=== PATIENT | male | born 1950 | race Caucasian/White ===

== ENCOUNTER 2017-07-08 15:47 | Inpatient (IN) | payer MEDICARE ==
--- NOTE | 2017-07-08 16:21 | RAD ---
PORTABLE CHEST ONE VIEW: Date: 07-08-17 Time: 4:05 p.m. History: Palpitations. Difficulty breathing. FINDINGS: Comparison is made with exam of 02-22-16. The heart size is borderline. The lungs are well expanded with bibasilar infiltrates. There is mild p ulmonary vascular congestion. No pneumothoraces or large effusions are seen. Findings are suspicious for pneumonia. POS: [facility]
[2017-07-08 16:24] LABS: #Basophils 0.1 thou/uL (0.0-0.2); #Eosinphils 0.1 thou/uL (0.0-0.7); #Lymphocytes 1.4 thou/uL (1.20-3.40); #Monocytes 0.3 thou/uL (0.11-0.59); #Neutrophils 5.2 thou/uL (1.40-6.50); %Basophils 0.7 % (0.0-1.0); %Lymphocytes 19.3 % (21.0-51.0); %Monocytes 4.8 % (0.0-10.0); %Neutrophils 73.3 % (42.0-75.0); Hemoglobin 8.4 g/dL (14.0-18.0); Mean Corpuscular HGB CONC 33.2 g/dL (32.0-36.0); Mean Corpuscular Hemoglobin 29.2 pg (27.0-31.0); Mean Corpuscular Volume 87.9 fl (80.0-94.0); Mean Platelet Volume 8.3 fL (7.4-10.4); Platelet Count 254 thou/uL (130-400); RBC Distribution Width 13.2 % (11.5-14.5); Red Blood Cell (RBC) Count 2.87 mill/uL (4.70-6.10); White Blood Cell (WBC) Count 7.1 thou/uL (4.8-10.8)
[2017-07-08 16:45] LABS: ALT (SGPT) 13 U/L (8-55); AST (SGOT) 11 U/L (5-34); Alkaline Phosphatase 183 U/L (40-150); Anion Gap 12 mmol/L (10-20); BUN (Urea Nitrogen) 46 mg/dL (8.4-25.7); Bilirubin, Total 0.3 mg/dL (0.2-1.2); CK (CPK) 106 U/L (30-200); Calc. Creatinine Clearance 0 mL/min (70-130); Calcium 8.6 mg/dL (7.8-10.44); Carbon Dioxide 25 mmol/L (23-31); Chloride 103 mmol/L (98-107); Estimated GFR-MDRD 18; Globulin 3.9 g/dL (2.4-3.5); Glucose 336 mg/dL (80-115); Magnesium 1.9 mg/dL (1.6-2.6); Potassium 4.8 mmol/L (3.5-5.1); Protein, Total 6.9 g/dL (5.8-8.1); Sodium 135 mmol/L (136-145)
[2017-07-08 16:49] LABS: Troponin I 0.051 ng/mL (< 0.028)
[2017-07-08] MEDS ORDERED: Labetalol HCl 100 MG/20 ML VIAL ONE (16:56)
[2017-07-08] MEDS ORDERED: Nitroglycerin 2% Ointment 1 INCH/1 GM Packet ONE (16:56)
[2017-07-08] MEDS ORDERED: Azithromycin 500 MG in Sodium Chloride 0.9% 250 ML 250 ML IVPB SCH (17:15)
[2017-07-08] MEDS ORDERED: Acetaminophen 500 MG TAB ONE (19:05)
--- NOTE | 2017-07-08 19:47 | HP ---
PRIMARY CARE PHYSICIAN: Ilya Burris MD CHIEF COMPLAINT: Cough and shortness of breath. HISTORY OF PRESENT ILLNESS: Mr. Ho is a pleasant 66-year-old gentleman who has a history of diabe mitch mellitus and hypertension as well as chronic kidney disease, between stage 4 and 5. He was in hi s usual state of health until about 2 weeks ago when he says he started coughing. He said initially it was like whitish phlegm. There had been a slight amount of green color to it as well and then he says about 4 days ago, he started getting short of breath and then earlier this morning, he says that he woke up in the night short of breath and had to sit up in order to breathe. He says that this ozuna ppened for the last 2 days. He has also noted some shortness of breath when he tries to get up and w alk. He says when he was walking his dog, he noticed that the shortness of breath and he says he has some chest pain or pressure when he tries to walk and when he gets short of breath. He also has had some subjective fever. He says sweating on the top of his head and he had some nausea, but no vomit ing. As a result of his symptoms, he came to the emergency room for evaluation. It was noted that h is blood pressure was extremely elevated with systolics as high as 200s and diastolics in the low 100 s. It has also been noted that he has been out of medications for a few days as well. He had a ches t x-ray done, which showed bilateral infiltrate and he is being admitted for hypertensive urgency as well as congestive heart failure exacerbation and possible pneumonia. REVIEW OF SYSTEMS: Constitutional: There has been subjective fever as well as chills, no night swea ts, no weight loss. HEENT: He denies any headaches, no dizziness, no visual changes, no sore throat , no rhinorrhea or neck pain, no adenopathy. Pulmonary: As the history of present illness. He also denies any hemoptysis. Cardiovascular: He has had PND and orthopnea. Increasing lower extremity e sara and chest pain as previously mentioned. Gastrointestinal: He denies any abdominal pain. He ozuna s had some nausea, but no vomiting. He has noted some hard stools, but no dark stools or black stool s. Genitourinary: No urinary frequency, hematuria, no hesitancy. Neurologic: No focal weakness, n umbness, no seizures. Psychiatric: No symptoms of anxiety or depression. Skin and Integument: No skin changes. No rash. PAST MEDICAL HISTORY: Significant for hypertension; diabetes mellitus; hyperlipidemia; chronic kidne y disease; coronary artery disease, status post stent. He also has a history of hypoglycemia and Bel l's palsy. PAST SURGICAL HISTORY: He has had an appendectomy, nasal septal surgery, and coronary stent placed. ALLERGIES: No known drug allergies. SOCIAL HISTORY: He is a non-smoker, nondrinker. He is , has one child and one grandchild and two great grandchildren. FAMILY HISTORY: Significant for cancer in his mother. Father with diabetes mellitus. MEDICATIONS: Include Humalog and NovoLog, which he takes on a sliding scale basis, lisinopril 20 mg daily, what sounds like atorvastatin. PHYSICAL EXAMINATION: GENERAL: He is alert and oriented. He appears to be in no acute distress. VITAL SIGNS: His blood pressure was 224/110 initially. The most recent repeat was 156/94, heart rat e 82, respiratory rate of 20, temperature is 98.5. HEENT: His pupils are equal, round, and reactive. Extraocular muscles are intact. Sclerae are anic teric. Throat: There is no erythema, no exudate. NECK: No adenopathy, no bruits. LUNGS: He has got bibasilar rales. CARDIOVASCULAR: He has a normal S1, S2. I did not appreciate an S3 or S4. No murmurs, clicks, or r ubs. ABDOMEN: Obese, it is soft, nontender, nondistended. Positive for bowel sounds. There is no reboun d or guarding. EXTREMITIES: No clubbing or cyanosis. He does have 1+ nonpitting edema on his right foot. He has h ad a fifth toe amputation and some foot deformity; however, his dorsalis pedis pulses are palpable bi laterally. NEUROLOGICALLY: The exam is nonfocal. LABORATORY AND X-RAY FINDINGS: EKG is sinus rhythm. Heart rate is 102. There are some nonspecific ST wave changes. White blood cell count 7.1, hemoglobin 8.4, hematocrit is 25.2, platelet count is 2 54. Sodium 135, potassium 4.8, chloride is 103, CO2 is 25, BUN of 46, creatinine 3.41, glucose is 33 6. Natriuretic peptide is 1342. ASSESSMENT AND PLAN: This is a pleasant 66-year-old gentleman who presents with shortness of breath, dyspnea on exertion, PND, orthopnea, elevated proBNP. 1. I suspect that he has new onset congestive heart failure, possibly related to uncontrolled hypert ension, but could also be ischemic in nature as well. He has also had a productive cough, this could be due to fluid overload, but bronchitis or superimposed pneumonia cannot be entirely ruled out. He will be admitted to telemetry. He needs to be diuresed, so will be giving him IV Lasix with careful monitoring of his renal function, get an echocardiogram, resume his GORGE inhibitor as tolerated and c ontrol his blood pressure. 2. For acute on chronic kidney disease, we will consult one of our nephrologists to see him. 3. Possible pneumonia. He will be treated with renal dose Levaquin. 4. Diabetes mellitus, he will be placed on a mild sliding scale only. He says he has had episodes o f severe hypoglycemia and has to be very cautious with insulin use.
[2017-07-08 19:54] LABS: Troponin I 0.055 ng/mL (< 0.028)
[2017-07-08] MEDS ORDERED: Dextrose 5% in Water 1,000 ML IV PRN (20:07)
[2017-07-08] MEDS ORDERED: Labetalol HCl 100 MG/20 ML VIAL SLOW IVP PRN (20:07)
[2017-07-08] MEDS ORDERED: Dextrose 50% Abboject 50 ML SYRINGE SLOW IVP PRN (20:07)
[2017-07-08] MEDS ORDERED: Benzonatate 100 MG CAP PO PRN (20:07)
[2017-07-08] MEDS: Heparin 5,000 UNITS/ML VIAL SC SCH (20:36)
[2017-07-08] MEDS: HumaLOG 300 UNITS/3 ML VIAL SC PRN (20:36)
[2017-07-09 05:18] LABS: #Eosinphils 0.1 thou/uL (0.0-0.7); #Lymphocytes 1.3 thou/uL (1.20-3.40); #Monocytes 0.5 thou/uL (0.11-0.59); #Neutrophils 3.8 thou/uL (1.40-6.50); %Basophils 0.6 % (0.0-1.0); %Eosinophils 2.3 % (0.0-10.0); %Lymphocytes 22.2 % (21.0-51.0); %Monocytes 7.9 % (0.0-10.0); Hemoglobin 7.5 g/dL (14.0-18.0); Mean Corpuscular Hemoglobin 29.4 pg (27.0-31.0); Mean Corpuscular Volume 88.9 fl (80.0-94.0); Mean Platelet Volume 8.7 fL (7.4-10.4); Platelet Count 219 thou/uL (130-400); RBC Distribution Width 13.5 % (11.5-14.5); Red Blood Cell (RBC) Count 2.55 mill/uL (4.70-6.10); White Blood Cell (WBC) Count 5.7 thou/uL (4.8-10.8)
[2017-07-09 05:37] LABS: Anion Gap 10 mmol/L (10-20); BUN (Urea Nitrogen) 50 mg/dL (8.4-25.7); Calc. Creatinine Clearance 25 mL/min (70-130); Calcium 8.2 mg/dL (7.8-10.44); Carbon Dioxide 26 mmol/L (23-31); Chloride 103 mmol/L (98-107); Estimated GFR-MDRD 17; Glucose 351 mg/dL (80-115); Potassium 4.6 mmol/L (3.5-5.1); Sodium 134 mmol/L (136-145)
[2017-07-09] MEDS ORDERED: Furosemide 40 MG/4 ML VIAL SLOW IVP SCH (06:00)
[2017-07-09] MEDS: HumaLOG 300 UNITS/3 ML VIAL SC PRN ×3 (06:03→20:40)
[2017-07-09] MEDS ORDERED: Lisinopril 20 MG TAB PO SCH (09:00)
[2017-07-09] MEDS ORDERED: Prevnar 13-Val Conj/PF 0.5 ML SYRINGE IM ONE (09:00)
[2017-07-09] MEDS ORDERED: FLU VACC TS2017-18 (>65YR) 0.5 ML SYRINGE IM ONE (09:00)
[2017-07-09] MEDS: Heparin 5,000 UNITS/ML VIAL SC SCH ×2 (09:07→20:34)
[2017-07-09] MEDS ORDERED: NIFEdipine XL 30 MG TAB PO SCH (10:30)
[2017-07-09] MEDS ORDERED: Senokot 8.6 MG TAB PO PRN (10:55)
[2017-07-09] MEDS ORDERED: Calcium Carbonate 500 MG ChewTAB PO PRN (10:55)
--- NOTE | 2017-07-09 11:00 | PDOC.PN ---
- Subjective Encounter Start Date: 07/09/17 Encounter Start Time: 09:30 Patient seen and examined. No new complaints. No overnight events. SOB on exertion. Cough - productive - Objective Resuscitation Status: Resuscitation Status FULL:Full Resuscitation MAR Reviewed: Yes Vital Signs & Weight: Vital Signs (12 hours) Temp Pulse Resp BP BP Pulse Ox 07/09/17 10:42 210/94 H 07/09/17 08:22 97.9 F 96 18 183/86 H 95 07/09/17 08:00 97.9 F 96 18 07/09/17 04:00 97.9 F 92 20 178/81 H 98 07/09/17 00:00 97.3 F L 91 20 167/77 H Weight Weight 193 lb I&O: 07/08/17 07/09/17 07/10/17 06:59 06:59 06:59 Intake Total 240 Output Total 500 Balance -260 Result Diagrams: 07/09/17 04:58 07/09/17 04:58 Additional Labs: Accuchecks 07/09/17 07/08/17 05:55 20:16 POC Glucose 313 H 282 H Radiology Reviewed by me: Yes (CXR - Pneumonia/CXR) EKG Reviewed by me: Yes (Tele SR) Phys Exam - Physical Examination Constitutional: NAD HEENT: moist MMs Neck: no JVD Respiratory: no wheezing Scat rales/rhonchi at bases, Symmetrical Cardiovascular: RRR, no rub No heaves/pulsations Gastrointestinal: soft, non-tender, no distention, positive bowel sounds Musculoskeletal: no edema Neurological: non-focal, normal sensation, moves all 4 limbs Psychiatric: normal affect, A&O x 3 Dx/Plan - Plan DVT proph w/heparin, DVT proph w/SCDs IMPRESSION: 1. Suspected new onset CHF 2. LYNDSAY/CKD 3 3. HTN urgency 4. DM2 5. CAD s/p stent 6. Dyslipidemia PLAN: * Await Echo * Change Lasix to daily * Add fluid restriction * Add Heart healthy diet * AM labs * Nephro following * Add Post void residual * Renal USG * Hold ACEI due to LYNDSAY * Add Procardia XL due to uncontrolled BP * Add PRN meds * Cont sliding scale * Cont Levaquin - dose adjusted for renal function Review of Systems - Review of Systems Cardiovascular: negative: chest pain, palpitations, orthopnea, paroxysmal nocturnal dyspnea, edema, light headedness Gastrointestinal: negative: Nausea, Vomiting, Abdominal Pain, Diarrhea, Constipation, Melena, Hematochezia - Medications/Allergies Allergies/Adverse Reactions: Allergies Allergy/AdvReac Type Severity Reaction Status Date / Time No Known Allergies Allergy Verified 01/07/15 17:09 Medications: Current Medications Acetaminophen (Tylenol) 650 mg PO Q4H PRN PRN Reason: Headache/Fever or Pain Albuterol/Ipratropium (Duoneb) 3 ml NEB [id number] [facility] Albuterol/Ipratropium (Duoneb) 3 ml NEB [id number] PRN PRN Reason: SOB &/or Wheezing Benzonatate (Tessalon) 100 mg PO Q4H PRN PRN Reason: Cough Calcium Carbonate (Tums) 1,000 mg PO Q4H PRN PRN Reason: Heartburn or Indigestion Dextrose/Water (Dextrose 50%) 25 gm SLOW IVP PRN PRN PRN Reason: Hypoglycemia Docusate Sodium (Colace) 100 mg PO BID [facility] Famotidine (Pepcid) 20 mg PO BID [facility] Furosemide (Lasix) 40 mg SLOW IVP DAILY [facility] Glucagon (Glucagon) 1 mg IM PRN PRN PRN Reason: Hypoglycemia Heparin Sodium (Porcine) (Heparin) 5,000 units SC BID [facility] Last Admin: 07/09/17 09:07 Dose: 5,000 units Dextrose/Water (D5w) 1,000 mls @ 0 mls/hr IV .Q0M PRN; As Directed PRN Reason: Hypoglycemia Levofloxacin 250 mg/ Device 50 mls @ 100 mls/hr IVPB Q24HR [facility] Last Admin: 07/09/17 09:26 Dose: 50 mls Insulin Human Lispro (Humalog) 0 units SC .MILD SLIDING SCALE PRN PRN Reason: Mild Correctional Scale Last Admin: 07/09/17 06:03 Dose: 5 unit Insulin Human Lispro (Humalog) 0 units SC .BEDTIME SLIDING SC PRN PRN Reason: Bedtime Correctional Scale Last Admin: 07/08/17 20:36 Dose: 3 unit Labetalol HCl (Normodyne) 10 mg SLOW IVP Q4H PRN PRN Reason: SBP Greater Than 180 Miscellaneous Medication (Pharmacy To Dose) 1 each IVPB ASDIR [facility] Nifedipine (Procardia Xl) 30 mg PO NOW [facility] Stop: 07/09/17 12:00 Last Admin: 07/09/17 10:42 Dose: 30 mg Nifedipine (Procardia Xl) 30 mg PO DAILY [facility] Senna (Senokot) 2 tab PO HSPRN PRN PRN Reason: Constipation
--- NOTE | 2017-07-09 12:24 | ULT ---
ULTRASOUND BILATERAL RENAL STANDARD: HISTORY: Acute kidney injury. COMPARISON: None. FINDINGS: The left kidney measures 11.6 x 6.1 x 6.1 cm without mass, hydronephrosis, or abnormal calcifications . The right kidney measures 11.8 x 5.1 x 6.5 cm with an exophytic 3 cm simple cyst. Prevoid urinary bladder volume is 109 mL. Both ureteral jets are seen. IMPRESSION: 1. Right exophytic simple cyst. 2. No evidence of obstructive uropathy. POS: [facility]
--- NOTE | 2017-07-09 17:19 | CON ---
DATE OF CONSULTATION: 07/09/2017 REASON FOR CONSULTATION: Elevated creatinine. HISTORY OF PRESENT ILLNESS: This is a very pleasant 66-year-old gentleman who presented to the [facility] yesterday evening for cough and shortness of breath. The patient had baseline CKD and a creatini ne of 2.15 in 06/2016, which had increased to 3.4. The patient's creatinine did not improve with hyd ration. The patient has no fever, chills, neck swelling, or leg swelling. The patient also denies t aking any nephrotoxic medication. PAST MEDICAL HISTORY: Hypertension, diabetes mellitus, chronic kidney disease, coronary artery disea se, acute renal failure, history of hypoglycemia, history of Earl's palsy, history of appendectomy, n stephany surgery, coronary artery stent. ALLERGIES: Reviewed. SOCIAL HISTORY: No alcohol or drug use. FAMILY HISTORY: Negative for ESRD. HOME MEDICATIONS: Reviewed. HOSPITAL MEDICATIONS: Reviewed. ALLERGIES: Reviewed. REVIEW OF SYSTEMS: A 12-point review of systems was performed and was negative except for positives noted above. GENERAL: Weakness- HEAD: Headache- NECK: No swelling or lumps. NOSE: No epistaxis or discharge. EYES: No diplopia or pain. RESPIRATORY: Dyspnea- CARDIOVASCULAR: Chest pain- GASTROINTESTINAL: Nausea- /[employer]: Hematuria- MUSCULOSKELETAL: No joint pain. NEUROPSYCHIATIC SYSTEMS: No suicidal ideation. No ideation. SKIN: Denies any rash or ulcer. CONSTITUTIONAL: No fever or chills. PHYSICAL EXAMINATION: GENERAL: The patient is awake, alert. VITAL SIGNS: Afebrile, pulse 94, respirations 16, blood pressure 166/77. GENERAL APPEARANCE AND MENTAL STATUS: Fair. HEAD/NECK: Normocephalic. Atraumatic. EYES: EOMI. No deformity. EARS: Clear. No ulcers. NOSE: Intact. No lesions. MOUTH: Clear. No discharge. THROAT: Clear. No exudate. LUNGS: Clear. No crackles. CARDIAC: S1, S2. No rub. ABDOMEN: Benign. BS+. GENITALIA/RECTUM: Barrera absent. BACK/EXTREMITIES: Edema 0+ Ulcer- NEUROLOGICAL: Alert and motor intact. SKIN: Rash- Bruise- LYMPHATICS: Edema- Ulcer-. LABORATORY DATA: Creatinine 3.57. Renal ultrasound done this morning shows no obstructive uropathy. ASSESSMENT AND RECOMMENDATIONS: 1. Acute kidney injury with chronic kidney disease, most likely because of progressive diabetic neph ropathy and hypertensive nephropathy. No indication for dialysis. Agree with gentle hydration. 2. Anemia, stable. 3. Hypertension. Titrate home blood pressure medications. No indication for dialysis at this time. We would recommend increasing the nifedipine to 60 mg daily.
[2017-07-09] MEDS: Famotidine 20 MG TAB PO SCH (20:33)
[2017-07-09] MEDS: guaiFENesin ER 600 MG TAB PO SCH (20:33)
[2017-07-09] MEDS: Docusate 100 MG CAP PO SCH (20:34)
[2017-07-10] MEDS: Acetaminophen 325 MG TAB PO PRN ×2 (03:18→20:54)
[2017-07-10] MEDS ORDERED: Acetaminophen/Codeine 30-300mg Tablet PO SCH (04:45)
[2017-07-10 05:11] LABS: #Basophils 0.1 thou/uL (0.0-0.2); #Eosinphils 0.1 thou/uL (0.0-0.7); #Lymphocytes 0.9 thou/uL (1.20-3.40); #Monocytes 0.6 thou/uL (0.11-0.59); #Neutrophils 6.9 thou/uL (1.40-6.50); %Basophils 0.7 % (0.0-1.0); %Eosinophils 0.7 % (0.0-10.0); %Lymphocytes 10.3 % (21.0-51.0); %Monocytes 6.7 % (0.0-10.0); %Neutrophils 81.6 % (42.0-75.0); Hemoglobin 7.4 g/dL (14.0-18.0); Mean Corpuscular HGB CONC 33.2 g/dL (32.0-36.0); Mean Corpuscular Hemoglobin 29.2 pg (27.0-31.0); Mean Corpuscular Volume 88.1 fl (80.0-94.0); Mean Platelet Volume 8.5 fL (7.4-10.4); Platelet Count 218 thou/uL (130-400); RBC Distribution Width 13.4 % (11.5-14.5); Red Blood Cell (RBC) Count 2.51 mill/uL (4.70-6.10); White Blood Cell (WBC) Count 8.5 thou/uL (4.8-10.8)
[2017-07-10 05:40] LABS: ALT (SGPT) 10 U/L (8-55); AST (SGOT) 10 U/L (5-34); Albumin 2.8 g/dL (3.4-4.8); Alkaline Phosphatase 137 U/L (40-150); Anion Gap 11 mmol/L (10-20); BUN (Urea Nitrogen) 47 mg/dL (8.4-25.7); Bilirubin, Total 0.3 mg/dL (0.2-1.2); Calc. Creatinine Clearance 25 mL/min (70-130); Calcium 8.1 mg/dL (7.8-10.44); Carbon Dioxide 24 mmol/L (23-31); Chloride 103 mmol/L (98-107); Estimated GFR-MDRD 17; Globulin 3.5 g/dL (2.4-3.5); Glucose 219 mg/dL (80-115); Magnesium 1.8 mg/dL (1.6-2.6); Potassium 4.3 mmol/L (3.5-5.1); Protein, Total 6.3 g/dL (5.8-8.1); Sodium 134 mmol/L (136-145)
[2017-07-10] MEDS ORDERED: Dextrose 50% Abboject 50 ML SYRINGE SLOW IVP PRN (08:55)
[2017-07-10] MEDS ORDERED: Dextrose 5% in Water 1,000 ML IV PRN (08:55)
[2017-07-10] MEDS ORDERED: NIFEdipine XL 30 MG TAB PO SCH (09:00)
[2017-07-10] MEDS: Docusate 100 MG CAP PO SCH ×2 (09:02→20:55)
[2017-07-10] MEDS: guaiFENesin ER 600 MG TAB PO SCH ×2 (09:02→20:55)
[2017-07-10] MEDS: Furosemide 40 MG/4 ML VIAL SLOW IVP SCH (09:02)
[2017-07-10] MEDS: Metoprolol Tartrate 25 MG TAB PO SCH ×2 (09:11→20:54)
[2017-07-10] MEDS: Heparin 5,000 UNITS/ML VIAL SC SCH ×2 (09:11→20:54)
[2017-07-10 09:19] LABS: Hemoglobin A1c 7.1 % (4.0-6.0)
--- NOTE | 2017-07-10 10:29 | PRG ---
DATE OF SERVICE: 07/10/2017 SUBJECTIVE: This is a 66-year-old gentleman being seen for acute kidney injury. The patient denies any nausea, vomiting, or chest pain. PHYSICAL EXAMINATION: GENERAL: Patient is awake, alert. VITAL SIGNS: Afebrile, pulse 73, breathing at 16, blood pressure 154/71. GENERAL APPEARANCE AND MENTAL STATUS: Fair. HEAD/NECK: Normocephalic. Atraumatic. EYES: EOMI. No deformity. EARS: Clear. No ulcers. NOSE: Intact. No lesions. MOUTH: Clear. No discharge. THROAT: Clear. No exudate. LUNGS: Clear. No crackles. CARDIAC: S1, S2. No rub. ABDOMEN: Benign. BS+. GENITALIA/RECTUM: Barrera absent. BACK/EXTREMITIES: Edema 0+ Ulcer-. NEUROLOGICAL: Alert and motor intact. SKIN: Rash- Bruise- LYMPHATICS: Edema- Ulcer-. LABORATORY DATA: Show hemoglobin 7.4, creatinine 3.67. ASSESSMENT AND RECOMMENDATIONS: 1. Acute kidney injury with chronic kidney disease, most likely due to progressive diabetic and hype rtensive disease. Renal function appears to have plateaued. Other causes could be acute tubular nec rosis associated with underlying pneumonia. 2. Hypertension. I would recommend increasing nifedipine to 60 mg daily. 3. Medication based on GFR are appropriate, no urgent indication for dialysis at this time.
[2017-07-10 11:28] LABS: Creatinine, Urine 84.67 mg/dL (63-166)
[2017-07-10] MEDS: HumaLOG 300 UNITS/3 ML VIAL SC PRN (13:58)
[2017-07-10] MEDS: Insulin Detemir 100 UNITS/ML 10 UNITS in Pre-Filled Syringe 1 EACH SC SCH (13:58)
[2017-07-10] MEDS: Ondansetron HCl/PF 4 MG/2 ML Vial IVP PRN ×2 (13:58→20:51)
--- NOTE | 2017-07-10 16:40 | PDOC.PN ---
- Subjective Encounter Start Date: 07/10/17 Encounter Start Time: 13:30 Subjective: pt up in bed complains of nausea - Objective Resuscitation Status: Resuscitation Status FULL:Full Resuscitation Vital Signs & Weight: Vital Signs (12 hours) Temp Pulse Pulse Pulse Resp BP BP 07/10/17 16:00 98.4 F 84 14 07/10/17 12:00 97.7 F 79 14 07/10/17 11:02 72 80 132/63 07/10/17 08:59 102 H 177/80 H 07/10/17 08:00 98.5 F 102 H 14 07/10/17 06:58 91 18 07/10/17 04:41 BP BP Pulse Ox Pulse Ox Pulse Ox 07/10/17 16:00 170/89 H 96 07/10/17 12:00 171/84 H 98 07/10/17 11:02 162/80 H 97 95 07/10/17 08:59 07/10/17 08:00 177/80 H 94 L 07/10/17 06:58 95 07/10/17 04:41 154/71 H Weight Weight 193 lb 3.2 oz I&O: 07/09/17 07/10/17 07/11/17 06:59 06:59 06:59 Intake Total 240 1784 Output Total 500 1705 Balance -260 79 Result Diagrams: 07/10/17 04:56 07/10/17 04:56 Additional Labs: Accuchecks 07/10/17 07/10/17 07/09/17 11:30 05:30 20:06 POC Glucose 290 H 215 H 265 H 07/09/17 16:37 POC Glucose 235 H Phys Exam - Physical Examination HEENT: PERRLA Neck: no nodes Respiratory: wheezing present Cardiovascular: RRR, no significant murmur Gastrointestinal: soft, non-tender Musculoskeletal: no edema, pulses present Neurological: non-focal, normal sensation Dx/Plan (1) Acute kidney failure Status: Acute Plan: pt's creatinine continues to increase, renal ultrasound negative, nephrology to follow Comment: improving (2) Hypertension Code(s): I10 - ESSENTIAL (PRIMARY) HYPERTENSION Status: Chronic Plan: pt on procardia will add metoprolol for better bp control. his lisinopril has been discontinue due to elevated creatinine. (3) Pneumonia Code(s): J18.9 - PNEUMONIA, UNSPECIFIED ORGANISM Status: Acute Plan: will continue current abx levaquin for now. will order sputum cx - Plan * .
[2017-07-10] MEDS: Famotidine 20 MG TAB PO SCH (20:55)
[2017-07-10] MEDS: Atorvastatin Calcium 20 MG TAB PO SCH (20:55)
[2017-07-10] MEDS ORDERED: Non-Formulary Item 1 EACH (Atorvastatin Calcium [Atorvastatin Calcium] 20 MG) PO SCH (21:00)
[2017-07-11] MEDS: Ondansetron HCl/PF 4 MG/2 ML Vial IVP PRN (04:22)
[2017-07-11] MEDS: Heparin 5,000 UNITS/ML VIAL SC SCH ×2 (09:13→20:32)
[2017-07-11] MEDS: NIFEdipine XL 60 MG TAB PO SCH (09:13)
[2017-07-11] MEDS: Docusate 100 MG CAP PO SCH ×2 (09:13→20:31)
[2017-07-11] MEDS: guaiFENesin ER 600 MG TAB PO SCH ×2 (09:13→20:32)
[2017-07-11] MEDS: Furosemide 40 MG/4 ML VIAL SLOW IVP SCH (09:14)
[2017-07-11] MEDS: Insulin Detemir 100 UNITS/ML 10 UNITS in Pre-Filled Syringe 1 EACH SC SCH (09:14)
[2017-07-11] MEDS: Metoprolol Tartrate 25 MG TAB PO SCH ×2 (09:15→20:32)
[2017-07-11] MEDS ORDERED: Promethazine HCl 25 MG/ML VIAL IM/IV PRN (09:37)
[2017-07-11 09:43] LABS: Anion Gap 17 mmol/L (10-20); BUN (Urea Nitrogen) 49 mg/dL (8.4-25.7); Calc. Creatinine Clearance 22 mL/min (70-130); Calcium 8.7 mg/dL (7.8-10.44); Carbon Dioxide 21 mmol/L (23-31); Chloride 101 mmol/L (98-107); Estimated GFR-MDRD 15; Glucose 176 mg/dL (80-115); Potassium 5.2 mmol/L (3.5-5.1); Sodium 134 mmol/L (136-145)
[2017-07-11 10:28] LABS: ALT (SGPT) 13 U/L (8-55); AST (SGOT) 12 U/L (5-34); Albumin 3.1 g/dL (3.4-4.8); Alkaline Phosphatase 134 U/L (40-150); Anion Gap 14 mmol/L (10-20); BUN (Urea Nitrogen) 49 mg/dL (8.4-25.7); Bilirubin, Total 0.3 mg/dL (0.2-1.2); Calc. Creatinine Clearance 22 mL/min (70-130); Calcium 8.8 mg/dL (7.8-10.44); Carbon Dioxide 24 mmol/L (23-31); Chloride 100 mmol/L (98-107); Estimated GFR-MDRD 14; Globulin 3.8 g/dL (2.4-3.5); Glucose 191 mg/dL (80-115); Lipase 5 U/L (8-78); Potassium 4.9 mmol/L (3.5-5.1); Protein, Total 6.9 g/dL (5.8-8.1); Sodium 133 mmol/L (136-145)
[2017-07-11 10:37] LABS: Hemoglobin 7.8 g/dL (14.0-18.0); Mean Corpuscular HGB CONC 32.6 g/dL (32.0-36.0); Mean Corpuscular Volume 88.9 fl (80.0-94.0); Mean Platelet Volume 8.6 fL (7.4-10.4); Platelet Count 274 thou/uL (130-400); RBC Distribution Width 13.4 % (11.5-14.5); Red Blood Cell (RBC) Count 2.67 mill/uL (4.70-6.10); White Blood Cell (WBC) Count 6.5 thou/uL (4.8-10.8)
[2017-07-11 10:39] LABS: Band 2 % (5-11); Lymphocytes 12 % (21-51); MDiff Complete? YES; Monocytes 2 % (0-10); Neutrophil 84 % (42-75); Polychromasia SLIGHT = 2-3 cells (100X) (0-2/hpf)
--- NOTE | 2017-07-11 13:49 | PQF ---
CLINICAL DOCUMENTATION IMPROVEMENT CLARIFICATION FORM: ICD-10 Updated PLEASE DO AN ADDENDUM TO THE PROGRESS NOTE WITH ANY DOCUMENTATION UPDATES OR ADDITIONS AND CARRY THROUGH TO DC SUMMARY. THANK YOU. DATE: 07/11/17 ATTN: Dr. Blanca Please exercise your independent, professional judgment in responding to the clarification form. Clinical indicators are provided on the bottom of this form for your review Please check appropriate box(s): HEART FAILURE: A. TYPE: [ ] Systolic / HFrEF [ ] Diastolic / HFpEF [ ] Combined Systolic / Diastolic B. ACUITY [ ] Acute [ ] Acute on Chronic [ ] Chronic [ ] Other diagnosis [ ] Unable to determine In addition, please specify: Present on Admission (POA): [ ] Yes [ ] No [ ] Unable to determine For continuity of documentation, please document condition throughout progress notes and discharge summary. Thank You. CLINICAL INDICATORS - SIGNS / SYMPTOMS / LABS H&P: CHEST XRAY SHOWED BILATERAL INFILTRATE NATRIURETIC PEPTIDE IS 1342 ECHO 07/09: EF CALCULATED 52.8% PN 07/09: SUSPECTED NEW ONSET CHF. RISKS: H&P: HE HAS BEEN OUT OF MEDICATIONS FOR A FEW DAYS. HX SIGNIFICANT FOR HYPERTENSION, DM, CKD, CAD. TREATMENTS: CPOE 07/08: LASIX 40 MG IV 0600, 1400. DC'D 07/09. CPOE 07/09: LASIX 40 MG IV DAILY Thank you, Alla (This form is maintained as a part of the permanent medical record) 2015 [email or web address]. All Rights Reserved Alla Trent RN, BSN [email or web address] Office: [phone] [facility]
--- NOTE | 2017-07-11 16:47 | PDOC.PN ---
- Subjective Encounter Start Date: 07/11/17 Encounter Start Time: 10:45 Subjective: pt up in bed awake but is having intermittent confusion - Objective Resuscitation Status: Resuscitation Status FULL:Full Resuscitation Vital Signs & Weight: Vital Signs (12 hours) Temp Pulse Resp BP BP Pulse Ox 07/11/17 13:41 80 16 07/11/17 13:11 97.6 F 75 17 130/61 95 07/11/17 11:47 98.4 F 96 18 96 07/11/17 09:13 91 165/77 H 07/11/17 08:00 98 F 91 18 165/77 H 97 07/11/17 07:30 100 16 Weight Weight 192 lb I&O: 07/10/17 07/11/17 07/12/17 06:59 06:59 06:59 Intake Total 1784 870 Output Total 1705 650 Balance 79 220 Result Diagrams: 07/11/17 09:53 07/11/17 09:53 Additional Labs: Accuchecks 07/11/17 07/11/17 07/10/17 11:29 05:51 16:34 POC Glucose 246 H 184 H 174 H Phys Exam - Physical Examination HEENT: PERRLA Neck: no nodes Respiratory: no wheezing, no rales Cardiovascular: RRR, no significant murmur Gastrointestinal: soft, no distention (mild tenderness to RUQ) Musculoskeletal: edema present (to bilateral lower ext) Dx/Plan (1) Acute kidney failure Status: Acute Plan: worsening, lasix discontinued yestarday, will monitor (2) Hypertension Code(s): I10 - ESSENTIAL (PRIMARY) HYPERTENSION Status: Chronic Plan: variable will continue current meds (3) Pneumonia Code(s): J18.9 - PNEUMONIA, UNSPECIFIED ORGANISM Status: Acute Qualifiers: Laterality: bilateral Plan: will continue levaquin for now. influenza negative (4) Diabetes mellitus type 2 in nonobese Code(s): E11.9 - TYPE 2 DIABETES MELLITUS WITHOUT COMPLICATIONS Status: Chronic Plan: will continue current tx (5) Nausea Code(s): R11.0 - NAUSEA Status: Acute Plan: lipase normal, possible due to uremia? pt was given phenegran became confused. will hold off on this med. 1653 pt more awake no more nausea. lfts normal. continue to monitor. - Plan * .
[2017-07-11] MEDS ORDERED: Epoetin (ESRD) 10,000 UNITS/ML VIAL SC SCH (17:00)
--- NOTE | 2017-07-11 17:21 | PRG ---
DATE OF SERVICE: 07/11/2017 SUBJECTIVE: This is a 66-year-old gentleman being seen for acute kidney injury. The patient denies any nausea, vomiting, or chest pain. PHYSICAL EXAMINATION: GENERAL: The patient is awake and alert. VITAL SIGNS: Afebrile, pulse 75, breathing 16, blood pressure 130/61. GENERAL APPEARANCE AND MENTAL STATUS: Fair. HEAD/NECK: Normocephalic. Atraumatic. EYES: EOMI. No deformity. EARS: Clear. No ulcers. NOSE: Intact. No lesions. MOUTH: Clear. No discharge. THROAT: Clear. No exudate. LUNGS: Clear. No crackles. CARDIAC: S1, S2. No rub. ABDOMEN: Benign. BS+. GENITALIA/RECTUM: Barrera absent. BACK/EXTREMITIES: Edema 0+ Ulcer- NEUROLOGICAL: Alert and motor intact. SKIN: Rash- Bruise- LYMPHATICS: Edema- Ulcer- LABORATORY DATA: Hemoglobin 7.8, creatinine 4.15. ASSESSMENT AND PLAN: 1. Acute kidney injury with chronic kidney disease, most likely due to progressive diabetic nephropa thy, as well as hypertensive nephrosclerosis. No indication for dialysis. 2. Hyperkalemia, improved. 3. Anemia, stable. No urgent indication for dialysis. We will stop Lasix and follow renal function in the morning.
[2017-07-11] MEDS: Atorvastatin Calcium 20 MG TAB PO SCH (20:31)
[2017-07-11] MEDS: HumaLOG 300 UNITS/3 ML VIAL SC PRN (20:32)
[2017-07-11] MEDS: Famotidine 20 MG TAB PO SCH (20:32)
[2017-07-12] MEDS ORDERED: hydrALAZINE 25 MG TAB PO SCH (09:00)
[2017-07-12] MEDS: Docusate 100 MG CAP PO SCH ×2 (09:06→20:18)
[2017-07-12] MEDS: Metoprolol Tartrate 25 MG TAB PO SCH ×2 (09:06→20:18)
[2017-07-12] MEDS: guaiFENesin ER 600 MG TAB PO SCH ×2 (09:06→20:18)
[2017-07-12] MEDS: NIFEdipine XL 60 MG TAB PO SCH (09:06)
[2017-07-12] MEDS: Heparin 5,000 UNITS/ML VIAL SC SCH ×2 (09:07→20:19)
[2017-07-12] MEDS: Insulin Detemir 100 UNITS/ML 10 UNITS in Pre-Filled Syringe 1 EACH SC SCH (09:07)
[2017-07-12 09:11] LABS: Hemoglobin 7.7 g/dL (14.0-18.0); Mean Corpuscular HGB CONC 34.3 g/dL (32.0-36.0); Mean Corpuscular Hemoglobin 30.2 pg (27.0-31.0); Mean Platelet Volume 8.8 fL (7.4-10.4); Platelet Count 275 thou/uL (130-400); RBC Distribution Width 13.6 % (11.5-14.5); Red Blood Cell (RBC) Count 2.55 mill/uL (4.70-6.10); White Blood Cell (WBC) Count 7.1 thou/uL (4.8-10.8)
[2017-07-12 09:14] LABS: Anion Gap 16 mmol/L (10-20); BUN (Urea Nitrogen) 58 mg/dL (8.4-25.7); Calc. Creatinine Clearance 19 mL/min (70-130); Calcium 8.6 mg/dL (7.8-10.44); Carbon Dioxide 20 mmol/L (23-31); Chloride 101 mmol/L (98-107); Estimated GFR-MDRD 13; Glucose 113 mg/dL (80-115); Potassium 4.8 mmol/L (3.5-5.1); Sodium 132 mmol/L (136-145)
[2017-07-12] MEDS: Acetaminophen 325 MG TAB PO PRN (09:22)
--- NOTE | 2017-07-12 09:47 | PRG ---
DATE OF SERVICE: 07/12/2017 SUBJECTIVE: This is a 66-year-old gentleman being seen for chronic kidney disease. The patient delonte es any nausea, vomiting or chest pain. PHYSICAL EXAMINATION: GENERAL: Patient is awake, alert. VITAL SIGNS: Afebrile, pulse 76, breathing at 16, blood pressure 116/89. GENERAL APPEARANCE AND MENTAL STATUS: Fair. HEAD/NECK: Normocephalic, atraumatic. EYES: EOMI. No deformity. EARS: Clear. No ulcers. NOSE: Intact. No lesions. MOUTH: Clear. No discharge. THROAT: Clear. No exudate. LUNGS: Clear. No crackles. CARDIAC: S1, S2. No rub. ABDOMEN: Benign. BS+. GENITALIA/RECTUM: Barrera absent. BACK/EXTREMITIES: Edema 0+ Ulcer-. NEUROLOGICAL: Alert and motor intact. SKIN: Rash- Bruise- LYMPHATICS: Edema- Ulcer-. LABORATORY DATA: Show hemoglobin 7.7, creatinine is 4.6. ASSESSMENT AND RECOMMENDATIONS: 1. Acute kidney injury with chronic kidney disease, is progressive, most likely diabetic disease exa cerbated by cardiorenal syndrome. No urgent indication for dialysis. We will follow renal function closely. 2. Hypertension, stable. Increase the Procardia to 90 and hydralazine to 25 t.i.d. 3. Anemia, stable. 4. Medications based on glomerular as appropriate.
[2017-07-12] MEDS ORDERED: Sodium Chloride 0.9% 500 ML IV SCH (11:45)
--- NOTE | 2017-07-12 12:06 | PDOC.PN ---
- Subjective Encounter Start Date: 07/12/17 Encounter Start Time: 11:30 Subjective: pt up in bed appears drowsy since he did not sleep last night - Objective Resuscitation Status: Resuscitation Status FULL:Full Resuscitation Vital Signs & Weight: Vital Signs (12 hours) Temp Pulse Resp BP BP BP Pulse Ox 07/12/17 09:19 76 169/89 H 07/12/17 09:06 76 169/89 H 07/12/17 08:00 76 16 91 L 07/12/17 07:44 97.6 F 78 18 169/89 H 94 L 07/12/17 04:00 97.2 F L 86 18 168/80 H 95 07/12/17 01:33 87 16 94 L Weight Weight 193 lb 1.6 oz I&O: 07/11/17 07/12/17 07/13/17 06:59 06:59 06:59 Intake Total 870 120 Output Total 650 525 Balance 220 -405 Result Diagrams: 07/12/17 08:39 07/12/17 08:39 Additional Labs: Accuchecks 07/12/17 07/12/17 07/11/17 11:16 06:04 20:05 POC Glucose 163 H 134 H 257 H 07/11/17 16:48 POC Glucose 193 H Phys Exam - Physical Examination HEENT: PERRLA Neck: no nodes Respiratory: no wheezing, no rales Cardiovascular: RRR, no significant murmur Gastrointestinal: soft, no distention (mild tenderness to lower abdomen area) Skin: no rash Dx/Plan (1) Acute kidney failure Status: Acute Plan: pt's creatinine continues to increase. spoke with nephrology about pt's worsening creatinine. Also pt was nauseated yesterday with emesis ? mild dehydration with his fluid restriction. will give pt 500ml of NS to see if this could be causing worsening of his kidneys. (2) Hypertension Code(s): I10 - ESSENTIAL (PRIMARY) HYPERTENSION Status: Chronic Plan: will add hydralizine and increase procardia. Discussed with nephrology. (3) Pneumonia Code(s): J18.9 - PNEUMONIA, UNSPECIFIED ORGANISM Status: Acute Qualifiers: Laterality: bilateral Plan: continue current tx, will get repeat cxr (4) Diabetes mellitus type 2 in nonobese Code(s): E11.9 - TYPE 2 DIABETES MELLITUS WITHOUT COMPLICATIONS Status: Chronic Plan: continue current medication (5) Nausea Code(s): R11.0 - NAUSEA Status: Acute Plan: lipase normal, improved - Plan * .
[2017-07-12] MEDS: hydrALAZINE 25 MG TAB PO SCH ×2 (15:12→20:18)
[2017-07-12] MEDS: Atorvastatin Calcium 20 MG TAB PO SCH (20:18)
[2017-07-12] MEDS: Famotidine 20 MG TAB PO SCH (20:18)
[2017-07-12] MEDS ORDERED: Tamsulosin HCl 0.4 MG CAP PO SCH (23:30)
[2017-07-13 05:40] LABS: Anion Gap 16 mmol/L (10-20); BUN (Urea Nitrogen) 57 mg/dL (8.4-25.7); Calc. Creatinine Clearance 18 mL/min (70-130); Calcium 8.2 mg/dL (7.8-10.44); Carbon Dioxide 20 mmol/L (23-31); Chloride 99 mmol/L (98-107); Estimated GFR-MDRD 12; Glucose 115 mg/dL (80-115); Potassium 4.5 mmol/L (3.5-5.1); Sodium 130 mmol/L (136-145)
--- NOTE | 2017-07-13 10:00 | RAD ---
CHEST 2 VIEWS: HISTORY: Dyspnea. COMPARISON: 07/08/17. FINDINGS: Cardiac silhouette is unremarkable. Pulmonary vasculature is upper limits of normal. Infiltrate at the right posterior lung base is best demonstrated on the lateral view, obscuring the posterior costo phrenic angle. A small amount of bilateral pleural fluid is suspected. Mediastinum remains midline. Azygous fissure is apparent. unemployment benefits claims taker leads overlie the chest. IMPRESSION: Right posterior basilar infiltrate. Small bilateral pleural effusions. Continued close radiographic followup is suggested after medial treatment. POS: HUYENH
--- NOTE | 2017-07-13 10:19 | PRG ---
DATE OF SERVICE: 07/13/2017 SUBJECTIVE: This is a 66-year-old gentleman being seen for acute kidney injury. The patient denies any nausea, vomiting or chest pain. PHYSICAL EXAMINATION: GENERAL: Patient is awake, alert. VITAL SIGNS: Afebrile, pulse 68, breathing 16, blood pressure 140/72. HEAD/NECK: Normocephalic. Atraumatic. EYES: EOMI. No deformity. EARS: Clear. No ulcers. NOSE: Intact. No lesions. MOUTH: Clear. No discharge. THROAT: Clear. No exudate. LUNGS: Clear. No crackles. CARDIAC: S1, S2. No rub. ABDOMEN: Benign. BS+. GENITALIA/RECTUM: Barrera absent. BACK/EXTREMITIES: Edema 0+ Ulcer- NEUROLOGICAL: Alert and motor intact. SKIN: Rash- Bruise- LYMPHATICS: Edema- Ulcer- LABORATORY DATA: Show hemoglobin is 7.7, creatinine is 4.8. ASSESSMENT AND RECOMMENDATIONS: 1. Acute kidney injury with chronic kidney disease, stage 5, most likely because of progressive hype rtensive and diabetic nephrosclerosis in the setting of possible acute tubular necrosis caused by acu te infectious process. No indication for dialysis. We will follow the patient's renal function. 2. Coronary artery disease. 3. Hypertension, stable. 4. Anemia, stable. 5. Medications based on glomerular filtration rate are appropriate.
[2017-07-13] MEDS: NIFEdipine XL 90 MG TAB PO SCH (11:24)
[2017-07-13] MEDS: Metoprolol Tartrate 25 MG TAB PO SCH ×2 (11:25→20:30)
[2017-07-13] MEDS: guaiFENesin ER 600 MG TAB PO SCH ×2 (11:25→20:36)
[2017-07-13] MEDS: Docusate 100 MG CAP PO SCH ×2 (11:25→20:30)
[2017-07-13] MEDS: hydrALAZINE 25 MG TAB PO SCH ×3 (11:26→20:30)
[2017-07-13] MEDS: Heparin 5,000 UNITS/ML VIAL SC SCH ×2 (11:26→20:30)
[2017-07-13] MEDS: Insulin Detemir 100 UNITS/ML 10 UNITS in Pre-Filled Syringe 1 EACH SC SCH (11:28)
[2017-07-13] MEDS: HumaLOG 300 UNITS/3 ML VIAL SC PRN ×2 (11:34→19:07)
[2017-07-13] MEDS ORDERED: diphenhydrAMINE 25 MG CAP PO PRN (16:55)
[2017-07-13] MEDS ORDERED: Naloxone HCl 0.4 mg/ml Vial IV PRN (16:55)
[2017-07-13] MEDS ORDERED: Morphine CADD 1 MG/ML CADD IVPB PRN (16:55)
[2017-07-13] MEDS ORDERED: diphenhydrAMINE 50 MG/ML VIAL IM PRN (16:55)
[2017-07-13] MEDS ORDERED: Ondansetron HCl/PF 4 MG/2 ML Vial IVP PRN (16:55)
[2017-07-13] MEDS ORDERED: Promethazine HCl 25 MG/ML VIAL IM PRN (16:55)
[2017-07-13] MEDS ORDERED: diphenhydrAMINE 50 MG/ML VIAL IVP PRN (16:55)
[2017-07-13] MEDS ORDERED: Communication Order-Pharmacy FS SCH (17:00)
--- NOTE | 2017-07-13 17:02 | PDOC.PN ---
- Subjective Encounter Start Date: 07/13/17 Encounter Start Time: 10:00 Subjective: pt up in bed no complains - Objective Resuscitation Status: Resuscitation Status FULL:Full Resuscitation Vital Signs & Weight: Vital Signs (12 hours) Temp Pulse Pulse Pulse Resp BP BP 07/13/17 16:38 24 H 07/13/17 14:10 56 L 16 07/13/17 11:36 80 07/13/17 11:14 79 73 153/67 H 148/80 H 07/13/17 08:53 07/13/17 08:51 68 16 07/13/17 08:00 98.7 F 71 20 BP BP Pulse Ox Pulse Ox Pulse Ox 07/13/17 16:38 98/57 L 07/13/17 14:10 07/13/17 11:36 153/67 H 91 L 07/13/17 11:14 99 93 L 07/13/17 08:53 92 L 07/13/17 08:51 07/13/17 08:00 145/70 H Weight Weight 191 lb 3.2 oz I&O: 07/12/17 07/13/17 07/14/17 06:59 06:59 06:59 Intake Total 120 1700 Output Total 525 2400 300 Balance -405 -700 -300 Result Diagrams: 07/12/17 08:39 07/13/17 04:55 Additional Labs: Accuchecks 07/13/17 07/13/17 07/12/17 10:51 05:41 20:08 POC Glucose 186 H 127 H 167 H Phys Exam - Physical Examination HEENT: PERRLA Neck: no nodes Respiratory: no wheezing, no rales Cardiovascular: RRR, no significant murmur Gastrointestinal: soft, non-tender Musculoskeletal: edema present Neurological: non-focal Dx/Plan (1) Acute kidney failure Status: Acute Plan: pt's creatinine continues to worsen, may need dialysis. pt received ns for possible dehydration, however no improvement on creatinine. (2) Hypertension Code(s): I10 - ESSENTIAL (PRIMARY) HYPERTENSION Status: Chronic Plan: improved (3) Pneumonia Code(s): J18.9 - PNEUMONIA, UNSPECIFIED ORGANISM Status: Acute Qualifiers: Laterality: bilateral Plan: pt completed his 7 days of iv abx (4) Diabetes mellitus type 2 in nonobese Code(s): E11.9 - TYPE 2 DIABETES MELLITUS WITHOUT COMPLICATIONS Status: Chronic Plan: stable continue to monitor (5) Nausea Code(s): R11.0 - NAUSEA Status: Acute Plan: resolved - Plan * .
[2017-07-13] MEDS: Atorvastatin Calcium 20 MG TAB PO SCH (20:30)
[2017-07-13] MEDS: Famotidine 20 MG TAB PO SCH (20:36)
[2017-07-13] MEDS ORDERED: Tamsulosin HCl 0.4 MG CAP PO SCH (22:45)
[2017-07-14 01:42] LABS: #Lymphocytes 0.9 thou/uL (1.20-3.40); #Monocytes 0.4 thou/uL (0.11-0.59); #Neutrophils 4.4 thou/uL (1.40-6.50); %Basophils 0.5 % (0.0-1.0); %Eosinophils 0.4 % (0.0-10.0); %Lymphocytes 16.3 % (21.0-51.0); %Monocytes 6.5 % (0.0-10.0); %Neutrophils 76.3 % (42.0-75.0); Hemoglobin 8.1 g/dL (14.0-18.0); Mean Corpuscular Hemoglobin 29.7 pg (27.0-31.0); Mean Corpuscular Volume 87.2 fl (80.0-94.0); Mean Platelet Volume 8.9 fL (7.4-10.4); Platelet Count 284 thou/uL (130-400); RBC Distribution Width 13.6 % (11.5-14.5); Red Blood Cell (RBC) Count 2.72 mill/uL (4.70-6.10); White Blood Cell (WBC) Count 5.8 thou/uL (4.8-10.8)
[2017-07-14 01:50] LABS: INR-International Normal Ratio 1.2; PTT 31.7 SEC (22.9-36.1)
[2017-07-14 01:55] LABS: ALT (SGPT) 19 U/L (8-55); AST (SGOT) 16 U/L (5-34); Albumin 3.2 g/dL (3.4-4.8); Alkaline Phosphatase 156 U/L (40-150); Anion Gap 17 mmol/L (10-20); BUN (Urea Nitrogen) 61 mg/dL (8.4-25.7); Bilirubin, Total 0.3 mg/dL (0.2-1.2); Calc. Creatinine Clearance 16 mL/min (70-130); Calcium 8.6 mg/dL (7.8-10.44); Carbon Dioxide 19 mmol/L (23-31); Chloride 98 mmol/L (98-107); Estimated GFR-MDRD 11; Globulin 3.7 g/dL (2.4-3.5); Glucose 194 mg/dL (80-115); Potassium 4.9 mmol/L (3.5-5.1); Protein, Total 6.9 g/dL (5.8-8.1); Sodium 129 mmol/L (136-145)
[2017-07-14 01:58] LABS: Troponin I 0.023 ng/mL (< 0.028)
[2017-07-14 02:01] LABS: CKMB 6.7 ng/mL (0-6.6)
[2017-07-14 02:54] LABS: Hemoglobin 7.8 g/dL (14.0-18.0)
[2017-07-14 03:18] LABS: Troponin I 0.027 ng/mL (< 0.028)
--- NOTE | 2017-07-14 04:03 | PDOC.EVN ---
Event Note - Event Note Event Note: Mason Otto called at approx 0115 for AMS. Pt noted to be actively hallucinating in room and concern for possible new onset focal neurologic symptoms. VSS. Oriented to person and place, but not time or situation. Exam remarkable for minimally reactive pupils, mild left facial droop. Possible CN7 deficit on left; however pt and endorse h/o [place] Palsy on the left. Per nursing, pt had dec RUE strength prior to my arrival, but had full strength with my exam. Given inconsistent neurologic exam, CT brain w/o contrast ordered, which was negative for acute hemorrhagic CVA. After brief review of records, it is my suspicion this is likely secondary to worsening uremia. Labs ordered to recheck metabolic panel - pending results. Will transfer care back to primary team unless acute need for management reoccurs.
[2017-07-14 06:11] LABS: ALT (SGPT) 18 U/L (8-55); AST (SGOT) 17 U/L (5-34); Alkaline Phosphatase 150 U/L (40-150); Anion Gap 19 mmol/L (10-20); BUN (Urea Nitrogen) 62 mg/dL (8.4-25.7); Bilirubin, Total 0.2 mg/dL (0.2-1.2); Calc. Creatinine Clearance 17 mL/min (70-130); Calcium 8.4 mg/dL (7.8-10.44); Carbon Dioxide 17 mmol/L (23-31); Chloride 98 mmol/L (98-107); Estimated GFR-MDRD 11; Globulin 3.6 g/dL (2.4-3.5); Glucose 180 mg/dL (80-115); Potassium 4.8 mmol/L (3.5-5.1); Protein, Total 6.6 g/dL (5.8-8.1); Sodium 129 mmol/L (136-145)
--- NOTE | 2017-07-14 08:09 | CT ---
CT HEAD NONCONTRAST: INDICATION: Altered mental status. FINDINGS: There is mild prominence of the ventricular system. Mild chronic microvascular ischemic disease is p resent. There is no intracranial hemorrhage, mass effect, or midline shift. Decreased pneumatizatio n of mastoid air cells present bilaterally. IMPRESSION: 1. No acute intracranial hemorrhage or mass effect. 2. Mild chronic microvascular ischemic disease. 3. Mild prominence of the ventricular system. Telephone call with findings placed to ER physician, Dr. Gema Best, at the time of dictation 0146 hours 07/14/17. CODE CR
[2017-07-14] MEDS: Tamsulosin HCl 0.4 MG CAP PO SCH (09:54)
[2017-07-14] MEDS: hydrALAZINE 25 MG TAB PO SCH ×3 (09:54→18:35)
[2017-07-14] MEDS: NIFEdipine XL 90 MG TAB PO SCH (09:55)
[2017-07-14] MEDS: guaiFENesin ER 600 MG TAB PO SCH ×2 (09:55→20:12)
[2017-07-14] MEDS: Docusate 100 MG CAP PO SCH ×2 (09:55→20:12)
[2017-07-14] MEDS: Metoprolol Tartrate 25 MG TAB PO SCH ×2 (09:55→18:35)
[2017-07-14] MEDS: Heparin 5,000 UNITS/ML VIAL SC SCH ×2 (09:57→20:12)
[2017-07-14] MEDS: Insulin Detemir 100 UNITS/ML 10 UNITS in Pre-Filled Syringe 1 EACH SC SCH (09:59)
[2017-07-14 10:13] LABS: HBSAg Index 0.53 S/CO (0-0.99); Hep B Core Total Ab Non-Reactive (NonReactive); Hep B Core Total Index 0.22 S/CO (0-0.79); Hep B Surf AB Non-Reactive (NonReactive); Hep B Surf Ag Non-Reactive S/CO (NonReactive); Hep C IgG Ab Non-Reactive (NonReactive); Hep C Index 0.18 S/CO (0-0.79)
--- NOTE | 2017-07-14 10:50 | PRG ---
DATE OF SERVICE: 07/14/2017 SUBJECTIVE: This is a 66-year-old gentleman being seen for acute kidney injury. The patient denies any nausea, vomiting or chest pain. OBJECTIVE: GENERAL: The patient is awake and alert. VITAL SIGNS: Afebrile, pulse 72, breathing at 16 and blood pressure 128/96. LABORATORY DATA: Hemoglobin 7.8. Creatinine 5.4. ASSESSMENT AND RECOMMENDATIONS: 1. Acute kidney injury with chronic kidney disease stage 5 and possibly some altered mentation could be due to uremia versus other causes. I will initiate dialysis. We will consult Surgery in the [facility] emergency department. No urgent indication for dialysis. 2. Hyponatremia, stable. 3. Anemia. The patient will require transfusion as well as Epogen. 4. Hypertension, stable. 5. Medications based on glomerular filtration rate are appropriate.
--- NOTE | 2017-07-14 16:47 | PDOC.PN ---
- Subjective Encounter Start Date: 07/14/17 Encounter Start Time: 09:45 Subjective: pt up in bed appears confused today -: pt had a fall today but did not hit his head -: pt was very confused last night storke alert was called - Objective Resuscitation Status: Resuscitation Status FULL:Full Resuscitation Vital Signs & Weight: Vital Signs (12 hours) Temp Pulse Resp BP BP Pulse Ox 07/14/17 16:34 97.6 F 63 24 H 103/58 L 93 L 07/14/17 12:45 98.1 F 69 16 118/58 L 92 L 07/14/17 09:55 75 07/14/17 09:54 75 07/14/17 09:50 97.6 F 75 18 135/69 98 Weight Weight 195 lb I&O: 07/13/17 07/14/17 07/15/17 06:59 06:59 06:59 Intake Total 1700 240 290 Output Total 2400 1900 500 Balance -700 -1660 -210 Result Diagrams: 07/14/17 02:42 07/14/17 04:45 Additional Labs: Accuchecks 07/14/17 07/14/17 07/14/17 11:39 05:42 01:26 POC Glucose 204 H 187 H 211 H 07/13/17 07/13/17 20:05 16:55 POC Glucose 224 H 214 H Phys Exam - Physical Examination HEENT: PERRLA, moist MMs Neck: no nodes, no JVD Respiratory: no wheezing, no rales Cardiovascular: RRR, no significant murmur Gastrointestinal: soft, non-tender Musculoskeletal: edema present Psychiatric: normal affect (pt oriented to self but appears confused) Dx/Plan (1) Acute metabolic encephalopathy Code(s): G93.41 - METABOLIC ENCEPHALOPATHY Status: Acute Plan: possible from uremia, pt had ct head for possible stroke last night. no stroke. will get MRI. Pt appears ill. will continue to monitor. (2) Acute kidney failure Status: Acute Plan: worsening creatinine. pt to get dialysis in am (3) Hypertension Code(s): I10 - ESSENTIAL (PRIMARY) HYPERTENSION Status: Chronic Plan: continue current meds (4) Pneumonia Code(s): J18.9 - PNEUMONIA, UNSPECIFIED ORGANISM Status: Acute Qualifiers: Laterality: bilateral Plan: resolved abx stopped 07/13 (5) Diabetes mellitus type 2 in nonobese Code(s): E11.9 - TYPE 2 DIABETES MELLITUS WITHOUT COMPLICATIONS Status: Chronic (6) Nausea Code(s): R11.0 - NAUSEA Status: Acute - Plan * .
[2017-07-14 17:15] LABS: #Basophils 0.1 thou/uL (0.0-0.2); #Eosinphils 0.1 thou/uL (0.0-0.7); #Lymphocytes 0.9 thou/uL (1.20-3.40); #Monocytes 0.4 thou/uL (0.11-0.59); #Neutrophils 3.8 thou/uL (1.40-6.50); %Eosinophils 1.5 % (0.0-10.0); %Lymphocytes 17.2 % (21.0-51.0); %Monocytes 6.7 % (0.0-10.0); %Neutrophils 73.6 % (42.0-75.0); Hemoglobin 7.5 g/dL (14.0-18.0); Mean Corpuscular HGB CONC 33.7 g/dL (32.0-36.0); Mean Corpuscular Hemoglobin 29.6 pg (27.0-31.0); Mean Corpuscular Volume 87.9 fl (80.0-94.0); Mean Platelet Volume 9.2 fL (7.4-10.4); Platelet Count 282 thou/uL (130-400); RBC Distribution Width 13.6 % (11.5-14.5); Red Blood Cell (RBC) Count 2.53 mill/uL (4.70-6.10); White Blood Cell (WBC) Count 5.1 thou/uL (4.8-10.8)
[2017-07-14] MEDS: HumaLOG 300 UNITS/3 ML VIAL SC PRN (17:39)
[2017-07-14] MEDS: Famotidine 20 MG TAB PO SCH (20:12)
[2017-07-14] MEDS: Atorvastatin Calcium 20 MG TAB PO SCH (20:12)
[2017-07-15] MEDS: Ondansetron HCl/PF 4 MG/2 ML Vial IVP PRN (00:11)
[2017-07-15] MEDS: Heparin 5,000 UNITS/ML VIAL SC SCH ×2 (07:25→21:38)
[2017-07-15] MEDS: guaiFENesin ER 600 MG TAB PO SCH ×2 (07:31→21:35)
[2017-07-15] MEDS: Insulin Detemir 100 UNITS/ML 10 UNITS in Pre-Filled Syringe 1 EACH SC SCH (09:06)
[2017-07-15] MEDS: Docusate 100 MG CAP PO SCH ×2 (09:06→21:37)
[2017-07-15] MEDS: hydrALAZINE 25 MG TAB PO SCH ×3 (09:08→21:38)
[2017-07-15] MEDS: Tamsulosin HCl 0.4 MG CAP PO SCH (09:09)
[2017-07-15] MEDS: NIFEdipine XL 90 MG TAB PO SCH (09:09)
[2017-07-15] MEDS: Metoprolol Tartrate 25 MG TAB PO SCH ×2 (09:09→21:36)
[2017-07-15 09:56] LABS: Anion Gap 15 mmol/L (10-20); BUN (Urea Nitrogen) 58 mg/dL (8.4-25.7); Calc. Creatinine Clearance 17 mL/min (70-130); Calcium 8.2 mg/dL (7.8-10.44); Carbon Dioxide 21 mmol/L (23-31); Chloride 101 mmol/L (98-107); Estimated GFR-MDRD 10; Glucose 79 mg/dL (80-115); Potassium 4.6 mmol/L (3.5-5.1); Sodium 132 mmol/L (136-145)
[2017-07-15 09:59] LABS: Hemoglobin 7.8 g/dL (14.0-18.0); Lymphocytes 10 % (21-51); MDiff Complete? YES; Mean Corpuscular HGB CONC 32.9 g/dL (32.0-36.0); Mean Corpuscular Hemoglobin 29.1 pg (27.0-31.0); Mean Corpuscular Volume 88.4 fl (80.0-94.0); Mean Platelet Volume 8.8 fL (7.4-10.4); Monocytes 1 % (0-10); Neutrophil 89 % (42-75); Platelet Count 277 thou/uL (130-400); RBC Distribution Width 13.9 % (11.5-14.5); Red Blood Cell (RBC) Count 2.67 mill/uL (4.70-6.10); White Blood Cell (WBC) Count 11.4 thou/uL (4.8-10.8)
--- NOTE | 2017-07-15 17:11 | PDOC.PN ---
- Subjective Encounter Start Date: 07/15/17 Encounter Start Time: 10:55 Subjective: pt up in bed appears mildly confused - Objective Resuscitation Status: Resuscitation Status FULL:Full Resuscitation Vital Signs & Weight: Vital Signs (12 hours) Temp Pulse Pulse Pulse Resp BP BP 07/15/17 15:59 82 125/57 L 07/15/17 15:56 97.1 F L 82 18 07/15/17 13:51 74 18 07/15/17 11:51 98.5 F 78 22 H 07/15/17 10:57 81 81 134/91 H 07/15/17 09:09 98 178/88 H 07/15/17 09:08 98 178/88 H 07/15/17 08:55 100.1 F H 98 25 H 07/15/17 07:32 88 14 BP BP Pulse Ox Pulse Ox Pulse Ox 07/15/17 15:59 95 07/15/17 15:56 125/57 L 07/15/17 13:51 94 L 07/15/17 11:51 133/64 95 07/15/17 10:57 144/67 H 96 95 07/15/17 09:09 07/15/17 09:08 07/15/17 08:55 178/88 H 98 07/15/17 07:32 98 Weight Weight 195 lb 8 oz I&O: 07/14/17 07/15/17 07/16/17 06:59 06:59 06:59 Intake Total 240 570 Output Total 1900 950 Balance -1660 -380 Result Diagrams: 07/15/17 09:18 07/15/17 09:18 Additional Labs: Accuchecks 07/15/17 07/15/17 07/15/17 16:44 10:55 09:04 POC Glucose 131 H 88 90 07/15/17 07/14/17 07/14/17 05:30 23:47 21:51 POC Glucose 91 91 74 07/14/17 20:02 POC Glucose 68 L Phys Exam - Physical Examination Neck: no nodes Respiratory: no wheezing, no rales Cardiovascular: RRR, no significant murmur Gastrointestinal: soft, non-tender Musculoskeletal: no edema, pulses present Neurological: non-focal, normal sensation Lymphatic: no nodes Psychiatric: normal affect, A&O x 3 Dx/Plan (1) Acute metabolic encephalopathy Code(s): G93.41 - METABOLIC ENCEPHALOPATHY Status: Acute Plan: improving slowly (2) Acute kidney failure Status: Acute Plan: creatinine is worsening. pt will need dialysis (3) Hypertension Code(s): I10 - ESSENTIAL (PRIMARY) HYPERTENSION Status: Chronic Plan: stable continue current meds (4) Pneumonia Code(s): J18.9 - PNEUMONIA, UNSPECIFIED ORGANISM Status: Acute Qualifiers: Laterality: bilateral Plan: pt completed 7 days of abx (5) Diabetes mellitus type 2 in nonobese Code(s): E11.9 - TYPE 2 DIABETES MELLITUS WITHOUT COMPLICATIONS Status: Chronic Plan: blood sugars were low today. (6) Nausea Code(s): R11.0 - NAUSEA Status: Acute - Plan * .
--- NOTE | 2017-07-15 18:44 | PRG ---
DATE OF SERVICE: 07/15/2017 SUBJECTIVE: Patient was seen and examined at bedside and overnight events noted. Patient denies any shortness of breath or chest pain or palpitation. No history of nausea or vomiting or diarrhea or fever or chills or cramps. OBJECTIVE: GENERAL: This is a well-built male in no apparent distress. somnolent. VITAL SIGNS: Temperature 97.1, pulse 82, respiratory rate 18, blood pressure 133/64. HEENT: Atraumatic, normocephalic. Oral mucosa is moist. NECK: Supple. CARDIOVASCULAR: S1, S2 heard. Rate and rhythm regular. RESPIRATORY: Clear to auscultation. GASTROINTESTINAL: Abdomen is soft. MUSCULOSKELETAL: No tenderness. No edema. DERMATOLOGIC: No skin rash. NEUROLOGIC: somnolent PSYCHIATRIC: Mood and affect normal. LABORATORY DATA: Potassium 4.6, BUN is 68, creatinine is 5.5. ASSESSMENT AND PLAN: 1. Acute kidney injury on chronic kidney disease stage 5 with worsening renal function. The patient is needing dialysis. We will have access placement by surgery in dialysis surgery consultation 2. Hyponatremia. 3. Anemia. 4. Hypertension. 5. Start dialysis once access is placed and we will follow. Prognosis is guarded. MTDD
[2017-07-15] MEDS: Atorvastatin Calcium 20 MG TAB PO SCH (21:37)
[2017-07-15] MEDS: Famotidine 20 MG TAB PO SCH (21:37)
[2017-07-16 06:18] LABS: Anion Gap 10 mmol/L (10-20); BUN (Urea Nitrogen) 59 mg/dL (8.4-25.7); Calc. Creatinine Clearance 16 mL/min (70-130); Carbon Dioxide 25 mmol/L (23-31); Chloride 101 mmol/L (98-107); Estimated GFR-MDRD 10; Glucose 149 mg/dL (80-115); Potassium 4.4 mmol/L (3.5-5.1); Sodium 132 mmol/L (136-145)
[2017-07-16] MEDS: NIFEdipine XL 90 MG TAB PO SCH (09:05)
[2017-07-16] MEDS: Tamsulosin HCl 0.4 MG CAP PO SCH (09:06)
[2017-07-16] MEDS: Metoprolol Tartrate 25 MG TAB PO SCH ×2 (09:06→21:37)
[2017-07-16] MEDS: guaiFENesin ER 600 MG TAB PO SCH ×2 (09:06→20:02)
[2017-07-16] MEDS: Heparin 5,000 UNITS/ML VIAL SC SCH ×2 (09:07→20:03)
[2017-07-16] MEDS: hydrALAZINE 25 MG TAB PO SCH ×3 (09:07→20:02)
[2017-07-16] MEDS: Docusate 100 MG CAP PO SCH ×2 (09:07→20:03)
[2017-07-16] MEDS: Insulin Detemir 100 UNITS/ML 10 UNITS in Pre-Filled Syringe 1 EACH SC SCH (09:09)
[2017-07-16] MEDS ORDERED: CEFAZOLIN/Water 2 GM/20 ML SYRINGE SLOW IVP SCH (09:30)
--- NOTE | 2017-07-16 12:14 | ULT ---
BILATERAL UPPER EXTREMITY VENOUS DUPLEX STUDY FOR VENOUS MAPPING: Date: 07/16/17 Ultrasound Doppler study performed of the veins of both upper extremities. Color Doppler with spectra l analysis and compression phase performed. INDICATION: End-stage renal disease. Upper extremity venous mapping performed to site for dialysis fistula placem ent. FINDINGS: RIGHT UPPER EXTREMITY CEPHALIC VEIN Axilla: 3.0 mm Proximal Humerus: 1.8 mm Mid Humerus: 1.6 mm Distal Humerus: 3.3 mm Elbow: 2.9 mm Mid Forearm: 2.3 mm BASILIC VEIN Axilla: 2.6 mm Proximal Humerus: 3.8 mm Mid Humerus: 1.6 mm Distal Humerus: 2.8 mm Elbow: 0.6 mm Mid Forearm: 0.7 mm Right Brachial Artery: 4.5 mm Right Radial Artery: 1.6 mm Right Ulnar Artery: 1.8 mm LEFT UPPER EXTREMITY CEPHALIC VEIN Axilla: 2.9 mm Proximal Humerus: 2.5 mm Mid Humerus: 2.1 mm Distal Humerus: 3.0 mm Elbow: 2.5 mm Mid Forearm: 2.6 mm BASILIC VEIN Axilla: 3.5 mm Proximal Humerus: 4.4 mm Mid Humerus: 3.8 mm Distal Humerus: 4.3 mm Elbow: 1.1 mm Mid Forearm: 1.1 mm Left Brachial Artery: 5.4 mm Left Radial Artery: 1.8 mm Left Ulnar Artery: 1.3 mm POS: [facility]
--- NOTE | 2017-07-16 12:55 | MRI ---
MRI BRAIN WITHOUT CONTRAST: Date: 07/16/17 COMPARISON: 07/14/17. HISTORY: New onset of altered mental status starting 2-3 days ago. TECHNIQUE: Multiplanar, multisequence MR images were obtained of the brain without contrast. FINDINGS: There are numerous scattered foci of high FLAIR signal in the subcortical and periventricular white m atter secondary to small vessel ischemic disease. Cerebral atrophy is seen. There are two small areas of high FLAIR signal and restricted diffusion in the left temporal lobe. The largest measures 7.0 mm in size. These represent areas of acute infarction. There is no evidence of hydrocephalus, intracranial hemorrhage, or extra-axial fluid collection. Eval uation is limited secondary to significant motion artifact. The expected flow-voids are grossly prese nt. The corpus callosum, pituitary, and craniocervical junction are unremarkable. The calvarium and overlying soft tissues are unremarkable. Mucosal thickening is seen in the left max illary sinus. IMPRESSION: 1. Small vessel ischemic disease. 2. Two small areas of infarction in the left temporal lobe. POS: [facility]
--- NOTE | 2017-07-16 13:50 | CON ---
DATE OF CONSULTATION: 07/16/2017 REASON FOR CONSULTATION: Dialysis access. HISTORY: Mr. Ho is a 66-year-old man with longstanding diabetes, hypertension, and chronic renal failure who presented to the hospital with acute on chronic renal failure and worsening shortness of breath over about a week's time. He was admitted for medical management and diuresis, but has contin ued to have shortness of breath as well as some episodes of confusion, which have been attributed to uremia. His ejection fraction is 50%-55% and he states that he is breathing okay on 2 liters of oxyg en. Most of the history is obtained from the due to his mild confusion. PAST MEDICAL HISTORY: 1. Diabetes. 2. Hypertension. 3. Hyperlipidemia. 4. Coronary artery disease status post stenting. 5. Earl's palsy. 6. Chronic renal failure. PAST SURGICAL HISTORY: Appendectomy, nasal surgery, coronary stenting, right toe amputation and I&D of the foot for diabetic foot infection and some sort of knee surgery. REVIEW OF SYSTEMS: Ten system review of systems is negative except per HPI in the following. He has had some nausea and some constipation. He has had some subjective fevers and chills and occasional sweating. He has had a cough productive of a small amount of phlegm. He does have orthopnea, althou gh this has improved since admission. ALLERGIES: He has no known drug allergies. SOCIAL HISTORY: He does not smoke, drink or use illicit drugs. His of 47 years is at the [facility]. FAMILY HISTORY: Cancer and diabetes. OUTPATIENT MEDICATIONS: Include insulin, lisinopril and atorvastatin. INPATIENT MEDICATIONS: Include DuoNeb, Lipitor, sliding scale insulin, docusate, Procrit, Pepcid, Mu cinex, subcu heparin held this morning, hydralazine, nifedipine, Flomax, and multiple p.r.n. medicati ons. PHYSICAL EXAMINATION: VITAL SIGNS: T-max 100.1 yesterday morning, T-current 98.5, heart rate 78, blood pressure 178/79, re spirations 18, 93%-100% on 2 liters nasal cannula. GENERAL: Reveals a pleasant gentleman, in no acute distress. He is not flushed or toxic in appearan ce. He is not visibly short of breath. He is not jaundiced or icteric. HEENT: Unremarkable. NECK: Supple, without lymphadenopathy or thyroid nodules. CARDIAC: Regular rate and rhythm without murmurs, rubs or gallops. LUNGS: Clear to auscultation bilaterally. ABDOMEN: Soft, nontender, nondistended with healed surgical scars and no palpable masses or hernias. EXTREMITIES: Warm and well perfused. He does have mild pitting edema of the ankles. His surgical i ncisions on the right foot and amputation sites are well healed. No open sores. 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 PSYCHIATRIC: Alert and oriented to self and place, pleasant and cooperative, but relies on his for most answers. IMAGING: Chest x-ray shows small bilateral pleural effusions and a right posterior basilar infiltrat e versus atelectasis. Brain MRI showed small vessel ischemic disease and two small left temporal lob e infarct, which appeared acute. Upper extremity vein mapping show good sized cephalic veins on the right upper arm, forearm and a good size upper arm basilic vein on the right. Left arm also shows go od sized cephalic veins in the upper arm and forearm, but he has an IV at the wrist and upper arm bas ilic vein is good caliber as well. On Ambrosio's testing, he has fairly equal filling bilaterally, slig htly ulnar dominant on the left. LABORATORY DATA: White count is slightly elevated at 11.4, hematocrit 23.6, which is chronically low , platelets 277. Coags were normal at admission. BUN and creatinine are 59 and 5.51, potassium is n ormal at 4.4, sugars have ranged from 88-223, hepatitis serologies nonreactive. ASSESSMENT: Chronic renal failure, progressing to end-stage renal failure with fluid overload and ne ed for initiation of dialysis. Due to the patient's recent medical problems and continued shortness of breath, I have plan to just place a dialysis catheter today and allow him to equilibrate in terms of his fluid balance and recover from his stroke. Eventually, he will need a fistula. He is right h anded, so preferentially this will be placed on the left. Once he is under anesthesia, we will plan to move his IV to a more appropriate location. I will consult with his petrology teacher regarding timing of the fistula. Potentially, we can get this done before he leaves the hospital or have him return on an outpatient basis to get this done in the near future. The procedure of tunneled hemodialysis c teri was explained in detail to the patient and his . The inherent risks of the procedure wer e also discussed. These include but are not limited to bleeding, infection, risks of anesthesia, hem othorax, pneumothorax, DVT, PE, and need for further procedures. They understand and accept these ri sks and wish to proceed. All of their questions were answered and he has been posted for the operati ng room today.
[2017-07-16] MEDS ORDERED: CEFAZOLIN/Water 2 GM/20 ML SYRINGE ONE (13:56)
--- NOTE | 2017-07-16 14:05 | PDOC.PN ---
- Subjective Encounter Start Date: 07/16/17 Encounter Start Time: 10:30 Subjective: pt up in bed no complains - Objective Resuscitation Status: Resuscitation Status FULL:Full Resuscitation Vital Signs & Weight: Vital Signs (12 hours) Temp Pulse Resp BP BP Pulse Ox 07/16/17 09:07 78 178/79 H 07/16/17 09:05 74 178/79 H 07/16/17 08:00 98.5 F 74 18 178/79 H 92 L 07/16/17 07:18 78 16 93 L 07/16/17 03:35 98.7 F 76 17 161/75 H Weight Weight 194 lb I&O: 07/15/17 07/16/17 07/17/17 06:59 06:59 06:59 Intake Total 570 720 Output Total 950 1475 Balance -380 755 Result Diagrams: 07/15/17 09:18 07/16/17 04:31 Additional Labs: Accuchecks 07/16/17 07/16/17 07/15/17 12:07 05:56 20:22 POC Glucose 216 H 161 H 223 H 07/15/17 16:44 POC Glucose 131 H Phys Exam - Physical Examination HEENT: PERRLA Neck: no nodes Respiratory: no wheezing, no rales Cardiovascular: RRR, no significant murmur Gastrointestinal: soft Musculoskeletal: edema present Neurological: non-focal, normal sensation Psychiatric: normal affect Dx/Plan (1) Acute metabolic encephalopathy Code(s): G93.41 - METABOLIC ENCEPHALOPATHY Status: Acute Plan: resolved, mri brain pending (2) Acute kidney failure Status: Acute Plan: pt for dialysis today after temp cath placement (3) Hypertension Code(s): I10 - ESSENTIAL (PRIMARY) HYPERTENSION Status: Chronic Plan: could improve. will continue to titrate meds. (4) Pneumonia Code(s): J18.9 - PNEUMONIA, UNSPECIFIED ORGANISM Status: Acute Qualifiers: Laterality: bilateral Plan: s/p 7 days of abx (5) Diabetes mellitus type 2 in nonobese Code(s): E11.9 - TYPE 2 DIABETES MELLITUS WITHOUT COMPLICATIONS Status: Chronic (6) Nausea Code(s): R11.0 - NAUSEA Status: Acute - Plan * .
--- NOTE | 2017-07-16 14:34 | PRG ---
DATE OF SERVICE: 07/16/2017 SUBJECTIVE: Patient was seen and examined at bedside and overnight events noted. Patient denies any shortness of breath or chest pain or palpitation. No history of nausea or vomiting or diarrhea or f ever or chills or cramps. OBJECTIVE: GENERAL: This is a well-built male, somnolent. VITAL SIGNS: Temperature 98.5, pulse 74, respiratory rate 18, blood pressure 178/79. HEENT: Atraumatic, normocephalic. Oral mucosa is moist. NECK: Supple. CARDIOVASCULAR: S1, S2 heard. Rate and rhythm regular. RESPIRATORY: Clear to auscultation. GASTROINTESTINAL: Abdomen is soft. MUSCULOSKELETAL: No tenderness. No edema. DERMATOLOGIC: No skin rash. NEUROLOGIC: Slightly confused and somnolent. PSYCHIATRIC: Mood and affect normal. LABORATORY DATA: Potassium is 4.4, BUN 15, creatinine is 5.5. ASSESSMENT AND PLAN: 1. Acute kidney injury on chronic kidney disease stage 5. Plan is to start dialysis. Seems like rock fraire his renal function is stabilizing. Creatinine is plateauing out. We will monitor renal function . We will give one dose of dialysis given altered mentation. 2. Altered mentation with dialysis. 3. Hyponatremia. 4. Anemia. 5. Hypertension. Continue to titrate medication. We will have dialysis. 6. Edema, controlled. Plan is to have dialysis today after access is placed and we will follow closely.
[2017-07-16] MEDS ORDERED: Lidocaine 1% w/Epinephrine 1:200K 30 ML VIAL ONE (15:36)
[2017-07-16] MEDS ORDERED: Heparin 10,000 UNITS/1 ML VIAL ONE (15:36)
[2017-07-16] MEDS ORDERED: Sodium Chloride 0.9% 20 ML ONE (15:36)
[2017-07-16] MEDS ORDERED: Diprivan 60 ML ONE (15:39)
[2017-07-16] MEDS ORDERED: Fentanyl 100 MCG/2 ML VIAL ONE (15:44)
[2017-07-16] MEDS ORDERED: Midazolam HCl 2 mg/2 ml Vial ONE (15:44)
[2017-07-16] MEDS ORDERED: Lidocaine 1% PF 5 ML VIAL ONE (16:33)
[2017-07-16] MEDS ORDERED: Propofol 200 MG/20 ML VIAL ONE (16:33)
[2017-07-16] MEDS ORDERED: Ondansetron HCl/PF 4 MG/2 ML Vial IVP PRN (16:36)
[2017-07-16] MEDS ORDERED: Promethazine HCl 25 MG/ML VIAL IM PRN (16:36)
[2017-07-16] MEDS ORDERED: Promethazine HCl 25 MG/ML VIAL SLOW IVP PRN (16:36)
--- NOTE | 2017-07-16 17:32 | RAD ---
PORTABLE UPRIGHT FRONTAL CHEST RADIOGRAPH 07/16/17 COMPARISON: 07/08/17 HISTORY: Evaluate chest following central line placement. FINDINGS: There is a right sided dialysis catheter present, distal tip overlying the region of the SVC. No pneu mothorax is seen. There is pulmonary vascular congestion with perihilar interstitial opacity. There i s mild perihilar air space disease as well, right greater than left, with mild blunting of bilateral costophrenic angles suggesting small bilateral pleural effusions. IMPRESSION: Right sided dialysis catheter with no pneumothorax. Interstitial and alveolar opacity suggest pulmona ry edema and/or infectious pneumonitis. Followup to resolution advised. POS: [facility]
[2017-07-16] MEDS ORDERED: Morphine 5 MG/ML SYRINGE SLOW IVP PRN (19:38)
[2017-07-16] MEDS: Atorvastatin Calcium 20 MG TAB PO SCH (20:02)
[2017-07-16] MEDS: Famotidine 20 MG TAB PO SCH (20:03)
[2017-07-16] MEDS ORDERED: Metoprolol Tartrate 25 MG TAB PO SCH (21:45)
[2017-07-17 05:28] LABS: Anion Gap 14 mmol/L (10-20); BUN (Urea Nitrogen) 64 mg/dL (8.4-25.7); Calc. Creatinine Clearance 16 mL/min (70-130); Calcium 8.2 mg/dL (7.8-10.44); Carbon Dioxide 24 mmol/L (23-31); Chloride 102 mmol/L (98-107); Estimated GFR-MDRD 10; Glucose 231 mg/dL (80-115); Potassium 4.8 mmol/L (3.5-5.1); Sodium 135 mmol/L (136-145)
[2017-07-17 06:09] LABS: Band 4 % (5-11); Eosinophils 2 % (0-10); Hemoglobin 7.4 g/dL (14.0-18.0); Lymphocytes 17 % (21-51); MDiff Complete? YES; Mean Corpuscular Hemoglobin 29.3 pg (27.0-31.0); Mean Corpuscular Volume 88.6 fl (80.0-94.0); Mean Platelet Volume 9.1 fL (7.4-10.4); Monocytes 8 % (0-10); Neutrophil 69 % (42-75); Platelet Count 263 thou/uL (130-400); RBC Distribution Width 13.7 % (11.5-14.5); Red Blood Cell (RBC) Count 2.52 mill/uL (4.70-6.10); White Blood Cell (WBC) Count 6.1 thou/uL (4.8-10.8)
[2017-07-17] MEDS: Insulin Detemir 100 UNITS/ML 10 UNITS in Pre-Filled Syringe 1 EACH SC SCH ×2 (09:42→22:05)
[2017-07-17] MEDS: NIFEdipine XL 90 MG TAB PO SCH (09:43)
[2017-07-17] MEDS: guaiFENesin ER 600 MG TAB PO SCH ×2 (09:43→22:02)
[2017-07-17] MEDS: Metoprolol Tartrate 25 MG TAB PO SCH (09:44)
[2017-07-17] MEDS: Tamsulosin HCl 0.4 MG CAP PO SCH (09:44)
[2017-07-17] MEDS: hydrALAZINE 25 MG TAB PO SCH ×3 (09:44→22:02)
[2017-07-17] MEDS: Docusate 100 MG CAP PO SCH ×2 (09:44→22:03)
[2017-07-17] MEDS: Heparin 5,000 UNITS/ML VIAL SC SCH ×2 (09:44→22:03)
[2017-07-17] MEDS ORDERED: Heparin 10,000 UNITS/ 10 ML VIAL ONE (10:00)
--- NOTE | 2017-07-17 13:31 | PDOC.PN ---
- Subjective Encounter Start Date: 07/17/17 Encounter Start Time: 11:00 Subjective: pt up in bed no complains - Objective Resuscitation Status: Resuscitation Status FULL:Full Resuscitation Vital Signs & Weight: Vital Signs (12 hours) Temp Pulse Resp BP BP Pulse Ox 07/17/17 09:44 77 170/74 H 07/17/17 09:43 77 170/74 H 07/17/17 06:46 68 16 98 07/17/17 04:00 98.8 F 70 18 146/72 H 92 L Weight Weight 193 lb I&O: 07/16/17 07/17/17 07/18/17 06:59 06:59 06:59 Intake Total 720 240 Output Total 1475 900 Balance -755 660 Result Diagrams: 07/17/17 04:34 07/17/17 04:34 Additional Labs: Accuchecks 07/17/17 07/17/17 07/16/17 10:59 05:46 20:47 POC Glucose 283 H 253 H 261 H Phys Exam - Physical Examination HEENT: PERRLA, moist MMs Neck: no nodes Respiratory: no wheezing, no rales Cardiovascular: RRR, no significant murmur Gastrointestinal: soft, non-tender Musculoskeletal: edema present Neurological: non-focal, normal sensation Skin: no rash Dx/Plan (1) Acute ischemic stroke Code(s): I63.9 - CEREBRAL INFARCTION, UNSPECIFIED Status: Acute Plan: pt had a code green on saturday, ct head negative. MRI done indicated two small stroke areas of left temporal lobe pt on statin/asa, will check carotid dopplers. echo done. will consult neurology. will check lipid level and hbg a1c (2) Acute metabolic encephalopathy Code(s): G93.41 - METABOLIC ENCEPHALOPATHY Status: Acute Plan: resolved (3) Acute kidney failure Status: Acute Plan: pt's creatinine continued to worsen, has a temp dialysis cath put in on 07/16 to start dialysis. (4) Hypertension Code(s): I10 - ESSENTIAL (PRIMARY) HYPERTENSION Status: Chronic Plan: increased his hydralizine to qid and his dose of bb. (5) Pneumonia Code(s): J18.9 - PNEUMONIA, UNSPECIFIED ORGANISM Status: Acute Qualifiers: Laterality: bilateral Plan: resolved (6) Diabetes mellitus type 2 in nonobese Code(s): E11.9 - TYPE 2 DIABETES MELLITUS WITHOUT COMPLICATIONS Status: Chronic Plan: will check hbg alc. will increase to bid from daily (7) Nausea Code(s): R11.0 - NAUSEA Status: Acute Plan: resolved (8) CHF (congestive heart failure) Code(s): I50.9 - HEART FAILURE, UNSPECIFIED Status: Acute Plan: pt's ef is 50-55%, has diastolic dysfunction but also has moderate mitral and tricuspid regurgitation. (9) CHF due to valvular disease Code(s): I50.9 - HEART FAILURE, UNSPECIFIED; I38 - ENDOCARDITIS, VALVE UNSPECIFIED Status: Acute - Plan * .
--- NOTE | 2017-07-17 15:26 | ULT ---
CAROTID ULTRASOUND WITH FONTAINE SCALE AND DOPPLER DUPLEX COLOR FLOW IMAGING SPECTRAL ANALYSIS PERFORMED: CLINICAL INDICATION: Stroke in a 66-year-old male. History of new-onset confusion. FINDINGS: There is minimal atherosclerotic plaque of the carotid arteries. PEAK SYSTOLIC VELOCITY (CM/S): Right CCA 82 Left CCA 81 Right ICA 101 Left ICA 91 There is antegrade flow within the visualized bilateral vertebral arteries bilaterally. IMPRESSION: 1. No hemodynamically significant stenosis of the right internal carotid artery. 2. No hemodynamically significant stenosis of the left internal carotid artery. POS: ACE
--- NOTE | 2017-07-17 15:43 | PDOC.OP ---
Operative Note - Operative Note Operative Note: PROCEDURE: Placement of right internal jugular tunneled hemodialysis catheter with ultrasound and fluoroscopic guidance. SURGEON: Tyrone Seals M.D. DATE OF PROCEDURE: 07/16/2017 PREOPERATIVE DIAGNOSIS: Acute/Chronic renal failure. POSTOPERATIVE DIAGNOSIS: Acute/Chronic renal failure. HISTORY: Patient with acute worsening of chronic renal failure with fluid overload requiring institution of dialysis. A tunneled hemodialysis catheter for initiation of dialysis has been requested by the patients associate professor of literacy. PROCEDURE: After informed consent was obtained and appropriate preoperative antibiotics were administered, the patient was taken to the Operating Room, placed in the supine position and monitored anesthesia care was administered. The neck and chest were prepped and draped in a standard sterile fashion and the patient placed in Trendelenburg position. A sterile ultrasound probe was used to identify the patent compressible right IJ vein which was accessed under direct ultrasound guidance. A wire was threaded through the needle and confirmed by ultrasound to be within the patent compressible vessel with the tip in the vena cava by fluoroscopy. Local anesthesia was infused to the skin and subcutaneous tissues of the right neck and chest. An infraclavicular incision was made and a catheter tunneled from the infraclavicular to the right IJ access site. The right IJ was sequentially dilated over the wire following which a dilator and sheath were placed over the wire and the dilator and wire removed leaving the sheath in place. The catheter was tunneled through the sheath which was then split and removed leaving the catheter in place. This was confirmed by fluoroscopy to be in good position in the superior vena cava with no kinking of the course of the catheter. Both ports easily aspirated dark venous nonpulsatile blood and easily flushed without resistance. Heparin was instilled to the quantity specified on the hub, and the hub was secured to the skin with 3-0 nylon sutures. The skin incision at the neck was closed in two layers with 4-0 Monocryl suture and Dermabond dressings were placed. The skin at the exit site was snugged up around the catheter with 4-0 Monocryl suture and Dermabond was placed there as well. Once the Dermabond was dry, a Biopatch and Tegaderm dressing was placed at the exit site. The patient was taken to Recovery in good condition. Estimated blood loss was minimal. There were no complications. There were no specimens.
--- NOTE | 2017-07-17 19:09 | PRG ---
DATE OF SERVICE: 07/17/2017 SUBJECTIVE: Patient was seen and examined at bedside and overnight events noted. Patient denies any shortness of breath or chest pain or palpitation. No history of nausea or vomiting or diarrhea or f ever or chills or cramps. OBJECTIVE: GENERAL: This is a well-built male in no apparent distress. VITAL SIGNS: Temperature 97.5, pulse 67, respiratory rate 18, blood pressure 176/79. HEENT: Atraumatic, normocephalic. Oral mucosa is moist. NECK: Supple. CARDIOVASCULAR: S1, S2 heard. Rate and rhythm regular. RESPIRATORY: Clear to auscultation. GASTROINTESTINAL: Abdomen is soft. MUSCULOSKELETAL: No tenderness. No edema. DERMATOLOGIC: No skin rash. NEUROLOGIC: Alert and awake and oriented x3. No focal neurologic deficits. Moving all the extremit ies. PSYCHIATRIC: Mood and affect normal. LABORATORY DATA: Potassium is 4.8, BUN is 64, creatinine is 5.7. ASSESSMENT AND PLAN: 1. End-stage renal disease, most likely patient has progressed to end-stage renal disease. Plan is to continue on dialysis. We will have case management consult for outpatient placement. We will luz maria ce PPD for outpatient dialysis placement. 2. Altered mentation seems to be better. 3. Hyponatremia. 4. Anemia. Continue on KIRAN. 5. Hypertension. 6. Edema. We will remove fluid with dialysis as tolerated. 7. Up titrated blood pressure medications. We will remove fluid with dialysis as tolerated to start on KIRAN. Case management consult for outpatient placement. I appreciate help from Surgery for perma nent access placement. We will follow.
[2017-07-17] MEDS ORDERED: Tuberculin PPD 0.1 ML VIAL I-DERMAL SCH (20:00)
--- NOTE | 2017-07-17 22:00 | CON ---
DATE: 07/17/2017 HISTORY OF PRESENT ILLNESS: Walter carrasco is a 66-year-old male, presents with end-stage renal disea se. I was consulted over the weekend. Dr. 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 Consu lt was changed to Dr. Seals and hemodialysis catheter placed, right IJ. He has an IV in left cepha lic vein at the wrist. Vein mapping obtained revealed superior veins, left arm cephalic vein wrist, possibly Srinivasa type. I have been asked to see him for more permanent dialysis access. Plan is a le ft Srinivasa possible more proximal fistula tomorrow. Risks and benefits discussed, he consents. HOME MEDICATIONS: Insulin, lisinopril, atorvastatin. IN-HOSPITAL MEDICATIONS: Flomax, nifedipine, metoprolol 50 b.i.d., insulin sliding scale, Colace, p. r.n. inhalers, aspirin 81 mg a day. ALLERGIES: None. SOCIAL HISTORY: Alcohol none. Tobacco none. The patient has worked as a cabinet worker. His is present in the room. PAST MEDICAL HISTORY: Hypertension, diabetes mellitus, hyperlipidemia, chronic kidney disease, coron sergio artery disease, history of stenting, history of hyperglycemia, Earl's palsy. PAST SURGICAL HISTORY: Coronary stent placement in the past, laparoscopic video appendectomy perform ed in 2014, amputation in his right fifth toe and metatarsal performed in 2014. Amputation stump of his fifth metatarsal foot surgeries, all performed in [facility]. Distal LAD dora nt in 2011, followed by plaster maker in [facility]. Right foot abscess drained _ ____ cartilaginous head and portion of the cuboid bone, debridement of skin and fatty tissue, wound VAC application in 2015. PHYSICAL EXAMINATION: VITAL SIGNS: 5 feet 9 inches, 193 pounds, 28 BMI and right IJ cuffed tunnel dialysis catheter. IV l eft wrist removed, 136/79, 68, respiratory rate 16. LUNGS: Clear to auscultation. CARDIAC: Regular rate and rhythm without murmur or gallop. ABDOMEN: Soft, nontender. EXTREMITIES: Unremarkable. IV left wrist, Hep-Lock removed. LABORATORY DATA: White count 6, hemoglobin 7.4. Comprehensive metabolic profile: BUN 64, creatinin e is 5.7, potassium 4.8, sodium 131. ASSESSMENT AND PLAN: End-stage renal disease. PLAN: Placement of left arm fistula more. He understands the risks and benefits and consents. No I Vs on left arm or hand; all IV access right hand or distal upper arm.
[2017-07-17] MEDS: Atorvastatin Calcium 20 MG TAB PO SCH (22:02)
[2017-07-17] MEDS: Metoprolol Tartrate 50 MG TAB PO SCH (22:04)
[2017-07-17] MEDS: Famotidine 20 MG TAB PO SCH (22:08)
[2017-07-18] MEDS ORDERED: CEFAZOLIN/Water 2 GM/20 ML SYRINGE SLOW IVP SCH ×2 (05:00→15:30)
[2017-07-18 05:39] LABS: Anion Gap 9 mmol/L (10-20); Carbon Dioxide 27 mmol/L (23-31); Cardiac Risk 3.6 (Less than 4.5); Chloride 102 mmol/L (98-107); Cholesterol 133 mg/dl (< 200 Desired); HDL Cholesterol 37 mg/dL (>60 Neg Risk); LDL Cholesterol, Calculated 78 mg/dL; Sodium 134 mmol/L (136-145); Triglycerides 90 mg/dL (Less than 150)
--- NOTE | 2017-07-18 10:46 | PRG ---
DATE OF SERVICE: 07/18/2017 SUBJECTIVE: Patient was seen and examined at bedside and overnight events noted. Patient denies any shortness of breath or chest pain or palpitation. No history of nausea or vomiting or diarrhea or f ever or chills or cramps. OBJECTIVE: GENERAL: This is a well-built male in no apparent distress. VITAL SIGNS: Temperature 98.5, pulse 67, respiratory 16, blood pressure 155/75. HEENT: Atraumatic, normocephalic. Oral mucosa is moist. NECK: Supple. CARDIOVASCULAR: S1, S2 heard. Rate and rhythm regular. RESPIRATORY: Clear to auscultation. GASTROINTESTINAL: Abdomen is soft. MUSCULOSKELETAL: No tenderness, no edema. DERMATOLOGIC: No skin rash. NEUROLOGIC: Alert and awake and oriented x3. No focal neurologic deficits. Moving all the extremit ies. PSYCHIATRIC: Mood and affect normal. LABORATORY DATA: Potassium is 4.0. ASSESSMENT AND PLAN: 1. End-stage renal disease. We started on dialysis yesterday with case management consult for outkofi mota. 2. Altered mentation. 3. Hyponatremia. 4. Anemia. 5. Hypertension. 6. Edema. We will remove fluid. The patient is tolerating well. Patient was seen during dialysis yesterday and we will continue on d ialysis as tolerated. We appreciate help from surgery for access placement.
--- NOTE | 2017-07-18 11:36 | CON ---
DATE OF CONSULTATION: 07/17/2017 REFERRING PHYSICIAN: Ann-Marie Blanca M.D. REASON FOR CONSULTATION: Stroke. HISTORY OF PRESENT ILLNESS: Mr. Ho is a pleasant 66-year-old male who has been consider ed for evaluation of stroke. History was obtained from patient's medical chart as well as who w as present at bedside. The reports that 2 days ago, patient had sudden changes in his mentation . He was confused and disoriented. She also noticed that his right side of the face was drooping an d he was having some slurred speech. Over the next day, his symptoms have improved. He is back to h is baseline. He has been admitted to the hospital onto 07/08/2017 with new onset congestive heart fa ilure and poorly controlled hypertension. He also had acute on chronic kidney disease. He currently denies any headache, chest pain, palpitation, numbness, tingling or weakness. During my visit, he h ad just come back from the dialysis and had an episode of vomiting during my interview process. PAST MEDICAL HISTORY: Significant for hypertension, diabetes, hyperlipidemia, chronic kidney disease , coronary artery disease, and history of Earl's palsy. PAST SURGICAL HISTORY: Significant for appendectomy, nasal septal surgery and coronary stent placeme nt. CURRENT MEDICATIONS: Please review MAR. ALLERGIES: No known drug allergies. SOCIAL HISTORY: He is a nonsmoker, nondrinker. He is . He denies illicit drug use. FAMILY HISTORY: Significant for mother with history of cancer in father with diabetes. REVIEW OF SYSTEMS: As mentioned in the HPI, otherwise negative. PHYSICAL EXAMINATION: VITAL SIGNS: Blood pressure of 170/74, pulse of 67, temperature of 97.5, respirations of 18, O2 sats of 93% on 2 L nasal cannula. GENERAL: Well-developed, well-nourished male, who had an episode of vomiting during my exa mination. RESPIRATORY: Clear to auscultation bilaterally. CARDIOVASCULAR: Regular rate and rhythm. NEUROLOGIC: Mental status: The patient is awake, alert, oriented x3. Speech and language: Fluent speech. Cranial nerves: Pupils are 3 mm and reactive. Visual malcolm are intact. Extraocular muscl es are intact. Face is symmetric. Tongue and uvula are midline. Motor exam showed normal tone and bulk with a 5/5 strength in both upper and lower extremities. Sensory: Sensation is intact and symm etric. Deep tendon reflexes hyperreflexive throughout. Babinski: Plantar responses flexion bilater ally. Coordination intact to [id number] tapping bilaterally. LABORATORY DATA: Reviewed, which included CBC, BMP, which is significant for hemoglobin of 7.4, angelito tocrit 22.4. Sodium 135, BUN of 64, creatinine of 5.72, glucose of 231, otherwise unremarkable. IMAGING STUDIES: MRI brain without contrast was reviewed, which is significant for two small areas o f infarction in the left temporal lobe, otherwise unremarkable. Carotid Doppler results were reviewe d, which showed no hemodynamically significant stenosis of extracranial vascular abnormality. IMPRESSION: 1. Small left temporal acute to subacute ischemic infarct. 2. Hypertension. 3. Coronary artery disease. 4. Chronic kidney disease. Mr. Ho is a pleasant 66-year-old male who has been admitted with congestive heart failur e and acute on chronic renal failure. He was noted to have episode of confusion and right facial yudy oping. This has now resolved. His MRI did show a small tiny acute infarction in the left temporal l obe. This is likely secondary to his underlying medical risk factors. His episode of confusion was likely metabolic encephalopathy. At this time, I would recommend continuing on aspirin 81 mg daily f or secondary stroke prevention. Continue current medical management. Thank you for consultation.
[2017-07-18] MEDS ORDERED: Aspirin 81 mg Enteric Coated Tablet PO SCH (12:20)
[2017-07-18] MEDS ORDERED: Labetalol HCl 100 MG/20 ML VIAL ONE (13:54)
[2017-07-18] MEDS ORDERED: CEFAZOLIN/Water 2 GM/20 ML SYRINGE ONE (15:54)
[2017-07-18] MEDS ORDERED: Heparin 10,000 UNITS/ 10 ML VIAL ONE (16:55)
[2017-07-18] MEDS ORDERED: Lidocaine 1% PF 5 ML VIAL ONE (16:55)
[2017-07-18] MEDS ORDERED: Propofol 200 MG/20 ML VIAL ONE (16:55)
[2017-07-18] MEDS ORDERED: Ondansetron HCl/PF 4 MG/2 ML Vial ONE (16:55)
[2017-07-18 17:00] VITALS: BMI 28.4
[2017-07-18] MEDS ORDERED: Heparin 5,000 UNITS/ML VIAL ONE (17:20)
[2017-07-18] MEDS ORDERED: Bupivacaine 0.5% 10 ML VIAL ONE (17:20)
[2017-07-18] MEDS ORDERED: Lidocaine 1% w/Epinephrine 1:200K 30 ML VIAL ONE (17:20)
[2017-07-18] MEDS ORDERED: Fentanyl 100 MCG/2 ML VIAL ONE (17:40)
[2017-07-18] MEDS ORDERED: Ondansetron HCl/PF 4 MG/2 ML Vial IVP PRN (20:13)
[2017-07-18] MEDS ORDERED: Promethazine HCl 25 MG/ML VIAL IM PRN (20:13)
[2017-07-18] MEDS ORDERED: Promethazine HCl 25 MG/ML VIAL SLOW IVP PRN (20:13)
--- NOTE | 2017-07-18 20:32 | OP ---
DATE OF OPERATION: 07/18/2017 PREOPERATIVE DIAGNOSES: End-stage renal disease, fecal impaction rectal. POSTOPERATIVE DIAGNOSES: End-stage renal disease, fecal impaction rectal. PROCEDURES: Left Srinivasa fistula, end cephalic vein to side radial artery, outflow cephalic vein, cli pping of collaterals. Manual disimpaction. ANESTHESIA: General. Local 0.5% Marcaine, 30 mL, mixed with 1% Xylocaine with epinephrine, 30 mL, 1 0 mL mixture used. ESTIMATED BLOOD LOSS: 10 mL PROCEDURE: The patient was taken to the operating room where under general anesthesia, left upper ex tremity was prepared with chloraprep, draped in routine fashion. Incision was made longitudinal betw een the cephalic vein and radial artery skin and subcutaneous tissue and the cephalic vein dissected free and clamped on the hand side and ligated with a 3-0 silk tie. Vein dissected free, dividing bra nch between 4-0 silk ties and clips and spatulated with Humphrey scissors and calibrated with coronary d ilators from a 2 mm to a 4 mm coronary dilators passed without obstruction into the cephalic vein. P atient was given 6000 units of heparin intravenously. Cephalic vein flushed with heparinized saline solution. Radial artery dissected free, clamped proximally and distally and longitudinal arteriotomy made sharply and elongated with Humphrey scissors for a 2-cm anastomosis between the side radial artery to the end cephalic vein. Continuous suture of 6-0 Prolene was used, vascular clamps released. Goo d hemostasis noted. More proximal branch clipped off the cephalic vein. Subcutaneous tissues approx imated with 3-0 Monocryl, skin with subdermal 4-0 Monocryl. DermaGlue applied. The patient was plac ed in the right lateral decubitus position, manual disimpaction performed revealed a large amount of fecal impaction. Patient was tolerated the procedure well.
[2017-07-18] MEDS ORDERED: traMADol HCl 50 MG TAB PO PRN ×2 (20:49)
[2017-07-18] MEDS: Docusate 100 MG CAP PO SCH ×2 (20:59→21:59)
[2017-07-18] MEDS: hydrALAZINE 25 MG TAB PO SCH ×3 (20:59→22:04)
[2017-07-18] MEDS: Heparin 5,000 UNITS/ML VIAL SC SCH ×2 (20:59→21:59)
[2017-07-18] MEDS: guaiFENesin ER 600 MG TAB PO SCH ×2 (20:59→21:58)
[2017-07-18] MEDS: NIFEdipine XL 90 MG TAB PO SCH (21:00)
[2017-07-18] MEDS ORDERED: Fleet Enema 133 ML BOT PR SCH (21:00)
[2017-07-18] MEDS: Insulin Detemir 100 UNITS/ML 10 UNITS in Pre-Filled Syringe 1 EACH SC SCH ×3 (21:00→22:09)
[2017-07-18] MEDS ORDERED: Acetaminophen 500 MG TAB PO SCH (21:00)
[2017-07-18] MEDS: Metoprolol Tartrate 50 MG TAB PO SCH ×2 (21:00→21:58)
[2017-07-18] MEDS: Tamsulosin HCl 0.4 MG CAP PO SCH (21:01)
[2017-07-18] MEDS: Citrucel 500 MG TAB PO SCH (21:57)
[2017-07-18] MEDS: Atorvastatin Calcium 20 MG TAB PO SCH (21:57)
[2017-07-18] MEDS: Famotidine 20 MG TAB PO SCH (21:59)
[2017-07-18] MEDS: Polyethylene Glycol 3350 17 GM Packet PO SCH (21:59)
[2017-07-19] MEDS ORDERED: READ PPD TEST SITE PO SCH (09:00)
[2017-07-19] MEDS ORDERED: Epoetin (NON-ESRD) 20,000 UNITS/ML ML IVP SCH (09:00)
[2017-07-19] MEDS: Aspirin 81 mg Enteric Coated Tablet PO SCH (09:14)
[2017-07-19] MEDS: Docusate 100 MG CAP PO SCH ×2 (09:15→20:36)
[2017-07-19] MEDS: Citrucel 500 MG TAB PO SCH ×2 (09:15→20:36)
[2017-07-19] MEDS: Heparin 5,000 UNITS/ML VIAL SC SCH ×2 (09:15→20:36)
[2017-07-19] MEDS: guaiFENesin ER 600 MG TAB PO SCH ×2 (09:15→20:36)
[2017-07-19] MEDS: Metoprolol Tartrate 50 MG TAB PO SCH ×2 (09:16→20:36)
[2017-07-19] MEDS: hydrALAZINE 25 MG TAB PO SCH ×4 (09:16→20:37)
[2017-07-19] MEDS: Insulin Detemir 100 UNITS/ML 10 UNITS in Pre-Filled Syringe 1 EACH SC SCH ×2 (09:16→20:35)
[2017-07-19] MEDS: Polyethylene Glycol 3350 17 GM Packet PO SCH ×2 (09:17→20:38)
[2017-07-19] MEDS: NIFEdipine XL 90 MG TAB PO SCH (09:17)
[2017-07-19] MEDS: Tamsulosin HCl 0.4 MG CAP PO SCH (09:18)
--- NOTE | 2017-07-19 13:56 | PDOC.PN ---
- Subjective Encounter Start Date: 07/18/17 Encounter Start Time: 15:00 Patient returned from AV acess procedure, drosy now. No other Concern snoted. - Objective Resuscitation Status: Resuscitation Status FULL:Full Resuscitation MAR Reviewed: Yes Vital Signs & Weight: Vital Signs (12 hours) Temp Pulse Pulse Pulse Resp BP BP 07/19/17 12:44 65 123/61 07/19/17 11:50 97.8 F 65 16 07/19/17 09:23 77 73 163/102 H 07/19/17 09:17 73 205/91 H 07/19/17 09:16 73 205/91 H 07/19/17 08:00 97.6 F 73 18 07/19/17 07:58 74 75 205/99 H 07/19/17 07:51 97.6 F 73 18 07/19/17 06:08 07/19/17 03:42 72 07/19/17 03:32 98.2 F 72 16 BP BP BP Pulse Ox 07/19/17 12:44 07/19/17 11:50 123/61 91 L 07/19/17 09:23 193/96 H 07/19/17 09:17 07/19/17 09:16 07/19/17 08:00 95 07/19/17 07:58 201/129 H 07/19/17 07:51 205/91 H 95 07/19/17 06:08 178/82 H 07/19/17 03:42 07/19/17 03:32 199/98 H 97 Weight Admit Weight 191 lb 11.2 oz Weight 197 lb 9.6 oz I&O: 07/18/17 07/19/17 07/20/17 06:59 06:59 06:59 Intake Total 510 480 Output Total 750 100 Balance -240 380 Result Diagrams: 07/17/17 04:34 07/18/17 04:48 Additional Labs: Accuchecks 07/19/17 07/19/17 07/18/17 10:59 03:54 21:57 POC Glucose 184 H 131 H 147 H 07/18/17 07/18/17 19:56 13:50 POC Glucose 136 H 126 H Radiology Reviewed by me: Yes Phys Exam - Physical Examination HEENT: PERRLA, moist MMs Neck: no nodes, no JVD Respiratory: no wheezing, no rales Cardiovascular: RRR, no significant murmur Gastrointestinal: soft, non-tender Musculoskeletal: no edema, pulses present Neurological: non-focal, normal sensation Dx/Plan (1) Acute ischemic stroke Code(s): I63.9 - CEREBRAL INFARCTION, UNSPECIFIED Status: Acute Comment: Patien seen by neurology, sugested continue with [facility], with home health , Asprin/ Statin. (2) Acute metabolic encephalopathy Code(s): G93.41 - METABOLIC ENCEPHALOPATHY Status: Acute Comment: Improving. with HD. (3) CHF (congestive heart failure) Code(s): I50.9 - HEART FAILURE, UNSPECIFIED Status: Acute Comment: Continue with HD for volume removal. (4) CHF due to valvular disease Code(s): I50.9 - HEART FAILURE, UNSPECIFIED; I38 - ENDOCARDITIS, VALVE UNSPECIFIED Status: Acute (5) Nausea Code(s): R11.0 - NAUSEA Status: Acute Comment: Improved. (6) Anemia Code(s): D64.9 - ANEMIA, UNSPECIFIED Status: Acute Comment: Chronic from Renal disease, pt on procrit. (7) Diabetes mellitus type 2 in nonobese Code(s): E11.9 - TYPE 2 DIABETES MELLITUS WITHOUT COMPLICATIONS Status: Chronic Comment: Continue with SSI, Keep BG 140-180 - Plan cont current plan of care, PT/OT, social service technician, incentive spirometry, out of bed/ambulate, DVT proph w/heparin * . - Discharge Day Encounter end time: 15:35 Review of Systems - Review of Systems Constitutional: negative: fever, chills, sweats, weakness, malaise, other Eyes: negative: Pain, Vision Change, Conjunctivae Inflammation, Eyelid Inflammation, Redness, Other ENT: negative: Ear Pain, Ear Discharge, Nose Pain, Nose Discharge, Nose Congestion, Mouth Pain, Mouth Swelling, Throat Pain, Throat Swelling, Other Respiratory: negative: Cough, Dry, Shortness of Breath, Hemoptysis, SOB with Excertion, Pleuritic Pain, Sputum, Wheezing Cardiovascular: negative: chest pain, palpitations, orthopnea, paroxysmal nocturnal dyspnea, edema, light headedness, other Gastrointestinal: negative: Nausea, Vomiting, Abdominal Pain, Diarrhea, Constipation, Melena, Hematochezia, Other Musculoskeletal: negative: Neck Pain, Shoulder Pain, Arm Pain, Back Pain, Hand Pain, Leg Pain, Foot Pain, Other Skin: negative: Rash, Lesions, Mason, Bruising, Other Neurological: negative: Weakness, Numbness, Incoordination, Change in Speech, Confusion, Seizures, Other - Medications/Allergies Allergies/Adverse Reactions: Allergies Allergy/AdvReac Type Severity Reaction Status Date / Time No Known Allergies Allergy Verified 01/07/15 17:09 Medications: Current Medications Acetaminophen (Tylenol) 650 mg PO Q4H PRN PRN Reason: Headache/Fever or Pain Last Admin: 07/12/17 09:22 Dose: 650 mg Albuterol/Ipratropium (Duoneb) 3 ml NEB [id number] [facility] Last Admin: 07/19/17 00:45 Dose: 3 ml Albuterol/Ipratropium (Duoneb) 3 ml NEB [id number] PRN PRN Reason: SOB &/or Wheezing Aspirin (Ecotrin) 81 mg PO DAILY [facility] Last Admin: 07/19/17 09:14 Dose: 81 mg Atorvastatin Calcium (Lipitor) 20 mg PO HS [facility] Last Admin: 07/18/17 21:57 Dose: 20 mg Benzonatate (Tessalon) 100 mg PO Q4H PRN PRN Reason: Cough Calcium Carbonate (Tums) 1,000 mg PO Q4H PRN PRN Reason: Heartburn or Indigestion Dextrose/Water (Dextrose 50%) 25 gm SLOW IVP PRN PRN PRN Reason: Hypoglycemia Docusate Sodium (Colace) 100 mg PO BID [facility] Last Admin: 07/19/17 09:15 Dose: 100 mg Epoetin Wiley (Procrit) 10,000 units IVP MoWeFr@0900 [facility] Last Admin: 07/19/17 09:42 Dose: Not Given Famotidine (Pepcid) 20 mg PO Q24HR [facility] Last Admin: 07/18/17 21:59 Dose: 20 mg Glucagon (Glucagon) 1 mg IM PRN PRN PRN Reason: Hypoglycemia Guaifenesin (Mucinex) 600 mg PO Q12HR [facility] Last Admin: 07/19/17 09:15 Dose: 600 mg Heparin Sodium (Porcine) (Heparin) 5,000 units SC BID [facility] Last Admin: 07/19/17 09:15 Dose: 5,000 units Hydralazine HCl (Apresoline) 25 mg PO QID [facility] Last Admin: 07/19/17 12:44 Dose: 25 mg Dextrose/Water (D5w) 1,000 mls @ 0 mls/hr IV .Q0M PRN; As Directed PRN Reason: Hypoglycemia Insulin Detemir 10 units/ (Miscellaneous Medication) 0.1 mls @ 0 mls/hr SC BID [facility] Last Admin: 07/19/17 09:16 Dose: 0.1 mls Insulin Human Lispro (Humalog) 0 units SC .MILD SLIDING SCALE PRN PRN Reason: Mild Correctional Scale Last Admin: 07/14/17 17:39 Dose: 2 unit Insulin Human Lispro (Humalog) 0 units SC .BEDTIME SLIDING SC PRN PRN Reason: Bedtime Correctional Scale Last Admin: 07/11/17 20:32 Dose: 3 unit Labetalol HCl (Normodyne) 10 mg SLOW IVP Q4H PRN PRN Reason: SBP Greater Than 180 Last Admin: 07/19/17 03:42 Dose: 2 ml Methylcellulose (Citrucel) 500 mg PO BID [facility] Last Admin: 07/19/17 09:15 Dose: 500 mg Metoprolol Tartrate (Lopressor) 50 mg PO BID [facility] Last Admin: 07/19/17 09:16 Dose: 50 mg Miscellaneous Medication (Pharmacy To Dose) 1 each IVPB ASDIR [facility] Nifedipine (Procardia Xl) 90 mg PO DAILY [facility] Last Admin: 07/19/17 09:17 Dose: 90 mg Read Ppd Test Site 0 each PO ONE [facility] Stop: 07/20/17 20:00 Ondansetron HCl (Zofran) 4 mg IVP Q6H PRN PRN Reason: Nausea/Vomiting Last Admin: 07/15/17 00:11 Dose: 4 mg Polyethylene Glycol (Miralax) 17 gm PO BID [facility] Last Admin: 07/19/17 09:17 Dose: 17 gm Senna (Senokot) 2 tab PO HSPRN PRN PRN Reason: Constipation Sodium Chloride (Flush - Normal Saline) 10 ml IVF Q12HR [facility] Last Admin: 07/19/17 09:18 Dose: 10 ml Sodium Chloride (Flush - Normal Saline) 10 ml IVF PRN PRN PRN Reason: Saline Flush Last Admin: 07/13/17 13:28 Dose: 10 ml Tamsulosin HCl (Flomax) 0.4 mg PO DAILY [facility] Last Admin: 07/19/17 09:18 Dose: 0.4 mg Tramadol HCl (Ultram) 50 mg PO Q6H PRN PRN Reason: Mild-Moderate Pain (1-5) Tramadol HCl (Ultram) 100 mg PO Q6H PRN PRN Reason: Moderate to Severe Pain (6-10) Tuberculin PPD (Aplisol) 0.1 ml I-DERMAL ONE [facility] Stop: 07/20/17 20:01 Last Admin: 07/17/17 22:37 Dose: 0.1 ml
--- NOTE | 2017-07-19 15:06 | PDOC.PN ---
- Subjective Encounter Start Date: 07/19/17 Encounter Start Time: 14:00 Patient is seen today, alert and oriented. Explained he will need Home heal with PT/OT. pt refusing Home health. Will continue TO Monitor, pt is very weak today to go home. - Objective Resuscitation Status: Resuscitation Status FULL:Full Resuscitation MAR Reviewed: Yes Vital Signs & Weight: Vital Signs (12 hours) Temp Pulse Pulse Pulse Resp BP BP 07/19/17 14:49 07/19/17 14:48 63 20 07/19/17 12:44 65 123/61 07/19/17 11:50 97.8 F 65 16 07/19/17 09:23 77 73 163/102 H 07/19/17 09:17 73 205/91 H 07/19/17 09:16 73 205/91 H 07/19/17 08:00 97.6 F 73 18 07/19/17 07:58 74 75 205/99 H 07/19/17 07:51 97.6 F 73 18 07/19/17 06:08 07/19/17 03:42 72 07/19/17 03:32 98.2 F 72 16 BP BP BP Pulse Ox 07/19/17 14:49 91 L 07/19/17 14:48 91 L 07/19/17 12:44 07/19/17 11:50 123/61 91 L 07/19/17 09:23 193/96 H 07/19/17 09:17 07/19/17 09:16 07/19/17 08:00 95 07/19/17 07:58 201/129 H 07/19/17 07:51 205/91 H 95 07/19/17 06:08 178/82 H 07/19/17 03:42 07/19/17 03:32 199/98 H 97 Weight Admit Weight 191 lb 11.2 oz Weight 197 lb 9.6 oz I&O: 07/18/17 07/19/17 07/20/17 06:59 06:59 06:59 Intake Total 510 480 Output Total 750 100 Balance -240 380 Result Diagrams: 07/17/17 04:34 07/18/17 04:48 Additional Labs: Accuchecks 07/19/17 07/19/17 07/18/17 10:59 03:54 21:57 POC Glucose 184 H 131 H 147 H 07/18/17 19:56 POC Glucose 136 H Radiology Reviewed by me: Yes Phys Exam - Physical Examination HEENT: PERRLA, moist MMs Neck: no nodes, no JVD Respiratory: no wheezing, no rales Cardiovascular: RRR, no significant murmur Gastrointestinal: soft, non-tender Musculoskeletal: no edema, pulses present Neurological: normal sensation, moves all 4 limbs (Left Upper and lower leg weakness,) Dx/Plan (1) Acute ischemic stroke Code(s): I63.9 - CEREBRAL INFARCTION, UNSPECIFIED Status: Acute Comment: Patien seen by neurology, Continue Aspirin/ Statin. (2) Acute metabolic encephalopathy Code(s): G93.41 - METABOLIC ENCEPHALOPATHY Status: Acute Comment: Improving. with HD. (3) CHF (congestive heart failure) Code(s): I50.9 - HEART FAILURE, UNSPECIFIED Status: Acute Comment: Continue with HD for volume removal. (4) CHF due to valvular disease Code(s): I50.9 - HEART FAILURE, UNSPECIFIED; I38 - ENDOCARDITIS, VALVE UNSPECIFIED Status: Acute (5) Nausea Code(s): R11.0 - NAUSEA Status: Acute Comment: Improved. (6) Anemia Code(s): D64.9 - ANEMIA, UNSPECIFIED Status: Acute Comment: Chronic from Renal disease, pt on procrit. (7) Diabetes mellitus type 2 in nonobese Code(s): E11.9 - TYPE 2 DIABETES MELLITUS WITHOUT COMPLICATIONS Status: Chronic Comment: Continue with SSI, Keep BG 140-180 - Plan cont current plan of care, plan discussed w/ family, PT/OT, delinquency prevention social worker, respiratory therapy, incentive spirometry, DVT proph w/lovenox * . - Discharge Day Encounter end time: 14:35 Review of Systems - Review of Systems Constitutional: weakness Eyes: Vision Change (Had vsoiion problem before this visit.). negative: Pain, Conjunctivae Inflammation, Eyelid Inflammation, Redness, Other ENT: negative: Ear Pain, Ear Discharge, Nose Pain, Nose Discharge, Nose Congestion, Mouth Pain, Mouth Swelling, Throat Pain, Throat Swelling, Other Respiratory: negative: Cough, Dry, Shortness of Breath, Hemoptysis, SOB with Excertion, Pleuritic Pain, Sputum, Wheezing Cardiovascular: negative: chest pain, palpitations, orthopnea, paroxysmal nocturnal dyspnea, edema, light headedness, other Gastrointestinal: negative: Nausea, Vomiting, Abdominal Pain, Diarrhea, Constipation, Melena, Hematochezia, Other Genitourinary: negative: Dysuria, Frequency, Incontinence, Hematuria, Retention , Other Musculoskeletal: negative: Neck Pain, Shoulder Pain, Arm Pain, Back Pain, Hand Pain, Leg Pain, Foot Pain, Other Skin: negative: Rash, Lesions, Mason, Bruising, Other Neurological: Weakness, Incoordination, Change in Speech - Medications/Allergies Allergies/Adverse Reactions: Allergies Allergy/AdvReac Type Severity Reaction Status Date / Time No Known Allergies Allergy Verified 01/07/15 17:09 Medications: Current Medications Acetaminophen (Tylenol) 650 mg PO Q4H PRN PRN Reason: Headache/Fever or Pain Last Admin: 07/12/17 09:22 Dose: 650 mg Albuterol/Ipratropium (Duoneb) 3 ml NEB [id number] [facility] Last Admin: 07/19/17 14:48 Dose: 3 ml Albuterol/Ipratropium (Duoneb) 3 ml NEB [id number] PRN PRN Reason: SOB &/or Wheezing Aspirin (Ecotrin) 81 mg PO DAILY [facility] Last Admin: 07/19/17 09:14 Dose: 81 mg Atorvastatin Calcium (Lipitor) 20 mg PO HS [facility] Last Admin: 07/18/17 21:57 Dose: 20 mg Benzonatate (Tessalon) 100 mg PO Q4H PRN PRN Reason: Cough Calcium Carbonate (Tums) 1,000 mg PO Q4H PRN PRN Reason: Heartburn or Indigestion Dextrose/Water (Dextrose 50%) 25 gm SLOW IVP PRN PRN PRN Reason: Hypoglycemia Docusate Sodium (Colace) 100 mg PO BID [facility] Last Admin: 07/19/17 09:15 Dose: 100 mg Epoetin Wiley (Procrit) 10,000 units IVP MoWeFr@0900 [facility] Last Admin: 07/19/17 09:42 Dose: Not Given Famotidine (Pepcid) 20 mg PO Q24HR [facility] Last Admin: 07/18/17 21:59 Dose: 20 mg Glucagon (Glucagon) 1 mg IM PRN PRN PRN Reason: Hypoglycemia Guaifenesin (Mucinex) 600 mg PO Q12HR [facility] Last Admin: 07/19/17 09:15 Dose: 600 mg Heparin Sodium (Porcine) (Heparin) 5,000 units SC BID [facility] Last Admin: 07/19/17 09:15 Dose: 5,000 units Hydralazine HCl (Apresoline) 25 mg PO QID [facility] Last Admin: 07/19/17 12:44 Dose: 25 mg Dextrose/Water (D5w) 1,000 mls @ 0 mls/hr IV .Q0M PRN; As Directed PRN Reason: Hypoglycemia Insulin Detemir 10 units/ (Miscellaneous Medication) 0.1 mls @ 0 mls/hr SC BID [facility] Last Admin: 07/19/17 09:16 Dose: 0.1 mls Insulin Human Lispro (Humalog) 0 units SC .MILD SLIDING SCALE PRN PRN Reason: Mild Correctional Scale Last Admin: 07/14/17 17:39 Dose: 2 unit Insulin Human Lispro (Humalog) 0 units SC .BEDTIME SLIDING SC PRN PRN Reason: Bedtime Correctional Scale Last Admin: 07/11/17 20:32 Dose: 3 unit Labetalol HCl (Normodyne) 10 mg SLOW IVP Q4H PRN PRN Reason: SBP Greater Than 180 Last Admin: 07/19/17 03:42 Dose: 2 ml Methylcellulose (Citrucel) 500 mg PO BID [facility] Last Admin: 07/19/17 09:15 Dose: 500 mg Metoprolol Tartrate (Lopressor) 50 mg PO BID [facility] Last Admin: 07/19/17 09:16 Dose: 50 mg Miscellaneous Medication (Pharmacy To Dose) 1 each IVPB ASDIR [facility] Nifedipine (Procardia Xl) 90 mg PO DAILY [facility] Last Admin: 07/19/17 09:17 Dose: 90 mg Read Ppd Test Site 0 each PO ONE [facility] Stop: 07/20/17 20:00 Ondansetron HCl (Zofran) 4 mg IVP Q6H PRN PRN Reason: Nausea/Vomiting Last Admin: 07/15/17 00:11 Dose: 4 mg Polyethylene Glycol (Miralax) 17 gm PO BID [facility] Last Admin: 07/19/17 09:17 Dose: 17 gm Senna (Senokot) 2 tab PO HSPRN PRN PRN Reason: Constipation Sodium Chloride (Flush - Normal Saline) 10 ml IVF Q12HR [facility] Last Admin: 07/19/17 09:18 Dose: 10 ml Sodium Chloride (Flush - Normal Saline) 10 ml IVF PRN PRN PRN Reason: Saline Flush Last Admin: 07/13/17 13:28 Dose: 10 ml Tamsulosin HCl (Flomax) 0.4 mg PO DAILY [facility] Last Admin: 07/19/17 09:18 Dose: 0.4 mg Tramadol HCl (Ultram) 50 mg PO Q6H PRN PRN Reason: Mild-Moderate Pain (1-5) Tramadol HCl (Ultram) 100 mg PO Q6H PRN PRN Reason: Moderate to Severe Pain (6-10) Tuberculin PPD (Aplisol) 0.1 ml I-DERMAL ONE [facility] Stop: 07/20/17 20:01 Last Admin: 07/17/17 22:37 Dose: 0.1 ml
[2017-07-19] MEDS: Atorvastatin Calcium 20 MG TAB PO SCH (20:36)
[2017-07-19] MEDS: Famotidine 20 MG TAB PO SCH (20:40)
--- NOTE | 2017-07-19 21:03 | PRG ---
DATE OF SERVICE: 07/19/2017 SUBJECTIVE: Patient was seen and examined at bedside and overnight events noted. Patient denies any shortness of breath or chest pain or palpitation. No history of nausea or vomitin g or diarrhea or fever or chills or cramps. OBJECTIVE: GENERAL: This is a well-built male, in no apparent distress. VITAL SIGNS: Temperature 97.9, pulse 65, respiratory rate 16, blood pressure 116/65. HEENT: Atraumatic, normocephalic. Oral mucosa is moist NECK: Supple. CARDIOVASCULAR: S1 and S2 heard. Rate and rhythm regular. RESPIRATORY: Clear to auscultation. GASTROINTESTINAL: Abdomen is soft. MUSCULOSKELETAL: No tenderness. No edema. DERMATOLOGIC: No skin rash. NEUROLOGIC: Alert and awake and oriented X3, No focal neurologic deficits. Moving all the extremitie s. PSYCHIATRIC: Mood and affect normal. LABORATORY DATA: No new labs done today. ASSESSMENT AND PLAN: 1. End-stage renal disease, on hemodialysis. We will check labs and monitor. 2. Altered mentation, much better. 3. Hyponatremia, limit fluid intake. 4. Anemia of chronic disease. 5. Hypertension. 6. Edema, remove fluid with dialysis. 7. Follow with case management for outpatient placement. Continue on dialysis as tolerated.
--- NOTE | 2017-07-19 23:50 | PRG ---
DATE OF SERVICE: 07/19/2017 Patient is doing well today. He has a good thrill and bruit in his left wrist. Surgical wound looks good. At this point, he is doing well. I will see him as needed this hospitalization. He is to ex ercise the left arm. He should follow up with me in 3-4 weeks. I will see him this hospitalization as needed. Please call if necessary.
[2017-07-20 04:59] LABS: Hemoglobin 7.3 g/dL (14.0-18.0); Mean Corpuscular HGB CONC 32.3 g/dL (32.0-36.0); Mean Corpuscular Hemoglobin 28.7 pg (27.0-31.0); Mean Corpuscular Volume 89.1 fl (80.0-94.0); Mean Platelet Volume 8.6 fL (7.4-10.4); Platelet Count 277 thou/uL (130-400); RBC Distribution Width 13.4 % (11.5-14.5); Red Blood Cell (RBC) Count 2.53 mill/uL (4.70-6.10); White Blood Cell (WBC) Count 4.8 thou/uL (4.8-10.8)
[2017-07-20 05:04] LABS: Anion Gap 9 mmol/L (10-20); BUN (Urea Nitrogen) 28 mg/dL (8.4-25.7); Calc. Creatinine Clearance 26 mL/min (70-130); Calcium 8.2 mg/dL (7.8-10.44); Carbon Dioxide 29 mmol/L (23-31); Chloride 104 mmol/L (98-107); Estimated GFR-MDRD 17; Potassium 3.6 mmol/L (3.5-5.1); Sodium 138 mmol/L (136-145)
[2017-07-20 05:08] LABS: Glucose 46 mg/dL (80-115)
[2017-07-20] MEDS ORDERED: Dextrose 50% Abboject 50 ML SYRINGE ONE (05:39)
[2017-07-20] MEDS: Aspirin 81 mg Enteric Coated Tablet PO SCH (08:47)
[2017-07-20] MEDS: Citrucel 500 MG TAB PO SCH (08:48)
[2017-07-20] MEDS: guaiFENesin ER 600 MG TAB PO SCH (08:48)
[2017-07-20] MEDS: Docusate 100 MG CAP PO SCH (08:48)
[2017-07-20] MEDS: hydrALAZINE 25 MG TAB PO SCH ×2 (08:49→14:03)
[2017-07-20] MEDS: NIFEdipine XL 90 MG TAB PO SCH (08:49)
[2017-07-20] MEDS: Heparin 5,000 UNITS/ML VIAL SC SCH (08:49)
[2017-07-20] MEDS: Metoprolol Tartrate 50 MG TAB PO SCH (08:49)
[2017-07-20] MEDS: Tamsulosin HCl 0.4 MG CAP PO SCH (08:50)
[2017-07-20] MEDS: Polyethylene Glycol 3350 17 GM Packet PO SCH (08:50)
[2017-07-20] MEDS ORDERED: Epoetin (NON-ESRD) 20,000 UNITS/ML ML IVP SCH (09:00)
[2017-07-20] MEDS: Insulin Detemir 100 UNITS/ML 10 UNITS in Pre-Filled Syringe 1 EACH SC SCH (10:41)
--- NOTE | 2017-07-20 12:13 | PRG ---
DATE OF SERVICE: 07/20/2017 SUBJECTIVE: Patient was seen and examined at bedside and overnight events noted. Patient denies any shortness of breath or chest pain or palpitation. No history of nausea or vomiting or diarrhea or f ever or chills or cramps. OBJECTIVE: GENERAL: This is a well-built male in no apparent distress. VITAL SIGNS: Temperature 98.3, pulse 63, respiratory rate 18, blood pressure 149/81. HEENT: Atraumatic, normocephalic. Oral mucosa is moist. NECK: Supple. CARDIOVASCULAR: S1, S2 heard. Rate and rhythm regular. RESPIRATORY: Clear to auscultation. GASTROINTESTINAL: Abdomen is soft. MUSCULOSKELETAL: No tenderness. No edema. DERMATOLOGIC: No skin rash. NEUROLOGIC: Alert and awake and oriented x3. No focal neurologic deficits. Moving all the extremiti es. PSYCHIATRIC: Mood and affect normal. LABORATORY DATA: Potassium is 3.6, BUN 28, creatinine 3.5. ASSESSMENT AND PLAN: 1. End-stage renal disease. We will continue on dialysis, but his urine output is improving, which might be suggesting recovery. 2. Altered mentation. 3. Hyponatremia. 4. Anemia of chronic disease. 5. Hypertension. 6. Edema. 7. Hold dialysis today and watch for recovery. Okay to discharge. Follow up with dialysis if every thing setup and okay to discharge. Follow up at [facility] on Saturday. Monitor for renal recove ry.
[2017-07-20 12:17] VITALS: BP 132/68; TEMP 97.2
--- NOTE | 2017-07-20 15:56 | DIS ---
DATE OF ADMISSION: 07/08/2017 DATE OF DISCHARGE: 07/20/2017 ADMITTING DIAGNOSIS: Acute kidney injury on chronic kidney disease. DISCHARGE DIAGNOSIS: Acute kidney injury, ending up in end-stage renal disease on hemodialysis. SECONDARY DIAGNOSES: 1. Small temporal lobe acute subacute infarct. 2. Hypertension. 3. Coronary artery disease. 4. Chronic kidney disease. CONSULTANTS INVOLVED IN THE CARE: 1. Dr. Mahajan from Neurology. 2. Dr. Landry Watson for Vascular for AV access. 3. Dr. Hemanth Harding for Nephrology. PROCEDURES DONE DURING THIS ADMISSION: 1. Renal ultrasound, which showed a right exophytic simple cyst. No evidence of any obstructive uropathy. 2. Brain MRI done which is showing a small vessel ischemic disease and 2 small areas of infarction in the left temporal lobe. HISTORY OF PRESENT ILLNESS AND HOSPITAL COURSE: In brief, this is a 66-year- old white male with a known medical history of chronic kidney disease. He was admitted with worsening cough and shortness of breath and his creatinine was increased to 3.4 from 2.15 and patient's creatinine did not improve with hydration and patient had no fever or chills and swelling. The patient denied taking any nephrotoxic medication. There was noted to have worsening renal functions and Nephrology was consulted because of this. Because of and because of the poor urine output and worsening renal functions and worsening GFR , patient had underwent hemodialysis. During this admission, patient had a code green where he was resuscitated as he apparently lost his mental status. CT of the head was done which was unremarkable, but his signs were suggestive of a full blown stroke with right-sided symptoms. Patient had an MRI of the brain which revealed temporal lobe infarct and Neurology was consulted. Following this, a 2D echo was done which was unremarkable. Patient had some renal function, AV access surgery was done during this admission and patient also had a Ant catheter for hemodialysis. Patient showed good improvement, but he was progressively very weak and he needed a prison facility placement, but the patient refused and he wanted to go to home with PT and OT. So, this was finally arranged as outpatient. Patient showed good improvement and was discharged home in stable condition and case management have arranged outpatient home physical therapy and occupational therapy. PHYSICAL EXAMINATION: VITAL SIGNS: Blood pressure 149/81, heart rate 63, respiratory rate 18, saturation 97%. GENERAL: Patient is moderately built and moderately nourished, does not appear to be in acute distress. CARDIOVASCULAR: S1, S2 normal. No murmurs, rubs or gallops. LUNGS: Bilateral air entry was equal. No wheezing, no crackles. ABDOMEN: Soft, nontender, no guarding, no rebound tenderness. Bowel sounds normal. MUSCULOSKELETAL: No calf tenderness. No pedal edema. No joint tenderness, no joint swelling. DISCHARGE MEDICATIONS: Insulin 7 units subcu at bedtime, lisinopril 20 mg p.o. daily, atorvastatin 80 mg p.o. daily. NEW MEDICATIONS: Aspirin 81 mg p.o. daily, hydralazine 25 mg p.o. q.i.d., metoprolol tartrate 50 mg p.o. b.i.d., nifedipine 90 mg p.o. daily, tamsulosin 0.4 mg daily. DISCHARGE INSTRUCTIONS: 1. Patient has outpatient dialysis setup at [facility] and he will follow up over there for his next dialysis. Patient will follow up with Neurology in 1-2 weeks. 2. The patient will follow up with his primary care physician in 2 weeks. 3. The patient will continue with the renal diet and patient will have home health and PT as this would help him with his recent stroke and is on hemodialysis. To strict to the renal diet. I spent 35 minutes. GEETA
== END 2017-07-20 14:41 | disposition home health service (06) | DRG 673 ==
LOC: ERS 15:47 → 2NO 19:45 → 2SE 07-18 19:56
PROVIDERS: ADMIT Internal Medicine; ATTEND Internal Medicine
PROC: 02HV33Z Insertion of Infusion Device into Superior Vena Cava, Percutaneous Approach (ICD-10-PCS; 2017-07-16)
PROC: 5A1D70Z Performance of Urinary Filtration, Intermittent, Less than 6 Hours Per Day (ICD-10-PCS; 2017-07-17)
PROC: 031C0ZF Bypass Left Radial Artery to Lower Arm Vein, Open Approach (ICD-10-PCS; principal; 2017-07-18)
DX: N17.9 Acute kidney failure, unspecified (principal); I63.9 Cerebral infarction, unspecified; G93.41 Metabolic encephalopathy; I13.2 Hypertensive heart and chronic kidney disease with heart failure and with stage 5 chronic kidney disease, or end stage renal disease; J18.9 Pneumonia, unspecified organism; I38 Endocarditis, valve unspecified; E11.22 Type 2 diabetes mellitus with diabetic chronic kidney disease; I50.32 Chronic diastolic (congestive) heart failure; E87.1 Hypo-osmolality and hyponatremia; N18.6 End stage renal disease; E78.5 Hyperlipidemia, unspecified; I25.10 Atherosclerotic heart disease of native coronary artery without angina pectoris; Z95.5 Presence of coronary angioplasty implant and graft; G51.0 Bell's palsy; I16.0 Hypertensive urgency; K56.41 Fecal impaction; D63.1 Anemia in chronic kidney disease; E87.5 Hyperkalemia; I08.1 Rheumatic disorders of both mitral and tricuspid valves; Z23 Encounter for immunization
CPT/HCPCS: 36415; 36416; 70450; 70551; 71045; 71046; 76770; 80048; 80051; 80053; 80061; 82550; 82553; 82570; 83036; 83690; 83735; 83880; 84156; 84484; 85007; 85014; 85018; 85025; 85027; 85610; 85730; 86580; 86704; 86706; 86803; 86850; 86900; 86901; 87340; 89220; 90471; 90670; 90682; 90935; 93005; 93010; 93306; 93798; 93880; 93970; 94640; 96365; 96375; J2270; A4216; C1752; C1769; G0008; G0009; G0257; G0365; G8978-GP-CL; G8979-GP-CJ; G8987-GO-CJ; G8988-GO-CI; G9168-GN-CL; G9169-GN-CK; J0456; J0696; J0885; J1644; J1815; J1940; J1956; J2001; J2250; J2405; J2550; J2704; J3010; J3490; J7050; J7620; Q2036; Q4081

== ENCOUNTER 2017-09-27 15:10 | Inpatient (IN) | payer MEDICARE ==
[2017-09-27 15:54] LABS: #Lymphocytes 0.7 thou/uL (1.20-3.40); #Monocytes 0.3 thou/uL (0.11-0.59); #Neutrophils 4.4 thou/uL (1.40-6.50); %Basophils 0.7 % (0.0-1.0); %Eosinophils 0.8 % (0.0-10.0); %Lymphocytes 12.7 % (21.0-51.0); %Monocytes 5.3 % (0.0-10.0); %Neutrophils 80.5 % (42.0-75.0); Hemoglobin 10.7 g/dL (14.0-18.0); Mean Corpuscular HGB CONC 34.1 g/dL (32.0-36.0); Mean Corpuscular Hemoglobin 29.3 pg (27.0-31.0); Mean Platelet Volume 8.3 fL (7.4-10.4); Platelet Count 227 thou/uL (130-400); RBC Distribution Width 13.3 % (11.5-14.5); Red Blood Cell (RBC) Count 3.65 mill/uL (4.70-6.10); White Blood Cell (WBC) Count 5.5 thou/uL (4.8-10.8)
[2017-09-27 16:13] LABS: ALT (SGPT) 14 U/L (8-55); AST (SGOT) 14 U/L (5-34); Albumin 3.5 g/dL (3.4-4.8); Alkaline Phosphatase 201 U/L (40-150); Anion Gap 12 mmol/L (10-20); BUN (Urea Nitrogen) 10 mg/dL (8.4-25.7); Bilirubin, Total 0.6 mg/dL (0.2-1.2); CK (CPK) 63 U/L (30-200); Calc. Creatinine Clearance 0 mL/min (70-130); Calcium 8.7 mg/dL (7.8-10.44); Carbon Dioxide 32 mmol/L (23-31); Chloride 98 mmol/L (98-107); Estimated GFR-MDRD 42; Globulin 3.3 g/dL (2.4-3.5); Glucose 149 mg/dL (80-115); Potassium 3.2 mmol/L (3.5-5.1); Protein, Total 6.8 g/dL (5.8-8.1); Sodium 139 mmol/L (136-145)
[2017-09-27 16:18] LABS: CKMB 3.4 ng/mL (0-6.6)
[2017-09-27 16:27] LABS: Troponin I 0.659 ng/mL (< 0.028)
--- NOTE | 2017-09-27 16:43 | RAD ---
PORTABLE CHEST: 09/27/17 HISTORY: Dyspnea. COMPARISON: 07/16/17 No evidence of confluent infiltrate. No evidence of vascular congestion or significant effusion. Ther e is mild interstitial prominence in the lower lung malcolm. The dual lumen central line is unchanged with the tip overlying the SVC. IMPRESSION: No evidence of alveolar infiltrate. Some mild interstitial prominence which could represent mild inte rstitial edema, however, the vascularity is only upper normal in appearance. POS: [facility]
[2017-09-27] MEDS ORDERED: Aspirin 325 MG TAB ONE (16:49)
[2017-09-27] MEDS ORDERED: Dextrose 50% Abboject 50 ML SYRINGE SLOW IVP PRN (18:18)
[2017-09-27] MEDS ORDERED: HumaLOG 300 UNITS/3 ML VIAL SC PRN (18:18)
[2017-09-27] MEDS ORDERED: Dextrose 5% in Water 1,000 ML IV PRN (18:18)
[2017-09-27 19:40] LABS: Critical Call Chem Troponin I RESULT DECREASING; Troponin I 0.543 ng/mL (< 0.028)
[2017-09-27] MEDS ORDERED: Heparin 5,000 UNITS/ML VIAL SC SCH (21:00)
[2017-09-27] MEDS ORDERED: Insulin Detemir 100 UNITS/ML 5 UNITS in Pre-Filled Syringe 1 EACH SC SCH (21:00)
[2017-09-27] MEDS ORDERED: Atorvastatin Calcium 20 MG TAB PO SCH (21:00)
[2017-09-27] MEDS: Metoprolol Tartrate 50 MG TAB PO SCH (23:14)
[2017-09-27 23:17] LABS: Troponin I 0.564 ng/mL (< 0.028)
[2017-09-27 23:59] VITALS: BMI 26.4
--- NOTE | 2017-09-28 02:53 | HP ---
CHIEF COMPLAINT: Hypotension. HISTORY OF PRESENT ILLNESS: Patient is a 66-year-old male with a history of renal disease, history o f stroke, history of coronary artery disease, who presented from dialysis center for possible hypoten amanda. Per the ER notes and a little bit from the patient and the , it seems that patient had an episode of hypotension at dialysis. His systolic was found to be in the low 80s and patient started feeling unwell. Patient at that time was given 2 liters in dialysis and EMS were summoned. Upon arr ival of the EMS, the patient's blood pressure seemed to have improved to 1 teens; however, the patien t was brought in here for further evaluation. I was told by nursing staff here that the patient had a nitro patch on from 09/26. Patient's blood pressure here has been in the 130s systolic. The patie nt states that he feels much better. Denies any chest discomfort or shortness of breath. According to the patient's , he was just recently discharged from [facility] and apparently had a cardiac catheterization and had some stents placed in. The patient states that is all he knows, h e does not know anything else. Currently, he denies any complaints and denies having any chest pain, shortness of breath, nausea, vomiting, or diarrhea. PAST MEDICAL HISTORY: History of renal disease. PAST MEDICAL HISTORY: 1. Hypertension. 2. Diabetes. 3. Hyperlipidemia. 4. Chronic kidney disease. He is on intermittent dialysis. 5. Coronary artery disease, questionable stenting recently, but has stents in the past. 6. History of Earl's palsy. 7. Hyperglycemia. PAST SURGICAL HISTORY: The patient has had an appendectomy, a nasal septum surgery, and stents place d in. ALLERGIES: He has no known drug allergies. SOCIAL HISTORY: He is a nonsmoker, nondrinker. He is and lives with his . FAMILY HISTORY: Significant for cancer in mother. Father had diabetes. MEDICATIONS: As the following, patient is on Flomax 0.4 mg daily, Procardia 90 mg daily, metoprolol 50 mg b.i.d., lisinopril 20 mg daily, atorvastatin 20 mg at bedtime, aspirin 81 mg daily, hydralazine 25 mg q.i.d., and insulin 7 units. REVIEW OF SYSTEMS: The following complete review of systems was negative, unless otherwise mentioned in the HPI or below: Constitutional: Weight loss or gain, ability to conduct usual activities. Sk in: Rash, itching. Eyes: Double vision, pain. ENT/Mouth: Nose bleeding, neck stiffness, pain, te nderness. Cardiovascular: Palpitations, dyspnea on exertion, orthopnea. Respiratory: Shortness of breath, wheezing, cough, hemoptysis, fever, or night sweats. Gastrointestinal: Poor appetite, abdo teto pain, heartburn, nausea, vomiting, constipation, or diarrhea. Genitourinary: Urgency, frequen cy, dysuria, nocturia. Musculoskeletal: Pain, swelling. Neurologic/Psychiatric: Anxiety, depressi on. Allergy/Immunologic: Skin rash, bleeding tendency. All negative except for the ones mentioned in the HPI. PHYSICAL EXAMINATION: VITAL SIGNS: Temperature of 97.2, blood pressure 149/81, respiratory rate 18, O2 sats 97% on room ai r. GENERAL: He is awake, alert, oriented x3, does not appear in distress. CARDIOVASCULAR: S1, S2 present. No murmurs, rubs, or gallops. LUNGS: Mild crackles to bilateral lower bases. ABDOMEN: Soft and nontender. Bowel sounds are present x2. EXTREMITIES: He does have a dressing over his right groin, most likely from the recent catheterizati on. His pedal pulses bilaterally are present and the feet are warm to touch. LABORATORY DATA: As the following, has white count of 5.5, hemoglobin of 10.7, hematocrit of 31.4. He has no bands. Chemistry: Sodium of 139, potassium of 3.2, chloride of 98, BUN of 10, creatinine of 1.66. His sugar is 149. His troponin is elevated at 0.6. ProBNP is 1374. ASSESSMENT AND PLAN: The patient is a very pleasant 66-year-old male, who presents to the hospital f or hypotension. 1. Hypotension. This could be secondary to removal of excessive fluid versus a little bit of dehydr ation. Unknown how much fluid was removed in dialysis. There was some statement in terms of the nit ro paste that could cause hypotension. However, I think that is unlikely since the nitro patch was p ut on 09/26 and I do not think the effects last for about 24 hours. The nitro paste patch that was p ut on patient was removed. We will continue to monitor the patient. We will slightly introduce bloo d pressure medications. 2. Chronic kidney disease, intermittent dialysis. Patient has been on dialysis in the past and is c ontinuing dialysis. We will consult Nephrology and continue to monitor. 3. Coronary artery disease. Patient most likely has recently had stents placed in and is not a mina of any new stents. She does not know what procedure was done even, neither does the patient. A t this moment, we will get records from [facility]. We will continue patient on aspirin. I am tempted to put the patient on Plavix also since I am not sure exactly what was done for this patient. 4. History of stroke. Again, we will continue aspirin and statin. 5. Deep venous thrombosis prophylaxis. We will put patient on subcutaneous heparin.
--- NOTE | 2017-09-28 03:05 | CON ---
DATE OF CONSULTATION: 09/27/2017 CONSULTING PHYSICIAN: Dr. Jay Esteban M.D. REASON FOR CONSULTATION: End-stage renal disease evaluation and care. REASON FOR ADMISSION: Hypertension and chest pain. HISTORY OF PRESENT ILLNESS: A 66-year-old male with history of end-stage renal disease, hypertension , type 2 diabetes who came to the hospital with hypertension. The patient was at dialysis today. He was recently discharged from [facility] after cardiac catheterization. No fever or chills. No nausea, vomiting. The patient is feeling better when I saw him in the ER. PAST MEDICAL HISTORY: Positive for end-stage renal disease, type 2 diabetes, hypertension, and coron sergio artery disease. PAST SURGICAL HISTORY: Dialysis access placement, appendectomy and cardiac catheterization, amputati ons, stent placement, and appendectomy. ALLERGIES: No known drug allergies. HOME MEDICATIONS: Include hydralazine, Flomax, Procardia, Lopressor, NovoLog, and aspirin. SOCIAL HISTORY: No smoking, alcohol, or illicit drug abuse. FAMILY HISTORY: No history of any kidney disease. REVIEW OF SYSTEMS: The following complete review of systems was negative, unless otherwise mentioned in the HPI or below: Constitutional: Weight loss or gain, ability to conduct usual activities. Sk in: Rash, itching. Eyes: Double vision, pain. ENT/Mouth: Nose bleeding, neck stiffness, pain, ten derness. Cardiovascular: Palpitations, dyspnea on exertion, orthopnea. Respiratory: Shortness of breath, wheezing, cough, hemoptysis, fever or night sweats. Gastrointestinal: Poor appetite, abdomi nal pain, heartburn, nausea, vomiting, constipation, or diarrhea. Genitourinary: Urgency, frequency , dysuria, nocturia. Musculoskeletal: Pain, swelling. Neurologic/Psychiatric: Anxiety, depression . Allergy/Immunologic: Skin rash, bleeding tendency. PHYSICAL EXAMINATION: GENERAL: This is a well-built male in no apparent distress. VITAL SIGNS: Temperature 97.8, pulse 68, respiratory rate 12, blood pressure 127/45. HEENT: Atraumatic, normocephalic. Oral mucosa is moist. NECK: Supple, no masses. CARDIOVASCULAR: S1, S2 heard. Rate and rhythm regular. RESPIRATORY: Clear. GASTROINTESTINAL: Abdomen is soft. MUSCULOSKELETAL: 1+ edema. DERMATOLOGIC: No rash. NEUROLOGIC: Alert, awake. PSYCHIATRIC: Mood and affect normal. LABORATORY DATA: Hemoglobin is 10.7, potassium is 3.2, BUN is 10, and creatinine is 1.6. ASSESSMENT AND PLAN: 1. End-stage renal disease on hemodialysis. We will have dialysis as tolerated. The patient had di alysis today. 2. Hypertension, stable. 3. Edema, controlled. 4. Anemia. Monitor hemoglobin. Plan is to monitor renal function closely and we will follow. Avoid nephrotoxins. We will continue on dialysis as tolerated.
[2017-09-28 05:50] LABS: #Eosinphils 0.1 thou/uL (0.0-0.7); #Lymphocytes 1.1 thou/uL (1.20-3.40); #Monocytes 0.5 thou/uL (0.11-0.59); #Neutrophils 3.3 thou/uL (1.40-6.50); %Basophils 0.8 % (0.0-1.0); %Lymphocytes 22.1 % (21.0-51.0); %Monocytes 10.5 % (0.0-10.0); %Neutrophils 64.6 % (42.0-75.0); Hemoglobin 10.1 g/dL (14.0-18.0); Mean Corpuscular HGB CONC 32.8 g/dL (32.0-36.0); Mean Corpuscular Hemoglobin 28.6 pg (27.0-31.0); Mean Corpuscular Volume 87.1 fl (80.0-94.0); Mean Platelet Volume 8.9 fL (7.4-10.4); Platelet Count 201 thou/uL (130-400); RBC Distribution Width 13.3 % (11.5-14.5); Red Blood Cell (RBC) Count 3.54 mill/uL (4.70-6.10); White Blood Cell (WBC) Count 5.1 thou/uL (4.8-10.8)
[2017-09-28 06:08] LABS: Anion Gap 12 mmol/L (10-20); BUN (Urea Nitrogen) 17 mg/dL (8.4-25.7); Calc. Creatinine Clearance 29 mL/min (70-130); Calcium 8.3 mg/dL (7.8-10.44); Carbon Dioxide 30 mmol/L (23-31); Chloride 100 mmol/L (98-107); Estimated GFR-MDRD 22; Glucose 292 mg/dL (80-115); Potassium 3.6 mmol/L (3.5-5.1); Sodium 138 mmol/L (136-145)
[2017-09-28] MEDS ORDERED: Heparin 10,000 UNITS/ 10 ML VIAL SLOW IVP SCH (06:15)
[2017-09-28] MEDS ORDERED: Heparin 25,000 units/D5W 500 ML IVPB SCH (06:15)
[2017-09-28 06:48] LABS: Hemoglobin 10.3 g/dL (14.0-18.0); Platelet Count 190 thou/uL (130-400)
[2017-09-28] MEDS ORDERED: NIFEdipine XL 90 MG TAB PO SCH (09:00)
[2017-09-28] MEDS ORDERED: Lisinopril 20 MG TAB PO SCH (09:00)
[2017-09-28] MEDS ORDERED: Tamsulosin HCl 0.4 MG CAP PO SCH (09:00)
[2017-09-28] MEDS ORDERED: Aspirin 81 mg Enteric Coated Tablet PO SCH (09:00)
[2017-09-28] MEDS ORDERED: Clopidogrel Bisulfate 75 MG TAB PO SCH (09:00)
[2017-09-28] MEDS: Metoprolol Tartrate 50 MG TAB PO SCH (09:27)
--- NOTE | 2017-09-28 14:12 | PRG ---
DATE OF SERVICE: 09/28/2017 SUBJECTIVE: Patient was seen and examined at bedside and overnight events noted. Patient denies an y shortness of breath or chest pain or palpitation. No history of nausea or vomiting or diarrhea or fever or chills or cramps. OBJECTIVE: GENERAL: This is a well-developed male, in no apparent distress VITAL SIGNS: Temperature 98.7, pulse 66, respiratory rate 18, blood pressure 196/81. HEENT: Atraumatic, normocephalic, Oral mucosa is moist NECK: Supple. CARDIOVASCULAR: S1S2 heard, Rate and rhythm regular. RESPIRATORY: Clear to auscultation. GASTROINTESTINAL: Abdomen is soft. MUSCULOSKELETAL: 1+ edema. DERMATOLOGIC: No skin rash. NEUROLOGIC: Alert and awake and oriented x3, No focal neurologic deficits. Moving all the extremiti es. PSYCHIATRIC: Mood and affect normal. LABORATORY DATA: Hemoglobin is 10.3, potassium is 3.6, BUN 17, creatinine is 2.9. ASSESSMENT AND PLAN: 1. End-stage renal disease. Continue on hemodialysis, tolerated. 2. Edema, controlled. 3. Hypertension. 4. Anemia. Plan is to check a 24-hour urine for creatinine clearance and will follow.
--- NOTE | 2017-09-28 14:45 | PDOC.PN ---
- Subjective Encounter Start Date: 09/28/17 Encounter Start Time: 10:00 Subjective: pt up in bed no complains, feels well - Objective Resuscitation Status: Resuscitation Status FULL:Full Resuscitation Vital Signs & Weight: Vital Signs (12 hours) Temp Pulse Pulse Pulse Resp BP BP 09/28/17 09:27 180/77 H 09/28/17 08:45 61 66 171/96 H 09/28/17 07:05 98.7 F 62 18 09/28/17 05:00 98.9 F 56 L 18 BP BP Pulse Ox 09/28/17 09:27 09/28/17 08:45 186/81 H 09/28/17 07:05 180/77 H 93 L 09/28/17 05:00 162/71 H 93 L Weight Weight 178 lb 12.718 oz I&O: 09/27/17 09/28/17 09/29/17 06:59 06:59 06:59 Intake Total 100 Output Total 0 Balance 100 Result Diagrams: 09/28/17 06:38 09/28/17 05:07 Additional Labs: Accuchecks 09/28/17 09/28/17 09/27/17 11:37 04:35 23:26 POC Glucose 318 H 309 H 225 H Phys Exam - Physical Examination HEENT: PERRLA, moist MMs, sclera anicteric, TM's clear, oral pharynx no lesions , 2+ tonsils Neck: no nodes, no JVD, supple, full ROM Respiratory: no wheezing, no rales, no rhonchi, wheezing present, clear to auscultation bilateral Cardiovascular: RRR, no significant murmur, no rub, gallop, irregular right groin dressing intact, left hand fistula good thrill, right chest wall cath Gastrointestinal: soft, non-tender, no distention, positive bowel sounds Dx/Plan - Plan 1) hypotension 2) elevated trops 3) esrd 4) hx of stroke plan: pt's bp now is stable, hypotension possible due to removal of too much fluid in dialysis. pt refused heparin. He has no chest pain. Waiting on records from [facility]. Pt had stent placement few days ago. will continue asa/ plavix. Pt's discharge meds did indicate asa/plavix. His elevated trops most likely are trending down. Cardiology has been consulted. pt also wants to change his dialysis doc to Dr glass. * . Review of Systems - Review of Systems Eyes: negative: Pain, Vision Change, Conjunctivae Inflammation, Eyelid Inflammation, Redness, Other ENT: negative: Ear Pain, Ear Discharge, Nose Pain, Nose Discharge, Nose Congestion, Mouth Pain, Mouth Swelling, Throat Pain, Throat Swelling, Other Respiratory: negative: Cough, Dry, Shortness of Breath, Hemoptysis, SOB with Excertion, Pleuritic Pain, Sputum, Wheezing Cardiovascular: negative: chest pain, palpitations, orthopnea, paroxysmal nocturnal dyspnea, edema, light headedness, other Gastrointestinal: negative: Nausea, Vomiting, Abdominal Pain, Diarrhea, Constipation, Melena, Hematochezia, Other Genitourinary: negative: Dysuria, Frequency, Incontinence, Hematuria, Retention , Other Musculoskeletal: negative: Neck Pain, Shoulder Pain, Arm Pain, Back Pain, Hand Pain, Leg Pain, Foot Pain, Other - Medications/Allergies Allergies/Adverse Reactions: Allergies Allergy/AdvReac Type Severity Reaction Status Date / Time No Known Allergies Allergy Verified 01/07/15 17:09 Medications: Current Medications Aspirin (Ecotrin) 81 mg PO DAILY [facility] Last Admin: 09/28/17 09:27 Dose: 81 mg Atorvastatin Calcium (Lipitor) 20 mg PO [facility] Last Admin: 09/27/17 23:13 Dose: 20 mg Clopidogrel Bisulfate (Plavix) 75 mg PO DAILY [facility] Last Admin: 09/28/17 09:27 Dose: 75 mg Dextrose/Water (Dextrose 50%) 25 gm SLOW IVP PRN PRN PRN Reason: Hypoglycemia Glucagon (Glucagon) 1 mg IM PRN PRN PRN Reason: Hypoglycemia Heparin Sodium (Porcine) (Heparin 1,000 Units/Ml (10 Ml)) 0 units SLOW IVP ASDIR [facility] PRN Reason: Protocol Dextrose/Water (D5w) 1,000 mls @ 0 mls/hr IV .Q0M PRN; As Directed PRN Reason: Hypoglycemia Insulin Detemir 5 units/ (Miscellaneous Medication) 0.05 mls @ 0 mls/hr SC HS [facility] Last Admin: 09/27/17 23:32 Dose: 0.05 mls Heparin Sodium/Dextrose (Heparin 25,000 Units/D5w 500 Ml) 500 mls @ 0 mls/hr IVPB INF SHARIF; Per Protocol PRN Reason: Protocol Insulin Human Lispro (Humalog) 0 units SC .MILD SLIDING SCALE PRN PRN Reason: Mild Correctional Scale Lisinopril (Zestril) 20 mg PO DAILY [facility] Last Admin: 09/28/17 09:27 Dose: 20 mg Metoprolol Tartrate (Lopressor) 50 mg PO BID [facility] Last Admin: 09/28/17 09:27 Dose: 50 mg Sodium Chloride (Flush - Normal Saline) 10 ml IVF PRN PRN PRN Reason: Saline Flush Tamsulosin HCl (Flomax) 0.4 mg PO DAILY [facility] Last Admin: 09/28/17 09:27 Dose: 0.4 mg
[2017-09-28] MEDS ORDERED: Dextrose 5% in Water 1,000 ML IV PRN (14:49)
[2017-09-28] MEDS ORDERED: Dextrose 50% Abboject 50 ML SYRINGE SLOW IVP PRN (14:49)
[2017-09-28] MEDS ORDERED: HumaLOG 300 UNITS/3 ML VIAL SC PRN (14:49)
[2017-09-28] MEDS ORDERED: hydrALAZINE 20 MG/ML VIAL SLOW IVP PRN (16:01)
[2017-09-28 17:39] VITALS: TEMP 98.2
--- NOTE | 2017-09-28 17:48 | CON ---
DATE OF CONSULTATION: 09/28/2017 REASON FOR CONSULTATION: Elevated troponins. HISTORY OF PRESENT ILLNESS: Mr. Ho is a pleasant 66-year-old white gentleman, who comes to the [facility] for hypotension. He was having dialysis and became hypotensive, so he was sent to the ER for this. He was given fluids and he responded well and was admitted for further evaluation as on admiss ion his troponin was 0.5. He has end-stage renal disease, on hemodialysis Saturday, Saturday, Saturday, and he was recently discharged from [facility] for a non-STEMI. He had a stent placed to an unknown vessel. He has been taking all his medications. He denies any chest pain, tightness, pressure, no shortness of breath. His blood pressure is much better now and he is back to baseline. PAST MEDICAL HISTORY: 1. End-stage renal disease. 2. Hypertension. 3. Hyperlipidemia. 4. Type 2 diabetes. 5. Coronary artery disease, recent stent. 6. Earl's palsy. PAST SURGICAL HISTORY: 1. Appendectomy. 2. Nasal septum surgery. 3. Apparently stents recently. ALLERGIES: No known drug allergies. MEDICATIONS: 1. Flomax. 2. Procardia 90 mg a day. 3. Metoprolol 50 mg b.i.d. 4. Lisinopril 20 mg a day 5. Atorvastatin 20 mg at bedtime. 6. Aspirin 81 mg a day. 7. Hydralazine 25 mg q.i.d. 9. Insulin. 10. Plavix 75 mg a day. REVIEW OF SYSTEMS: Twelve-point review of systems was done and is all negative as done in the histor y of present illness. ALLERGIES: No known drug allergies. SOCIAL HISTORY: No alcohol, tobacco or drugs. FAMILY HISTORY: Noncontributory. PHYSICAL EXAMINATION: VITAL SIGNS: Temperature 98.9, pulse 62, respiratory rate 18, satting 93% on room air, blood pressur e 171/96. GENERAL: Awake, alert, oriented x3, in no distress. HEENT: Normocephalic, atraumatic. NECK: Supple. LUNGS: Clear. CARDIOVASCULAR: S1 and S2. No S3 or S4, no murmurs or rubs. ABDOMEN: Soft with bowel sounds. EXTREMITIES: No edema. SKIN: Warm and dry. LABORATORY WORK: Reviewed. CBC was reviewed. Coags were reviewed. Chemistries were reviewed. Tro ponin was 0.56, 0.54, and 0.65. EKG was reviewed. Chest x-ray was reviewed. ASSESSMENT AND PLAN: 1. Hypertension: Likely related to taking too much fluid out on dialysis. Resolved after IV fluids given. 2. Elevated troponins: Most likely demand ischemia from hypotension and his renal dysfunction. We will unlikely that this is in-stent thrombosis as his EKG is unchanged. His troponin is not rising a s expected with an acute coronary syndrome. Continue taking Plavix and aspirin as previously prescri bed. 3. End-stage renal disease on hemodialysis. PLAN: 1. He may be discharged home from the cardiac perspective. 2. Blood pressure is actually higher than normal. Continue his home regimen. 3. Follow up with his coffee break attendant at [facility] as scheduled. 4. We will sign off. Thank you for the consultation. Please call with any questions.
[2017-09-28 18:54] VITALS: BP 168/78
[2017-09-28] MEDS ORDERED: Insulin Detemir 100 UNITS/ML 12 UNITS in Pre-Filled Syringe SC SCH (21:00)
[2017-09-28] MEDS ORDERED: TROSPIUM 20 MG TABLET PO SCH (21:00)
--- NOTE | 2017-09-29 01:07 | DIS ---
DATE OF ADMISSION: 09/27/2017 DATE OF DISCHARGE: 09/28/2017 DISCHARGE DIAGNOSES: 1. Hypertension, transient. 2. Coronary artery disease, status post recent stent placement. 4. End-stage renal disease on dialysis. 5. History of stroke. HOSPITAL COURSE: The patient is a very pleasant 66-year-old male who initially presented to the hosp ital from the dialysis clinic for hypotension. The patient was found to have initially a nitroglycer in patch, which was placed on him on 09/26. Patient denies any chest pain, shortness of breath, naus ea, vomiting, or diarrhea. He did have elevated troponins of 0.6 trending down to 0.56 and then 0.58 . No significant EKG changes. At this time, Cardiology was consulted. Since the patient's recent c atheterization, patient is on aspirin and Plavix. Patient will be discharged home, follow up with [facility] and Nephrology as outpatient. Patient wants to change his dialysis physician which will be arrange d as outpatient. The patient currently denies symptoms of any chest pain, nausea, vomiting, diarrhea or shortness of breath. DISCHARGE MEDICATIONS: As the followin. Aspirin 81 mg daily. 2. Plavix 75 mg p.o. daily. 3. Lisinopril 20 mg b.i.d. 4. Isosorbide 30 mg daily. 5. Atorvastatin 40 mg at bedtime. 6. Hydralazine 25 mg p.o. t.i.d. 7. Metoprolol 12.5 mg b.i.d. 8. Ranitidine 150 mg daily. 9. VESIcare 10 mg p.o. daily.
== END 2017-09-28 20:01 | disposition home or self-care (01) | DRG 312 ==
LOC: ERS 15:10 → 2NO 17:13
PROVIDERS: ADMIT Internal Medicine; ATTEND Internal Medicine
DX: I95.3 Hypotension of hemodialysis (principal); N18.6 End stage renal disease; I25.10 Atherosclerotic heart disease of native coronary artery without angina pectoris; Z95.5 Presence of coronary angioplasty implant and graft; Z86.73 Personal history of transient ischemic attack (TIA), and cerebral infarction without residual deficits; I10 Essential (primary) hypertension; E11.22 Type 2 diabetes mellitus with diabetic chronic kidney disease; Z99.2 Dependence on renal dialysis; E11.65 Type 2 diabetes mellitus with hyperglycemia; Z79.899 Other long term (current) drug therapy; Z79.82 Long term (current) use of aspirin; D64.9 Anemia, unspecified; I25.2 Old myocardial infarction
CPT/HCPCS: 36415; 36416; 71045; 80048; 80053; 82550; 82553; 83880; 84484; 85025; 85730; 93005; G8978-GP-CJ; G8979-GP-CJ; G8980-GP-CJ; J0360; J1644; J1815

== ENCOUNTER 2017-10-15 10:17 | Inpatient (IN) | payer MEDICARE ==
[2017-10-15 11:56] LABS: Bilirubin Negative (Negative); Blood, Urine Large (Negative); Clarity TURBID (Clear); Glucose, Urine (Dipstick) 100 mg/dL (Negative); Leukocyte Moderate (Negative); Nitrite Negative (Negative); Protein, Urine (Dipstick) > or equal to 300 mg/dL (Neg-Trace); Specific Gravity, Urine 1.019 (1.002-1.036); Urobilinogen 0.2 mg/dL (0.2-1.0); pH, Urine 7.5 (5.0-9.0)
--- NOTE | 2017-10-15 11:58 | CON ---
DATE OF CONSULTATION: 10/15/2017 REASON FOR CONSULTATION: Stage 6 chronic kidney disease, on maintenance hemodialysis. HISTORY OF PRESENT ILLNESS: This is a very pleasant 66-year-old gentleman who presented to the [facility] after complaining of fever, chills and difficulty urination. The patient denies nausea, vomiting or chest pain. The patient did receive dialysis yesterday without any complications. PAST MEDICAL HISTORY: Significant for hypertension, diabetes mellitus, coronary artery disease, hist ory of dialysis access placement, appendectomy, cardiac catheterization, amputation, stent placement, peripheral vascular disease. ALLERGIES: Reviewed. HOME MEDICATIONS: List reviewed. SOCIAL ECONOMICAL HISTORY: No alcohol, tobacco or drug use. FAMILY HISTORY: Negative for ESRD. REVIEW OF SYSTEMS: Fifteen point review of systems was performed and was negative except for positiv es noted above. GENERAL: Weakness-. HEAD: Headache-. NECK: No swelling or lumps. NOSE: No epistaxis or discharge. EYES: No diplopia or pain. RESPIRATORY: Dyspnea-. CARDIOVASCULAR: Chest pain-. GASTROINTESTINAL: Nausea-. /[employer]ATOR: Hematuria-. MUSCULOSKELETAL: No joint pain. NEUROPSYCHIATIC SYSTEMS: No suicidal ideation. No ideation. SKIN: Denies any rash or ulcer. CONSTITUTIONAL: No fever or chills. PHYSICAL EXAMINATION: GENERAL: Patient is awake, alert. VITAL SIGNS: Afebrile, pulse 75, breathing at 16, blood pressure was 170/80. GENERAL APPEARANCE AND MENTAL STATUS: Fair. HEAD/NECK: Normocephalic, atraumatic. EYES: EOMI. No deformity. EARS: Clear. No ulcers. NOSE: Intact. No lesions. MOUTH: Clear. No discharge. THROAT: Clear. No exudate. LUNGS: Clear. No crackles. CARDIAC: S1, S2. No rub. ABDOMEN: Benign. BS+. GENITALIA/RECTUM: Barrera absent. BACK/EXTREMITIES: Edema 0+ Ulcer-. NEUROLOGICAL: Alert and motor intact. SKIN: Rash- Bruise- LYMPHATICS: Edema- Ulcer-. LABORATORY DATA: Pending. ASSESSMENT AND RECOMMENDATIONS: 1. Stage 6 chronic kidney disease, we will plan dialysis tomorrow. 2. Hyperkalemia. Check potassium. 3. Anemia, stable. 4. Hypertension. Titrate blood pressure medication based on blood pressure readings. 5. Urosepsis. Management per primary team.
[2017-10-15 12:00] LABS: Bacteria/HPF 4+ HPF (None Seen); Hyaline Casts/LPF 0-3 HYALINE CAST LPF (0-3 Hyaline); Pathc Cast-AUWi Flag 0.95 (0-2.49); RBC/HPF GREATER THAN 50-TNTC HPF (0-3); Squamous Epithelial 0-3 HPF (0-3)
[2017-10-15 12:20] LABS: #Lymphocytes 1.1 thou/uL (1.20-3.40); #Monocytes 0.9 thou/uL (0.11-0.59); #Neutrophils 13.3 thou/uL (1.40-6.50); %Basophils 0.1 % (0.0-1.0); %Eosinophils 0.1 % (0.0-10.0); %Lymphocytes 6.9 % (21.0-51.0); %Monocytes 5.7 % (0.0-10.0); %Neutrophils 87.1 % (42.0-75.0); Hemoglobin 11.4 g/dL (14.0-18.0); Mean Corpuscular HGB CONC 33.3 g/dL (32.0-36.0); Mean Corpuscular Hemoglobin 29.2 pg (27.0-31.0); Mean Corpuscular Volume 87.7 fl (80.0-94.0); Mean Platelet Volume 8.6 fL (7.4-10.4); Platelet Count 199 thou/uL (130-400); RBC Distribution Width 13.5 % (11.5-14.5); Red Blood Cell (RBC) Count 3.91 mill/uL (4.70-6.10); White Blood Cell (WBC) Count 15.3 thou/uL (4.8-10.8)
[2017-10-15 12:29] LABS: ALT (SGPT) 12 U/L (8-55); AST (SGOT) 11 U/L (5-34); Albumin 3.4 g/dL (3.4-4.8); Alkaline Phosphatase 191 U/L (40-150); Anion Gap 9 mmol/L (10-20); BUN (Urea Nitrogen) 16 mg/dL (8.4-25.7); Bilirubin, Total 0.8 mg/dL (0.2-1.2); Calc. Creatinine Clearance 0 mL/min (70-130); Calcium 8.5 mg/dL (7.8-10.44); Carbon Dioxide 31 mmol/L (23-31); Chloride 101 mmol/L (98-107); Estimated GFR-MDRD 22; Globulin 3.4 g/dL (2.4-3.5); Glucose 192 mg/dL (80-115); Potassium 3.3 mmol/L (3.5-5.1); Protein, Total 6.8 g/dL (5.8-8.1); Sodium 138 mmol/L (136-145)
[2017-10-15] MEDS ORDERED: cefTRIAXone\\ROCEPHIN 1 GM VIAL ONE (13:06)
[2017-10-15 13:27] LABS: CKMB 1.7 ng/mL (0-6.6); Troponin I 0.046 ng/mL (< 0.028)
--- NOTE | 2017-10-15 13:47 | RAD ---
CHEST 1 VIEW: Date: 10/15/17 HISTORY: Chest pain. COMPARISON: 09/27/17. FINDINGS: Cardiac silhouette is magnified by projection. Pulmonary vasculature is slightly engorged. Mediastinu m is midline with large caliber right internal jugular dialysis type catheter. No lobar consolidation or evidence of pneumothorax. IMPRESSION: Mild pulmonary vascular congestion. POS: [facility]
--- NOTE | 2017-10-15 14:50 | HP ---
PRIMARY CARE PHYSICIAN: City call admission. Patient's previous primary care physician was Dr. Dahl. REASON FOR ADMISSION: Sepsis, urinary tract infection, hypertensive urgency. HISTORY OF PRESENT ILLNESS: A 66-year-old male who has a history of benign enlargement of prostate; coronary artery disease; ESRD, on hemodialysis; hypertension, who came to emergency room with a compl aint of dysuria for last 5 days. He was having subjective fever. He was feeling nauseated. He has ESRD and he is getting dialysis on Saturday, Saturday, Saturday and his dialysis was yesterday. He was having lower abdominal discomfort. The patient denies any chest pain, palpitation, shortness of nae th. He denies any orthopnea, PND or leg swelling. He denies any vomiting. The patient was feeling poor appetite for last few days. Today, in the emergency room, the patient was having hypertensive u rgency. He has indeterminate troponins. He has leukocytosis and his urinalysis is consistent with u rinary tract infection. In the emergency room, the patient was given Rocephin. The patient was eval uated by Dr. Harding and now we are admitting this patient for sepsis secondary to urinary tract infecti on. REVIEW OF SYSTEMS: Please see my HPI for pertinent positive and negatives. All other review of syst ems reviewed and negative except as mentioned in the HPI. Constitutional: Weight loss or gain, ability to conduct usual activities. Skin: Rash, itching. Eyes: Double vision, pain. ENT/Mouth: Nose bleeding, neck stiffness, pain, tenderness. Cardiovascular: Palpitations, dyspnea on exertion, orthopnea. Respiratory: Shortness of breath, wheezing, cough, hemoptysis, fever or night sweats. Gastrointestinal: Poor appetite, abdominal pain, heartburn, nausea, vomiting, constipation, or diarrhea. Genitourinary: Urgency, frequency, dysuria, nocturia. Musculoskeletal: Pain, swelling. Neurologic/Psychiatric: Anxiety, depression. Allergy/Immunologic: Skin rash, bleeding tendency. CURRENT HOME MEDICATIONS: Aspirin 81 mg p.o. daily, Lipitor 20 mg p.o. at bedtime, Flomax 0.4 mg p.o . daily, hydralazine 25 mg twice daily, lisinopril 20 mg p.o. daily, Plavix 75 mg p.o. daily, Procard ia-XL 10 mg p.o. daily, Lopressor 50 mg p.o. daily. PAST MEDICAL HISTORY: Diabetes type 2, hypertension, dyslipidemia, diabetic nephropathy and now ESRD , history of Earl's palsy, coronary artery disease with history of cardiac catheterization and stent placement to LAD and anemia of renal disease. PAST SURGICAL HISTORY: Appendicectomy in 2014, nasal surgery in 1977, cardiac catheterization in 201 2 with stent placement in distal LAD, hemodialysis catheter placement. PAST PSYCHIATRIC HISTORY: Reviewed and negative. ALLERGIES: No known drug allergy. FAMILY HISTORY: Mother has a history of cancer, type of cancer not known. Father has a history of d iabetes. SOCIAL HISTORY: The patient is . No history of tobacco, alcohol or illicit drug abuse. EMERGENCY ROOM COURSE: The patient has received Rocephin 1 gram. PHYSICAL EXAMINATION: VITAL SIGNS: On arrival, blood pressure 217/94, pulse 95, respiratory rate 16, temperature 99, satur ation 91% on room air, weight 72.5 kilograms. GENERAL: The patient is currently alert, awake, no obvious acute distress. HEAD: Normocephalic, atraumatic. EYES: Pupils round, reactive to light. Extraocular muscle intact. ENT: Oropharynx within normal limits. Moist mucous membranes. No oral lesion, no pharyngeal erythe ma, no exudate. NECK: Supple, no JVD, no thyromegaly, no carotid bruit. LUNGS: Clear to auscultation without any rhonchi or rales. Chest wall right IJ tunneled hemodialysi s catheter in place without any tenderness. CARDIAC: S1, S2 regular without any murmur. ABDOMEN: Soft, bowel sounds present. Mild suprapubic discomfort noted. No peritoneal sign, no guar ding, no rigidity, no rebound. BACK: Unremarkable, no CVA tenderness. EXTREMITIES: Upper extremity: Passive movement of all joints are normal. Lower extremities: No ed yo. Good peripheral pulsation. SKIN: No skin rash. HEMATOLOGICAL: No lymphadenopathy. PSYCHIATRIC: Normal affect. SIGNIFICANT LABS: EKG showing left atrial enlargement, nonspecific ST-T changes. EMERGENCY ROOM COURSE: The patient had a Barrera catheter placed. CBC: WBC 15.3, hemoglobin 11.4, pl atelet 199. BMP: Sodium 138, potassium 3.3, chloride 101, carbon dioxide 31, anion gap 9, BUN 16, c reatinine 2.90, glucose 192, calcium 8.5. Lactic acid 0.8. LFT: AST 11, ALT 12, alkaline phosphata se is 191, albumin 3.4, CK-MB 1.7, troponin 0.046. Urinalysis consistent with urinary tract infectio n. Chest x-ray based on my review, mild pulmonary vascular congestion. ASSESSMENT AND PLAN: 1. Sepsis, secondary to urinary tract infection. The patient has leukocytosis, low grade fever. So urce of infection is most likely urinary tract infection. The patient is given Rocephin. We will al so give him levofloxacin. We will follow up on urine culture result. Based on culture result, we wi ll change to appropriate oral antibiotic therapy. 2. Urinary tract infection. We will check postvoid residual volume. The patient is already kept on Rocephin and levofloxacin. We will follow up on urine culture result. 3. Mild hypoxia on room air. The patient's saturation is 88% on room air and most likely related wi th his poor inspiratory effort. He does not appear to be volume overloaded at this point based on ch est x-ray. We will monitor oxygen saturation while in hospital. 4. Hypertensive urgency. The patient will be given hydralazine on p.r.n. basis. We will continue p atient's home medication, hydralazine, lisinopril, Procardia, Lopressor as well as we will also consi cony adding nitropatch if needed. 5. End-stage renal disease, on hemodialysis. Dr. Harding is already consulted. The patient will have maintenance hemodialysis while in hospital. 6. Dyslipidemia. Continue Lipitor 20 mg p.o. at bedtime. 7. Benign enlargement of prostate. Continue Flomax 0.4 mg p.o. daily. 8. Coronary artery disease with stent. Continue aspirin 81 mg p.o. at bedtime, Plavix 75 mg p.o. da garcia along with statin therapy. 9. Elevated troponin, likely due to demand ischemia and end-stage renal disease. We will do serial cardiac enzymes x3. 10. Hypokalemia. We will give him potassium 20 mEq p.o. one time dose. 11. Deep venous thrombosis prophylaxis, heparin 5000 units subcu twice daily. 12. Gastrointestinal prophylaxis, Protonix 40 mg p.o. daily. 13. Diabetes type 2. We will continue insulin as per sliding scale protocol. Diabetic diet will be given. CODE STATUS: The patient is FULL CODE. The patient's is surrogate decision maker. Disposition plan based on clinical course. We are expecting patient's stay in hospital more than 2 m idnights. Plan of care discussed with the patient.
[2017-10-15] MEDS ORDERED: Acetaminophen 500 MG TAB ONE (15:48)
[2017-10-15] MEDS ORDERED: Zolpidem Tartrate 5 MG TAB PO PRN (17:20)
[2017-10-15] MEDS ORDERED: Diabetic Tussin 200 MG/10 ML UDCUP PO PRN (17:20)
[2017-10-15] MEDS ORDERED: HYDROcodone/Acetaminophen 5/325 mg Tablet PO PRN (17:20)
[2017-10-15] MEDS ORDERED: Mag-Al 1200 mg/1200 mg/30 ML UDCUP PO PRN (17:20)
[2017-10-15] MEDS ORDERED: Eucerin (Mineral Oil/Petrolatum,White) 30 gm Jar TOP PRN (17:20)
[2017-10-15] MEDS ORDERED: Dextrose 5% in Water 1,000 ML IV PRN (17:20)
[2017-10-15] MEDS ORDERED: Milk Of Magnesia 30 ML UDCUP PO PRN (17:20)
[2017-10-15] MEDS ORDERED: HumaLOG 300 UNITS/3 ML VIAL SC PRN (17:20)
[2017-10-15] MEDS ORDERED: Senokot 8.6 MG TAB PO PRN (17:20)
[2017-10-15] MEDS ORDERED: Ondansetron HCl/PF 4 MG/2 ML Vial IVP PRN (17:20)
[2017-10-15] MEDS ORDERED: Nitroglycerin 0.4 MG TAB (25 Tab Bottle) SL PRN (17:20)
[2017-10-15] MEDS ORDERED: Ondansetron ODT 4 MG TAB PO PRN (17:20)
[2017-10-15] MEDS ORDERED: Chloraseptic Spray 180 ml Bottle PO PRN (17:20)
[2017-10-15] MEDS ORDERED: Potassium Chloride 20 MEQ TAB PO SCH (17:20)
[2017-10-15] MEDS ORDERED: Dextrose 50% Abboject 50 ML SYRINGE SLOW IVP PRN (17:20)
[2017-10-15] MEDS ORDERED: Acetaminophen 325 MG TAB PO PRN (17:20)
[2017-10-15] MEDS ORDERED: Loperamide HCl 2 MG CAP PO PRN (17:20)
[2017-10-15] MEDS ORDERED: Artificial Tears 18 DROP/0.9 ML EA EYE PRN (17:20)
[2017-10-15] MEDS ORDERED: Sodium Chloride 0.65% Nasal 44 ML BOT EA NARE PRN (17:20)
[2017-10-15] MEDS ORDERED: Loratadine 10 MG TAB PO PRN (17:20)
[2017-10-15 17:29] VITALS: BMI 25.8
[2017-10-15 19:23] LABS: CKMB 1.2 ng/mL (0-6.6); Troponin I 0.071 ng/mL (< 0.028)
[2017-10-15] MEDS: hydrALAZINE 20 MG/ML VIAL SLOW IVP PRN (21:18)
[2017-10-15] MEDS: Heparin 5,000 UNITS/ML VIAL SC SCH (21:23)
[2017-10-15 21:59] LABS: CKMB 1.1 ng/mL (0-6.6); Troponin I 0.072 ng/mL (< 0.028)
[2017-10-16] MEDS: Labetalol HCl 100 MG/20 ML VIAL SLOW IVP PRN (04:09)
[2017-10-16 05:01] LABS: Albumin 2.9 g/dL (3.4-4.8); Anion Gap 9 mmol/L (10-20); BUN (Urea Nitrogen) 22 mg/dL (8.4-25.7); BUN/Creatinine Ratio 6.92; Calc. Creatinine Clearance 26 mL/min (70-130); Calcium 8.4 mg/dL (7.8-10.44); Carbon Dioxide 28 mmol/L (23-31); Chloride 101 mmol/L (98-107); Estimated GFR-MDRD 20; Glucose 168 mg/dL (80-115); Phosphorus 2.8 mg/dL (2.3-4.7); Potassium 3.8 mmol/L (3.5-5.1); Sodium 134 mmol/L (136-145)
[2017-10-16 05:25] LABS: Band 13 % (5-11); Eosinophils 1 % (0-10); Hemoglobin 10.8 g/dL (14.0-18.0); Lymphocytes 10 % (21-51); MDiff Complete? YES; Mean Corpuscular HGB CONC 33.2 g/dL (32.0-36.0); Mean Corpuscular Volume 87.6 fl (80.0-94.0); Mean Platelet Volume 8.4 fL (7.4-10.4); Monocytes 4 % (0-10); Neutrophil 72 % (42-75); PLT Morphology Comment Appears Adequate; Platelet Count 171 thou/uL (130-400); RBC Distribution Width 13.8 % (11.5-14.5); Red Blood Cell (RBC) Count 3.74 mill/uL (4.70-6.10); White Blood Cell (WBC) Count 18.3 thou/uL (4.8-10.8)
[2017-10-16] MEDS: hydrALAZINE 20 MG/ML VIAL SLOW IVP PRN (06:03)
[2017-10-16] MEDS: Aspirin 81 mg Enteric Coated Tablet PO SCH (08:41)
[2017-10-16] MEDS: Clopidogrel Bisulfate 75 MG TAB PO SCH (08:41)
[2017-10-16] MEDS: Metoprolol Tartrate 50 MG TAB PO SCH (08:41)
[2017-10-16] MEDS: Lisinopril 20 MG TAB PO SCH (08:41)
[2017-10-16] MEDS: Tamsulosin HCl 0.4 MG CAP PO SCH (08:42)
[2017-10-16] MEDS: hydrALAZINE 25 MG TAB PO SCH ×2 (08:42→20:49)
[2017-10-16] MEDS: Heparin 5,000 UNITS/ML VIAL SC SCH ×2 (08:42→20:50)
[2017-10-16] MEDS ORDERED: Heparin 10,000 UNITS/ 10 ML VIAL ONE (09:00)
--- NOTE | 2017-10-16 09:08 | PRG ---
DATE OF SERVICE: 10/16/2017 SUBJECTIVE: This is a 66-year-old gentleman, being seen for end-stage renal disease. The patient de nies any nausea, vomiting, or chest pain. OBJECTIVE: See above. GENERAL: Patient is awake, alert. VITAL SIGNS: Temperature 99.7, pulse 94, breathing at 16, blood pressure 193/76. GENERAL APPEARANCE AND MENTAL STATUS: Fair. HEAD/NECK: Normocephalic. Atraumatic. EYES: EOMI. No deformity. EARS: Clear. No ulcers. NOSE: Intact. No lesions. MOUTH: Clear. No discharge. THROAT: Clear. No exudate. LUNGS: Clear. No crackles. CARDIAC: S1, S2. No rub. ABDOMEN: Benign. BS+. GENITALIA/RECTUM: Barrera absent. BACK/EXTREMITIES: Edema 0+, ulcer. NEUROLOGICAL: Alert and motor intact. SKIN: Rash - bruise. LYMPHATICS: Edema - ulcer. LABORATORY DATA: Labs show hemoglobin 10.8, creatinine 3.8, potassium 3.8. ASSESSMENT AND RECOMMENDATIONS: 1. Stage 6 chronic kidney disease. Plan hemodialysis. 2. Hypertension, stable. 3. Anemia, stable. 4. Urosepsis. Management per primary team.
--- NOTE | 2017-10-16 10:21 | PDOC.PN ---
- Subjective Encounter Start Date: 10/16/17 Encounter Start Time: 09:15 -: old records requested/rev Patient seen and examined for UTI. No new complaints. No overnight events - Objective Resuscitation Status: Resuscitation Status FULL:Full Resuscitation MAR Reviewed: Yes Vital Signs & Weight: Vital Signs (12 hours) Temp Pulse Resp BP BP Pulse Ox 10/16/17 08:42 94 193/76 H 10/16/17 08:41 193/76 H 10/16/17 07:53 99.7 F H 94 18 96 10/16/17 07:52 99.7 F H 94 18 193/76 H 96 10/16/17 06:03 82 188/75 H 10/16/17 05:19 184/75 H 10/16/17 04:09 82 202/83 H 10/16/17 04:00 97.7 F 86 20 98 10/16/17 00:00 99.9 F H 82 20 181/74 H 98 Weight Weight 181 lb 3.2 oz I&O: 10/15/17 10/16/17 10/17/17 06:59 06:59 06:59 Intake Total 370 Output Total 300 Balance 70 Result Diagrams: 10/16/17 04:19 10/16/17 04:19 Additional Labs: Accuchecks 10/16/17 10/15/17 10/15/17 05:46 20:41 17:35 POC Glucose 156 H 174 H 181 H EKG Reviewed by me: Yes (nsr) Phys Exam - Physical Examination Constitutional: NAD HEENT: PERRLA, moist MMs, sclera anicteric Neck: no JVD, supple Respiratory: no wheezing, no rales, no rhonchi Cardiovascular: RRR, no significant murmur, no rub Gastrointestinal: soft, non-tender, no distention, positive bowel sounds Musculoskeletal: pulses present trace edema Neurological: non-focal, normal sensation Lymphatic: no nodes Psychiatric: normal affect Skin: no rash, normal turgor Dx/Plan (1) Hypertensive urgency Code(s): I16.0 - HYPERTENSIVE URGENCY Status: Acute (2) Sepsis Code(s): A41.9 - SEPSIS, UNSPECIFIED ORGANISM Status: Acute (3) UTI (urinary tract infection) Status: Acute (4) Anemia of renal disease Code(s): D63.1 - ANEMIA IN CHRONIC KIDNEY DISEASE Status: Chronic (5) BPH (benign prostatic hyperplasia) Code(s): N40.0 - BENIGN PROSTATIC HYPERPLASIA WITHOUT LOWER URINRY TRACT SYMP Status: Chronic (6) CAD (coronary artery disease) Code(s): I25.10 - ATHSCL HEART DISEASE OF [place] CORONARY ARTERY W/O ANG PCTRS Status: Chronic (7) Diabetes type 2, controlled Code(s): E11.9 - TYPE 2 DIABETES MELLITUS WITHOUT COMPLICATIONS Status: Chronic (8) Dyslipidemia Code(s): E78.5 - HYPERLIPIDEMIA, UNSPECIFIED Status: Chronic (9) ESRD (end stage renal disease) on dialysis Code(s): N18.6 - END STAGE RENAL DISEASE; Z99.2 - DEPENDENCE ON RENAL DIALYSIS Status: Chronic (10) Elevated troponin Code(s): R74.8 - ABNORMAL LEVELS OF OTHER SERUM ENZYMES Status: Chronic (11) GERD (gastroesophageal reflux disease) Code(s): K21.9 - GASTRO-ESOPHAGEAL REFLUX DISEASE WITHOUT ESOPHAGITIS Status: Chronic (12) Hypertension Code(s): I10 - ESSENTIAL (PRIMARY) HYPERTENSION Status: Chronic (13) Dementia Code(s): F03.90 - UNSPECIFIED DEMENTIA WITHOUT BEHAVIORAL DISTURBANCE Status: Chronic Qualifiers: Dementia type: unspecified type - Plan cont current plan of care, plan discussed w/ family, continue antibiotics, PT/OT * medication reviewed as below * symptomatic treatment * discussed with * his home medication reconciled * continue iv rocephin and levaquin * follow culture * HD as per nephrology. Review of Systems - Review of Systems Eyes: negative: Pain, Vision Change, Conjunctivae Inflammation, Eyelid Inflammation, Redness, Other ENT: negative: Ear Pain, Ear Discharge, Nose Pain, Nose Discharge, Nose Congestion, Mouth Pain, Mouth Swelling, Throat Pain, Throat Swelling, Other Respiratory: negative: Cough, Dry, Shortness of Breath, Hemoptysis, SOB with Excertion, Pleuritic Pain, Sputum, Wheezing Cardiovascular: negative: chest pain, palpitations, orthopnea, paroxysmal nocturnal dyspnea, edema, light headedness, other Gastrointestinal: negative: Nausea, Vomiting, Abdominal Pain, Diarrhea, Constipation, Melena, Hematochezia, Other Genitourinary: negative: Dysuria, Frequency, Incontinence, Hematuria, Retention , Other Musculoskeletal: negative: Neck Pain, Shoulder Pain, Arm Pain, Back Pain, Hand Pain, Leg Pain, Foot Pain, Other Skin: negative: Rash, Lesions, Mason, Bruising, Other Other: not reliable due to dementia - Medications/Allergies Allergies/Adverse Reactions: Allergies Allergy/AdvReac Type Severity Reaction Status Date / Time No Known Allergies Allergy Verified 10/15/17 17:40 Medications: Current Medications Acetaminophen (Tylenol) 650 mg PO Q4H PRN PRN Reason: Headache/Fever or Pain Hydrocodone Bitart/Acetaminophen ([place] 5/325) 1 tab PO Q4H PRN PRN Reason: Moderate Pain (4-6) Al Hydroxide/Mg Hydroxide (Maalox) 30 ml PO Q6H PRN PRN Reason: Heartburn or Indigestion Artificial Tears (Tears Naturale) 0 drop EA EYE PRN PRN PRN Reason: Dry Eyes Aspirin (Ecotrin) 81 mg PO DAILY [facility] Last Admin: 10/16/17 08:41 Dose: 81 mg Atorvastatin Calcium (Lipitor) 40 mg PO HS [facility] Clopidogrel Bisulfate (Plavix) 75 mg PO DAILY [facility] Last Admin: 10/16/17 08:41 Dose: 75 mg Dextrose/Water (Dextrose 50%) 25 gm SLOW IVP PRN PRN PRN Reason: Hypoglycemia Glucagon (Glucagon) 1 mg IM PRN PRN PRN Reason: Hypoglycemia Guaifenesin (Robitussin Sf) 200 mg PO Q4H PRN PRN Reason: Cough Heparin Sodium (Porcine) (Heparin) 5,000 units SC BID [facility] Last Admin: 10/16/17 08:42 Dose: 5,000 units Hydralazine HCl (Apresoline) 10 mg SLOW IVP Q4H PRN PRN Reason: Systolic BP > 180 Last Admin: 10/16/17 06:03 Dose: 10 mg Hydralazine HCl (Apresoline) 25 mg PO BID [facility] Last Admin: 10/16/17 08:42 Dose: 25 mg Ceftriaxone Sodium 1 gm/ (Sodium Chloride) 100 mls @ 200 mls/hr IVPB 1300 [facility] Dextrose/Water (D5w) 1,000 mls @ 0 mls/hr IV .Q0M PRN; As Directed PRN Reason: Hypoglycemia Levofloxacin 500 mg/ Device 100 mls @ 100 mls/hr IVPB Q2DAYS [facility] Last Admin: 10/15/17 21:25 Dose: 100 mls Insulin Human Lispro (Humalog) 0 units SC .MODERATE SLIDING SC PRN PRN Reason: Moderate Correctional Scale Insulin Human Lispro (Humalog) 0 units SC .BEDTIME SLIDING SC PRN PRN Reason: Bedtime Correctional Scale Isosorbide Mononitrate (Imdur Er) 30 mg PO DAILY [facility] Last Admin: 10/16/17 08:41 Dose: 30 mg Labetalol HCl (Normodyne) 10 mg SLOW IVP Q4H PRN PRN Reason: SBP Greater Than 180 Last Admin: 10/16/17 04:09 Dose: 10 mg Lisinopril (Zestril) 20 mg PO DAILY [facility] Last Admin: 10/16/17 08:41 Dose: 20 mg Loperamide HCl (Imodium) 2 mg PO PRN PRN PRN Reason: Diarrhea/Loose Stools Loratadine (Claritin) 10 mg PO DAILYPRN PRN PRN Reason: Sinus Symptoms Magnesium Hydroxide (Milk Of Magnesium) 30 ml PO DAILYPRN PRN PRN Reason: Constipation Metoprolol Tartrate (Lopressor) 50 mg PO DAILY [facility] Last Admin: 10/16/17 08:41 Dose: 50 mg Mineral Oil/White Petrolatum (Eucerin Cream) 0 gm TOP BIDPRN PRN PRN Reason: Dry Skin Nitroglycerin (Nitrostat) 0.4 mg SL Q5MIN PRN PRN Reason: Chest Pain Ondansetron HCl (Zofran Odt) 4 mg PO Q6H PRN PRN Reason: Nausea/Vomiting Ondansetron HCl (Zofran) 4 mg IVP Q6H PRN PRN Reason: Nausea/Vomiting Phenol (Chloraseptic [place] 180 Ml Bot) 0 ml PO PRN PRN PRN Reason: Sore Throat Senna (Senokot) 2 tab PO HSPRN PRN PRN Reason: Constipation Sodium Chloride ([place] Nasal [place] 0.65%) 0 ml EA NARE QIDPRN PRN PRN Reason: Nasal Congestion Tamsulosin HCl (Flomax) 0.4 mg PO DAILY [facility] Last Admin: 10/16/17 08:42 Dose: 0.4 mg Zolpidem Tartrate (Ambien) 5 mg PO HSPRN PRN PRN Reason: Insomnia
[2017-10-16] MEDS: cefTRIAXone\\ROCEPHIN 1 GM in Sodium Chloride 0.9% 100 ML IVPB SCH (16:15)
[2017-10-16] MEDS: Atorvastatin Calcium 40 MG TAB PO SCH (20:49)
[2017-10-17 07:00] LABS: #Eosinphils 0.1 thou/uL (0.0-0.7); #Monocytes 0.9 thou/uL (0.11-0.59); #Neutrophils 10.3 thou/uL (1.40-6.50); %Basophils 0.1 % (0.0-1.0); %Eosinophils 0.7 % (0.0-10.0); %Lymphocytes 7.9 % (21.0-51.0); %Monocytes 6.9 % (0.0-10.0); %Neutrophils 84.3 % (42.0-75.0); Hemoglobin 10.8 g/dL (14.0-18.0); Mean Corpuscular HGB CONC 32.6 g/dL (32.0-36.0); Mean Corpuscular Hemoglobin 28.9 pg (27.0-31.0); Mean Corpuscular Volume 88.4 fl (80.0-94.0); Mean Platelet Volume 8.3 fL (7.4-10.4); Platelet Count 183 thou/uL (130-400); RBC Distribution Width 13.7 % (11.5-14.5); Red Blood Cell (RBC) Count 3.73 mill/uL (4.70-6.10); White Blood Cell (WBC) Count 12.3 thou/uL (4.8-10.8)
[2017-10-17 07:21] LABS: Anion Gap 9 mmol/L (10-20); BUN (Urea Nitrogen) 21 mg/dL (8.4-25.7); Calc. Creatinine Clearance 27 mL/min (70-130); Carbon Dioxide 31 mmol/L (23-31); Chloride 98 mmol/L (98-107); Estimated GFR-MDRD 21; Glucose 172 mg/dL (80-115); Sodium 134 mmol/L (136-145)
[2017-10-17] MEDS: Metoprolol Tartrate 50 MG TAB PO SCH (08:29)
[2017-10-17] MEDS: Clopidogrel Bisulfate 75 MG TAB PO SCH (08:29)
[2017-10-17] MEDS: hydrALAZINE 25 MG TAB PO SCH ×3 (08:29→19:06)
[2017-10-17] MEDS: Heparin 5,000 UNITS/ML VIAL SC SCH ×2 (08:29→21:17)
[2017-10-17] MEDS: NIFEdipine XL 90 MG TAB PO SCH (08:29)
[2017-10-17] MEDS: Aspirin 81 mg Enteric Coated Tablet PO SCH (08:29)
[2017-10-17] MEDS: Tamsulosin HCl 0.4 MG CAP PO SCH (08:29)
[2017-10-17] MEDS: Lisinopril 20 MG TAB PO SCH (08:30)
--- NOTE | 2017-10-17 09:49 | PDOC.PN ---
- Subjective Encounter Start Date: 10/17/17 Encounter Start Time: 07:20 Patient seen and examined for sepsis, UTI. No new complaints. No overnight events today his BP is very high - Objective Resuscitation Status: Resuscitation Status FULL:Full Resuscitation MAR Reviewed: Yes Vital Signs & Weight: Vital Signs (12 hours) Temp Pulse Resp BP BP Pulse Ox 10/17/17 08:29 78 227/93 H 10/17/17 07:54 98.3 F 78 18 99 10/17/17 07:53 98.3 F 78 18 227/93 H 99 10/17/17 04:00 98.7 F 69 20 182/84 H 100 10/17/17 01:14 98.0 F 71 20 187/81 H Weight Weight 174 lb 6.4 oz I&O: 10/16/17 10/17/17 10/18/17 06:59 06:59 06:59 Intake Total 370 680 Output Total 300 4200 Balance 70 -3520 Result Diagrams: 10/17/17 06:51 10/17/17 06:51 Additional Labs: Accuchecks 10/17/17 10/16/17 10/16/17 06:32 20:53 16:26 POC Glucose 186 H 229 H 154 H EKG Reviewed by me: Yes (nsr) Phys Exam - Physical Examination Constitutional: NAD HEENT: PERRLA, moist MMs, sclera anicteric Neck: no JVD, supple Respiratory: no wheezing, no rales, no rhonchi Cardiovascular: RRR, no significant murmur, no rub Gastrointestinal: soft, non-tender, no distention, positive bowel sounds Musculoskeletal: no edema, pulses present Neurological: non-focal, normal sensation Lymphatic: no nodes Psychiatric: normal affect Skin: no rash, normal turgor Dx/Plan (1) Hypertensive urgency Code(s): I16.0 - HYPERTENSIVE URGENCY Status: Acute (2) Sepsis Code(s): A41.9 - SEPSIS, UNSPECIFIED ORGANISM Status: Acute Comment: improving (3) UTI (urinary tract infection) Status: Acute Qualifiers: Urinary tract infection type: acute cystitis Hematuria presence: without hematuria Qualified Code(s): N30.00 - Acute cystitis without hematuria Comment: due to klebsiella (4) Anemia of renal disease Code(s): D63.1 - ANEMIA IN CHRONIC KIDNEY DISEASE Status: Chronic (5) BPH (benign prostatic hyperplasia) Code(s): N40.0 - BENIGN PROSTATIC HYPERPLASIA WITHOUT LOWER URINRY TRACT SYMP Status: Chronic (6) CAD (coronary artery disease) Code(s): I25.10 - ATHSCL HEART DISEASE OF [place] CORONARY ARTERY W/O ANG PCTRS Status: Chronic (7) Diabetes type 2, controlled Code(s): E11.9 - TYPE 2 DIABETES MELLITUS WITHOUT COMPLICATIONS Status: Chronic (8) Dyslipidemia Code(s): E78.5 - HYPERLIPIDEMIA, UNSPECIFIED Status: Chronic (9) ESRD (end stage renal disease) on dialysis Code(s): N18.6 - END STAGE RENAL DISEASE; Z99.2 - DEPENDENCE ON RENAL DIALYSIS Status: Chronic (10) Elevated troponin Code(s): R74.8 - ABNORMAL LEVELS OF OTHER SERUM ENZYMES Status: Chronic (11) GERD (gastroesophageal reflux disease) Code(s): K21.9 - GASTRO-ESOPHAGEAL REFLUX DISEASE WITHOUT ESOPHAGITIS Status: Chronic (12) Hypertension Code(s): I10 - ESSENTIAL (PRIMARY) HYPERTENSION Status: Chronic (13) Dementia Code(s): F03.90 - UNSPECIFIED DEMENTIA WITHOUT BEHAVIORAL DISTURBANCE Status: Chronic Qualifiers: Dementia type: unspecified type - Plan cont current plan of care, continue antibiotics, PT/OT, social media analyst, DVT proph w/heparin * does not want snu placement * today will change hydralazine 25 mg po qid * dc lisnopril * change metoprolol bid * dc tele * transfer to medical * monitor BP today, if better controlled, possible dc to home tomorrow * repeat cbc tomorrow * medication reviewed as below * symptomatic treatment. * dc hoover * monitor for any retention Review of Systems - Review of Systems Constitutional: negative: fever, chills, sweats, weakness, malaise, other Eyes: negative: Pain, Vision Change, Conjunctivae Inflammation, Eyelid Inflammation, Redness, Other ENT: negative: Ear Pain, Ear Discharge, Nose Pain, Nose Discharge, Nose Congestion, Mouth Pain, Mouth Swelling, Throat Pain, Throat Swelling, Other Respiratory: negative: Cough, Dry, Shortness of Breath, Hemoptysis, SOB with Excertion, Pleuritic Pain, Sputum, Wheezing Cardiovascular: negative: chest pain, palpitations, orthopnea, paroxysmal nocturnal dyspnea, edema, light headedness, other Gastrointestinal: negative: Nausea, Vomiting, Abdominal Pain, Diarrhea, Constipation, Melena, Hematochezia, Other Genitourinary: negative: Dysuria, Frequency, Incontinence, Hematuria, Retention , Other Musculoskeletal: negative: Neck Pain, Shoulder Pain, Arm Pain, Back Pain, Hand Pain, Leg Pain, Foot Pain, Other Skin: negative: Rash, Lesions, Mason, Bruising, Other - Medications/Allergies Allergies/Adverse Reactions: Allergies Allergy/AdvReac Type Severity Reaction Status Date / Time No Known Allergies Allergy Verified 10/15/17 17:40 Medications: Current Medications Acetaminophen (Tylenol) 650 mg PO Q4H PRN PRN Reason: Headache/Fever or Pain Hydrocodone Bitart/Acetaminophen ([place] 5/325) 1 tab PO Q4H PRN PRN Reason: Moderate Pain (4-6) Al Hydroxide/Mg Hydroxide (Maalox) 30 ml PO Q6H PRN PRN Reason: Heartburn or Indigestion Artificial Tears (Tears Naturale) 0 drop EA EYE PRN PRN PRN Reason: Dry Eyes Aspirin (Ecotrin) 81 mg PO DAILY [facility] Last Admin: 10/17/17 08:29 Dose: 81 mg Atorvastatin Calcium (Lipitor) 40 mg PO HS [facility] Last Admin: 10/16/17 20:49 Dose: 40 mg Clopidogrel Bisulfate (Plavix) 75 mg PO DAILY [facility] Last Admin: 10/17/17 08:29 Dose: 75 mg Dextrose/Water (Dextrose 50%) 25 gm SLOW IVP PRN PRN PRN Reason: Hypoglycemia Glucagon (Glucagon) 1 mg IM PRN PRN PRN Reason: Hypoglycemia Guaifenesin (Robitussin Sf) 200 mg PO Q4H PRN PRN Reason: Cough Heparin Sodium (Porcine) (Heparin) 5,000 units SC BID [facility] Last Admin: 10/17/17 08:29 Dose: 5,000 units Hydralazine HCl (Apresoline) 10 mg SLOW IVP Q4H PRN PRN Reason: Systolic BP > 180 Last Admin: 10/16/17 06:03 Dose: 10 mg Hydralazine HCl (Apresoline) 25 mg PO QID [facility] Ceftriaxone Sodium 1 gm/ (Sodium Chloride) 100 mls @ 200 mls/hr IVPB 1300 [facility] Last Admin: 10/16/17 16:15 Dose: 100 mls Dextrose/Water (D5w) 1,000 mls @ 0 mls/hr IV .Q0M PRN; As Directed PRN Reason: Hypoglycemia Levofloxacin 500 mg/ Device 100 mls @ 100 mls/hr IVPB Q2DAYS [facility] Last Admin: 10/15/17 21:25 Dose: 100 mls Insulin Human Lispro (Humalog) 0 units SC .MODERATE SLIDING SC PRN PRN Reason: Moderate Correctional Scale Insulin Human Lispro (Humalog) 0 units SC .BEDTIME SLIDING SC PRN PRN Reason: Bedtime Correctional Scale Isosorbide Mononitrate (Imdur Er) 30 mg PO DAILY [facility] Last Admin: 10/17/17 08:29 Dose: 30 mg Labetalol HCl (Normodyne) 10 mg SLOW IVP Q4H PRN PRN Reason: SBP Greater Than 180 Last Admin: 10/16/17 04:09 Dose: 10 mg Loperamide HCl (Imodium) 2 mg PO PRN PRN PRN Reason: Diarrhea/Loose Stools Loratadine (Claritin) 10 mg PO DAILYPRN PRN PRN Reason: Sinus Symptoms Magnesium Hydroxide (Milk Of Magnesium) 30 ml PO DAILYPRN PRN PRN Reason: Constipation Metoprolol Tartrate (Lopressor) 50 mg PO BID [facility] Mineral Oil/White Petrolatum (Eucerin Cream) 0 gm TOP BIDPRN PRN PRN Reason: Dry Skin Nifedipine (Procardia Xl) 90 mg PO DAILY [facility] Last Admin: 10/17/17 08:29 Dose: 90 mg Nitroglycerin (Nitrostat) 0.4 mg SL Q5MIN PRN PRN Reason: Chest Pain Ondansetron HCl (Zofran Odt) 4 mg PO Q6H PRN PRN Reason: Nausea/Vomiting Ondansetron HCl (Zofran) 4 mg IVP Q6H PRN PRN Reason: Nausea/Vomiting Phenol (Chloraseptic [place] 180 Ml Bot) 0 ml PO PRN PRN PRN Reason: Sore Throat Senna (Senokot) 2 tab PO HSPRN PRN PRN Reason: Constipation Sodium Chloride ([place] Nasal [place] 0.65%) 0 ml EA NARE QIDPRN PRN PRN Reason: Nasal Congestion Tamsulosin HCl (Flomax) 0.4 mg PO DAILY [facility] Last Admin: 10/17/17 08:29 Dose: 0.4 mg Zolpidem Tartrate (Ambien) 5 mg PO HSPRN PRN PRN Reason: Insomnia
--- NOTE | 2017-10-17 12:00 | PRG ---
DATE OF SERVICE: 10/17/2017 SUBJECTIVE: This is a 66-year-old gentleman being seen for end-stage renal disease. Patient denies any nausea, vomiting, chest pain. PHYSICAL EXAMINATION: GENERAL: Patient is awake, alert. VITAL SIGNS: Afebrile, pulse 70, breathing at 16, blood pressure is 182/84. HEAD/NECK: Normocephalic. Atraumatic. EYES: EOMI. No deformity. EARS: Clear. No ulcers. NOSE: Intact. No lesions. MOUTH: Clear. No discharge. THROAT: Clear. No exudate. LUNGS: Clear. No crackles. CARDIAC: S1, S2. No rub. ABDOMEN: Benign. BS+. GENITALIA/RECTUM: Barrera absent. BACK/EXTREMITIES: Edema 0+ Ulcer- NEUROLOGICAL: Alert and motor intact. SKIN: Rash- Bruise- LYMPHATICS: Edema- Ulcer- LABORATORY DATA: Show potassium 4. ASSESSMENT AND PLAN: 1. Stage 6 chronic kidney disease, plan hemodialysis. 2. Hypertension, titrate medicine. 3. Anemia, stable. 4. Hypertension, I would start lisinopril 10 mg daily.
[2017-10-17] MEDS: cefTRIAXone\\ROCEPHIN 1 GM in Sodium Chloride 0.9% 100 ML IVPB SCH (12:28)
[2017-10-17] MEDS: HumaLOG 300 UNITS/3 ML VIAL SC PRN (12:37)
[2017-10-17] MEDS ORDERED: Sodium Chloride 0.9% 500 ML IVPB ONE (15:30)
[2017-10-17] MEDS ORDERED: Metoprolol Tartrate 50 MG TAB PO SCH (21:00)
[2017-10-17] MEDS: Atorvastatin Calcium 40 MG TAB PO SCH (21:17)
[2017-10-18 03:55] LABS: #Eosinphils 0.1 thou/uL (0.0-0.7); #Monocytes 0.6 thou/uL (0.11-0.59); #Neutrophils 6.2 thou/uL (1.40-6.50); %Eosinophils 1.2 % (0.0-10.0); %Lymphocytes 12.8 % (21.0-51.0); %Monocytes 7.1 % (0.0-10.0); %Neutrophils 78.9 % (42.0-75.0); Hemoglobin 9.6 g/dL (14.0-18.0); Mean Corpuscular HGB CONC 32.5 g/dL (32.0-36.0); Mean Corpuscular Hemoglobin 28.7 pg (27.0-31.0); Mean Corpuscular Volume 88.2 fl (80.0-94.0); Mean Platelet Volume 8.6 fL (7.4-10.4); Platelet Count 175 thou/uL (130-400); RBC Distribution Width 13.8 % (11.5-14.5); Red Blood Cell (RBC) Count 3.33 mill/uL (4.70-6.10); White Blood Cell (WBC) Count 7.9 thou/uL (4.8-10.8)
[2017-10-18] MEDS ORDERED: Heparin 1,000 UNITS/ML VIAL ONE (11:11)
--- NOTE | 2017-10-18 11:17 | PDOC.PN ---
- Subjective Encounter Start Date: 10/18/17 Encounter Start Time: 11:15 Mr. Ho was seen today in follow-up of UTI with sepsis. He is a bit confused when I saw him in dialysis, but had no complaints. - Objective Resuscitation Status: Resuscitation Status FULL:Full Resuscitation MAR Reviewed: Yes Vital Signs & Weight: Vital Signs (12 hours) Temp Pulse Resp BP Pulse Ox 10/18/17 07:47 98.2 F 73 17 129/62 92 L 10/18/17 04:00 98.5 F 74 18 128/60 95 10/17/17 23:57 98.5 F 72 16 118/58 L 92 L Weight Weight 177 lb 1.6 oz I&O: 10/17/17 10/18/17 10/19/17 06:59 06:59 06:59 Intake Total 680 2100 Output Total 4200 100 Balance -3520 2000 Result Diagrams: 10/18/17 03:29 10/17/17 06:51 Additional Labs: Accuchecks 10/18/17 10/17/17 10/17/17 05:34 20:25 16:51 POC Glucose 212 H 254 H 167 H 10/17/17 00:56 POC Glucose 201 H Phys Exam - Physical Examination HEENT: PERRLA Respiratory: no wheezing, no rales, no rhonchi, clear to auscultation bilateral Cardiovascular: RRR, no significant murmur, no rub Gastrointestinal: soft, non-tender, positive bowel sounds Musculoskeletal: no edema Dx/Plan (1) Hypertension Code(s): I10 - ESSENTIAL (PRIMARY) HYPERTENSION Status: Acute (2) Sepsis Code(s): A41.9 - SEPSIS, UNSPECIFIED ORGANISM Status: Acute Comment: improving (3) UTI (urinary tract infection) Status: Acute Qualifiers: Urinary tract infection type: acute cystitis Hematuria presence: without hematuria Qualified Code(s): N30.00 - Acute cystitis without hematuria Comment: due to klebsiella (4) Diabetes type 2, controlled Code(s): E11.9 - TYPE 2 DIABETES MELLITUS WITHOUT COMPLICATIONS Status: Chronic (5) ESRD (end stage renal disease) on dialysis Code(s): N18.6 - END STAGE RENAL DISEASE; Z99.2 - DEPENDENCE ON RENAL DIALYSIS Status: Chronic - Plan * UTI with sepsis- his WBC count has improved- but he is a bit confused, unsure if this is because I woke him up during dialysis- will observe * He can possibly go home later today if he is more alert, or tomorrow * HTN - Blood pressure is better after Hydralazine was increased * Will add a low dose of Lisinopril as well * DM- blood glucose is slightly elevated- will monitor .
--- NOTE | 2017-10-18 11:39 | PRG ---
DATE OF SERVICE: 10/18/2017 SUBJECTIVE: This is a 66-year-old gentleman being seen for end-stage renal disease. Patient denies any nausea, vomiting, chest pain. PHYSICAL EXAMINATION: GENERAL: Patient is awake, alert. VITAL SIGNS: Afebrile, pulse 75, breathing 16, blood pressure was 129/62. OBJECTIVE: See above. Awake, alert, in no acute distress. GENERAL APPEARANCE AND MENTAL STATUS: Fair. HEAD/NECK: Normocephalic. Atraumatic. EYES: EOMI. No deformity. EARS: Clear. No ulcers. NOSE: Intact. No lesions. MOUTH: Clear. No discharge. THROAT: Clear. No exudate. LUNGS: Clear. No crackles. CARDIAC: S1, S2. No rub. ABDOMEN: Benign. BS+. GENITALIA/RECTUM: Barrera absent. BACK/EXTREMITIES: Edema 0+ Ulcer- NEUROLOGICAL: Alert and motor intact. SKIN: Rash- Bruise- LYMPHATICS: Edema- Ulcer- LABORATORY: Hemoglobin 9.6, creatinine is pending. ASSESSMENT AND RECOMMENDATIONS: 1. Stage 6 chronic kidney disease. We will plan dialysis today. 2. Hypertension. 3. Anemia, stable. 4. Medication based on glomerular filtration rate are appropriate.
[2017-10-18] MEDS: NIFEdipine XL 90 MG TAB PO SCH (12:32)
[2017-10-18] MEDS: Metoprolol Tartrate 50 MG TAB PO SCH ×2 (12:32→21:03)
[2017-10-18] MEDS: Clopidogrel Bisulfate 75 MG TAB PO SCH (12:32)
[2017-10-18] MEDS: hydrALAZINE 25 MG TAB PO SCH ×4 (12:32→21:03)
[2017-10-18] MEDS: Tamsulosin HCl 0.4 MG CAP PO SCH (12:32)
[2017-10-18] MEDS: Aspirin 81 mg Enteric Coated Tablet PO SCH (12:32)
[2017-10-18] MEDS: Heparin 5,000 UNITS/ML VIAL SC SCH ×2 (12:33→21:03)
[2017-10-18] MEDS: cefTRIAXone\\ROCEPHIN 1 GM in Sodium Chloride 0.9% 100 ML IVPB SCH (13:06)
[2017-10-18] MEDS: HumaLOG 300 UNITS/3 ML VIAL SC PRN (17:22)
[2017-10-18] MEDS: Atorvastatin Calcium 40 MG TAB PO SCH (21:03)
[2017-10-19] MEDS: HumaLOG 300 UNITS/3 ML VIAL SC PRN ×2 (07:21→17:01)
--- NOTE | 2017-10-19 09:14 | PRG ---
DATE OF SERVICE: 10/19/2017 SUBJECTIVE: This is a 66-year-old male, being seen for end-stage renal disease. The patient denies any nausea, vomiting, or chest pain. The patient tolerated dialysis. OBJECTIVE: See above. GENERAL: The patient is awake and alert. VITAL SIGNS: Afebrile, pulse 65, breathing at 16, blood pressure 190/60. GENERAL APPEARANCE AND MENTAL STATUS: Fair. HEAD/NECK: Normocephalic. Atraumatic. EYES: EOMI. No deformity. EARS: Clear. No ulcers. NOSE: Intact. No lesions. MOUTH: Clear. No discharge. THROAT: Clear. No exudate. LUNGS: Clear. No crackles. CARDIAC: S1, S2. No rub. ABDOMEN: Benign. BS+. GENITALIA/RECTUM: Barrera absent. BACK/EXTREMITIES: Edema 0+, ulcer. NEUROLOGICAL: Alert and motor intact. SKIN: Rash - bruise. LYMPHATICS: Edema - ulcer. LABORATORY DATA: Labs show hemoglobin 9.6. ASSESSMENT AND RECOMMENDATIONS: 1. Stage 6 chronic kidney disease. Continue hemodialysis. 2. Hypertension, stable. 3. Anemia, stable. 4. Medication based on glomerular filtration rate are appropriate. 5. Obstructive uropathy. Please consult Urology.
[2017-10-19] MEDS: Lisinopril 5 MG TAB PO SCH (09:40)
[2017-10-19] MEDS: NIFEdipine XL 90 MG TAB PO SCH (09:40)
[2017-10-19] MEDS: hydrALAZINE 25 MG TAB PO SCH ×4 (09:40→21:11)
[2017-10-19] MEDS: Tamsulosin HCl 0.4 MG CAP PO SCH (09:40)
[2017-10-19] MEDS: Clopidogrel Bisulfate 75 MG TAB PO SCH (09:40)
[2017-10-19] MEDS: Metoprolol Tartrate 50 MG TAB PO SCH ×2 (09:40→21:12)
[2017-10-19] MEDS: Aspirin 81 mg Enteric Coated Tablet PO SCH (09:40)
[2017-10-19] MEDS: Heparin 5,000 UNITS/ML VIAL SC SCH ×2 (09:40→21:12)
[2017-10-19] MEDS: cefTRIAXone\\ROCEPHIN 1 GM in Sodium Chloride 0.9% 100 ML IVPB SCH (14:16)
--- NOTE | 2017-10-19 16:00 | PDOC.PN ---
- Subjective Encounter Start Date: 10/19/17 Encounter Start Time: 16:04 patient seen and examined for sepsis, UTI and obstructive uropathy. Has no complaints today and reports feeling well. Urology consulted. No acute events overnight. - Objective Resuscitation Status: Resuscitation Status FULL:Full Resuscitation MAR Reviewed: Yes Vital Signs & Weight: Vital Signs (12 hours) Temp Pulse Resp BP BP Pulse Ox 10/19/17 15:40 97.5 F L 66 15 135/64 96 10/19/17 14:29 154/64 H 10/19/17 11:54 98.0 F 56 L 16 139/65 96 10/19/17 07:38 97.3 F L 65 17 10/19/17 07:15 97.3 F L 65 17 157/72 H 97 10/19/17 04:00 98.0 F 55 L 16 128/60 Weight Weight 177 lb 1.6 oz I&O: 10/18/17 10/19/17 10/20/17 06:59 06:59 06:59 Intake Total 2100 235 Output Total 100 Balance 2000 235 Result Diagrams: 10/18/17 03:29 10/17/17 06:51 Additional Labs: Accuchecks 10/19/17 10/19/17 10/18/17 11:02 06:16 21:12 POC Glucose 126 H 320 H 199 H 10/18/17 16:37 POC Glucose 278 H Phys Exam - Physical Examination Constitutional: NAD HEENT: PERRLA, moist MMs, sclera anicteric, oral pharynx no lesions Neck: no JVD, supple, full ROM Respiratory: no wheezing, no rales, no rhonchi, clear to auscultation bilateral Cardiovascular: RRR, no significant murmur, no rub Gastrointestinal: soft, non-tender, no distention, positive bowel sounds Musculoskeletal: no edema, pulses present Neurological: non-focal, moves all 4 limbs Psychiatric: normal affect, A&O x 3 Dx/Plan (1) Hypertension Code(s): I10 - ESSENTIAL (PRIMARY) HYPERTENSION Status: Acute Qualifiers: Hypertension type: essential hypertension Qualified Code(s): I10 - Essential (primary) hypertension Comment: Fairly well controlled on current regimen. low dose Lisinopril initiated. (2) Obstructive uropathy Code(s): N13.9 - OBSTRUCTIVE AND REFLUX UROPATHY, UNSPECIFIED Status: Acute Comment: Urology consulted. Will follow recs. (3) Sepsis Code(s): A41.9 - SEPSIS, UNSPECIFIED ORGANISM Status: Resolved Comment: Resolved. 2/2 Klebsiella UTI. (4) UTI (urinary tract infection) Status: Resolved Qualifiers: Urinary tract infection type: acute cystitis Hematuria presence: without hematuria Qualified Code(s): N30.00 - Acute cystitis without hematuria Comment: due to klebsiella (5) BPH (benign prostatic hyperplasia) Code(s): N40.0 - BENIGN PROSTATIC HYPERPLASIA WITHOUT LOWER URINRY TRACT SYMP Status: Chronic Qualifiers: Lower urinary tract symptom presence: symptoms present Lower urinary tract symptom detail: urinary obstruction Qualified Code(s): N40.1 - Benign prostatic hyperplasia with lower urinary tract symptoms; N13.8 - Other obstructive and reflux uropathy; N13.8 - Other obstructive and reflux uropathy (6) CAD (coronary artery disease) Code(s): I25.10 - ATHSCL HEART DISEASE OF [place] CORONARY ARTERY W/O ANG PCTRS Status: Chronic Qualifiers: Coronary Disease-Associated Artery/Lesion type: unspecified vessel or lesion type [place] vs. transplanted heart: [place] heart Associated angina: without angina Qualified Code(s): I25.10 - Atherosclerotic heart disease of [place] coronary artery without angina pectoris Comment: Stable, chest pain free. (7) Diabetes type 2, controlled Code(s): E11.9 - TYPE 2 DIABETES MELLITUS WITHOUT COMPLICATIONS Status: Chronic Qualifiers: Diabetes mellitus oil heaterman insulin use: with oil heaterman use Diabetes mellitus complication status: with kidney complications Diabetes mellitus complication detail: with chronic kidney disease Chronic kidney disease stage : on chronic dialysis Qualified Code(s): E11.22 - Type 2 diabetes mellitus with diabetic chronic kidney disease; N18.6 - End stage renal disease; N18.6 - End stage renal disease; N18.6 - End stage renal disease; N18.6 - End stage renal disease; Z79.4 - long term (current) use of insulin; Z79.4 - long term ( current) use of insulin; Z79.4 - long term (current) use of insulin; Z79.4 - long term (current) use of insulin; Z99.2 - Dependence on renal dialysis; Z99.2 - Dependence on renal dialysis; Z99.2 - Dependence on renal dialysis; Z99.2 - Dependence on renal dialysis (8) Dyslipidemia Code(s): E78.5 - HYPERLIPIDEMIA, UNSPECIFIED Status: Chronic (9) ESRD (end stage renal disease) on dialysis Code(s): N18.6 - END STAGE RENAL DISEASE; Z99.2 - DEPENDENCE ON RENAL DIALYSIS Status: Chronic - Plan cont current plan of care, plan discussed w/ family, out of bed/ambulate, DVT proph w/heparin Continue HD per nephrology Urology consult for obstructive uropathy. Review of Systems - Medications/Allergies Allergies/Adverse Reactions: Allergies Allergy/AdvReac Type Severity Reaction Status Date / Time No Known Allergies Allergy Verified 10/15/17 17:40 Medications: Current Medications Acetaminophen (Tylenol) 650 mg PO Q4H PRN PRN Reason: Headache/Fever or Pain Hydrocodone Bitart/Acetaminophen ([place] 5/325) 1 tab PO Q4H PRN PRN Reason: Moderate Pain (4-6) Al Hydroxide/Mg Hydroxide (Maalox) 30 ml PO Q6H PRN PRN Reason: Heartburn or Indigestion Last Admin: 10/17/17 21:17 Dose: 30 ml Artificial Tears (Tears Naturale) 0 drop EA EYE PRN PRN PRN Reason: Dry Eyes Aspirin (Ecotrin) 81 mg PO DAILY [facility] Last Admin: 10/19/17 09:40 Dose: 81 mg Atorvastatin Calcium (Lipitor) 40 mg PO HS [facility] Last Admin: 10/18/17 21:03 Dose: 40 mg Clopidogrel Bisulfate (Plavix) 75 mg PO DAILY [facility] Last Admin: 10/19/17 09:40 Dose: 75 mg Dextrose/Water (Dextrose 50%) 25 gm SLOW IVP PRN PRN PRN Reason: Hypoglycemia Glucagon (Glucagon) 1 mg IM PRN PRN PRN Reason: Hypoglycemia Guaifenesin (Robitussin Sf) 200 mg PO Q4H PRN PRN Reason: Cough Heparin Sodium (Porcine) (Heparin) 5,000 units SC BID [facility] Last Admin: 10/19/17 09:40 Dose: 5,000 units Hydralazine HCl (Apresoline) 10 mg SLOW IVP Q4H PRN PRN Reason: Systolic BP > 180 Last Admin: 10/16/17 06:03 Dose: 10 mg Hydralazine HCl (Apresoline) 25 mg PO QID [facility] Last Admin: 10/19/17 14:16 Dose: 25 mg Ceftriaxone Sodium 1 gm/ (Sodium Chloride) 100 mls @ 200 mls/hr IVPB 1300 [facility] Last Admin: 10/19/17 14:16 Dose: 100 mls Dextrose/Water (D5w) 1,000 mls @ 0 mls/hr IV .Q0M PRN; As Directed PRN Reason: Hypoglycemia Levofloxacin 500 mg/ Device 100 mls @ 100 mls/hr IVPB Q2DAYS [facility] Last Admin: 10/17/17 21:47 Dose: 100 mls Insulin Human Lispro (Humalog) 0 units SC .MODERATE SLIDING SC PRN PRN Reason: Moderate Correctional Scale Last Admin: 10/19/17 07:21 Dose: 8 unit Insulin Human Lispro (Humalog) 0 units SC .BEDTIME SLIDING SC PRN PRN Reason: Bedtime Correctional Scale Isosorbide Mononitrate (Imdur Er) 30 mg PO DAILY [facility] Last Admin: 10/19/17 09:40 Dose: 30 mg Labetalol HCl (Normodyne) 10 mg SLOW IVP Q4H PRN PRN Reason: SBP Greater Than 180 Last Admin: 10/16/17 04:09 Dose: 10 mg Lisinopril (Zestril) 5 mg PO DAILY [facility] Last Admin: 10/19/17 09:40 Dose: 5 mg Loperamide HCl (Imodium) 2 mg PO PRN PRN PRN Reason: Diarrhea/Loose Stools Loratadine (Claritin) 10 mg PO DAILYPRN PRN PRN Reason: Sinus Symptoms Magnesium Hydroxide (Milk Of Magnesium) 30 ml PO DAILYPRN PRN PRN Reason: Constipation Metoprolol Tartrate (Lopressor) 50 mg PO BID [facility] Last Admin: 10/19/17 09:40 Dose: 50 mg Mineral Oil/White Petrolatum (Eucerin Cream) 0 gm TOP BIDPRN PRN PRN Reason: Dry Skin Nifedipine (Procardia Xl) 90 mg PO DAILY [facility] Last Admin: 10/19/17 09:40 Dose: 90 mg Nitroglycerin (Nitrostat) 0.4 mg SL Q5MIN PRN PRN Reason: Chest Pain Ondansetron HCl (Zofran Odt) 4 mg PO Q6H PRN PRN Reason: Nausea/Vomiting Last Admin: 10/17/17 15:51 Dose: 4 mg Ondansetron HCl (Zofran) 4 mg IVP Q6H PRN PRN Reason: Nausea/Vomiting Phenol (Chloraseptic [place] 180 Ml Bot) 0 ml PO PRN PRN PRN Reason: Sore Throat Senna (Senokot) 2 tab PO HSPRN PRN PRN Reason: Constipation Sodium Chloride ([place] Nasal [place] 0.65%) 0 ml EA NARE QIDPRN PRN PRN Reason: Nasal Congestion Tamsulosin HCl (Flomax) 0.4 mg PO DAILY [facility] Last Admin: 10/19/17 09:40 Dose: 0.4 mg Zolpidem Tartrate (Ambien) 5 mg PO HSPRN PRN PRN Reason: Insomnia
[2017-10-19] MEDS: Atorvastatin Calcium 40 MG TAB PO SCH (21:12)
[2017-10-20] MEDS: Heparin 5,000 UNITS/ML VIAL SC SCH ×2 (08:24→20:45)
[2017-10-20] MEDS: hydrALAZINE 25 MG TAB PO SCH ×4 (08:24→20:42)
[2017-10-20] MEDS: Aspirin 81 mg Enteric Coated Tablet PO SCH (08:24)
[2017-10-20] MEDS: Clopidogrel Bisulfate 75 MG TAB PO SCH (08:24)
[2017-10-20] MEDS: Tamsulosin HCl 0.4 MG CAP PO SCH (08:25)
[2017-10-20] MEDS: Lisinopril 5 MG TAB PO SCH (08:25)
[2017-10-20] MEDS: NIFEdipine XL 90 MG TAB PO SCH (08:25)
[2017-10-20] MEDS: Metoprolol Tartrate 50 MG TAB PO SCH ×2 (08:25→20:45)
[2017-10-20] MEDS: HumaLOG 300 UNITS/3 ML VIAL SC PRN ×3 (08:26→17:10)
--- NOTE | 2017-10-20 12:05 | PRG ---
DATE OF SERVICE: 10/20/2017 SUBJECTIVE: A 66-year-old gentleman being seen for end-stage renal disease. The patient denies any nausea, vomiting, or chest pain. PHYSICAL EXAMINATION: GENERAL: Patient is awake, alert. VITAL SIGNS: Afebrile, pulse 67, breathing at 16, blood pressure 159/74. HEAD/NECK: Normocephalic. Atraumatic. EYES: EOMI. No deformity. EARS: Clear. No ulcers. NOSE: Intact. No lesions. MOUTH: Clear. No discharge. THROAT: Clear. No exudate. LUNGS: Clear. No crackles. CARDIAC: S1, S2. No rub. ABDOMEN: Benign. BS+. GENITALIA/RECTUM: Barrera absent. BACK/EXTREMITIES: Edema 0+ Ulcer- NEUROLOGICAL: Alert and motor intact. SKIN: Rash- Bruise- LYMPHATICS: Edema- Ulcer- LABORATORY DATA: Show hemoglobin 9.6. ASSESSMENT AND RECOMMENDATIONS: 1. Stage 6 chronic kidney disease. Continue hemodialysis Saturday, Saturday, and Saturday. 2. Hypertension, stable. 3. Anemia, stable. 4. Medication based on glomerular filtration rate are appropriate.
[2017-10-20] MEDS: cefTRIAXone\\ROCEPHIN 1 GM in Sodium Chloride 0.9% 100 ML IVPB SCH (13:11)
--- NOTE | 2017-10-20 13:20 | PDOC.PN ---
- Subjective Encounter Start Date: 10/20/17 Encounter Start Time: 13:19 No complaints today. Patient seen and examined following admission for sepsis, UTI and obstructive uropathy. Urology consult placed for obstructive uropathy. Abdominal US pending. - Objective Resuscitation Status: Resuscitation Status FULL:Full Resuscitation MAR Reviewed: Yes Vital Signs & Weight: Vital Signs (12 hours) Temp Pulse Resp BP Pulse Ox 10/20/17 11:47 98 F 58 L 16 105/52 L 95 10/20/17 07:34 98.1 F 67 18 174/79 H 94 L 10/20/17 04:00 98.1 F 65 16 159/74 H 96 Weight Weight 177 lb 1.6 oz I&O: 10/19/17 10/20/17 10/21/17 06:59 06:59 06:59 Intake Total 235 250 Balance 235 250 Result Diagrams: 10/18/17 03:29 10/17/17 06:51 Additional Labs: Accuchecks 10/20/17 10/20/17 10/19/17 10:39 06:30 20:29 POC Glucose 258 H 202 H 244 H 10/19/17 16:31 POC Glucose 265 H Phys Exam - Physical Examination Constitutional: NAD HEENT: PERRLA, moist MMs, sclera anicteric Neck: supple, full ROM Respiratory: no wheezing, no rales, no rhonchi, clear to auscultation bilateral Cardiovascular: RRR, no significant murmur, no rub Gastrointestinal: soft, non-tender, no distention, positive bowel sounds Neurological: non-focal, moves all 4 limbs Psychiatric: normal affect, A&O x 3 Skin: no rash, normal turgor Dx/Plan (1) Diabetes type 2, controlled Code(s): E11.9 - TYPE 2 DIABETES MELLITUS WITHOUT COMPLICATIONS Status: Chronic Qualifiers: Diabetes mellitus skilled nursing insulin use: with skilled nursing use Diabetes mellitus complication status: with kidney complications Diabetes mellitus complication detail: with chronic kidney disease Chronic kidney disease stage : on chronic dialysis Qualified Code(s): E11.22 - Type 2 diabetes mellitus with diabetic chronic kidney disease; N18.6 - End stage renal disease; Z99.2 - Dependence on renal dialysis; Z99.2 - Dependence on renal dialysis; Z99.2 - Dependence on renal dialysis; N18.6 - End stage renal disease; N18.6 - End stage renal disease; N18.6 - End stage renal disease; Z79.4 - [facility] (current ) use of insulin; Z79.4 - [employer] (current) use of insulin; Z79.4 - [facility] (current) use of insulin; Z79.4 - [facility] (current) use of insulin; Z99.2 - Dependence on renal dialysis Comment: Fair control. Will add long acting insulin to regimen. (2) Hypertension Code(s): I10 - ESSENTIAL (PRIMARY) HYPERTENSION Status: Acute Qualifiers: Hypertension type: essential hypertension Qualified Code(s): I10 - Essential (primary) hypertension Comment: Fairly well controlled on current regimen. (3) Obstructive uropathy Code(s): N13.9 - OBSTRUCTIVE AND REFLUX UROPATHY, UNSPECIFIED Status: Acute Comment: Urology consulted. f/u Abdominal US report. (4) UTI (urinary tract infection) Status: Resolved Qualifiers: Urinary tract infection type: acute cystitis Hematuria presence: without hematuria Qualified Code(s): N30.00 - Acute cystitis without hematuria Comment: due to klebsiella (5) BPH (benign prostatic hyperplasia) Code(s): N40.0 - BENIGN PROSTATIC HYPERPLASIA WITHOUT LOWER URINRY TRACT SYMP Status: Chronic Qualifiers: Lower urinary tract symptom presence: symptoms present Lower urinary tract symptom detail: urinary obstruction Qualified Code(s): N40.1 - Benign prostatic hyperplasia with lower urinary tract symptoms; N13.8 - Other obstructive and reflux uropathy; N13.8 - Other obstructive and reflux uropathy (6) CAD (coronary artery disease) Code(s): I25.10 - ATHSCL HEART DISEASE OF [place] CORONARY ARTERY W/O ANG PCTRS Status: Chronic Qualifiers: Coronary Disease-Associated Artery/Lesion type: unspecified vessel or lesion type [place] vs. transplanted heart: [place] heart Associated angina: without angina Qualified Code(s): I25.10 - Atherosclerotic heart disease of [place] coronary artery without angina pectoris Comment: Stable, chest pain free. (7) Dyslipidemia Code(s): E78.5 - HYPERLIPIDEMIA, UNSPECIFIED Status: Chronic (8) ESRD (end stage renal disease) on dialysis Code(s): N18.6 - END STAGE RENAL DISEASE; Z99.2 - DEPENDENCE ON RENAL DIALYSIS Status: Chronic Comment: HD per nephrology. (9) Sepsis Code(s): A41.9 - SEPSIS, UNSPECIFIED ORGANISM Status: Resolved Comment: Resolved. 2/2 Klebsiella UTI. - Plan cont current plan of care, continue antibiotics, out of bed/ambulate, DVT proph w/heparin * . Review of Systems - Medications/Allergies Allergies/Adverse Reactions: Allergies Allergy/AdvReac Type Severity Reaction Status Date / Time No Known Allergies Allergy Verified 10/15/17 17:40 Medications: Current Medications Acetaminophen (Tylenol) 650 mg PO Q4H PRN PRN Reason: Headache/Fever or Pain Hydrocodone Bitart/Acetaminophen ([place] 5/325) 1 tab PO Q4H PRN PRN Reason: Moderate Pain (4-6) Al Hydroxide/Mg Hydroxide (Maalox) 30 ml PO Q6H PRN PRN Reason: Heartburn or Indigestion Last Admin: 10/17/17 21:17 Dose: 30 ml Artificial Tears (Tears Naturale) 0 drop EA EYE PRN PRN PRN Reason: Dry Eyes Aspirin (Ecotrin) 81 mg PO DAILY [facility] Last Admin: 10/20/17 08:24 Dose: 81 mg Atorvastatin Calcium (Lipitor) 40 mg PO HS [facility] Last Admin: 10/19/17 21:12 Dose: 40 mg Clopidogrel Bisulfate (Plavix) 75 mg PO DAILY [facility] Last Admin: 10/20/17 08:24 Dose: 75 mg Dextrose/Water (Dextrose 50%) 25 gm SLOW IVP PRN PRN PRN Reason: Hypoglycemia Glucagon (Glucagon) 1 mg IM PRN PRN PRN Reason: Hypoglycemia Guaifenesin (Robitussin Sf) 200 mg PO Q4H PRN PRN Reason: Cough Heparin Sodium (Porcine) (Heparin) 5,000 units SC BID [facility] Last Admin: 10/20/17 08:24 Dose: 5,000 units Hydralazine HCl (Apresoline) 10 mg SLOW IVP Q4H PRN PRN Reason: Systolic BP > 180 Last Admin: 10/16/17 06:03 Dose: 10 mg Hydralazine HCl (Apresoline) 25 mg PO QID [facility] Last Admin: 10/20/17 13:07 Dose: Not Given Ceftriaxone Sodium 1 gm/ (Sodium Chloride) 100 mls @ 200 mls/hr IVPB 1300 [facility] Last Admin: 10/20/17 13:11 Dose: 100 mls Dextrose/Water (D5w) 1,000 mls @ 0 mls/hr IV .Q0M PRN; As Directed PRN Reason: Hypoglycemia Levofloxacin 500 mg/ Device 100 mls @ 100 mls/hr IVPB Q2DAYS [facility] Last Admin: 10/19/17 21:15 Dose: 100 mls Insulin Glargine 10 units/ (Miscellaneous Medication) 0.1 mls @ 0 mls/hr [facility] Insulin Human Lispro (Humalog) 0 units SC .MODERATE SLIDING SC PRN PRN Reason: Moderate Correctional Scale Last Admin: 10/20/17 11:51 Dose: 6 unit Insulin Human Lispro (Humalog) 0 units SC .BEDTIME SLIDING SC PRN PRN Reason: Bedtime Correctional Scale Isosorbide Mononitrate (Imdur Er) 30 mg PO DAILY [facility] Last Admin: 10/20/17 08:25 Dose: 30 mg Labetalol HCl (Normodyne) 10 mg SLOW IVP Q4H PRN PRN Reason: SBP Greater Than 180 Last Admin: 10/16/17 04:09 Dose: 10 mg Lisinopril (Zestril) 5 mg PO DAILY [facility] Last Admin: 10/20/17 08:25 Dose: 5 mg Loperamide HCl (Imodium) 2 mg PO PRN PRN PRN Reason: Diarrhea/Loose Stools Loratadine (Claritin) 10 mg PO DAILYPRN PRN PRN Reason: Sinus Symptoms Magnesium Hydroxide (Milk Of Magnesium) 30 ml PO DAILYPRN PRN PRN Reason: Constipation Metoprolol Tartrate (Lopressor) 50 mg PO BID [facility] Last Admin: 10/20/17 08:25 Dose: 50 mg Mineral Oil/White Petrolatum (Eucerin Cream) 0 gm TOP BIDPRN PRN PRN Reason: Dry Skin Nifedipine (Procardia Xl) 90 mg PO DAILY [facility] Last Admin: 10/20/17 08:25 Dose: 90 mg Nitroglycerin (Nitrostat) 0.4 mg SL Q5MIN PRN PRN Reason: Chest Pain Ondansetron HCl (Zofran Odt) 4 mg PO Q6H PRN PRN Reason: Nausea/Vomiting Last Admin: 10/17/17 15:51 Dose: 4 mg Ondansetron HCl (Zofran) 4 mg IVP Q6H PRN PRN Reason: Nausea/Vomiting Phenol (Chloraseptic [place] 180 Ml Bot) 0 ml PO PRN PRN PRN Reason: Sore Throat Senna (Senokot) 2 tab PO HSPRN PRN PRN Reason: Constipation Sodium Chloride ([place] Nasal [place] 0.65%) 0 ml EA NARE QIDPRN PRN PRN Reason: Nasal Congestion Sodium Chloride (Flush - Normal Saline) 10 ml IVF Q12HR [facility] Last Admin: 10/20/17 08:34 Dose: 10 ml Sodium Chloride (Flush - Normal Saline) 10 ml IVF PRN PRN PRN Reason: Saline Flush Tamsulosin HCl (Flomax) 0.4 mg PO DAILY [facility] Last Admin: 10/20/17 08:25 Dose: 0.4 mg Zolpidem Tartrate (Ambien) 5 mg PO HSPRN PRN PRN Reason: Insomnia
--- NOTE | 2017-10-20 13:25 | ULT ---
BILATERAL RENAL ULTRASOUND: HISTORY: Recurrent urinary tract infection. COMPARISON: 07/09/17. TECHNIQUE: Sagittal and transverse imaging of the kidneys is performed. FINDINGS: Bilaterally, no hydronephrosis. The right kidney measures 5.4 x 5.5 x 11.2 cm. The left kidney ivy ures 5.9 x 6.2 x 11.1 cm. No cyst. The urinary bladder wall is thickened. Bladder volume is 123 mL. The prostate gland is enlarged valeria suring 4.7 x 4.3 x 4.4 cm. IMPRESSION: Urinary bladder wall thickening. No hydronephrosis. Bladder prominence may, in part, be due to outl et obstruction from prostate enlargement. POS: [facility]
[2017-10-20] MEDS: Atorvastatin Calcium 40 MG TAB PO SCH (20:42)
[2017-10-20] MEDS ORDERED: Insulin Glargine 10 UNITS in Pre-Filled Syringe 1 EACH SC SCH (21:00)
[2017-10-21] MEDS ORDERED: Insulin Glargine 5 UNITS in Pre-Filled Syringe 1 EACH SC SCH (07:41)
[2017-10-21] MEDS: NIFEdipine XL 90 MG TAB PO SCH (08:28)
[2017-10-21] MEDS: Metoprolol Tartrate 50 MG TAB PO SCH ×2 (08:29→20:35)
[2017-10-21] MEDS: hydrALAZINE 25 MG TAB PO SCH ×4 (08:29→20:34)
[2017-10-21] MEDS: Lisinopril 5 MG TAB PO SCH (08:29)
--- NOTE | 2017-10-21 10:33 | PDOC.PN ---
- Subjective Encounter Start Date: 10/21/17 Encounter Start Time: 10:33 No complaints today. Patient seen and examined following admission for sepsis, UTI and obstructive uropathy. Urology consult placed for obstructive uropathy. No complaints today. No acute events overnight. Awaiting urology evaluation for obstructive uropathy. - Objective Resuscitation Status: Resuscitation Status FULL:Full Resuscitation MAR Reviewed: Yes Vital Signs & Weight: Vital Signs (12 hours) Temp Pulse Resp BP BP Pulse Ox 10/21/17 08:29 60 10/21/17 08:28 60 198/88 H 10/21/17 08:00 98.2 F 60 16 198/88 H 96 10/21/17 03:53 98.5 F 54 L 14 177/81 H 99 Weight Weight 177 lb 1.6 oz I&O: 10/20/17 10/21/17 10/22/17 06:59 06:59 06:59 Intake Total 250 1410 Balance 250 1410 Result Diagrams: 10/18/17 03:29 10/17/17 06:51 Additional Labs: Accuchecks 10/21/17 10/20/17 10/20/17 06:26 20:36 16:55 POC Glucose 93 222 H 227 H 10/20/17 10:39 POC Glucose 258 H Phys Exam - Physical Examination Constitutional: NAD HEENT: PERRLA, moist MMs, sclera anicteric Neck: supple, full ROM Respiratory: no wheezing, no rales, no rhonchi, clear to auscultation bilateral Cardiovascular: RRR, no significant murmur, no rub Gastrointestinal: soft, non-tender, no distention, positive bowel sounds Neurological: non-focal, moves all 4 limbs Psychiatric: normal affect, A&O x 3 Skin: no rash, normal turgor Dx/Plan (1) Obstructive uropathy Code(s): N13.9 - OBSTRUCTIVE AND REFLUX UROPATHY, UNSPECIFIED Status: Acute Comment: Urology consulted. (2) Diabetes type 2, controlled Code(s): E11.9 - TYPE 2 DIABETES MELLITUS WITHOUT COMPLICATIONS Status: Chronic Qualifiers: Diabetes mellitus manager long term care insulin use: with fpc use Diabetes mellitus complication status: with kidney complications Diabetes mellitus complication detail: with chronic kidney disease Chronic kidney disease stage : on chronic dialysis Qualified Code(s): E11.22 - Type 2 diabetes mellitus with diabetic chronic kidney disease; N18.6 - End stage renal disease; N18.6 - End stage renal disease; N18.6 - End stage renal disease; N18.6 - End stage renal disease; Z79.4 - senior care (current) use of insulin; Z79.4 - senior care ( current) use of insulin; Z79.4 - emt intermediate (current) use of insulin; Z79.4 - senior care (current) use of insulin; Z99.2 - Dependence on renal dialysis; Z99.2 - Dependence on renal dialysis; Z99.2 - Dependence on renal dialysis; Z99.2 - Dependence on renal dialysis Comment: Fair control. Continue curent regimen. (3) Hypertension Code(s): I10 - ESSENTIAL (PRIMARY) HYPERTENSION Status: Acute Qualifiers: Hypertension type: essential hypertension Qualified Code(s): I10 - Essential (primary) hypertension Comment: Fairly well controlled on current regimen. (4) UTI (urinary tract infection) Status: Resolved Qualifiers: Urinary tract infection type: acute cystitis Hematuria presence: without hematuria Qualified Code(s): N30.00 - Acute cystitis without hematuria Comment: due to klebsiella (5) BPH (benign prostatic hyperplasia) Code(s): N40.0 - BENIGN PROSTATIC HYPERPLASIA WITHOUT LOWER URINRY TRACT SYMP Status: Chronic Qualifiers: Lower urinary tract symptom presence: symptoms present Lower urinary tract symptom detail: urinary obstruction Qualified Code(s): N40.1 - Benign prostatic hyperplasia with lower urinary tract symptoms; N13.8 - Other obstructive and reflux uropathy; N13.8 - Other obstructive and reflux uropathy (6) CAD (coronary artery disease) Code(s): I25.10 - ATHSCL HEART DISEASE OF [place] CORONARY ARTERY W/O ANG PCTRS Status: Chronic Qualifiers: Coronary Disease-Associated Artery/Lesion type: unspecified vessel or lesion type [place] vs. transplanted heart: [place] heart Associated angina: without angina Qualified Code(s): I25.10 - Atherosclerotic heart disease of [place] coronary artery without angina pectoris Comment: Stable, chest pain free. (7) Dyslipidemia Code(s): E78.5 - HYPERLIPIDEMIA, UNSPECIFIED Status: Chronic (8) ESRD (end stage renal disease) on dialysis Code(s): N18.6 - END STAGE RENAL DISEASE; Z99.2 - DEPENDENCE ON RENAL DIALYSIS Status: Chronic Comment: HD per nephrology. (9) Sepsis Code(s): A41.9 - SEPSIS, UNSPECIFIED ORGANISM Status: Resolved Comment: Resolved. 2/2 Klebsiella UTI. - Plan cont current plan of care Awaiting Urology eview, as requested by nephrology. * . Review of Systems - Medications/Allergies Allergies/Adverse Reactions: Allergies Allergy/AdvReac Type Severity Reaction Status Date / Time No Known Allergies Allergy Verified 10/15/17 17:40 Medications: Current Medications Acetaminophen (Tylenol) 650 mg PO Q4H PRN PRN Reason: Headache/Fever or Pain Hydrocodone Bitart/Acetaminophen (Gomer 5/325) 1 tab PO Q4H PRN PRN Reason: Moderate Pain (4-6) Al Hydroxide/Mg Hydroxide (Maalox) 30 ml PO Q6H PRN PRN Reason: Heartburn or Indigestion Last Admin: 10/17/17 21:17 Dose: 30 ml Artificial Tears (Tears Naturale) 0 drop EA EYE PRN PRN PRN Reason: Dry Eyes Aspirin (Ecotrin) 81 mg PO DAILY [facility] Last Admin: 10/20/17 08:24 Dose: 81 mg Atorvastatin Calcium (Lipitor) 40 mg PO HS [facility] Last Admin: 10/20/17 20:42 Dose: 40 mg Clopidogrel Bisulfate (Plavix) 75 mg PO DAILY [facility] Last Admin: 10/20/17 08:24 Dose: 75 mg Dextrose/Water (Dextrose 50%) 25 gm SLOW IVP PRN PRN PRN Reason: Hypoglycemia Glucagon (Glucagon) 1 mg IM PRN PRN PRN Reason: Hypoglycemia Guaifenesin (Robitussin Sf) 200 mg PO Q4H PRN PRN Reason: Cough Heparin Sodium (Porcine) (Heparin) 5,000 units SC BID [facility] Last Admin: 10/20/17 20:45 Dose: 5,000 units Hydralazine HCl (Apresoline) 10 mg SLOW IVP Q4H PRN PRN Reason: Systolic BP > 180 Last Admin: 10/16/17 06:03 Dose: 10 mg Hydralazine HCl (Apresoline) 25 mg PO QID [facility] Last Admin: 10/21/17 08:29 Dose: 25 mg Ceftriaxone Sodium 1 gm/ (Sodium Chloride) 100 mls @ 200 mls/hr IVPB 1300 [facility] Last Admin: 10/20/17 13:11 Dose: 100 mls Dextrose/Water (D5w) 1,000 mls @ 0 mls/hr IV .Q0M PRN; As Directed PRN Reason: Hypoglycemia Levofloxacin 500 mg/ Device 100 mls @ 100 mls/hr IVPB Q2DAYS [facility] Last Admin: 10/19/17 21:15 Dose: 100 mls Insulin Glargine 5 units/ (Miscellaneous Medication) 0.05 mls @ 5 mls/hr SC [facility] Insulin Human Lispro (Humalog) 0 units SC .MODERATE SLIDING SC PRN PRN Reason: Moderate Correctional Scale Last Admin: 10/20/17 17:10 Dose: 4 unit Insulin Human Lispro (Humalog) 0 units SC .BEDTIME SLIDING SC PRN PRN Reason: Bedtime Correctional Scale Last Admin: 10/20/17 20:48 Dose: 2 unit Isosorbide Mononitrate (Imdur Er) 30 mg PO DAILY [facility] Last Admin: 10/20/17 08:25 Dose: 30 mg Labetalol HCl (Normodyne) 10 mg SLOW IVP Q4H PRN PRN Reason: SBP Greater Than 180 Last Admin: 10/16/17 04:09 Dose: 10 mg Lisinopril (Zestril) 5 mg PO DAILY [facility] Last Admin: 10/21/17 08:29 Dose: 5 mg Loperamide HCl (Imodium) 2 mg PO PRN PRN PRN Reason: Diarrhea/Loose Stools Loratadine (Claritin) 10 mg PO DAILYPRN PRN PRN Reason: Sinus Symptoms Magnesium Hydroxide (Milk Of Magnesium) 30 ml PO DAILYPRN PRN PRN Reason: Constipation Metoprolol Tartrate (Lopressor) 50 mg PO BID [facility] Last Admin: 10/21/17 08:29 Dose: 50 mg Mineral Oil/White Petrolatum (Eucerin Cream) 0 gm TOP BIDPRN PRN PRN Reason: Dry Skin Nifedipine (Procardia Xl) 90 mg PO DAILY [facility] Last Admin: 10/21/17 08:28 Dose: 90 mg Nitroglycerin (Nitrostat) 0.4 mg SL Q5MIN PRN PRN Reason: Chest Pain Ondansetron HCl (Zofran Odt) 4 mg PO Q6H PRN PRN Reason: Nausea/Vomiting Last Admin: 10/17/17 15:51 Dose: 4 mg Ondansetron HCl (Zofran) 4 mg IVP Q6H PRN PRN Reason: Nausea/Vomiting Phenol (Chloraseptic [place] 180 Ml Bot) 0 ml PO PRN PRN PRN Reason: Sore Throat Senna (Senokot) 2 tab PO HSPRN PRN PRN Reason: Constipation Sodium Chloride (Banks Nasal Sanford 0.65%) 0 ml EA NARE QIDPRN PRN PRN Reason: Nasal Congestion Sodium Chloride (Flush - Normal Saline) 10 ml IVF Q12HR [facility] Last Admin: 10/21/17 08:29 Dose: 10 ml Sodium Chloride (Flush - Normal Saline) 10 ml IVF PRN PRN PRN Reason: Saline Flush Tamsulosin HCl (Flomax) 0.4 mg PO DAILY [facility] Last Admin: 10/20/17 08:25 Dose: 0.4 mg Zolpidem Tartrate (Ambien) 5 mg PO HSPRN PRN PRN Reason: Insomnia
--- NOTE | 2017-10-21 10:46 | PRG ---
Patient Name: TASHA CLEMENTS Date of service: 10/21/2017 Subjective: Patient was seen and examined at bedside and overnight events noted. Patient denies any shortness of breath or chest pain or palpitation. No history of nausea or vomiting or diarrhea or fever or chills or cramps. Objective: General: This is a well-built male in no apparent distress. Vital signs: Temperature 98.2, pulse 60, respiratory rate 18, blood pressure 198/88. HEENT: Atraumatic, normocephalic. Oral mucosa is moist. Neck: Supple. Cardiovascular: S1 S2 heard. Rate and rhythm regular. Respiratory: Clear to auscultation. Gastrointestinal: Abdomen is soft. Musculoskeletal: No tenderness. No edema. Dermatologic: No skin rash. Neurologic: Alert and awake and oriented X3. No focal neurologic deficits. Moving all the extremit ies. Psychiatric: Mood and affect normal. LABORATORY DATA: Not done today. ASSESSMENT AND PLAN: 1. End-stage renal disease, continue on hemodialysis Saturday, Saturday, and Saturday. The patient was seen during dialysis and tolerating well. 2. Hypertension. 3. Anemia. 4. Edema, controlled. The plan is to continue on dialysis as tolerated.
[2017-10-21] MEDS: Heparin 5,000 UNITS/ML VIAL SC SCH ×2 (12:40→20:32)
[2017-10-21] MEDS: Clopidogrel Bisulfate 75 MG TAB PO SCH (12:40)
[2017-10-21] MEDS: Aspirin 81 mg Enteric Coated Tablet PO SCH (12:40)
[2017-10-21] MEDS: Tamsulosin HCl 0.4 MG CAP PO SCH (12:40)
[2017-10-21] MEDS: cefTRIAXone\\ROCEPHIN 1 GM in Sodium Chloride 0.9% 100 ML IVPB SCH (12:41)
[2017-10-21] MEDS: Atorvastatin Calcium 40 MG TAB PO SCH (20:35)
[2017-10-21] MEDS: hydrALAZINE 20 MG/ML VIAL SLOW IVP PRN (23:40)
[2017-10-22] MEDS: Labetalol HCl 100 MG/20 ML VIAL SLOW IVP PRN (04:34)
[2017-10-22 07:12] VITALS: TEMP 98
[2017-10-22] MEDS: Clopidogrel Bisulfate 75 MG TAB PO SCH (09:11)
[2017-10-22] MEDS: Aspirin 81 mg Enteric Coated Tablet PO SCH (09:11)
[2017-10-22] MEDS: Heparin 5,000 UNITS/ML VIAL SC SCH (09:11)
[2017-10-22] MEDS: Lisinopril 5 MG TAB PO SCH (09:12)
[2017-10-22] MEDS: hydrALAZINE 25 MG TAB PO SCH (09:12)
[2017-10-22] MEDS: Metoprolol Tartrate 50 MG TAB PO SCH (09:12)
[2017-10-22] MEDS: NIFEdipine XL 90 MG TAB PO SCH (09:12)
[2017-10-22] MEDS: Tamsulosin HCl 0.4 MG CAP PO SCH (09:13)
--- NOTE | 2017-10-22 10:50 | PRG ---
DATE OF SERVICE: 10/22/2017 SUBJECTIVE: Patient was seen and examined at bedside and overnight events noted. Patient denies any shortness of breath or chest pain or palpitation. No history of nausea or vomiting or diarrhea or f ever or chills or cramps. OBJECTIVE: GENERAL: This is a well-built male in no apparent distress. VITAL SIGNS: Temperature 97.0, pulse 62, respiratory rate 18, blood pressure 187/81. HEENT: Atraumatic, normocephalic. Oral mucosa is moist. NECK: Supple. CARDIOVASCULAR: S1, S2 heard. Rate and rhythm regular. RESPIRATORY: Clear to auscultation. GASTROINTESTINAL: Abdomen is soft. MUSCULOSKELETAL: No tenderness. No edema. DERMATOLOGIC: No skin rash. NEUROLOGIC: Alert and awake and oriented x3. No focal neurologic deficits. Moving all the extremiti es. PSYCHIATRIC: Mood and affect normal. LABORATORY DATA: Not done today. ASSESSMENT AND PLAN: 1. End-stage renal disease. We will continue on dialysis Saturday, Saturday, and Saturday and had dial ysis yesterday. 2. Benign prostatic hypertrophy with possible urinary retention. Follow with Urology. 3. Hypertension. Titrate medications. 4. Anemia. 5. Edema. Remove fluid with dialysis. Overall, tolerating dialysis well. We will continue on dialysis as tolerated.
[2017-10-22 11:01] VITALS: BP 161/70
--- NOTE | 2017-10-22 12:49 | DIS ---
DATE OF ADMISSION: 10/15/2017 DATE OF DISCHARGE: 10/22/2017 DISCHARGE DIAGNOSES: 1. Sepsis secondary to urinary tract infection. 2. Hypoxia. 3. Hypertensive urgency. 4. History of renal disease on hemodialysis. 5. Dyslipidemia. 6. Obstructive uropathy secondary to benign prostatic hypertrophy. 7. Coronary artery disease status post stents. 8. Hypokalemia. 9. Type 2 diabetes mellitus. HISTORY OF PRESENT ILLNESS/HOSPITAL COURSE: Mr. Walter Ho is a 66-year-old male with a history o f BPH, CAD, end-stage renal disease on dialysis, hypertension who presented to the emergency room wit h a 5-day history of dysuria with subjective fever and nausea as well as abdominal discomfort. He de nied chest pain, shortness of breath, orthopnea, PND or leg swelling. He was also affected with poor appetite. At the emergency room he was found to have hypertensive urgency and indeterminate troponi ns as well as leukocytosis. Urinalysis was consistent with a UTI. He was started on Rocephin and ad mitted for sepsis secondary to urinary tract infection. He improved while on admission. He received his regularly scheduled dialysis on Saturday, Saturday and Fridays. He was also noted to have obstru ctive uropathy and a renal ultrasound done shows findings suggestive of that. However, Urology consu lt was placed for the patient, for unclear reasons has still not been evaluated by Urology. He was o n Flomax and urinary output increased. The patient then states that he was almost back to his baseli ne and would like to be discharged home. Since he was clinically, a close Urology appointment was rock nuno for the patient and he was discharged home without incident. DISCHARGE MEDICATIONS: Ciprofloxacin 250 mg q.12h., atorvastatin calcium 40 mg at bedtime, aspirin 8 1 mg daily, Flomax 0.4 mg daily, isosorbide mononitrate 30 mg daily, Plavix 75 mg daily, Ranitidine 1 50 mg twice a day, hydralazine 25 mg 4 times a day, metoprolol tartrate 50 mg twice a day, Nifedipine 90 mg daily. PHYSICAL EXAMINATION: He was examined on the day of discharge. VITAL SIGNS: Blood pressure 161/70, pulse rate 62, respiratory rate 18, oxygen saturation 97% on kota m air, temperature 98 degree Fahrenheit. GENERAL: Not in acute distress. He is sitting comfortably in bed, states he gets to go home. HEENT: PERRLA. Moist mucous membranes. Sclerae are anicteric. NECK: Supple, full range of movement. RESPIRATORY: No wheezes, rales or rhonchi. Vesicular breath sounds. CARDIOVASCULAR: Regular rate and rhythm. S1 and S2. No murmurs, rubs or gallops. ABDOMEN: Soft, nontender, nondistended. Bowel sounds present. No hepatosplenomegaly. NEUROLOGIC: Awake, alert and oriented to time, place and person. No focal deficits. PSYCHIATRIC: Normal mood and affect. SKIN: Warm, dry, well perfused. No rashes or lesions. IMAGING: Renal ultrasound results are stated in the HPI. Chest x-ray: Mild pulmonary vascular genia estion. CONSULTS: Nephrology. CONDITION AT DISCHARGE: Stable and improved. PROCEDURES: Hemodialysis. DIET: Diabetic, heart healthy, renal. CARE GOALS: To follow up with Urology within 3 days of discharge. ACTIVITY: Resume as tolerated. Discharge time 65 minutes including chart review and documentation.
--- NOTE | 2017-10-23 13:12 | EKG ---
Test Reason : Blood Pressure : / mmHG Vent. Rate : 090 BPM Atrial Rate : 090 BPM P-R Int : 116 ms QRS Dur : 090 ms QT Int : 368 ms P-R-T Axes : 011 039 -30 degrees QTc Int : 450 ms Normal sinus rhythm Possible Left atrial enlargement Abnormal ECG Confirmed by CLAUDIO COBB ([id number]), international editorial producer LEIGH MYERS ([id number]) on 10/23/2017 1:11:40 PM Referred By: Confirmed By:CLAUDIO COBB
== END 2017-10-22 11:12 | disposition home or self-care (01) | DRG 871 ==
LOC: ERS 10:17 → 2NO 16:07
PROVIDERS: ADMIT Internal Medicine; ATTEND Internal Medicine
PROC: 5A1D70Z Performance of Urinary Filtration, Intermittent, Less than 6 Hours Per Day (ICD-10-PCS; principal; 2017-10-15)
DX: A41.9 Sepsis, unspecified organism (principal); N18.6 End stage renal disease; N39.0 Urinary tract infection, site not specified; I12.0 Hypertensive chronic kidney disease with stage 5 chronic kidney disease or end stage renal disease; I16.0 Hypertensive urgency; E87.6 Hypokalemia; Z99.2 Dependence on renal dialysis; Z95.5 Presence of coronary angioplasty implant and graft; E11.9 Type 2 diabetes mellitus without complications; E11.22 Type 2 diabetes mellitus with diabetic chronic kidney disease; Z89.421 Acquired absence of other right toe(s); Z79.899 Other long term (current) drug therapy; Z79.82 Long term (current) use of aspirin; Z79.02 Long term (current) use of antithrombotics/antiplatelets; E78.5 Hyperlipidemia, unspecified; E11.21 Type 2 diabetes mellitus with diabetic nephropathy; N40.0 Benign prostatic hyperplasia without lower urinary tract symptoms; R33.9 Retention of urine, unspecified; D64.9 Anemia, unspecified; N13.9 Obstructive and reflux uropathy, unspecified; I25.10 Atherosclerotic heart disease of native coronary artery without angina pectoris
CPT/HCPCS: 36415; 36416; 51703; 71045; 76770; 80048; 80053; 80069; 81003; 81015; 82553; 83605; 84484; 85025; 87040; 87077; 87086; 87186; 90935; 93005; 96374; A4216; G0257; G8978-GP-CM; G8979-GP-CK; G8987-GO-CL; G8988-GO-CJ; J0360; J0696; J1644; J1956; J2405; J7050; Q0162

== ENCOUNTER 2017-11-27 10:58 | Inpatient (IN) | payer MEDICARE ==
[2017-11-27 11:42] LABS: #Lymphocytes 1.1 thou/uL (1.20-3.40); #Monocytes 0.2 thou/uL (0.11-0.59); #Neutrophils 4.6 thou/uL (1.40-6.50); %Basophils 0.3 % (0.0-1.0); %Eosinophils 0.7 % (0.0-10.0); %Lymphocytes 18.2 % (21.0-51.0); %Monocytes 3.5 % (0.0-10.0); %Neutrophils 77.4 % (42.0-75.0); Hemoglobin 11.9 g/dL (14.0-18.0); Mean Corpuscular HGB CONC 33.1 g/dL (32.0-36.0); Mean Corpuscular Hemoglobin 30.1 pg (27.0-31.0); Mean Platelet Volume 7.7 fL (7.4-10.4); Platelet Count 276 thou/uL (130-400); RBC Distribution Width 14.3 % (11.5-14.5); Red Blood Cell (RBC) Count 3.97 mill/uL (4.70-6.10); White Blood Cell (WBC) Count 5.9 thou/uL (4.8-10.8)
[2017-11-27 11:53] LABS: Base Excess-Venous -1.5 mmol/L (0 (+/- 2.5)); Bicarbonate (HCO3v) 24.2 mmol/L (1.0-85.0); CO2 Tension (PvCO2) 43.5 mmHg (41.0-51.0); Calcium, Ionized 1.06 mmol/L (1.12-1.32); Hemoglobin - Calc 13.2 g/dL (12.0-18.0); O2 Tension (PvO2) 58.7 mmHg (35.0-45.0); Potassium 4.3 mmol/L (3.4-4.7); T. Carbon Dioxide 25.5 mmol/L (1.0-85.0); pH (Venous) 7.354 (7.35-7.45); vO2 Saturation-calc 88.7 % (94-98)
[2017-11-27] MEDS ORDERED: Sodium Chloride 0.9% 100 ML ONE (11:55)
[2017-11-27] MEDS ORDERED: Nitroglycerin 0.4 MG TAB (25 Tab Bottle) ONE (11:55)
[2017-11-27] MEDS ORDERED: Piperacillin/Tazobactam 3.375 GM VIAL ONE (11:55)
[2017-11-27] MEDS ORDERED: Cefepime 2 GM VIAL ONE (11:56)
[2017-11-27] MEDS ORDERED: Vancomycin HCl 1.5 GM in Sodium Chloride 0.9% 250 ML 300 ML IVPB SCH ×2 (12:00→15:15)
[2017-11-27 12:05] LABS: ALT (SGPT) 13 U/L (8-55); AST (SGOT) 14 U/L (5-34); Albumin 3.7 g/dL (3.4-4.8); Alkaline Phosphatase 147 U/L (40-150); Anion Gap 13 mmol/L (10-20); BUN (Urea Nitrogen) 39 mg/dL (8.4-25.7); Bilirubin, Total 0.6 mg/dL (0.2-1.2); CK (CPK) 59 U/L (30-200); Calc. Creatinine Clearance 0 mL/min (70-130); Calcium 9.5 mg/dL (7.8-10.44); Carbon Dioxide 27 mmol/L (23-31); Chloride 106 mmol/L (98-107); Estimated GFR-MDRD 14; Globulin 3.7 g/dL (2.4-3.5); Glucose 97 mg/dL (80-115); Potassium 4.1 mmol/L (3.5-5.1); Protein, Total 7.4 g/dL (5.8-8.1); Sodium 142 mmol/L (136-145)
[2017-11-27 12:09] LABS: CKMB 5.6 ng/mL (0-6.6); Troponin I 0.025 ng/mL (< 0.028)
--- NOTE | 2017-11-27 12:10 | RAD ---
PORTABLE CHEST 1 VIEW: Date: 11/27/17 Time: 111 hours HISTORY: Chest pain. FINDINGS/IMPRESSION: Comparison made with exam of 10/21/17. There has been interval removal of dialysis catheter since the last exam. Heart size is borderline. N o lobar consolidation, pneumothoraces, seven pulmonary edema, or large effusions are seen. POS: [facility]
[2017-11-27] MEDS ORDERED: Bisacodyl 5 MG TAB PO PRN (12:59)
[2017-11-27] MEDS ORDERED: Acetaminophen 650 MG Suppository PR PRN (12:59)
[2017-11-27] MEDS ORDERED: Vancomycin HCl 1 GM in Premix Bag 1 BAG IVPB SCH ×2 (13:00→15:15)
[2017-11-27] MEDS ORDERED: hydrALAZINE 20 MG/ML VIAL ONE (13:11)
[2017-11-27] MEDS ORDERED: Labetalol HCl 100 MG/20 ML VIAL SLOW IVP PRN (13:17)
--- NOTE | 2017-11-27 13:34 | HP ---
[facility] CHIEF COMPLAINT: Vomiting. HISTORY OF PRESENT ILLNESS: Mr. Ho is a pleasant 66-year-old gentleman who was seen at [facility] on 11/27/2017. He was hospitalized here from 10/15/2017-10/22/2017 for sepsis secondary to urinary tract infection, hypoxia and hypertensive urgency. He has hemodialysis Saturday, Saturday and Saturday. This Saturday, that is two days ago, it was found that his dialysis fistula was clogged. He missed dialysis yesterday for that reason. He is supposed to have a fistulogram tomorrow, that is . Today morning, he started vomiting. He reports vomiting multiple times. He also reports headaches over the last 3 days. The headaches are at the top of the head, dull, 2 out of 10, nonradiating, not accompanied by nausea or vomiting. He denies any fevers at home. He denies any chest pain or shortness of breath. He reports cough that started today. The cough is nonproductive. He also denies any dysuria or increased frequency of urination. REVIEW OF SYSTEMS: All other systems reviewed and found to be negative. PAST MEDICAL HISTORY: Diabetes mellitus type 2, hypertension, dyslipidemia, diabetic nephropathy, end-stage renal disease, status post PCI with stent placement to LAD and anemia of renal disease. PAST SURGICAL HISTORY: Appendectomy in 2014, nasal surgery in 1977, cardiac catheterization in 2011 with stent placement in distal LAD and hemodialysis catheter placement. ALLERGIES: No known drug allergies. FAMILY HISTORY: Malignancy in his mother, unknown primary and diabetes mellitus in his father. SOCIAL HISTORY: No history of tobacco use, alcohol use or recreational drug use. CODE STATUS: I discussed his code status. He is FULL CODE. His is the surrogate decision maker. HOME MEDICATIONS: The patient's home medications include atorvastatin 40 mg at bedtime, aspirin 81 mg daily, Flomax 0.4 mg daily, isosorbide mononitrate 30 mg daily, Plavix 75 mg daily, ranitidine 150 mg twice daily, hydralazine 25 mg 4 times a day, metoprolol tartrate 50 mg twice daily and nifedipine 90 mg daily. PHYSICAL EXAMINATION: GENERAL: On examination, Mr. Ho is awake and alert, not in acute distress. VITAL SIGNS: Blood pressure is 235/97, pulse 68, respiratory rate 19, and oxygen saturation 99% on 2 liters of oxygen. Earlier, he had respiratory rate of 26. His current temperature is 94.1 degrees Fahrenheit. EYES: No scleral icterus. No conjunctival pallor. ENT: Moist mucosal membranes, no oropharyngeal erythema or exudates. NECK: Supple, nontender, normal range of movement. Trachea is midline. RESPIRATORY: Accessory muscles of breathing are not active. Chest wall movements are symmetric bilaterally. LUNGS: Clear to auscultation without wheeze, rhonchi or crepitations. CARDIOVASCULAR: S1 and S2 are heard, regular. Peripheral pulses palpable. No carotid bruit, no pericardial rub. ABDOMEN: Soft, nontender, bowel sounds heard, no hepatomegaly, no splenomegaly. SKIN: No rashes or subcutaneous nodules. NEUROLOGIC: Cranial nerves II-XII intact, no focal motor or sensory deficits, deep tendon reflexes 2+, plantar reflexes downgoing bilaterally. LYMPHATIC: No cervical lymphadenopathy. MUSCULOSKELETAL: Power is 5/5 in all 4 extremities. He has a dialysis access in the left upper extremity. PSYCHIATRIC: Normal mood, normal affect, patient is oriented to person and place, not to time. IMAGING DATA AND LABORATORY DATA: Mr. Ho's labs and investigations were reviewed. I reviewed his electrocardiogram, which shows normal sinus rhythm, no ST changes to suggest an acute coronary syndrome. I also reviewed his chest x-ray, which does not show any pulmonary infiltrates. He has normal white count of 5,900, normocytic anemia with hemoglobin 11.9, normal platelet count, normal electrolytes, elevated blood urea nitrogen of 39, elevated creatinine of 4.24, unremarkable liver profile and normal troponin I. Lactic acid level is normal. ASSESSMENT AND PLAN: Mr. Ho is a pleasant 66-year-old gentleman who was seen at [facility] on 11/27/2017. His problem list includes: 1. Hypertensive urgency: Mr. Ho is presenting with hypertensive urgency. He will be treated with intravenous antihypertensives as needed. Given his headaches, I will also order CT scan of the head to rule out any intracranial bleed. Neurologically, he does not have any deficits at this time. 2. Sepsis: His presentation meets criteria for sepsis, source unknown. Urine studies are pending. I will continue empiric antibiotics that he has been started on cefepime, vancomycin, and Zosyn. We will await cultures. 3. End-stage renal disease on dialysis: I have notified his prevention specialist for patient's admission. Plan will be for fistulogram tomorrow followed by dialysis. 4. Diabetes mellitus: Start Accu-Cheks and insulin sliding scale. 5. Dyslipidemia: Continue statin. 6. Benign prostate hypertrophy: Continue Flomax. ALLERGIES: No known drug allergies. LEVEL OF RISK: High. Many thanks for allowing me to participate in your patient's care. Please feel free to contact me with any questions or concerns. LEVEL OF RISK: High. LEVEL OF COMPLEXITY: High. MTDD
[2017-11-27] MEDS ORDERED: Labetalol HCl 100 MG/20 ML VIAL ONE (13:52)
--- NOTE | 2017-11-27 14:02 | CT ---
CT BRAIN WITHOUT CONTRAST: Date: 11/27/17 HISTORY: Headache, hypertensive urgency. FINDINGS: Comparison made with exam of 07/14/17. Changes of cortical atrophy and chronic small vessel ischemic disease are again seen. Ventricular siz e is stable and basilar cisterns are patent. No evidence of acute infarct, hemorrhage, midline shift, or abnormal extra-axial fluid collections are seen. The bony calvarium is intact. The visualized par anasal sinuses and well aerated. IMPRESSION: Stable exam. No CT evidence of acute intracranial process. POS: [facility]
[2017-11-27 15:14] VITALS: BMI 25.9
[2017-11-27] MEDS ORDERED: Vancomycin HCl 750 MG in Sodium Chloride 0.9% 250 ML 250 ML IVPB SCH (15:15)
[2017-11-27] MEDS ORDERED: Vancomycin HCl 1.25 GM in Sodium Chloride 0.9% 250 ML 250 ML IVPB SCH (15:15)
[2017-11-27] MEDS ORDERED: HOLD VANCOMYCIN FOR LEVEL >20 FS SCH (15:15)
--- NOTE | 2017-11-27 15:29 | CON ---
DATE OF CONSULTATION: 11/27/2017 NEPHROLOGY CONSULTATION REASON FOR CONSULTATION: Chronic kidney disease, on maintenance hemodialysis. HISTORY OF PRESENT ILLNESS: This is a very pleasant 66-year-old gentleman on hemodialysis Mondays and Fridays, presented to the hospital with fever, chills, and sepsis. The patient at this time denies headache, numbness, tingling or weakness. Denies any nausea, vomiting, or chest pain. PAST MEDICAL HISTORY: Diabetes mellitus, hypertension, diabetic nephropathy, end-stage renal disease, history of coronary disease, stents, history of appendectomy, nasal surgery, cardiac catheterization, history of AV fistula. ALLERGIES: Reviewed. HOME MEDICATIONS: List reviewed. REVIEW OF SYSTEMS: A 15-point review of systems was performed and was negative except for positives noted above. GENERAL: Weakness- HEAD: Headache- NECK: No swelling or lumps. NOSE: No epistaxis or discharge. EYES: No diplopia or pain. RESPIRATORY: Dyspnea- CARDIOVASCULAR: Chest pain- GASTROINTESTINAL: Nausea- /E [employer]: Hematuria- MUSCULOSKELETAL: No joint pain. NEUROPSYCHIATRIC SYSTEMS: No suicidal ideation. No ideation. SKIN: Denies any rash or ulcer. CONSTITUTIONAL: No fever or chills. PHYSICAL EXAMINATION: GENERAL: Patient is awake, alert. VITAL SIGNS: Afebrile, pulse 75, breathing 16, blood pressure was 200/100. HEENT: Atraumatic, normocephalic. Oral mucosa is moist. NECK: Supple. CARDIOVASCULAR: S1 and S2 heard. Rate and rhythm regular. RESPIRATORY: Clear to auscultation. GASTROINTESTINAL: Abdomen is soft. MUSCULOSKELETAL: No tenderness. No edema. DERMATOLOGIC: No skin rash. NEUROLOGIC: Alert and awake and oriented x3. No focal neurologic deficits. Moving all the extremities. PSYCHIATRIC: Mood and affect normal. LABORATORY: Hemoglobin 11.9, creatinine was 4.4. GFR was 14 mL per minute. ASSESSMENT AND RECOMMENDATIONS: 1. Stage 6 chronic kidney disease, no urgent indication for dialysis. 2. Hyperkalemia, stable. 3. Anemia, stable. 4. Medications based on glomerular filtration rate are appropriate. 5. Hypertension. We would recommend starting the patient on losartan 25 mg daily. MTDD
[2017-11-27] MEDS ORDERED: Vancomycin HCl 500 MG in Sodium Chloride 0.9% 100 ML IVPB SCH (15:30)
[2017-11-27] MEDS ORDERED: Labetalol HCl 100 MG/20 ML VIAL SLOW IVP SCH (16:45)
[2017-11-27] MEDS ORDERED: Piperacillin/Tazobactam 3.375 GM in Sodium Chloride 0.9% 100 ML IVPB SCH (18:00)
[2017-11-27] MEDS ORDERED: Dextrose 5% in Water 1,000 ML IV PRN (18:26)
[2017-11-27] MEDS ORDERED: Dextrose 50% Abboject 50 ML SYRINGE SLOW IVP PRN (18:26)
[2017-11-27] MEDS: Cefepime 1 GM in Sodium Chloride 0.9% 100 ML IVPB SCH (20:22)
[2017-11-27] MEDS: Piperacillin/Tazobactam 2.25 GM in Sodium Chloride 0.9% 100 ML IVPB SCH (23:37)
[2017-11-28] MEDS: hydrALAZINE 20 MG/ML VIAL SLOW IVP PRN ×2 (00:59→09:07)
[2017-11-28 04:58] LABS: #Eosinphils 0.1 thou/uL (0.0-0.7); #Lymphocytes 1.4 thou/uL (1.20-3.40); #Monocytes 0.6 thou/uL (0.11-0.59); #Neutrophils 6.3 thou/uL (1.40-6.50); %Basophils 0.4 % (0.0-1.0); %Eosinophils 1.5 % (0.0-10.0); %Lymphocytes 16.5 % (21.0-51.0); %Neutrophils 74.6 % (42.0-75.0); Hemoglobin 10.1 g/dL (14.0-18.0); Mean Corpuscular HGB CONC 32.3 g/dL (32.0-36.0); Mean Corpuscular Hemoglobin 29.6 pg (27.0-31.0); Mean Corpuscular Volume 91.8 fL (78.0-98.0); Mean Platelet Volume 7.9 fL (7.4-10.4); Platelet Count 239 thou/uL (130-400); RBC Distribution Width 14.3 % (11.5-14.5); White Blood Cell (WBC) Count 8.4 thou/uL (4.8-10.8)
[2017-11-28 05:15] LABS: Anion Gap 14 mmol/L (10-20); BUN (Urea Nitrogen) 42 mg/dL (8.4-25.7); Calc. Creatinine Clearance 19 mL/min (70-130); Calcium 8.4 mg/dL (7.8-10.44); Carbon Dioxide 21 mmol/L (23-31); Chloride 107 mmol/L (98-107); Estimated GFR-MDRD 14; Glucose 203 mg/dL (80-115); Sodium 137 mmol/L (136-145)
[2017-11-28] MEDS ORDERED: Sterile Water 10 ML VIAL IVP SCH (08:02)
[2017-11-28] MEDS ORDERED: Activase 2 MG VIAL CATH SCH (08:02)
[2017-11-28] MEDS: Losartan 25 MG TAB PO SCH (08:12)
[2017-11-28] MEDS: NIFEdipine XL 60 MG TAB PO SCH (09:11)
[2017-11-28] MEDS: Aspirin 81 mg Enteric Coated Tablet PO SCH (10:15)
[2017-11-28] MEDS: Tamsulosin HCl 0.4 MG CAP PO SCH (10:17)
[2017-11-28] MEDS: Metoprolol Tartrate 50 MG TAB PO SCH ×2 (10:17→20:24)
[2017-11-28] MEDS: Famotidine 20 MG TAB PO SCH (10:18)
[2017-11-28] MEDS: Cefepime 1 GM in Sodium Chloride 0.9% 100 ML IVPB SCH (10:18)
[2017-11-28] MEDS: Clopidogrel Bisulfate 75 MG TAB PO SCH (10:18)
[2017-11-28] MEDS: hydrALAZINE 25 MG TAB PO SCH ×4 (10:19→20:24)
--- NOTE | 2017-11-28 11:04 | SPC ---
LEFT UPPER EXTREMITY DIALYSIS FISTULOGRAM: BALLOON ANGIOPLASTY LEFT UPPER EXTREMITY DIALYSIS FISTULA: SONOGRAPHIC GUIDED VASCULAR ACCESS X2: TWO SEPARATE VASCULAR ACCESSES FOR DIALYSIS FISTULOGRAM AND ANGIOPLASTY: HISTORY: Renal failure. Poor function of left upper extremity dialysis fistula. FLUOROSCOPY TIME: 2.9 minutes. FINDINGS: After explaining the procedure and answering all questions, the left upper extremity was prepped and draped in the usual sterile fashion. Sonographic survey showed Srinivasa fistula, left forearm, just ab ove the level of the wrist. Sterile technique, sonographic guidance, buffered local anesthesia, and a 22 gauge needle were used t o carefully access the apex of the fistula, near the anastomotic. A guide wire was carefully placed. A 4 [place] micropuncture sheath was placed. Initially, it was thought to be within the cephalic ou tflow, although further imaging showed the micropuncture sheath to be within the radial artery. Care was taken with this arterial catheterization. Serial imaging showed the arteriovenous anastomosis t o be patent. A focal area of narrowing was seen within the peripheral portion of the cephalic fistul a, at the level of the distal radial shaft, where multiple accesses for dialysis have been performed. Scattered collaterals were apparent along the course of the cephalic fistula, within the forearm an d humerus. Central venous outflow is widely patent. Before acquiring a second access and intervention of the stenosis, the 4 [place]ij[place] sheath was removed, a nd hemostasis obtained using direct pressure. Sonographic guidance was used to obtain a second access of the cephalic venous outflow of the fistula , at the level of the mid radius. A 6 [place] sheath was carefully placed, and serial imaging again p erformed, confirming a long segment area of irregular narrowing within the peripheral portion of the cephalic fistula. A 6 mm x 4 cm balloon was carefully placed over a 0.035 guide wire, to the level of the stenosis. Mu ltiple balloon dilatations were performed, up to 14 atmospheres, initially showing a focal area of si gnificant stenosis. There was gradual and near complete resolution of the stenosis with multiple bal loon dilatations. Repeat angiographic imaging showed significant interval improvement in the caliber of the fistula and area of previous narrowing. Some gentle narrowing did remain. Good arterial inflow and venous outf low were documented. The sheath was removed, and hemostasis obtained using direct pressure. The patient tolerated the pro cedure well and was returned in good condition. IMPRESSION: Technically successful balloon angioplasty of long segment area of significant stenosis of the cephal ic venous fistula, improving fistula flow and function. POS: [facility]
--- NOTE | 2017-11-28 11:48 | PRG ---
DATE OF SERVICE: 11/28/2017 SUBJECTIVE: This is a 66-year-old gentleman being seen for end-stage renal disease. The patient den ies any nausea, vomiting or chest pain. PHYSICAL EXAMINATION: GENERAL: Patient is awake, alert. VITAL SIGNS: Afebrile, pulse 72, breathing 16, blood pressure was 174/77. OBJECTIVE: See above. Awake, alert, in no acute distress. GENERAL APPEARANCE AND MENTAL STATUS: Fair. HEAD/NECK: Normocephalic. Atraumatic. EYES: EOMI. No deformity. EARS: Clear. No ulcers. NOSE: Intact. No lesions. MOUTH: Clear. No discharge. THROAT: Clear. No exudate. LUNGS: Clear. No crackles. CARDIAC: S1, S2. No rub. ABDOMEN: Benign. BS+. GENITALIA/RECTUM: Barrera absent. BACK/EXTREMITIES: Edema 0+ Ulcer- NEUROLOGICAL: Alert and motor intact. SKIN: Rash- Bruise- LYMPHATICS: Edema- Ulcer- LABORATORY: Hemoglobin 10.1, creatinine is 4.2. ASSESSMENT AND PLAN: 1. Stage 6 chronic kidney disease. No indication for dialysis. 2. Hypertension, start losartan 50 mg daily 3. Anemia, stable. 4. Medication based on glomerular filtration rate are appropriate. 5. History of benign prostatic hypertrophy and bladder wall thickening. We will get a Urology consu lt.
[2017-11-28] MEDS: Piperacillin/Tazobactam 2.25 GM in Sodium Chloride 0.9% 100 ML IVPB SCH (12:41)
[2017-11-28] MEDS: HumaLOG 300 UNITS/3 ML VIAL SC PRN ×2 (16:59→21:16)
[2017-11-28] MEDS: Acetaminophen 325 MG TAB PO PRN (17:09)
[2017-11-28] MEDS: Senokot S 8.6-50 MG TAB PO SCH (20:25)
--- NOTE | 2017-11-28 20:53 | PDOC.PN ---
- Subjective Encounter Start Date: 11/28/17 Encounter Start Time: 11:30 Patient seen and examined for HTN urgency. No new complaints. N/V improved. No CP/SOB/fever. No overnight events - Objective MAR Reviewed: Yes Vital Signs & Weight: Vital Signs (12 hours) Temp Pulse Resp BP BP Pulse Ox 11/28/17 20:24 60 11/28/17 19:28 98.1 F 60 18 135/56 L 94 L 11/28/17 16:55 98.4 F 60 17 136/58 L 95 11/28/17 13:51 156/69 H 11/28/17 12:00 97.8 F 58 L 14 170/74 H 100 11/28/17 10:19 76 196/84 H 11/28/17 09:11 74 196/84 H 11/28/17 09:07 76 196/84 H Weight Admit Weight 176 lb 1.6 oz Weight 176 lb 1.6 oz I&O: 11/27/17 11/28/17 11/29/17 06:59 06:59 06:59 Intake Total 980 960 Output Total 875 1100 Balance 105 -140 Result Diagrams: 11/29/17 07:22 11/28/17 04:41 Additional Labs: Accuchecks 11/28/17 11/28/17 11/28/17 16:39 11:04 06:23 POC Glucose 234 H 168 H 223 H 11/27/17 11/27/17 20:59 16:46 POC Glucose 153 H 124 H EKG Reviewed by me: Yes (Tele SR) Phys Exam - Physical Examination Constitutional: NAD Respiratory: no wheezing, no rales, no rhonchi, clear to auscultation bilateral Cardiovascular: RRR, no rub no heaves/pulsations Gastrointestinal: soft, non-tender, no distention, positive bowel sounds Musculoskeletal: no edema, pulses present Neurological: non-focal, normal sensation, moves all 4 limbs Psychiatric: normal affect, A&O x 3 Skin: no rash Dx/Plan (1) Sepsis Code(s): A41.9 - SEPSIS, UNSPECIFIED ORGANISM Status: Acute Plan: Cont Vancomycin and Cefepime, DC Zosyn, Await further culter identification, Consult ID in AM Comment: with Staph CN 1/2 bacteremia (2) Hypertensive urgency Code(s): I16.0 - HYPERTENSIVE URGENCY Status: Acute Plan: Will resume Metoprolol, Procardia XL and Hydralazine. Also started on Losartan per Nephro, Cont Vitals Q4h, PRN meds ordered. (3) DM2 (diabetes mellitus, type 2) Status: Chronic Qualifiers: Chronic kidney disease stage: on chronic dialysis Plan: Cont sliding scale (4) Dyslipidemia Code(s): E78.5 - HYPERLIPIDEMIA, UNSPECIFIED Status: Chronic Plan: Cont low cholesterol diet, Not on statins at home (5) ESRD (end stage renal disease) on dialysis Code(s): N18.6 - END STAGE RENAL DISEASE; Z99.2 - DEPENDENCE ON RENAL DIALYSIS Status: Chronic Comment: HD per nephrology. (6) BPH (benign prostatic hyperplasia) Code(s): N40.0 - BENIGN PROSTATIC HYPERPLASIA WITHOUT LOWER URINRY TRACT SYMP Status: Chronic Plan: Cont Flomax, Also check UA and U culture (7) CAD (coronary artery disease) Code(s): I25.10 - ATHSCL HEART DISEASE OF [place] CORONARY ARTERY W/O ANG PCTRS Status: Chronic Plan: Resume ASA/Plavix, BB, Imdur and Losartan Comment: - Plan DVT proph w/SCDs AM labs Review of Systems - Review of Systems Respiratory: negative: Cough, Dry, Shortness of Breath, Hemoptysis, SOB with Excertion, Pleuritic Pain, Sputum, Wheezing Cardiovascular: negative: chest pain, palpitations, orthopnea, paroxysmal nocturnal dyspnea, edema, light headedness, other - Medications/Allergies Allergies/Adverse Reactions: Allergies Allergy/AdvReac Type Severity Reaction Status Date / Time No Known Allergies Allergy Verified 11/27/17 15:18 Medications: Current Medications Acetaminophen (Tylenol) 650 mg PO Q4H PRN PRN Reason: Headache/Fever or Pain Last Admin: 11/28/17 17:09 Dose: 650 mg Acetaminophen (Tylenol) 650 mg PA Q4H PRN PRN Reason: Headache/Fever or Pain Aspirin (Ecotrin) 81 mg PO DAILY [facility] Last Admin: 11/28/17 10:15 Dose: 81 mg Bisacodyl (Dulcolax) 10 mg PO DAILYPRN PRN PRN Reason: Constipation Clopidogrel Bisulfate (Plavix) 75 mg PO DAILY [facility] Last Admin: 11/28/17 10:18 Dose: 75 mg Dextrose/Water (Dextrose 50%) 25 gm SLOW IVP PRN PRN PRN Reason: Hypoglycemia Famotidine (Pepcid) 20 mg PO DAILY [facility] Last Admin: 11/28/17 10:18 Dose: 20 mg Glucagon (Glucagon) 1 mg IM PRN PRN PRN Reason: Hypoglycemia Hydralazine HCl (Apresoline) 10 mg SLOW IVP Q6H PRN PRN Reason: SBP Greater Than 170 Last Admin: 11/28/17 09:07 Dose: 10 mg Hydralazine HCl (Apresoline) 25 mg PO QID [facility] Last Admin: 11/28/17 20:24 Dose: 25 mg Vancomycin HCl 1.25 gm/ Sodium (Chloride) 250 mls @ 166.667 mls/hr IVPB WILLCALL [facility] Vancomycin HCl 1 gm/ Device 200 mls @ 200 mls/hr IVPB [facility] Vancomycin HCl 750 mg/ Sodium (Chloride) 250 mls @ 250 mls[facility] Vancomycin HCl 500 mg/ Sodium (Chloride) 100 mls @ 100 mls/hr [facility] Dextrose/Water (D5w) 1,000 mls @ 0 mls/hr IV .Q0M PRN; As Directed PRN Reason: Hypoglycemia Cefepime HCl 0.5 gm/Miscellaneous Medication 1 each/ Sodium Chloride 100 mls @ 200 mls/hr IVPB 0900 [facility] Insulin Human Lispro (Humalog) 0 units SC .MILD SLIDING SCALE PRN PRN Reason: Mild Correctional Scale Last Admin: 11/28/17 16:59 Dose: 3 unit Isosorbide Mononitrate (Imdur Er) 30 mg PO DAILY [facility] Last Admin: 11/28/17 10:16 Dose: 30 mg Labetalol HCl (Normodyne) 10 mg SLOW IVP Q4H PRN PRN Reason: SBP Greater Than 180 Last Admin: 11/28/17 04:55 Dose: 10 mg Losartan Potassium (Cozaar) 25 mg PO DAILY [facility] Last Admin: 11/28/17 08:12 Dose: 25 mg Metoprolol Tartrate (Lopressor) 50 mg PO BID [facility] Last Admin: 11/28/17 20:24 Dose: 50 mg Miscellaneous Medication (Pharmacy To Dose) 1 each IVPB PRN PRN PRN Reason: Pharmacy to dose Miscellaneous Medication (Pharmacy To Dose) 1 each IVPB PRN PRN PRN Reason: Pharmacy to dose Nifedipine (Procardia Xl) 60 mg PO DAILY [facility] Last Admin: 11/28/17 09:11 Dose: 60 mg Hold Vancomycin For (Level >20) 0 each FS .AT DIALYSIS [facility] Senna/Docusate Sodium (Senokot S) 1 tab PO BID [facility] Last Admin: 11/28/17 20:25 Dose: Not Given Sodium Chloride (Flush - Normal Saline) 10 ml IVF PRN PRN PRN Reason: Saline Flush Tamsulosin HCl (Flomax) 0.4 mg PO DAILY [facility] Last Admin: 11/28/17 10:17 Dose: 0.4 mg
--- NOTE | 2017-11-29 05:14 | CON ---
DATE OF CONSULTATION REQUESTING REPORT: 11/28/2017 REASON FOR CONSULTATION: 1. Bladder wall thickening. 2. Possibly enlarged prostate gland. 3. End-stage renal disease, currently on hemodialysis with current urine production. PROBLEM LIST Prostate hyperplasia without urinary obstruction, N40.0 History of UTI, Z87.440 Hypertensive kidney disease with chronic kidney disease, stage 5 chronic kidney disease or end stage renal disease (HCC), I12.0 HISTORY OF PRESENT ILLNESS: Mr. Walter Ho is a 66-year-old white male hemodialysis patient taken care of by Dr. Hemanth Harding, who was brought into the hospital due to some difficulties with his srinivasa-dialysis fistula, which apparently was clogged. Patient developed headaches and other difficulties. He was recently hospitalized here in September due to sepsis secondary to urinary tract infection. On this admission, patient is not having any significant urinary complaints. He does produce urine by his report about one liter per day. REVIEW OF SYSTEMS: Patient is not able to give a proper review of systems. PAST MEDICAL HISTORY: Gained from review of the chart, 1. Diabetes mellitus, type 2. 2. Hypertension. 3. Dyslipidemia. 4. Diabetic nephropathy. 5. End-stage renal disease, stage V on HD. 6. History of coronary artery disease, status post percutaneous coronary intervention with stent placement to the LAD. 7. Chronic anemia of renal disease. 8. Possible dementia according to the patient's . PAST SURGICAL HISTORY: 1. Appendectomy in 2014. 2. Nasal surgery in 1977. 3. Cardiac catheterization in 2011 with stent placement in the distal LAD. 4. Srinivasa hemodialysis fistula. ALLERGIES: No known drug allergies. FAMILY MEDICAL HISTORY: Patient's father had diabetes mellitus. No clear history of prostate disease in the family. SOCIAL HISTORY: Patient specifically denies cigarette smoking, alcohol, or drug use. HOME MEDICATION LIST: Includes the followin. Atorvastatin 40 mg at bedtime. 2. Aspirin 81 mg p.o. daily. 3. Flomax 0.4 mg p.o. daily. 4. Isosorbide mononitrate 30 mg daily. 5. Plavix 75 mg per day. 6. Ranitidine 150 mg twice daily. 7. Hydralazine 25 mg 4 times daily. 8. Metoprolol tartrate 50 mg twice daily. 9. Nifedipine 90 mg per day. PHYSICAL EXAMINATION: GENERAL: Mr. Ho is evaluated in his 2-North bed. He is awake and alert. He is agreeable to asking questions, but cannot string together with coherent thoughts. He likes to answer most questions with a number. VITAL SIGNS: Patient appears to be afebrile on this admission with current temperature of 98.1, pulse is 60, respirations 18. Patient is on room air. Current blood pressure is 135/56. Patient's left arm is dressed associated with recent accesses for Interventional Radiology procedures but there is a palpable pulse in the patient's radial artery on the left arm. Multiple former access sites are visible on the left arm as well. I+O: Is on hemodialysis and is making in additon 800-1200 ml urine per day. HEAD, EYES, EARS, NOSE, AND THROAT: Extraocular movements are intact. Sclerae are anicteric. Oropharynx is clear. NECK: Supple. LUNGS: Clear to auscultation bilaterally. CARDIOVASCULAR: Regular rate and rhythm. ABDOMEN: Soft and nontender. No surgical scars. EXTREMITIES: Patient has sequential compression devices in place on both bilateral lower extremities and appropriate soft foot coverings are in place as well. GENITOURINARY: Phallus is uncircumcised and is without lesion. Retraction of foreskin finds no lesions beneath. Testes present bilaterally in the scrotum. They are smooth, anodular, nontender, and atrophic. Palpation of inguinal canals finds no evidence of hernia and Valsalva maneuver. RECTAL: Digital rectal examination finds a prostate gland, which palpates to about 30 grams in overall size. It is smooth, anodular, nontender, and not suggestive of malignancy. Rectal tone is decreased. BACK: Finds no significant decubiti present during exam. NEUROLOGIC: Cranial nerves III-XI appeared to be grossly intact. Gait was not assessed in this patient, but he does have the ability to move all four extremities against gravity. PSYCHOLOGICAL: Patient appears to have dementia to my exam and evaluation of him, although I have examined him briefly, apparently this is a condition patient's knows about and therefore I suspect this is probably not acute delirium. Given the patient's current afebrile status and laboratory studies with normal white cell indices and a lack of left shift today and ANC also be in the normal range, do not think this represents a delirium associated with an infection. LABORATORY STUDIES: Patient's white count is 8400, 74.6% neutrophils. ANC is 6.3 today, hemoglobin is 10.1 with hematocrit of 31.2. Serum chemistries at admission showed a creatinine of 4.28 with blood urea nitrogen of 42, glucose is consistently run high consistent with the patient's history of diabetes ranging from 153 to 223 during this hospitalization. MICROBIOLOGY: Patient had blood culture obtained from his arm that showed 1/2 positive for coagulase negative Staph. He had a urine culture obtained on 10/15, which grew Klebsiella pneumoniae species. A foot ulcer from on 2015 grew Streptococcus agalactiae group B. ASSESSMENT AND PLAN: 1. Concerns for BPH with obstruction, patient agreeable, answers questions, though it is really difficult to determine what his complaint is. He does appear to be producing urine every day, we do not palpate any suprapubic mass, but I am going to recommend that the patient undergo postvoid bladder scanning to determine whether he is having actual urinary retention. This would need to be immediately after a void to be useful. Present, his BPH is being managed using Flomax which seems to be appropriate. His prostate gland was evaluated from a previous CT scan and had dimensions of 56 x 44 x 50 mm. This would indicate a prostate gland of about 64 grams in size which is about 3 times the normal size but is not overly enlarged for his age bracket. At this size range many patients can void without any significant difficulty others have difficulty with voiding. The physical exam today, patient's prostate gland felt like was much smaller than the CT size. Recommend that the patient undergo postvoid bladder scanning to determine whether he is having actual urinary retention. 2. Bladder wall thickening. Patient's bladder wall thickening may be due to decompression of a relatively large volume bladder. Bladder wall irritation secondary to an infection or chronic outlet obstruction. At the present time, it is unclear whether the patient's bladder empties completely or not and formal urodynamics could not be performed in the hospital (other than PVR) It is little difficult to make a decision regarding his treatment until patient has been assessed in a proper setting for ambulatory urodynamics. At the present time, Flomax appears appropriate. I would not recommend starting finasteride, which is a relatively slow onset of action and can interfere with other evaluation such as PSA testing. Physical exam findings today did not support acute prostatitis as the cause of the patient's enlarged prostate gland or as a cause of the outlet obstruction. Patient's diabetes may alter the physical exam findings however. 3. ID concerns- He does have a history of a past UTI (10/15/17) which was treated. His urine today to clinical exam does not appear infected but could be assessed by UA/CX. A formal urinary tract evaluation (cystoscopy and CT-IVP- pre dialysis is indicated for the UTI history in a Male. This can be performed as an outpatient when his acute issues are resolved. I doubt pyocystis in this patient as he has a good urine output as documented in the record and his urine is not grossly cloudy today, Over 70 minutes of initial evaluation and assessment time was spent in the care of this patient, over of which was in face to face evaluation, or in coordination of care, or in communication with the patient's family regarding care, exclusive of any procedures performed, [id number]. MTDD
[2017-11-29 07:49] LABS: #Basophils 0.1 thou/uL (0.0-0.2); #Eosinphils 0.2 thou/uL (0.0-0.7); #Lymphocytes 1.2 thou/uL (1.20-3.40); #Monocytes 0.6 thou/uL (0.11-0.59); #Neutrophils 6.5 thou/uL (1.40-6.50); %Basophils 0.7 % (0.0-1.0); %Eosinophils 2.2 % (0.0-10.0); %Lymphocytes 14.5 % (21.0-51.0); %Monocytes 6.9 % (0.0-10.0); %Neutrophils 75.7 % (42.0-75.0); Hemoglobin 9.9 g/dL (14.0-18.0); Mean Corpuscular HGB CONC 33.1 g/dL (32.0-36.0); Mean Corpuscular Hemoglobin 30.2 pg (27.0-31.0); Mean Corpuscular Volume 91.2 fL (78.0-98.0); Mean Platelet Volume 8.7 fL (7.4-10.4); Platelet Count 221 thou/uL (130-400); RBC Distribution Width 14.2 % (11.5-14.5); Red Blood Cell (RBC) Count 3.29 mill/uL (4.70-6.10); White Blood Cell (WBC) Count 8.6 thou/uL (4.8-10.8)
[2017-11-29 08:09] LABS: Anion Gap 15 mmol/L (10-20); BUN (Urea Nitrogen) 47 mg/dL (8.4-25.7); Calc. Creatinine Clearance 17 mL/min (70-130); Calcium 9.1 mg/dL (7.8-10.44); Carbon Dioxide 21 mmol/L (23-31); Chloride 106 mmol/L (98-107); Estimated GFR-MDRD 12; Glucose 167 mg/dL (80-115); Potassium 4.9 mmol/L (3.5-5.1); Sodium 137 mmol/L (136-145)
[2017-11-29 08:20] LABS: INR-International Normal Ratio 1.1; PTT 27.7 SEC (22.9-36.1); Prothrombin Time 14.4 SEC (12.0-14.7)
[2017-11-29 08:22] LABS: Troponin I 0.026 ng/mL (< 0.028)
[2017-11-29 08:26] LABS: CKMB 5.6 ng/mL (0-6.6)
[2017-11-29] MEDS ORDERED: Lorazepam 2 MG/ML VIAL ONE (09:05)
--- NOTE | 2017-11-29 09:42 | PRG ---
DATE OF SERVICE: 11/29/2017 SUBJECTIVE: This is a 66-year-old gentleman being seen for end-stage renal disease. Overnight event s noted. The patient is nonverbal and agitated. PHYSICAL EXAMINATION: VITAL SIGNS: Afebrile, pulse 68, breathing 16, blood pressure 132/81. OBJECTIVE: See above. Awake, alert, in no acute distress. GENERAL APPEARANCE AND MENTAL STATUS: Fair. HEAD/NECK: Normocephalic. Atraumatic. EYES: EOMI. No deformity. EARS: Clear. No ulcers. NOSE: Intact. No lesions. MOUTH: Clear. No discharge. THROAT: Clear. No exudate. LUNGS: Clear. No crackles. CARDIAC: S1, S2. No rub. ABDOMEN: Benign. BS+. GENITALIA/RECTUM: Barrera absent. BACK/EXTREMITIES: Edema 0+ Ulcer- NEUROLOGICAL: Alert and motor intact. SKIN: Rash- Bruise- LYMPHATICS: Edema- Ulcer- LABORATORY: Hemoglobin 9.9, creatinine 4.89. ASSESSMENT AND RECOMMENDATIONS: 1. Stage 6 chronic kidney disease, plan dialysis if the patient does not have an active stroke. 2. Hypertension, stable. 3. Anemia, stable. 4. Stroke-like symptoms. Management per primary team.
--- NOTE | 2017-11-29 09:46 | PDOC.EVN ---
Event Note - Event Note Event Note: Responded to CODE KOJO called at approximately 0700 on 11/29/17. On arrival to room on 2N, nursing staff reported that the patient had new onset aphasia and right sided facial droop. Last reported normal at roughly 0540 on same day. Patient had been admitted for tx of sepsis and hypertension. Vitals were WNL at time of code. On exam, patient had marked aphasia with right sided facial droop and would not follow commands. Telemetry monitoring showed no abnormal rhythms. Instructed team to obtain CBC, CMP, cardiac enzymes, CT brain, and CT head and neck with contrast. Patient was then take to the CT scanner in the ER. Residents were then paged by staff, informing provider that the patient's symptoms had resolved and he was combative in the CT. Provider instructed staff that CTA could be held. Provider also received phone call from radiologist informing provider that CT brain was stable. Provider went and re-evaluated the patient at approximately 0800. Patient's was present at bedside at that time. Nursing staff were completing tPA checklist at that time. Provider instructed staff to contact primary team regarding decision to start tPA. I spoke with the patient's regarding the risks and benefits of tPA. I informed her that there is a specific window that tPA can be given. She stated she would like to speak with her family and would let the staff know her decision. I examined the patient at this time and noted that he would in appropriately responded to questions with "yes" and "no" and would not follow commands. I went back to the patient's room at 0915 to reassess the patient. Nursing staff stated that the Dr. Mclean had been contacted as well as dispersion mixer neurologist. The patient was in CT receiving CTA Head and Neck. I spoke with the patient's again who stated she was still deciding if she wanted tPA for patient. I informed her and the nursing staff that I would allow the primary team to direct care going forward but would be available if questions should arise.
--- NOTE | 2017-11-29 09:53 | PDOC.EVN ---
Event Note - Event Note Event Note: Events noted. CTA brain and neck completed. I d/w Dr Call - No CVA noted on CTA. Per Dr Call - No need for TPA.
--- NOTE | 2017-11-29 09:56 | CT ---
FINAL REPORT CT HEAD NONCONTRAST: DATE: 11/29/17. TIME: Performed on an emergency basis at 0728 hours. HISTORY: Altered mental status. Code Green. COMPARISON: 07/14/17. FINDINGS: No evidence of acute intracranial hemorrhage or infarct. Chronic ischemic small-vessel disease, diff use cortical atrophy, and prominence of the ventricular system are stable. Septum pellucidum is midl ine. No new areas of mass effect or shift of midline structures. Chronic partial opacification of t he mastoid air cells is unchanged. IMPRESSION: Chronic-type findings are stable. No acute intracranial abnormalities are demonstrated on noncontras t CT head. Findings were called to Dr. Allen at 0737 hours. CODE JAYLON POS: [facility]
[2017-11-29] MEDS ORDERED: Ondansetron ODT 4 MG TAB PO PRN (10:02)
[2017-11-29] MEDS ORDERED: Ondansetron HCl/PF 4 MG/2 ML Vial IVP PRN (10:02)
[2017-11-29] MEDS: Losartan 25 MG TAB PO SCH (10:18)
[2017-11-29] MEDS: Clopidogrel Bisulfate 75 MG TAB PO SCH (10:18)
[2017-11-29] MEDS: hydrALAZINE 25 MG TAB PO SCH ×4 (10:18→21:16)
[2017-11-29] MEDS: Tamsulosin HCl 0.4 MG CAP PO SCH (10:18)
[2017-11-29] MEDS: Famotidine 20 MG TAB PO SCH (10:18)
[2017-11-29] MEDS: Metoprolol Tartrate 50 MG TAB PO SCH ×2 (10:19→21:16)
[2017-11-29] MEDS: NIFEdipine XL 60 MG TAB PO SCH (10:19)
[2017-11-29] MEDS: Aspirin 81 mg Enteric Coated Tablet PO SCH (10:19)
[2017-11-29] MEDS: Senokot S 8.6-50 MG TAB PO SCH ×2 (10:32→21:16)
--- NOTE | 2017-11-29 10:36 | CON ---
DATE OF CONSULTATION: 11/29/2017 CHIEF COMPLAINT: Altered mental status. HISTORY OF PRESENT ILLNESS: I was contacted by Dr. Pizarro this morning about possible stroke protocol since the patient has had severe agitation and was not moving his legs. Stroke protocol was called on the floor and I requested them to do a CT angiogram with perfusion, which was negative. The patient's family reports he has had confusion on and off for a few months and whenever he is sick he gets rather confused and he was diagnosed with renal failure about 4 months ago in the setting of a urinary tract infection. The patient also has had to have dialysis and he was diagnosed and his renal failure is due to hypertension per radiologist as well. The patient was receiving his fistula placement and even during the fistula placement he has problems with altered mental status. The patient is now somewhat calmer, and tries to interact with family, but no specific focal deficits are reported. The patient is currently admitted with a history of renal failure and he is hospitalized for clogged dialysis fistula and he was going to have a fistulogram and that is the primary reason for admission. PAST MEDICAL HISTORY: Patient's previous medical history includes diabetes type 2, hypertension, dyslipidemia, diabetic nephropathy, end-stage renal disease and CAD stent placement to left anterior descending and anemia of renal disease. The patient's stated that she thinks he has mild dementia as well as they were told he has mild dementia. PAST SURGICAL HISTORY: Appendectomy, nasal surgery, cardiac catheterization with a cardiac stent in left anterior descending artery, hemodialysis catheter placement and a fistulogram yesterday. ALLERGIES: No known drug allergies. FAMILY HISTORY: Positive for cancer in his mother and diabetes in his father. SOCIAL HISTORY: He lives with his family, does not smoke or drink and he lives with his and he has only 1 child. REVIEW OF SYSTEMS: Unreliable due to the patient's mental status. NEUROLOGIC: Positive for confusion. PULMONARY: Negative for shortness of breath or cough. GI: Negative for any diarrhea, vomiting or nausea. CARDIAC: Negative for chest pain or palpitations. NEUROLOGIC: Positive for altered mental status. GENITOURINARY: Positive for kidney failure. HEMATOLOGIC: Negative for any bleeding tendencies. PHYSICAL EXAMINATION: VITAL SIGNS: His blood pressure 183/79 and during the event and afterwards blood pressure was 132/81 within 5 minutes, pulse rate 68, temperature 97.2. GENERAL APPEARANCE: Well-built, well-nourished man who seems to be confused and intermittently not interacting during my examination and then when he does interact it is usually in short sentences are more of an emotional interaction with his and family members. CHEST: Clear vesicular breathing. CARDIOVASCULAR: S1, S2 heard, no murmurs. ABDOMEN: Soft, no organomegaly noted. NEUROLOGICAL: High intellectual functions. The patient does not answer any questions and barely follows commands and intermittently does follow commands, but very brief 1 step commands only. Cranial nerve examination; pupils reactive to light. No facial asymmetry noted. Normal sensation of face bilaterally and tongue midline. Hearing; he seems to be able to hear us. MOTOR: Bulk normal, tone is normal. STRENGTH: He moves all extremities. He did not move his left lower extremity to command, but does seem to move it. Deep tendon reflexes were absent. Unable to assess any specific individual muscle groups due to his mental status. Cerebellar and sensory examination cannot be performed due to altered mental status. LABORATORY RESULTS: White count 8.6, hemoglobin 9.9, hematocrit 30, platelets 221. Chemistry: Sodium 137, potassium 4.9, chloride 106, bicarbonate 21, BUN 47, creatinine 4.89, glucose 167, calcium 9.1, CK-MB 5.6. Troponin I 0.026, alkaline phosphatase 50. Coagulation: PT 14.4, INR 1.1, PTT 27.7. Verbal report given to me about his CT angiogram; no occlusion and no acute infarct on perfusion study and there is mild microvascular ischemic changes seen in patients with renal impairment and hypertension. IMPRESSION: The patient with acute confusional state, much worse this morning compared to even yesterday. At this time, he is pending dialysis for the last few days due to his nonfunctioning fistula and he underwent a fistulogram yesterday. Stroke protocol was called at 7:00 a.m. this morning due to his altered mental status and his examination shows significant mental status changes. His examination also shows preserved motor strength throughout and he was not able to move his left lower extremity to command, but there seems to be some spontaneous movement of the left lower extremity. Likely diagnosis is metabolic encephalopathy in the setting of chronic microvascular ischemic changes and underlying possible mild dementia. RECOMMENDATIONS: Please continue to monitor his mental status, no reason for IV tPA or stroke intervention. I will follow up with you over the weekend. GEETA
--- NOTE | 2017-11-29 10:41 | CT ---
CTA HEAD WITH 3D VOLUME RENDERING CTA NECK WITH 3D VOLUME RENDERING: Date: 11/29/17 INDICATION: Stroke. Altered mental status with left facial droop. Last reported time of normal mentation is docum ented at 0540 hours on 11/29/17. FINDINGS: CTA imaging of head and neck reveals a mild degree of vascular disease, notably at each carotid bifur cation, although there is no evidence of high grade stenosis or occlusion involving the major arteria l system of the head and neck. There is no proximal M1 clot demonstrated bilaterally. Imaged aortic a rch is patent, as are great vessels of the aorta. There is takeoff of the left vertebral artery from the aortic arch. Incidental note of subpleural interstitial and patchy ground-glass opacities of the upper lung zones bilaterally. There is an azygos lobe seen medially within the right upper chest. Incidental note of osseous degenerative change and heterogeneity of the osseous density. IMPRESSION: 1. No large vessel occlusion identified within the major arterial system of the head and neck. 2. Scattered vascular disease is present. Telephone call of the CTA results placed to patient's neurologist, Dr. Call, at 0933 hours on 11/29. CODE CR. POS: [facility]
[2017-11-29] MEDS ORDERED: HumaLOG 300 UNITS/3 ML VIAL SC PRN (12:28)
[2017-11-29 14:05] LABS: Vancomycin, Trough 10.4 ug/mL
--- NOTE | 2017-11-29 16:42 | PDOC.PN ---
- Subjective Encounter Start Date: 11/29/17 Encounter Start Time: 14:00 Patient seen and examined for AMS/HTN urgency during the code and again at 1400. No new complaints. Events noted. Stroke alert called due to focal deficits - NIH 17. Patient was not following commands. Mentation improving - still slow to respond. Was seen by Neuro. Undergoing dialysis. - Objective MAR Reviewed: Yes Vital Signs & Weight: Vital Signs (12 hours) Temp Temp Temp Temp Pulse Pulse Pulse 11/29/17 12:30 11/29/17 11:58 97.3 F L 73 11/29/17 09:46 97.6 F 81 11/29/17 08:00 97.6 F 81 11/29/17 07:04 68 11/29/17 07:02 79.4 F L 98.5 F 98.5 F 68 75 11/29/17 07:01 11/29/17 06:54 Resp Resp Resp Resp Resp BP BP 11/29/17 12:30 11/29/17 11:58 20 11/29/17 09:46 16 11/29/17 08:00 16 11/29/17 07:04 11/29/17 07:02 20 20 20 20 132/81 188/117 H 11/29/17 07:01 11/29/17 06:54 BP BP BP Pulse Ox Pulse Ox Pulse Ox 11/29/17 12:30 93 L 11/29/17 11:58 178/79 H 90 L 11/29/17 09:46 196/82 H 93 L 11/29/17 08:00 11/29/17 07:04 132/81 11/29/17 07:02 128/111 H 144/79 H 93 L 94 L 11/29/17 07:01 183/79 H 95 11/29/17 06:54 93 L Weight Admit Weight 176 lb 1.6 oz Weight 176 lb 1.6 oz I&O: 11/28/17 11/29/17 11/30/17 06:59 06:59 06:59 Intake Total 980 960 Output Total 875 1100 Balance 105 -140 Result Diagrams: 11/29/17 07:22 11/29/17 07:22 Additional Labs: Accuchecks 11/29/17 11/29/17 11/29/17 11:17 07:08 05:41 POC Glucose 209 H 158 H 161 H 11/28/17 11/28/17 20:36 16:39 POC Glucose 189 H 234 H Radiology Reviewed by me: Yes (CT brain and CTA brain - neg) EKG Reviewed by me: Yes (Tele SR) Phys Exam - Physical Examination Constitutional: NAD Somnolent - slow to respond Respiratory: no wheezing, no rales, no rhonchi Symmetrical Cardiovascular: RRR, no rub no heaves/pulsations Gastrointestinal: soft, non-tender, no distention, positive bowel sounds Musculoskeletal: no edema, edema present Neuro/Psych - as above Dx/Plan (1) Toxic metabolic encephalopathy Code(s): G92 - TOXIC ENCEPHALOPATHY Status: Acute Plan: Cont to monitor, undergoing dialysis Comment: multifactorial, No Acute CVA per Neuro (2) Sepsis Code(s): A41.9 - SEPSIS, UNSPECIFIED ORGANISM Status: Acute Plan: Cont Atbx, Await ID input Comment: with Staph CN 1/2 bacteremia (3) Hypertensive urgency Code(s): I16.0 - HYPERTENSIVE URGENCY Status: Acute Plan: Cont current HTN meds (4) DM2 (diabetes mellitus, type 2) Status: Chronic Qualifiers: Chronic kidney disease stage: on chronic dialysis Plan: Cont sliding scale (5) Dyslipidemia Code(s): E78.5 - HYPERLIPIDEMIA, UNSPECIFIED Status: Chronic (6) ESRD (end stage renal disease) on dialysis Code(s): N18.6 - END STAGE RENAL DISEASE; Z99.2 - DEPENDENCE ON RENAL DIALYSIS Status: Chronic Comment: HD per nephrology. (7) BPH (benign prostatic hyperplasia) Code(s): N40.0 - BENIGN PROSTATIC HYPERPLASIA WITHOUT LOWER URINRY TRACT SYMP Status: Chronic (8) CAD (coronary artery disease) Code(s): I25.10 - ATHSCL HEART DISEASE OF [place] CORONARY ARTERY W/O ANG PCTRS Status: Chronic Plan: Cont ASA/Plavix Comment: (9) H/O: CVA (cerebrovascular accident) Code(s): Z86.73 - PRSNL HX OF TIA (TIA), AND CEREB INFRC W/O RESID DEFICITS Status: Acute Comment: on ASA/Plavix - Plan continue antibiotics, PT/OT, DVT proph w/SCDs AM labs -: Neuro input appreciated Review of Systems - Review of Systems Other: Cannot obtain due to AMS - Medications/Allergies Allergies/Adverse Reactions: Allergies Allergy/AdvReac Type Severity Reaction Status Date / Time No Known Allergies Allergy Verified 11/27/17 15:18 Medications: Current Medications Acetaminophen (Tylenol) 650 mg PO Q4H PRN PRN Reason: Headache/Fever or Pain Last Admin: 11/28/17 17:09 Dose: 650 mg Acetaminophen (Tylenol) 650 mg UT Q4H PRN PRN Reason: Headache/Fever or Pain Aspirin (Ecotrin) 81 mg PO DAILY [facility] Last Admin: 11/29/17 10:19 Dose: 81 mg Bisacodyl (Dulcolax) 10 mg PO DAILYPRN PRN PRN Reason: Constipation Clopidogrel Bisulfate (Plavix) 75 mg PO DAILY [facility] Last Admin: 11/29/17 10:18 Dose: 75 mg Dextrose/Water (Dextrose 50%) 25 gm SLOW IVP PRN PRN PRN Reason: Hypoglycemia Famotidine (Pepcid) 20 mg PO DAILY [facility] Last Admin: 11/29/17 10:18 Dose: 20 mg Glucagon (Glucagon) 1 mg IM PRN PRN PRN Reason: Hypoglycemia Hydralazine HCl (Apresoline) 10 mg SLOW IVP Q6H PRN PRN Reason: SBP Greater Than 170 Last Admin: 11/28/17 09:07 Dose: 10 mg Hydralazine HCl (Apresoline) 25 mg PO QID [facility] Last Admin: 11/29/17 13:59 Dose: Not Given Vancomycin HCl 1.25 gm/ Sodium (Chloride) 250 mls @ 166.667 mls/hr [facility] Vancomycin HCl 1 gm/ Device 200 mls @ 200 mls/hr [facility] Vancomycin HCl 750 mg/ Sodium (Chloride) 250 mls @ 250 mls/hr IVPB [facility] Last Admin: 11/29/17 15:29 Dose: 250 mls Vancomycin HCl 500 mg/ Sodium (Chloride) 100 mls @ 100 mls/hr IVPB [facility] Dextrose/Water (D5w) 1,000 mls @ 0 mls/hr IV .Q0M PRN; As Directed PRN Reason: Hypoglycemia Cefepime HCl 0.5 gm/Miscellaneous Medication 1 each/ Sodium Chloride 100 mls @ 200 mls/hr IVPB 0900 [facility] Insulin Human Lispro (Humalog) 0 units SC .MILD SLIDING SCALE PRN PRN Reason: Mild Correctional Scale Last Admin: 11/28/17 21:16 Dose: 2 unit Insulin Human Lispro (Humalog) 0 units SC .BEDTIME SLIDING SC PRN PRN Reason: Bedtime Correctional Scale Isosorbide Mononitrate (Imdur Er) 30 mg PO DAILY [facility] Last Admin: 11/29/17 10:19 Dose: 30 mg Labetalol HCl (Normodyne) 10 mg SLOW IVP Q4H PRN PRN Reason: SBP Greater Than 180 Last Admin: 11/28/17 04:55 Dose: 10 mg Losartan Potassium (Cozaar) 25 mg PO DAILY [facility] Last Admin: 11/29/17 10:18 Dose: 25 mg Metoprolol Tartrate (Lopressor) 50 mg PO BID [facility] Last Admin: 11/29/17 10:19 Dose: 50 mg Miscellaneous Medication (Pharmacy To Dose) 1 each IVPB PRN PRN PRN Reason: Pharmacy to dose Miscellaneous Medication (Pharmacy To Dose) 1 each IVPB PRN PRN PRN Reason: Pharmacy to dose Nifedipine (Procardia Xl) 60 mg PO DAILY [facility] Last Admin: 11/29/17 10:19 Dose: 60 mg Hold Vancomycin For (Level >20) 0 each FS .AT DIALYSIS [facility] Ondansetron HCl (Zofran Odt) 4 mg PO Q6H PRN PRN Reason: Nausea/Vomiting Ondansetron HCl (Zofran) 4 mg IVP Q6H PRN PRN Reason: Nausea/Vomiting Last Admin: 11/29/17 10:35 Dose: 4 mg Senna/Docusate Sodium (Senokot S) 1 tab PO BID [facility] Last Admin: 11/29/17 10:32 Dose: Not Given Sodium Chloride (Flush - Normal Saline) 10 ml IVF PRN PRN PRN Reason: Saline Flush Tamsulosin HCl (Flomax) 0.4 mg PO DAILY [facility] Last Admin: 11/29/17 10:18 Dose: 0.4 mg
[2017-11-29] MEDS: Cefepime 0.5 GM, Admixture Fee 1 EACH in Sodium Chloride 0.9% 100 ML IVPB SCH (16:54)
--- NOTE | 2017-11-29 17:16 | EKG ---
Test Reason : Blood Pressure : / mmHG Vent. Rate : 076 BPM Atrial Rate : 076 BPM P-R Int : 140 ms QRS Dur : 098 ms QT Int : 410 ms P-R-T Axes : 044 033 -17 degrees QTc Int : 461 ms Normal sinus rhythm Normal ECG When compared with ECG of 27-NOV-2017 12:48, (Unconfirmed) DE interval has increased Confirmed by DR. David SHOOK ([id number]) on 11/29/2017 5:15:55 PM Referred By: LANCE Confirmed By:DR. David SHOOK
[2017-11-29 18:14] LABS: Bilirubin Negative (Negative); Blood, Urine Negative (Negative); Clarity CLEAR (Clear); Glucose, Urine (Dipstick) 250 mg/dL (Negative); Leukocyte Negative (Negative); Nitrite Negative (Negative); Protein, Urine (Dipstick) > or equal to 300 mg/dL (Neg-Trace); Specific Gravity, Urine 1.033 (1.002-1.036); Urobilinogen 0.2 mg/dL (0.2-1.0); pH, Urine 5.5 (5.0-9.0)
[2017-11-29 18:16] LABS: Bacteria/HPF None Seen HPF (None Seen); Hyaline Casts/LPF 0-3 HYALINE CAST LPF (0-3 Hyaline); Pathc Cast-AUWi Flag 0.29 (0-2.49); Squamous Epithelial 0-3 HPF (0-3)
--- NOTE | 2017-11-29 19:11 | RAD ---
SINGLE VIEW OF THE CHEST: 11/29/17 COMPARISON: 11/27/17 HISTORY: Shortness of breath and hypoxia. FINDINGS: Single view of the chest shows a normal sized cardiomediastinal silhouette. There is no evidence of c onsolidation, mass, or pleural effusion. The bones are unremarkable. IMPRESSION: No evidence of acute cardiopulmonary disease. POS: [facility]
--- NOTE | 2017-11-29 20:09 | CON ---
DATE OF CONSULTATION: 11/29/2017 REASON FOR CONSULTATION: Fever, change in mental status and complications with hemodialysis access. HISTORY OF PRESENT ILLNESS: A 66-year-old gentleman with history of type 2 diabetes, hypertension, a nd end-stage renal disease who had been dialyzed through a tunneled catheter, recently converted to d ialysis through an AV fistula a few weeks ago. Catheter had been removed about [address] Barboza. Reportedly, he was having some issues with access and nurses at dialysis were having to stick him multiple times to start the procedure and he then was discovered that his dialysis fistula was th rombosed. He missed four dialysis sessions according to the and was scheduled for a fistulogram , but then developed vomiting and some headaches. In the H&P of admission, it is stated that he did not have any fever; however, the states that he did have fever, although she could not tell me h ow much. There has been no chest pain, some cough, but no sputum production. No back pain, no abdom inal pain. He is constipated. No dysuria. Initial findings included BP 235/97, pulse 68, respirati ons 19, O2 sat 99%. He was hypothermic at the emergency room with measurements of 93 rectal and 94 o ral obtained and then subsequently was oral measurement of 97.7. Pertinent initial findings included a normal head exam. The oral cavity exam is described as normal and neck was supple. The lungs wit h no crackles or wheezing. Heart examination is described as normal. Abdomen without tenderness. O ther initial findings included white cell count 5.9, hemoglobin 11.9, platelets 276 with 77% neutroph ils. INR 1.1, pH 7.35, pCO2 43 and pO2 of 58. There is actually venous gas and initial lab data als o with chemistry showing following abnormalities; creatinine 4.24, BUN 39, globulin 37. Other elemen ts of the chemistry were within normal limits including a lactic acid. Urine sample does not appear in this report and I do not see any orders for urine sampling. Currently, Mr. Ho is being hemodialyzed. His brother is with him trying to hold his hand. He is very confused. I was able to get him to open his mouth for examination, but other than that he did n ot follow commands and was mostly trying to free his upper extremities which were being held by his b rother to try to avoid displacement of the dialysis access during dialysis. I could not obtain any s ubjective report from the patient due to his confusional state. PAST MEDICAL HISTORY: Includes type 2 diabetes, hypertension, dyslipidemia, end-stage renal disease secondary to type 2 diabetes with recent removed hemodialysis catheter in left IJ position which was transitioned to fistula access in the left upper extremity. Also, he has a history of invasive urina ry tract infection treated recently in this hospital caused by Klebsiella pneumonia with a very broad susceptibility profile. At that time, he did have great numbers of WBCs in the urinalysis and ultra sound findings suggestive of cystitis and prostate enlargement with outlet obstruction. PAST SURGICAL HISTORY: Includes appendectomy, nasal surgery, cardiac catheterization. MEDICAL HISTORY: Includes coronary artery disease with prior stenting. ALLERGIES: None. FAMILY HISTORY: Noncontributory. SOCIAL HISTORY: Never a smoker and he lives in [place] with . CURRENT MEDICATIONS: Includes Tylenol, Ecotrin, Dulcolax, cefepime, Plavix, famotidine, glucagon, hy dralazine, insulin, isosorbide, labetalol, losartan, nifedipine, vancomycin sliding scale, tamsulosin . PHYSICAL EXAMINATION: VITAL SIGNS: T-max 98.9-99.1, blood pressure 170/79, pulse 73, respirations 16-20, O2 sat 90%-100%. SKIN: With the access in the left forearm. Patient does not have Barrera catheter. No lymphadenopath y. HEENT: Ocular movements are conjugate. Sclerae white. Conjunctivae somewhat pale. Oral cavity wit h only a few remaining teeth with marked decay. Moist mucosa, no lesions. NECK: Supple. No jugular vein distention. LUNGS: Symmetric air entry. CARDIOVASCULAR: S1 and S2 with a soft aortic murmur. No S3. ABDOMEN: Soft with mild to moderate distention, no obvious tenderness, although this is difficult to ascertain due to patient's altered mental status. No evidence of ascites and a question of bladder distention. EXTREMITIES: No joint inflammatory activity. Pulses are 1+ in dorsalis pedis. NEUROLOGIC: Plantar responses are flexor. No clonus. He is drowsy, does not establish eye contact. We will follow some commands after some insistence. He seems to be able to move all extremities wi th normal strength. LABORATORY DATA AND IMAGING DATA: We have white cell count now at 8.6, hemoglobin 9.9, MCV 91, plate lets 221 with 75% neutrophils, INR 1.1. The latest chemistry results show sodium 137, potassium 4.9, carbon dioxide 21 and do not have a urine sample as noted above. Blood culture 102 with coagulase n egative Staphylococcus, likely contaminant. Urine culture the last one is from September. Reports include [place] and a CT angiogram and those showed no large vessel occlusion, scattered vascular d isease and a brain CT was done with chronic findings. No acute abnormalities noted. Patient had an AV shunt angiogram with technically successful balloon angioplasty of long segment area of segmented significant stenosis of the cephalic venous fistula with improved fistula flow and function. Chest x -ray on admission which showed removal of dialysis catheter since the previous exam. This was a few weeks ago and heart size is borderline, but no consolidation noted. ASSESSMENT: 1. Type 2 diabetes with end-stage renal disease on hemodialysis, recently converted to AV fistula. 2. Problems with AV fistula access due to stenosis of the cephalic vein site of the fistula with jus t now intervention with dilatation and improved flow. 3. Multiple missed dialysis sessions. 4. History of prior urinary tract infection which led to sepsis, previously treated, and I believe i n September this year with Klebsiella. 5. Delirium. DISCUSSION: Differential diagnosis includes toxic metabolic encephalopathy related to the dialysis p roblems and multiple missed sessions, possibility of associated infection in view of the reported fev er by the is considered as well. In this regard, the main concern is with recurrent UTI. We wi ll need to check his postvoid residual with a bladder scan and obtain a sample of urine for testing. Bacteremia from an alternate source is not completely ruled out and we will continue to monitor his blood culture results through the hospital course. An intraabdominal inflammatory process or respira tory tract infection appeared to be less likely, encephalitis/meningitis appeared to be less likely.
[2017-11-29] MEDS: Heparin 5,000 UNITS/ML VIAL SC SCH (21:13)
[2017-11-30 04:30] LABS: #Eosinphils 0.1 thou/uL (0.0-0.7); #Lymphocytes 1.2 thou/uL (1.20-3.40); #Monocytes 0.6 thou/uL (0.11-0.59); %Basophils 0.5 % (0.0-1.0); %Eosinophils 1.4 % (0.0-10.0); %Lymphocytes 15.3 % (21.0-51.0); %Monocytes 7.6 % (0.0-10.0); %Neutrophils 75.2 % (42.0-75.0); Hemoglobin 9.7 g/dL (14.0-18.0); Mean Corpuscular HGB CONC 33.1 g/dL (32.0-36.0); Mean Corpuscular Hemoglobin 29.8 pg (27.0-31.0); Mean Platelet Volume 8.5 fL (7.4-10.4); Platelet Count 218 thou/uL (130-400); RBC Distribution Width 13.9 % (11.5-14.5); Red Blood Cell (RBC) Count 3.27 mill/uL (4.70-6.10); White Blood Cell (WBC) Count 7.9 thou/uL (4.8-10.8)
[2017-11-30 04:56] LABS: ALT (SGPT) Less than 7 U/L (8-55); AST (SGOT) 9 U/L (5-34); Albumin 3.1 g/dL (3.4-4.8); Alkaline Phosphatase 107 U/L (40-150); Anion Gap 11 mmol/L (10-20); BUN (Urea Nitrogen) 26 mg/dL (8.4-25.7); Bilirubin, Total 0.7 mg/dL (0.2-1.2); Calc. Creatinine Clearance 23 mL/min (70-130); Calcium 8.7 mg/dL (7.8-10.44); Carbon Dioxide 27 mmol/L (23-31); Chloride 104 mmol/L (98-107); Estimated GFR-MDRD 17; Globulin 3.1 g/dL (2.4-3.5); Glucose 122 mg/dL (80-115); Potassium 4.2 mmol/L (3.5-5.1); Protein, Total 6.2 g/dL (5.8-8.1); Sodium 138 mmol/L (136-145)
[2017-11-30] MEDS: Clopidogrel Bisulfate 75 MG TAB PO SCH ×2 (10:16→16:51)
[2017-11-30] MEDS: Famotidine 20 MG TAB PO SCH (10:16)
[2017-11-30] MEDS: Aspirin 81 mg Enteric Coated Tablet PO SCH ×2 (10:16→16:52)
[2017-11-30] MEDS: hydrALAZINE 25 MG TAB PO SCH ×4 (10:17→21:02)
[2017-11-30] MEDS: NIFEdipine XL 60 MG TAB PO SCH ×2 (10:17→16:50)
[2017-11-30] MEDS: Senokot S 8.6-50 MG TAB PO SCH ×2 (10:17→21:01)
[2017-11-30] MEDS: Metoprolol Tartrate 50 MG TAB PO SCH ×2 (10:17→21:02)
[2017-11-30] MEDS: Losartan 25 MG TAB PO SCH ×2 (10:17→16:52)
[2017-11-30] MEDS: Tamsulosin HCl 0.4 MG CAP PO SCH (10:18)
[2017-11-30] MEDS: Cefepime 0.5 GM, Admixture Fee 1 EACH in Sodium Chloride 0.9% 100 ML IVPB SCH (10:24)
[2017-11-30] MEDS: hydrALAZINE 20 MG/ML VIAL SLOW IVP PRN (10:25)
[2017-11-30] MEDS: Heparin 5,000 UNITS/ML VIAL SC SCH ×2 (10:26→22:26)
[2017-11-30] MEDS ORDERED: Enalaprilat Dihydrate 1.25 MG/ML VIAL SLOW IVP PRN (11:20)
[2017-11-30] MEDS ORDERED: hydrALAZINE 20 MG/ML VIAL SLOW IVP PRN (11:21)
[2017-11-30] MEDS: Metoprolol Tartrate 5 MG/5 ML VIAL IVP SCH ×2 (12:12→18:43)
[2017-11-30 12:32] LABS: HBSAg Index 0.22 S/CO (0-0.99); Hep B Surf Ag Non-Reactive S/CO (NonReactive)
--- NOTE | 2017-11-30 12:37 | PRG ---
DATE OF SERVICE: 11/30/2017 SUBJECTIVE: This 66-year-old gentleman being seen for end-stage renal disease. The patient remains unresponsive. PHYSICAL EXAMINATION: GENERAL: Patient is resting. VITAL SIGNS: Afebrile, pulse 85, breathing 16, blood pressure 143/59. HEAD/NECK: Normocephalic. Atraumatic. EYES: EOMI. No deformity. EARS: Clear. No ulcers. NOSE: Intact. No lesions. MOUTH: Clear. No discharge. THROAT: Clear. No exudate. LUNGS: Clear. No crackles. CARDIAC: S1, S2. No rub. ABDOMEN: Benign. BS+. GENITALIA/RECTUM: Barrera absent. BACK/EXTREMITIES: Edema 0+ Ulcer- NEUROLOGICAL: Alert and motor intact. SKIN: Rash- Bruise- LYMPHATICS: Edema- Ulcer- LABORATORY DATA: Show hemoglobin 9.7 and potassium 4.8. ASSESSMENT AND RECOMMENDATIONS: 1. Stage 6 chronic kidney disease, plan hemodialysis on Saturday. 2. Hypertension, stable. 3. Anemia, stable. Altered mentation, etiology unclear. Did not improve with dialysis.
--- NOTE | 2017-11-30 12:54 | PRG ---
DATE OF SERVICE: 11/30/2017 CHIEF COMPLAINT: Altered mental status. INTERVAL HISTORY: The patient seems to have remained confused since yesterday again and he is curren tly planned for hemodialysis and first dialysis was done. His dialysis was completed yesterday and t he patient is not following any commands and overnight, he has had significant worsening of his cogni tive status. LABORATORY DATA: White count 7.9, hemoglobin 9.7, hematocrit 29.4, platelets 218. Chemistry: Sodium 138, potassium 4.2, chloride 104, bicarbonate 27, anion gap 11, BUN 26, creatinine 3.53. PHYSICAL EXAMINATION: VITAL SIGNS: Pulse is 78, blood pressure 187/57, temperature 98.2. GENERAL APPEARANCE: He is with his brother holding his hands and he is not very coherent and does no t follow any commands. He keeps saying yes man and does not seem to have any focal deficits and is a ble to move all his extremities equally. IMPRESSION: Patient is a 66-year-old man with renal impairment and he is on dialysis at this time. He had significant changes in his metabolic status and yesterday, a CT angiogram was done which did n ot show any evidence of acute cerebrovascular accident. RECOMMENDATIONS: I would like to go ahead and order an MRI of the brain to see if there are any othe r abnormalities. If his MRI brain is negative and patient continues to not improve, we can look into and please consider a lumbar puncture and possible C&S to rule out infectious etiologies if there is no other source of systemic embolism. I will continue to follow the patient with you.
[2017-11-30] MEDS ORDERED: Lorazepam 2 MG/ML VIAL ONE (13:47)
[2017-11-30] MEDS ORDERED: Lorazepam 2 MG/ML VIAL SLOW IVP SCH (14:00)
[2017-11-30] MEDS ORDERED: Haloperidol Lactate 5 MG/ML VIAL IM PRN (14:56)
--- NOTE | 2017-11-30 15:14 | MRI ---
NONCONTRAST BRAIN MRI: CLINICAL HISTORY: Encephalopathy. COMPARISON: Reference is made to the head CT from [facility] day. FINDINGS: There is prominence of the ventricular system. There is motion throughout the exam which does limit the sensitivity of evaluation. There is no acute territorial infarction, intraaxial mass effect, or midline shift. There are a few small areas of susceptibility within the right parietal lobe likely r elated to hemosiderin deposition. The imaged skull base flow voids are patent. There is bilateral mastoid fluid. There is hyperintens ity of the pulvinar of the left thalamus. Mild chronic microvascular ischemic disease of the cerebra l white matter is present. IMPRESSION: 1. No acute territorial infarction or intraaxial mass effect. 2. Chronic ischemic disease. There is also signal alteration of the pulvinar of the thalamus which could relate to lacunar infarction. No acute restriction in this region. 3. There is mild susceptibility seen at the right parietal lobe measuring hemosiderin deposition and could relate to sequelae from prior infarct. 4. Motion artifact throughout the exam does limit evaluation. POS: ACE
[2017-11-30] MEDS: NIFEdipine XL 30 MG TAB PO SCH (21:01)
--- NOTE | 2017-11-30 21:36 | PDOC.PN ---
- Subjective Encounter Start Date: 11/30/17 Encounter Start Time: 11:00 Patient seen and examined for Encephalopathy/HTN urgency. Remains confused. Failed swallow eval - Objective MAR Reviewed: Yes Vital Signs & Weight: Vital Signs (12 hours) Temp Pulse Pulse Pulse Pulse Resp BP 11/30/17 21:02 96 217/80 H 11/30/17 21:01 96 217/80 H 11/30/17 20:00 97.6 F 96 18 11/30/17 16:50 97 197/72 H 11/30/17 15:30 97 24 H 11/30/17 14:13 106 H 11/30/17 12:00 97.7 F 106 H 22 H 11/30/17 10:25 78 187/57 H 11/30/17 10:17 74 11/30/17 09:45 79 78 80 BP BP BP BP Pulse Ox Pulse Ox Pulse Ox 11/30/17 21:02 11/30/17 21:01 11/30/17 20:00 219/87 H 99 11/30/17 16:50 11/30/17 15:30 208/98 H 100 11/30/17 14:13 11/30/17 12:00 194/68 H 100 11/30/17 10:25 11/30/17 10:17 11/30/17 09:45 195/86 H 166/80 H 187/57 H 97 98 Pulse Ox 11/30/17 21:02 11/30/17 21:01 11/30/17 20:00 11/30/17 16:50 11/30/17 15:30 11/30/17 14:13 11/30/17 12:00 11/30/17 10:25 11/30/17 10:17 11/30/17 09:45 97 Weight Admit Weight 176 lb 1.6 oz Weight 176 lb 8 oz I&O: 11/29/17 11/30/17 12/01/17 06:59 06:59 06:59 Intake Total 960 160 111.0 Output Total 1100 330 175 Balance -140 -170 -64.0 Result Diagrams: 11/30/17 03:34 11/30/17 03:34 Additional Labs: Accuchecks 11/30/17 11/30/17 11/30/17 16:20 10:55 05:55 POC Glucose 148 H 120 H 125 H 11/29/17 20:13 POC Glucose 146 H EKG Reviewed by me: Yes (Tele SR) Phys Exam - Physical Examination Confused Respiratory: no wheezing Cardiovascular: RRR, no rub Gastrointestinal: soft, positive bowel sounds Musculoskeletal: no edema Neurological: moves all 4 limbs Dx/Plan (1) Toxic metabolic encephalopathy Code(s): G92 - TOXIC ENCEPHALOPATHY Status: Acute Comment: multifactorial (2) Sepsis Code(s): A41.9 - SEPSIS, UNSPECIFIED ORGANISM Status: Acute Comment: with Staph CN 1/2 bacteremia (3) Hypertensive urgency Code(s): I16.0 - HYPERTENSIVE URGENCY Status: Acute (4) DM2 (diabetes mellitus, type 2) Status: Chronic Qualifiers: Chronic kidney disease stage: on chronic dialysis (5) Dyslipidemia Code(s): E78.5 - HYPERLIPIDEMIA, UNSPECIFIED Status: Chronic (6) ESRD (end stage renal disease) on dialysis Code(s): N18.6 - END STAGE RENAL DISEASE; Z99.2 - DEPENDENCE ON RENAL DIALYSIS Status: Chronic Comment: HD per nephrology. (7) BPH (benign prostatic hyperplasia) Code(s): N40.0 - BENIGN PROSTATIC HYPERPLASIA WITHOUT LOWER URINRY TRACT SYMP Status: Chronic (8) CAD (coronary artery disease) Code(s): I25.10 - ATHSCL HEART DISEASE OF [place] CORONARY ARTERY W/O ANG PCTRS Status: Chronic Comment: (9) H/O: CVA (cerebrovascular accident) Code(s): Z86.73 - PRSNL HX OF TIA (TIA), AND CEREB INFRC W/O RESID DEFICITS Status: Acute Comment: on ASA/Plavix - Plan DVT proph w/heparin, DVT proph w/SCDs MRI brain per Neuro -: Start IV Metoprolol 5 mg Q6h with PRN Hydralazine -: Cont curent meds as below -: Will consider rectal ASA in AM if stays NPO -: AM labs, Cont Neurochecks Review of Systems - Review of Systems Other: Cannot obtain due to current mentation - Medications/Allergies Allergies/Adverse Reactions: Allergies Allergy/AdvReac Type Severity Reaction Status Date / Time No Known Allergies Allergy Verified 11/27/17 15:18 Medications: Current Medications Acetaminophen (Tylenol) 650 mg PO Q4H PRN PRN Reason: Headache/Fever or Pain Last Admin: 11/28/17 17:09 Dose: 650 mg Acetaminophen (Tylenol) 650 mg ND Q4H PRN PRN Reason: Headache/Fever or Pain Aspirin (Ecotrin) 81 mg PO DAILY [facility] Last Admin: 11/30/17 16:52 Dose: 81 mg Bisacodyl (Dulcolax) 10 mg PO DAILYPRN PRN PRN Reason: Constipation Clopidogrel Bisulfate (Plavix) 75 mg PO DAILY [facility] Last Admin: 11/30/17 16:51 Dose: 75 mg Dextrose/Water (Dextrose 50%) 25 gm SLOW IVP PRN PRN PRN Reason: Hypoglycemia Enalaprilat (Vasotec) 1.25 mg SLOW IVP Q6H PRN PRN Reason: SBP Greater Than 180 Famotidine (Pepcid) 20 mg PO DAILY [facility] Last Admin: 11/30/17 10:16 Dose: Not Given Glucagon (Glucagon) 1 mg IM PRN PRN PRN Reason: Hypoglycemia Haloperidol Lactate (Haldol) 5 mg IM Q4H PRN PRN Reason: Agitation Heparin Sodium (Porcine) (Heparin) 5,000 units SC BID [facility] Last Admin: 11/30/17 10:26 Dose: 5,000 units Hydralazine HCl (Apresoline) 25 mg PO QID [facility] Last Admin: 11/30/17 21:02 Dose: 25 mg Hydralazine HCl (Apresoline) 20 mg SLOW IVP Q6H PRN PRN Reason: SBP Greater Than 170 Vancomycin HCl 1.25 gm/ Sodium (Chloride) 250 mls @ 166.667 mls/hr IVPB [facility] Van[facility]ycin HCl 1 gm/ Device 200 mls @ 200 mls/hr [facility] Vancomycin HCl 750 mg/ Sodium (Chloride) 250 mls @ 250 mls/hr IVPB [facility] Last Admin: 11/29/17 15:29 Dose: 250 mls Vancomycin HCl 500 mg/ Sodium (Chloride) 100 mls @ 100 mls/hr IVPB [facility] Dextrose/Water (D5w) 1,000 mls @ 0 mls/hr IV .Q0M PRN; As Directed PRN Reason: Hypoglycemia Cefepime HCl 0.5 gm/Miscellaneous Medication 1 each/ Sodium Chloride 100 mls @ 200 mls/hr IVPB 0900 [facility] Last Admin: 11/30/17 10:24 Dose: 100 mls Insulin Human Lispro (Humalog) 0 units SC .MILD SLIDING SCALE PRN PRN Reason: Mild Correctional Scale Last Admin: 11/28/17 21:16 Dose: 2 unit Insulin Human Lispro (Humalog) 0 units SC .BEDTIME SLIDING SC PRN PRN Reason: Bedtime Correctional Scale Isosorbide Mononitrate (Imdur Er) 30 mg PO DAILY [facility] Last Admin: 11/30/17 10:17 Dose: Not Given Labetalol HCl (Normodyne) 10 mg SLOW IVP Q4H PRN PRN Reason: SBP Greater Than 180 Last Admin: 11/28/17 04:55 Dose: 10 mg Losartan Potassium (Cozaar) 25 mg PO DAILY [facility] Last Admin: 11/30/17 16:52 Dose: 25 mg Metoprolol Tartrate (Lopressor) 50 mg PO BID [facility] Last Admin: 11/30/17 21:02 Dose: 50 mg Metoprolol Tartrate (Lopressor) 5 mg IVP Q6HR [facility] Last Admin: 11/30/17 18:43 Dose: 5 mg Miscellaneous Medication (Pharmacy To Dose) 1 each IVPB PRN PRN PRN Reason: Pharmacy to dose Miscellaneous Medication (Pharmacy To Dose) 1 each IVPB PRN PRN PRN Reason: Pharmacy to dose Nifedipine (Procardia Xl) 60 mg PO DAILY [facility] Last Admin: 11/30/17 16:50 Dose: 60 mg Nifedipine (Procardia Xl) 30 mg PO HS [facility] Last Admin: 11/30/17 21:01 Dose: 30 mg Nitroglycerin (Nitro-Bid 2% Ointment) 1 inch TOP Q8HR [facility] Hold Vancomycin For (Level >20) 0 each FS .AT DIALYSIS [facility] Ondansetron HCl (Zofran Odt) 4 mg PO Q6H PRN PRN Reason: Nausea/Vomiting Ondansetron HCl (Zofran) 4 mg IVP Q6H PRN PRN Reason: Nausea/Vomiting Last Admin: 11/29/17 10:35 Dose: 4 mg Senna/Docusate Sodium (Senokot S) 1 tab PO BID [facility] Last Admin: 11/30/17 21:01 Dose: 1 tab Sodium Chloride (Flush - Normal Saline) 10 ml IVF PRN PRN PRN Reason: Saline Flush Tamsulosin HCl (Flomax) 0.4 mg PO DAILY [facility] Last Admin: 11/30/17 10:18 Dose: Not Given
[2017-11-30] MEDS: Nitroglycerin 2% Ointment 1 INCH/1 GM Packet TOP SCH (22:51)
--- NOTE | 2017-12-01 00:30 | CON ---
DATE OF CONSULTATION: 11/30/2017 HISTORY OF PRESENT ILLNESS: Mr. Ho is a 66-year-old male who was moved into the intermediate care unit because of encephalopathy. He was obtunded yesterday I am told. Today, he is awake and is just asking to see Omar repeatedly in quite a loud voice. He was not cooperating with exam yesterday and still does not cooperate fully with exam, but apparently is more cooperative than he was yesterday. I was consulted because of his presence in intermediate care unit. PAST MEDICAL HISTORY: Remarkable for, 1. Diabetes. 2. History of hypertension. 3. Lipid disorder. 4. End-stage renal disease with recent removal of temporary hemodialysis catheter. He has fistula access in his left upper extremity. 5. History of urinary tract infection caused by Klebsiella. 6. History of prostate enlargement. 7. History of an appendectomy. 8. History of sinus surgery. 9. History of cardiac catheterization with stenting in the past. SOCIAL HISTORY: He is a nonsmoker, nondrinker. Fairly functional up until this admission. FAMILY HISTORY: Negative for lung disease in early age. He was admitted in 08/2017 with complaints of vomiting, but he was not encephalopathic at that time. He has been seen by Neurology. He had an MRI of his brain done today, surprisingly he was able to hold still, chronic ischemic changes were seen. No clear cut mass lesions or thrombotic or hemorrhagic abnormalities on his MRI. REVIEW OF SYSTEMS: Not accurately obtainable. PHYSICAL EXAMINATION: VITAL SIGNS: Afebrile, heart rate is 106, respiratory rate is 22. Blood pressure 187/57, oximetry is 100% on room air. HEENT: Pupils react. Sclerae is anicteric. NECK: Supple. LUNGS: Clear. HEART: Regular rhythm. S1 and S2 are normal. ABDOMEN: Soft and nontender. EXTREMITIES: No clubbing, cyanosis, or edema. LABORATORY DATA: White count 7.9, hemoglobin 9.7, platelets 218,000. Sodium is 138, 4.2, chloride 104, bicarbonate 27, BUN 26, creatinine 3.53. IMPRESSION: 1. Encephalopathy. 2. End-stage renal disease. 3. Small vessel disease in his brain. 4. Vomiting illness that has resolved. 5. History of urinary tract infections in the past. PLAN: Continue supportive care as he continues to be improving, low dose Haldol may help with his encephalopathy. Continue waiting for final results on cultures. Lumbar puncture certainly could be part of the workup, but only doubt he has meningitis or viral encephalitis still, however, he is in differential other physicians caring for him. He is protecting his airway adequately in no acute distress other than this irritation with being in the hospital. This is a 50 minute consult greater than 50 of the time spent on the unit with coordination of care. GEETA
[2017-12-01] MEDS: Metoprolol Tartrate 5 MG/5 ML VIAL IVP SCH ×3 (01:26→12:06)
[2017-12-01 04:19] LABS: #Eosinphils 0.1 thou/uL (0.0-0.7); #Lymphocytes 1.1 thou/uL (1.20-3.40); #Monocytes 0.8 thou/uL (0.11-0.59); #Neutrophils 6.5 thou/uL (1.40-6.50); %Basophils 0.5 % (0.0-1.0); %Lymphocytes 12.8 % (21.0-51.0); %Monocytes 9.5 % (0.0-10.0); %Neutrophils 76.1 % (42.0-75.0); Hemoglobin 10.4 g/dL (14.0-18.0); Mean Corpuscular HGB CONC 33.4 g/dL (32.0-36.0); Mean Corpuscular Hemoglobin 30.2 pg (27.0-31.0); Mean Corpuscular Volume 90.3 fL (78.0-98.0); Mean Platelet Volume 8.2 fL (7.4-10.4); Platelet Count 228 thou/uL (130-400); RBC Distribution Width 13.8 % (11.5-14.5); Red Blood Cell (RBC) Count 3.44 mill/uL (4.70-6.10); White Blood Cell (WBC) Count 8.5 thou/uL (4.8-10.8)
[2017-12-01 04:32] LABS: ALT (SGPT) Less than 7 U/L (8-55); AST (SGOT) 11 U/L (5-34); Albumin 3.1 g/dL (3.4-4.8); Alkaline Phosphatase 114 U/L (40-150); Anion Gap 12 mmol/L (10-20); BUN (Urea Nitrogen) 31 mg/dL (8.4-25.7); Bilirubin, Total 0.6 mg/dL (0.2-1.2); Calc. Creatinine Clearance 20 mL/min (70-130); Calcium 8.8 mg/dL (7.8-10.44); Carbon Dioxide 25 mmol/L (23-31); Chloride 104 mmol/L (98-107); Estimated GFR-MDRD 15; Globulin 3.3 g/dL (2.4-3.5); Glucose 153 mg/dL (80-115); Potassium 4.2 mmol/L (3.5-5.1); Protein, Total 6.4 g/dL (5.8-8.1); Sodium 137 mmol/L (136-145)
[2017-12-01 05:07] LABS: Folate (Folic Acid) 7.2 ng/mL (7.0-31.4)
[2017-12-01] MEDS: Nitroglycerin 2% Ointment 1 INCH/1 GM Packet TOP SCH (05:34)
[2017-12-01] MEDS: Losartan 25 MG TAB PO SCH (10:07)
[2017-12-01] MEDS: Cefepime 0.5 GM, Admixture Fee 1 EACH in Sodium Chloride 0.9% 100 ML IVPB SCH (10:07)
[2017-12-01] MEDS: Heparin 5,000 UNITS/ML VIAL SC SCH ×2 (10:08→21:50)
[2017-12-01] MEDS: NIFEdipine XL 60 MG TAB PO SCH (10:08)
[2017-12-01] MEDS: Senokot S 8.6-50 MG TAB PO SCH ×2 (10:08→21:50)
[2017-12-01] MEDS: Clopidogrel Bisulfate 75 MG TAB PO SCH (10:08)
[2017-12-01] MEDS: Aspirin 81 mg Enteric Coated Tablet PO SCH (10:08)
[2017-12-01] MEDS: Metoprolol Tartrate 50 MG TAB PO SCH ×2 (10:09→21:50)
[2017-12-01] MEDS: Famotidine 20 MG TAB PO SCH (10:09)
[2017-12-01] MEDS: hydrALAZINE 25 MG TAB PO SCH ×4 (10:09→23:00)
[2017-12-01] MEDS: Tamsulosin HCl 0.4 MG CAP PO SCH (10:09)
--- NOTE | 2017-12-01 11:03 | PRG ---
DATE OF SERVICE: 11/30/2017 SUBJECTIVE: Patient is sitting up in bed. He is awake, establishes eye contact, answers questions, still with some delusional thinking process, but much improved from yesterday. Denies headaches, no shortness of breath. No abdominal pain, no diarrhea, no dyspnea. OBJECTIVE: VITAL SIGNS: T-max 99.0, currently 97.6, blood pressure 200/80, pulse 96, O2 sat 99%. GENERAL: Awake, alert, knows his name, recognize family members, but he was confused as to his locat ion or date. CARDIOVASCULAR: S1, S2, regular rate. ABDOMEN: Soft. LUNGS: Symmetric clear breath sounds. EXTREMITIES: Moves extremities equally. LABORATORY AND DIAGNOSTIC DATA: White cell count 7.9, hemoglobin 9.7, platelets 218,000. Microbiolo gy was negative with one or two sets of blood culture with coagulase negative Staph, likely contamina nt. MRI of brain with chronic ischemic disease and sequelae from infarct. ASSESSMENT AND DISCUSSION: Type 2 diabetes, end-stage renal disease on dialysis, recently converted to AV fistula, problems with AV fistula access due to stenosis of the cephalic vein, which required i ntervention with dilation and improved flow, multiple missed dialysis sessions, delirium secondary to missed dialysis sessions. Urinalysis showed only 4-6 wbc's. At this time, I believe the patient's delirium is secondary to missed dialysis sessions, I do not think there is evidence to suggest an act rebekah infectious process at this point in time.
--- NOTE | 2017-12-01 11:28 | PRG ---
DATE OF SERVICE: 12/01/2017 INTERVAL HISTORY: The patient's is by his bedside and he looks much better today compared to yesterday and there has been an interval change in his mental status since yesterday. Today, he is able to sit up and have breakfast and be calmer overall. LABORATORY DATA: White count is 8.5, hemoglobin 10.4, hematocrit 31, platelets are 228. PT 14.4, INR 1.1, PTT 27.7. Chemistry: Sodium 137, potassium 4.2, chloride 104, bicarbonate 25, BUN 31, creatinine 4.08, glucose 212, ALT less than 7, AST 11, alkaline phosphatase 114. B12 is 881. Folate 7.20. REPORTS ON FURTHER TESTING: He completed his MRI later and it showed chronic ischemic disease, no acute infarction. There is mild susceptibility in the right parietal lobe measuring hemosiderin deposition could be sequelae from prior infarct, motion artifact throughout the exam, does limit evaluation. PHYSICAL EXAMINATION: VITAL SIGNS: Blood pressure 153/64, temperature 97.8, pulse 75, and O2 sats 99. GENERAL: He is alert, awake, and sitting up by the bedside and eating breakfast and his higher intellectual functions, he is oriented to hospital and he lives in [place], [place], but not oriented to time, which states he does not usually keep up with and he was able to say he was in his 60s and then later was able to accurately give me his age with guidance. CRANIAL NERVES: Normal extraocular movements. No facial asymmetry. MOTOR: Normal strength bilaterally in upper and lower extremities. IMPRESSION: Patient is a 66-year-old man with hypertension, altered mental status associated with renal failure and needing hemodialysis and he does not have a stroke based on both CT angio with perfusion plus current MRI is no evidence of acute stroke. His mental status seems to be improving; therefore, I do not think we need to do any further testing such as lumbar puncture unless needed. RECOMMENDATIONS: Continue present management. Please call Neurology if you have any further questions. GEETA
[2017-12-01] MEDS: HumaLOG 300 UNITS/3 ML VIAL SC PRN (12:18)
--- NOTE | 2017-12-01 12:29 | PRG ---
DATE OF SERVICE: 12/01/2017 SUBJECTIVE: This is a 66-year-old male being seen for end-stage renal disease. The patient denies a ny nausea, vomiting or chest pain. PHYSICAL EXAMINATION: GENERAL: The patient is more awake, alert today. VITAL SIGNS: Afebrile, pulse 75, breathing at 16, blood pressure 153/64. GENERAL APPEARANCE AND MENTAL STATUS: Fair. HEAD/NECK: Normocephalic. Atraumatic. EYES: EOMI. No deformity. EARS: Clear. No ulcers. NOSE: Intact. No lesions. MOUTH: Clear. No discharge. THROAT: Clear. No exudate. LUNGS: Clear. No crackles. CARDIAC: S1, S2. No rub. ABDOMEN: Benign. BS+. GENITALIA/RECTUM: Barrera absent. BACK/EXTREMITIES: Edema 0+ Ulcer-. NEUROLOGICAL: Alert and motor intact. SKIN: Rash- Bruise- LYMPHATICS: Edema- Ulcer-. LABORATORY DATA: Show hemoglobin of 10.4. ASSESSMENT: 1. Stage 6 chronic kidney disease, continue hemodialysis. 2. Hypertension, stable. 3. Anemia, stable. 4. Hyperkalemia, stable. 5. Uremia, stable.
--- NOTE | 2017-12-01 16:13 | PRG ---
DATE OF SERVICE: 12/01/2017 SUBJECTIVE: Walter Janes encephalopathy has improved. He is more cooperative. OBJECTIVE: VITAL SIGNS: He is afebrile, heart rate 60, respirations 20, oximetry is 96 on room air, blood press ure 166/66. LUNGS: Clear. HEART: Regular rhythm. ABDOMEN: Soft. LABORATORY DATA: White count 8.5, hemoglobin 10.4, platelets 228. Sodium 137, potassium 4.2, chlori de 104, bicarbonate 25, BUN 31, creatinine 4.08. IMPRESSION: 1. Improved encephalopathy, stable to move out of intermediate care. 2. End-stage renal disease, on dialysis. 3. Hypertension. PLAN: Continue supportive care. I will transfer out of the Critical Care Unit. We will sign off.
--- NOTE | 2017-12-01 20:15 | PDOC.PN ---
- Subjective Encounter Start Date: 12/01/17 Encounter Start Time: 16:00 Patient seen and examined. No new complaints. Mentation improving. Passed swallow eval. No overnight events - Objective MAR Reviewed: Yes Vital Signs & Weight: Vital Signs (12 hours) Temp Pulse Pulse Resp BP BP BP 12/01/17 19:25 65 169/77 H 12/01/17 15:54 98 F 60 20 146/65 H 12/01/17 13:46 97.8 F 75 19 12/01/17 12:35 98.6 F 65 18 159/77 H 12/01/17 10:54 97.8 F 75 19 123/61 12/01/17 10:45 71 166/66 H 12/01/17 10:09 70 153/64 H 12/01/17 10:08 70 153/64 H Pulse Ox Pulse Ox 12/01/17 19:25 12/01/17 15:54 96 12/01/17 13:46 12/01/17 12:35 98 12/01/17 10:54 99 12/01/17 10:45 100 12/01/17 10:09 12/01/17 10:08 Weight Admit Weight 176 lb 1.6 oz Weight 176 lb 8 oz I&O: 11/30/17 12/01/17 12/02/17 06:59 06:59 06:59 Intake Total 160 229.0 360 Output Total 330 175 Balance -170 54.0 360 Result Diagrams: 12/01/17 03:35 12/01/17 03:35 Additional Labs: Accuchecks 12/01/17 12/01/17 12/01/17 17:23 10:35 05:39 POC Glucose 173 H 212 H 167 H 11/30/17 20:40 POC Glucose 181 H Radiology Reviewed by me: Yes (MRI - No CVA) EKG Reviewed by me: Yes (Tele SR) Phys Exam - Physical Examination Constitutional: NAD Respiratory: no wheezing, no rhonchi Cardiovascular: RRR, no rub Gastrointestinal: soft, non-tender, positive bowel sounds Neurological: non-focal, moves all 4 limbs Psychiatric: A&O x 3 Dx/Plan (1) Toxic metabolic encephalopathy Code(s): G92 - TOXIC ENCEPHALOPATHY Status: Acute Comment: prob due to uncontrolled HTN with missed dialysis x 2 (2) Sepsis Code(s): A41.9 - SEPSIS, UNSPECIFIED ORGANISM Status: Acute Comment: with Staph CN 1/2 bacteremia - On Vancomycin and Cefepime (3) Hypertensive urgency Code(s): I16.0 - HYPERTENSIVE URGENCY Status: Acute Comment: improving (4) DM2 (diabetes mellitus, type 2) Status: Chronic Qualifiers: Chronic kidney disease stage: on chronic dialysis Comment: on sliding scale (5) Dyslipidemia Code(s): E78.5 - HYPERLIPIDEMIA, UNSPECIFIED Status: Chronic (6) ESRD (end stage renal disease) on dialysis Code(s): N18.6 - END STAGE RENAL DISEASE; Z99.2 - DEPENDENCE ON RENAL DIALYSIS Status: Chronic Comment: HD per nephrology. (7) BPH (benign prostatic hyperplasia) Code(s): N40.0 - BENIGN PROSTATIC HYPERPLASIA WITHOUT LOWER URINRY TRACT SYMP Status: Chronic Comment: on Flomax (8) CAD (coronary artery disease) Code(s): I25.10 - ATHSCL HEART DISEASE OF [place] CORONARY ARTERY W/O ANG PCTRS Status: Chronic Comment: on ASA/Plavix (9) H/O: CVA (cerebrovascular accident) Code(s): Z86.73 - PRSNL HX OF TIA (TIA), AND CEREB INFRC W/O RESID DEFICITS Status: Acute Comment: on ASA/Plavix - Plan plan discussed w/ family, continue antibiotics, PT/OT, health and social care teacher, speech therapy, DVT proph w/heparin, DVT proph w/SCDs Transfer to Stroke unit -: Cont current meds and Atbx as below -: Dialysis in AM -: Possible dc in 1-2 days if stable -: [facility] eval Review of Systems - Review of Systems Respiratory: negative: Cough, Dry, Shortness of Breath, Hemoptysis, SOB with Excertion, Pleuritic Pain, Sputum, Wheezing Cardiovascular: negative: chest pain, palpitations, orthopnea, paroxysmal nocturnal dyspnea, edema, light headedness, other - Medications/Allergies Allergies/Adverse Reactions: Allergies Allergy/AdvReac Type Severity Reaction Status Date / Time No Known Allergies Allergy Verified 11/27/17 15:18 Medications: Current Medications Acetaminophen (Tylenol) 650 mg PO Q4H PRN PRN Reason: Headache/Fever or Pain Last Admin: 11/28/17 17:09 Dose: 650 mg Acetaminophen (Tylenol) 650 mg DC Q4H PRN PRN Reason: Headache/Fever or Pain Aspirin (Ecotrin) 81 mg PO DAILY [facility] Last Admin: 12/01/17 10:08 Dose: 81 mg Bisacodyl (Dulcolax) 10 mg PO DAILYPRN PRN PRN Reason: Constipation Clopidogrel Bisulfate (Plavix) 75 mg PO DAILY [facility] Last Admin: 12/01/17 10:08 Dose: 75 mg Dextrose/Water (Dextrose 50%) 25 gm SLOW IVP PRN PRN PRN Reason: Hypoglycemia Enalaprilat (Vasotec) 1.25 mg SLOW IVP Q6H PRN PRN Reason: SBP Greater Than 180 Famotidine (Pepcid) 20 mg PO DAILY [facility] Last Admin: 12/01/17 10:09 Dose: 20 mg Glucagon (Glucagon) 1 mg IM PRN PRN PRN Reason: Hypoglycemia Haloperidol Lactate (Haldol) 5 mg IM Q4H PRN PRN Reason: Agitation Last Admin: 11/30/17 22:26 Dose: 5 mg Heparin Sodium (Porcine) (Heparin) 5,000 units SC BID [facility] Last Admin: 12/01/17 10:08 Dose: 5,000 units Hydralazine HCl (Apresoline) 25 mg PO QID [facility] Last Admin: 12/01/17 19:25 Dose: 25 mg Hydralazine HCl (Apresoline) 20 mg SLOW IVP Q6H PRN PRN Reason: SBP Greater Than 170 Vancomycin HCl 1.25 gm/ Sodium (Chloride) 250 mls @ 166.667 mls/hr [facility] Vancomycin HCl 1 gm/ Device 200 mls @ 200 mls/hr [facility] Vancomycin HCl 750 mg/ Sodium (Chloride) 250 mls @ 250 mls/hr IVPB [facility] Last Admin: 11/29/17 15:29 Dose: 250 mls Vancomycin HCl 500 mg/ Sodium (Chloride) 100 mls @ 100 mls/hr [facility] Dextrose/Water (D5w) 1,000 mls @ 0 mls/hr IV .Q0M PRN; As Directed PRN Reason: Hypoglycemia Cefepime HCl 0.5 gm/Miscellaneous Medication 1 each/ Sodium Chloride 100 mls @ 200 mls/hr IVPB 0900 [facility] Last Admin: 12/01/17 10:07 Dose: 100 mls Insulin Human Lispro (Humalog) 0 units SC .MILD SLIDING SCALE PRN PRN Reason: Mild Correctional Scale Last Admin: 12/01/17 12:18 Dose: 3 unit Insulin Human Lispro (Humalog) 0 units SC .BEDTIME SLIDING SC PRN PRN Reason: Bedtime Correctional Scale Isosorbide Mononitrate (Imdur Er) 30 mg PO DAILY [facility] Last Admin: 12/01/17 10:08 Dose: 30 mg Labetalol HCl (Normodyne) 10 mg SLOW IVP Q4H PRN PRN Reason: SBP Greater Than 180 Last Admin: 11/28/17 04:55 Dose: 10 mg Losartan Potassium (Cozaar) 25 mg PO DAILY [facility] Last Admin: 12/01/17 10:07 Dose: 25 mg Metoprolol Tartrate (Lopressor) 50 mg PO BID [facility] Last Admin: 12/01/17 10:09 Dose: 50 mg Miscellaneous Medication (Pharmacy To Dose) 1 each IVPB PRN PRN PRN Reason: Pharmacy to dose Miscellaneous Medication (Pharmacy To Dose) 1 each IVPB PRN PRN PRN Reason: Pharmacy to dose Nifedipine (Procardia Xl) 60 mg PO DAILY [facility] Last Admin: 12/01/17 10:08 Dose: 60 mg Nifedipine (Procardia Xl) 30 mg PO HS [facility] Last Admin: 11/30/17 21:01 Dose: 30 mg Hold Vancomycin For (Level >20) 0 each FS .AT DIALYSIS [facility] Ondansetron HCl (Zofran Odt) 4 mg PO Q6H PRN PRN Reason: Nausea/Vomiting Ondansetron HCl (Zofran) 4 mg IVP Q6H PRN PRN Reason: Nausea/Vomiting Last Admin: 11/29/17 10:35 Dose: 4 mg Senna/Docusate Sodium (Senokot S) 1 tab PO BID [facility] Last Admin: 12/01/17 10:08 Dose: 1 tab Sodium Chloride (Flush - Normal Saline) 10 ml IVF PRN PRN PRN Reason: Saline Flush Tamsulosin HCl (Flomax) 0.4 mg PO DAILY [facility] Last Admin: 12/01/17 10:09 Dose: 0.4 mg
[2017-12-01] MEDS: NIFEdipine XL 30 MG TAB PO SCH (21:50)
[2017-12-02] MEDS: Acetaminophen 325 MG TAB PO PRN (00:33)
[2017-12-02 05:04] LABS: #Basophils 0.1 thou/uL (0.0-0.2); #Eosinphils 0.2 thou/uL (0.0-0.7); #Lymphocytes 1.3 thou/uL (1.20-3.40); #Monocytes 0.6 thou/uL (0.11-0.59); #Neutrophils 3.1 thou/uL (1.40-6.50); %Basophils 1.3 % (0.0-1.0); %Lymphocytes 25.3 % (21.0-51.0); %Monocytes 10.9 % (0.0-10.0); %Neutrophils 59.5 % (42.0-75.0); Hemoglobin 9.2 g/dL (14.0-18.0); Mean Corpuscular HGB CONC 33.5 g/dL (32.0-36.0); Mean Corpuscular Volume 89.6 fL (78.0-98.0); Mean Platelet Volume 8.4 fL (7.4-10.4); Platelet Count 206 thou/uL (130-400); RBC Distribution Width 13.6 % (11.5-14.5); Red Blood Cell (RBC) Count 3.07 mill/uL (4.70-6.10); White Blood Cell (WBC) Count 5.1 thou/uL (4.8-10.8)
[2017-12-02 05:41] LABS: Anion Gap 13 mmol/L (10-20); BUN (Urea Nitrogen) 39 mg/dL (8.4-25.7); Calc. Creatinine Clearance 18 mL/min (70-130); Calcium 8.2 mg/dL (7.8-10.44); Carbon Dioxide 25 mmol/L (23-31); Chloride 101 mmol/L (98-107); Estimated GFR-MDRD 13; Glucose 159 mg/dL (80-115); Sodium 135 mmol/L (136-145)
[2017-12-02] MEDS ORDERED: Epoetin (ESRD) 10,000 UNITS/ML VIAL IVP SCH (08:00)
[2017-12-02 08:18] LABS: Vancomycin, Trough 8.8 ug/mL
--- NOTE | 2017-12-02 11:34 | PRG ---
Patient Name: TASHA CLEMENTS Date of service: 12/02/2017 Subjective: Patient was seen and examined at bedside and overnight events noted. Patient denies any shortness of breath or chest pain or palpitation. No history of nausea or vomiting or diarrhea or fever or chills or cramps. Objective: General: This is a well-built male in no apparent distress. Vital signs: Temperature 98.4, pulse 80, respiratory rate 18, blood pressure 150/62. HEENT: Atraumatic, normocephalic. Oral mucosa is moist. Neck: Supple. Cardiovascular: S1 S2 heard. Rate and rhythm regular. Respiratory: Clear to auscultation. Gastrointestinal: Abdomen is soft. Musculoskeletal: No tenderness. No edema. Dermatologic: No skin rash. Neurologic: Alert and awake and oriented X3. No focal neurologic deficits. Moving all the extremit ies. Psychiatric: Mood and affect normal. LABORATORY DATA: Potassium 4.0, BUN 79, creatinine is 4.2. ASSESSMENT AND PLAN: 1. End-stage renal disease. Continue hemodialysis as tolerated. The patient was seen during dialys is, tolerating well. 2. Hypertension, stable. 3. Anemia. Monitor hemoglobin. 4. Continue Epogen with dialysis. Will have dialysis as tolerated. The patient was seen during dialysis and tolerated well. I will follow.
[2017-12-02] MEDS ORDERED: Cefepime 0.5 GM, Admixture Fee 1 EACH in Sodium Chloride 0.9% 100 ML IVPB SCH (12:00)
[2017-12-02] MEDS: Senokot S 8.6-50 MG TAB PO SCH ×2 (12:20→20:52)
[2017-12-02] MEDS: Aspirin 81 mg Enteric Coated Tablet PO SCH (12:20)
[2017-12-02] MEDS: Tamsulosin HCl 0.4 MG CAP PO SCH (12:20)
[2017-12-02] MEDS: Famotidine 20 MG TAB PO SCH (12:20)
[2017-12-02] MEDS: Metoprolol Tartrate 50 MG TAB PO SCH ×2 (12:21→20:52)
[2017-12-02] MEDS: Losartan 25 MG TAB PO SCH (12:21)
[2017-12-02] MEDS: hydrALAZINE 25 MG TAB PO SCH ×4 (12:21→20:52)
[2017-12-02] MEDS: NIFEdipine XL 60 MG TAB PO SCH (12:21)
[2017-12-02] MEDS: Clopidogrel Bisulfate 75 MG TAB PO SCH (12:22)
[2017-12-02] MEDS: Heparin 5,000 UNITS/ML VIAL SC SCH ×2 (12:29→20:53)
[2017-12-02] MEDS: Cefepime 0.5 GM, Admixture Fee 1 EACH in Sodium Chloride 0.9% 100 ML IVPB SCH (12:35)
[2017-12-02] MEDS: HumaLOG 300 UNITS/3 ML VIAL SC PRN (16:50)
[2017-12-02] MEDS: NIFEdipine XL 30 MG TAB PO SCH (20:53)
--- NOTE | 2017-12-02 21:08 | PDOC.PN ---
- Subjective Encounter Start Date: 12/02/17 Encounter Start Time: 09:00 Patient seen and examined during dialysis. Mentaion improving. No new complaints except some nausea without vomiting. No overnight events - Objective MAR Reviewed: Yes Vital Signs & Weight: Vital Signs (12 hours) Temp Pulse Pulse Pulse Pulse Resp BP 12/02/17 19:31 98.8 F 60 20 12/02/17 16:51 68 172/67 H 12/02/17 15:39 98.4 F 66 16 12/02/17 15:33 65 185/83 H 12/02/17 15:13 65 70 12/02/17 13:13 75 157/84 H 12/02/17 12:42 74 74 12/02/17 12:21 75 157/84 H 12/02/17 12:00 97.4 F L 75 16 12/02/17 11:00 98.4 F 56 L 16 BP BP BP BP Pulse Ox 12/02/17 19:31 155/76 H 95 12/02/17 16:51 12/02/17 15:39 185/83 H 96 12/02/17 15:33 12/02/17 15:13 178/90 H 215/121 H 12/02/17 13:13 12/02/17 12:42 156/85 H 167/91 H 12/02/17 12:21 12/02/17 12:00 157/84 H 97 12/02/17 11:00 95 Weight Admit Weight 176 lb 1.6 oz Weight 176 lb 8 oz I&O: 12/01/17 12/02/17 12/03/17 06:59 06:59 06:59 Intake Total 229.0 560 1200 Output Total 175 2000 Balance 54.0 560 -800 Result Diagrams: 12/03/17 04:41 12/03/17 04:41 Additional Labs: Accuchecks 12/02/17 12/02/17 12/01/17 16:43 13:05 21:44 POC Glucose 246 H 179 H 241 H EKG Reviewed by me: Yes (Tele SR) Phys Exam - Physical Examination Constitutional: NAD Respiratory: no wheezing, no rhonchi Cardiovascular: RRR, no rub Gastrointestinal: soft, non-tender, positive bowel sounds Musculoskeletal: no edema Neurological: moves all 4 limbs Dx/Plan (1) Toxic metabolic encephalopathy Code(s): G92 - TOXIC ENCEPHALOPATHY Status: Acute Comment: prob due to uncontrolled HTN with missed dialysis x 2 - improving (2) Sepsis Code(s): A41.9 - SEPSIS, UNSPECIFIED ORGANISM Status: Acute Comment: with Staph CN 1/2 bacteremia - On Vancomycin and Cefepime (3) Hypertensive urgency Code(s): I16.0 - HYPERTENSIVE URGENCY Status: Acute Comment: improving (4) DM2 (diabetes mellitus, type 2) Status: Chronic Qualifiers: Chronic kidney disease stage: on chronic dialysis Comment: on sliding scale (5) Dyslipidemia Code(s): E78.5 - HYPERLIPIDEMIA, UNSPECIFIED Status: Chronic (6) ESRD (end stage renal disease) on dialysis Code(s): N18.6 - END STAGE RENAL DISEASE; Z99.2 - DEPENDENCE ON RENAL DIALYSIS Status: Chronic Comment: HD per nephrology. (7) BPH (benign prostatic hyperplasia) Code(s): N40.0 - BENIGN PROSTATIC HYPERPLASIA WITHOUT LOWER URINRY TRACT SYMP Status: Chronic Comment: on Flomax - follows Dr Gallagher (8) CAD (coronary artery disease) Code(s): I25.10 - ATHSCL HEART DISEASE OF [place] CORONARY ARTERY W/O ANG PCTRS Status: Chronic Comment: on ASA/Plavix (9) H/O: CVA (cerebrovascular accident) Code(s): Z86.73 - PRSNL HX OF TIA (TIA), AND CEREB INFRC W/O RESID DEFICITS Status: Acute Comment: on ASA/Plavix - Plan continue antibiotics, DVT proph w/heparin, DVT proph w/SCDs Cont current meds as below -: AM labs -: Possible dc in AM if mentation cont to improves -: Will plan outpt Atbx with Dr Cheney Review of Systems - Review of Systems Respiratory: negative: Cough, Dry, Shortness of Breath, Hemoptysis, SOB with Excertion, Pleuritic Pain, Sputum, Wheezing Cardiovascular: negative: chest pain, palpitations, orthopnea, paroxysmal nocturnal dyspnea, edema, light headedness, other Gastrointestinal: negative: Nausea, Vomiting, Abdominal Pain, Diarrhea, Constipation, Melena, Hematochezia, Other - Medications/Allergies Allergies/Adverse Reactions: Allergies Allergy/AdvReac Type Severity Reaction Status Date / Time No Known Allergies Allergy Verified 11/27/17 15:18 Medications: Current Medications Acetaminophen (Tylenol) 650 mg PO Q4H PRN PRN Reason: Headache/Fever or Pain Last Admin: 12/02/17 00:33 Dose: 650 mg Acetaminophen (Tylenol) 650 mg [place] Q4H PRN PRN Reason: Headache/Fever or Pain Aspirin (Ecotrin) 81 mg PO DAILY [facility] Last Admin: 12/02/17 12:20 Dose: 81 mg Bisacodyl (Dulcolax) 10 mg PO DAILYPRN PRN PRN Reason: Constipation Clopidogrel Bisulfate (Plavix) 75 mg PO DAILY [facility] Last Admin: 12/02/17 12:22 Dose: 75 mg Dextrose/Water (Dextrose 50%) 25 gm SLOW IVP PRN PRN PRN Reason: Hypoglycemia Enalaprilat (Vasotec) 1.25 mg SLOW IVP Q6H PRN PRN Reason: SBP Greater Than 180 Epoetin Wiley (Procrit) 10,000 units IVP WILLCALL [facility] Last Admin: 12/02/17 10:01 Dose: 10,000 units Famotidine (Pepcid) 20 mg PO DAILY [facility] Last Admin: 12/02/17 12:20 Dose: 20 mg Glucagon (Glucagon) 1 mg IM PRN PRN PRN Reason: Hypoglycemia Haloperidol Lactate (Haldol) 5 mg IM Q4H PRN PRN Reason: Agitation Last Admin: 11/30/17 22:26 Dose: 5 mg Heparin Sodium (Porcine) (Heparin) 5,000 units SC BID [facility] Last Admin: 12/02/17 12:29 Dose: 5,000 units Hydralazine HCl (Apresoline) 25 mg PO QID [facility] Last Admin: 12/02/17 16:51 Dose: 25 mg Hydralazine HCl (Apresoline) 20 mg SLOW IVP Q6H PRN PRN Reason: SBP Greater Than 170 Last Admin: 12/02/17 15:33 Dose: 20 mg Vancomycin HCl 1.25 gm/ Sodium (Chloride) 250 mls @ 166.667 mls/hr IVPB WILLCALL [facility] Vancomycin HCl 1 gm/ Device 200 mls @ 200 mls/hr IVPB WILLCALL [facility] Last Admin: 12/02/17 10:19 Dose: 200 mls Vancomycin HCl 750 mg/ Sodium (Chloride) 250 mls @ 250 mls/hr IVPB [facility]CALL [facility] Last Admin: 11/29/17 15:29 Dose: 250 mls Vancomycin HCl 500 mg/ Sodium (Chloride) 100 mls @ 100 mls/hr IVPB WILLCALL [facility] Dextrose/Water (D5w) 1,000 mls @ 0 mls/hr IV .Q0M PRN; As Directed PRN Reason: Hypoglycemia Cefepime HCl 0.5 gm/Miscellaneous Medication 1 each/ Sodium Chloride 100 mls @ 200 mls/hr IVPB 1200 [facility] Last Admin: 12/02/17 12:18 Dose: 100 mls Insulin Human Lispro (Humalog) 0 units SC .MILD SLIDING SCALE PRN PRN Reason: Mild Correctional Scale Last Admin: 12/02/17 16:50 Dose: 3 unit Insulin Human Lispro (Humalog) 0 units SC .BEDTIME SLIDING SC PRN PRN Reason: Bedtime Correctional Scale Last Admin: 12/01/17 21:51 Dose: 2 unit Isosorbide Mononitrate (Imdur Er) 30 mg PO DAILY [facility] Last Admin: 12/02/17 12:20 Dose: 30 mg Labetalol HCl (Normodyne) 10 mg SLOW IVP Q4H PRN PRN Reason: SBP Greater Than 180 Last Admin: 11/28/17 04:55 Dose: 10 mg Losartan Potassium (Cozaar) 25 mg PO DAILY [facility] Last Admin: 12/02/17 12:21 Dose: 25 mg Metoprolol Tartrate (Lopressor) 50 mg PO BID [facility] Last Admin: 12/02/17 12:21 Dose: 50 mg Miscellaneous Medication (Pharmacy To Dose) 1 each IVPB PRN PRN PRN Reason: Pharmacy to dose Miscellaneous Medication (Pharmacy To Dose) 1 each IVPB PRN PRN PRN Reason: Pharmacy to dose Nifedipine (Procardia Xl) 60 mg PO DAILY [facility] Last Admin: 12/02/17 12:21 Dose: 60 mg Nifedipine (Procardia Xl) 30 mg PO HS [facility] Last Admin: 12/01/17 21:50 Dose: 30 mg Hold Vancomycin For (Level >20) 0 each FS .AT DIALYSIS [facility] Ondansetron HCl (Zofran Odt) 4 mg PO Q6H PRN PRN Reason: Nausea/Vomiting Ondansetron HCl (Zofran) 4 mg IVP Q6H PRN PRN Reason: Nausea/Vomiting Last Admin: 11/29/17 10:35 Dose: 4 mg Senna/Docusate Sodium (Senokot S) 1 tab PO BID [facility] Last Admin: 12/02/17 12:20 Dose: 1 tab Sodium Chloride (Flush - Normal Saline) 10 ml IVF PRN PRN PRN Reason: Saline Flush Tamsulosin HCl (Flomax) 0.4 mg PO DAILY [facility] Last Admin: 12/02/17 12:20 Dose: 0.4 mg
[2017-12-03 05:11] LABS: #Basophils 0.1 thou/uL (0.0-0.2); #Eosinphils 0.2 thou/uL (0.0-0.7); #Lymphocytes 1.1 thou/uL (1.20-3.40); #Monocytes 0.6 thou/uL (0.11-0.59); %Lymphocytes 18.9 % (21.0-51.0); %Monocytes 9.9 % (0.0-10.0); %Neutrophils 67.3 % (42.0-75.0); Hemoglobin 9.7 g/dL (14.0-18.0); Mean Corpuscular HGB CONC 32.7 g/dL (32.0-36.0); Mean Corpuscular Hemoglobin 29.1 pg (27.0-31.0); Mean Corpuscular Volume 89.1 fL (78.0-98.0); Mean Platelet Volume 8.5 fL (7.4-10.4); Platelet Count 232 thou/uL (130-400); RBC Distribution Width 13.7 % (11.5-14.5); Red Blood Cell (RBC) Count 3.33 mill/uL (4.70-6.10)
[2017-12-03 05:30] LABS: Anion Gap 12 mmol/L (10-20); BUN (Urea Nitrogen) 22 mg/dL (8.4-25.7); Calc. Creatinine Clearance 27 mL/min (70-130); Calcium 8.4 mg/dL (7.8-10.44); Carbon Dioxide 27 mmol/L (23-31); Chloride 100 mmol/L (98-107); Estimated GFR-MDRD 21; Glucose 189 mg/dL (80-115); Potassium 3.9 mmol/L (3.5-5.1); Sodium 135 mmol/L (136-145)
[2017-12-03] MEDS: HumaLOG 300 UNITS/3 ML VIAL SC PRN ×2 (06:45→11:05)
[2017-12-03] MEDS: Metoprolol Tartrate 50 MG TAB PO SCH (07:52)
[2017-12-03] MEDS: NIFEdipine XL 60 MG TAB PO SCH (07:52)
[2017-12-03] MEDS: Aspirin 81 mg Enteric Coated Tablet PO SCH (07:52)
[2017-12-03] MEDS: hydrALAZINE 25 MG TAB PO SCH (07:53)
[2017-12-03] MEDS: Tamsulosin HCl 0.4 MG CAP PO SCH (07:53)
[2017-12-03] MEDS: Losartan 25 MG TAB PO SCH (07:53)
[2017-12-03] MEDS: Clopidogrel Bisulfate 75 MG TAB PO SCH (07:53)
[2017-12-03] MEDS: Heparin 5,000 UNITS/ML VIAL SC SCH (07:54)
[2017-12-03] MEDS: Famotidine 20 MG TAB PO SCH (07:55)
[2017-12-03] MEDS: Senokot S 8.6-50 MG TAB PO SCH (08:47)
--- NOTE | 2017-12-03 10:02 | PRG ---
DATE OF SERVICE: 12/03/2017 SUBJECTIVE: Patient was seen and examined at bedside and overnight events noted. Patient denies any shortness of breath or chest pain or palpitation. No history of nausea or vomiting or diarrhea or f ever or chills or cramps. OBJECTIVE: GENERAL: This is a well-built male in no apparent distress. VITAL SIGNS: Temperature 98.3, pulse 87, respiratory rate 16, blood pressure 137/83. HEENT: Atraumatic, normocephalic. Oral mucosa is moist. NECK: Supple. CARDIOVASCULAR: S1, S2 heard. Rate and rhythm regular. RESPIRATORY: Clear to auscultation. GASTROINTESTINAL: Abdomen is soft. MUSCULOSKELETAL: No tenderness. No edema. DERMATOLOGIC: No skin rash. NEUROLOGIC: Alert and awake and oriented x3. No focal neurologic deficits. Moving all the extremiti es. PSYCHIATRIC: Mood and affect normal. LABORATORY DATA: Potassium is 3.9, BUN 72, creatinine is 3.7. ASSESSMENT AND PLAN: 1. End-stage renal disease, continue on hemodialysis as tolerated. 2. Hypertension, stable. 3. Anemia. 4. Edema, controlled. 5. Continue on dialysis Saturday, Saturday, and Saturday as tolerated.
[2017-12-03 11:34] VITALS: TEMP 98.4
--- NOTE | 2017-12-03 12:22 | DIS ---
DISCHARGE DISPOSITION: Home with home health care. FOLLOWUP: 1. Follow up with primary care physician at [facility]. 2. Follow up with Nephrology for maintenance hemodialysis. The patient was seen and examined on the day of discharge. Denies any new complaints. Mentation has significantly improved. DISCHARGE MEDICATIONS: 1. Losartan 25 mg daily. 2. All other home medications were resumed. BRIEF HOSPITAL COURSE: Patient is a 66-year-old male with end-stage renal disease on hemodialysis, h ypertension, diabetes mellitus type 2, coronary artery disease, status post stent placement, who pres ented to the emergency room with vomiting. Patient had missed two dialysis sessions due to malfuncti oning fistula. He also had some headache with some somnolence. Please refer to the history and phys ical for further details. The patient was admitted to the telemetry unit with a diagnosis of hypertensive urgency along with se psis. He was started on broad spectrum antibiotics. He underwent balloon angioplasty of the stenosi s at the cephalic venous fistula. He was able to have successful dialysis after that. On 11/29/2017, he had a stroke alert for altered mentation. His stroke workup; however, was negative . A CT angiogram of the head and neck was essentially negative. The patient was also evaluated by Dr. Jakub Maloney. Due to worsening mentation, he was transferred to the Intermediate Care Unit. Dialysis sessions were continued. He also underwent an MRI of the brain that was negative. MRI of the brain was done due to progressive worsening confusion. Over the last 48 hours, his mentation has significantly improved. He underwent dialysis yesterday. He has been cleared by consultants for chito reich. One of two blood cultures was consistent with coagulase negative Staphylococcus. I discuss ed with Dr. Cheney today. Dr. Cheney suggested to discontinue antibiotics. All other home medications were resumed. Home health care for nursing will be arranged. Losartan was added to his regimen per Nephrology. He will benefit from a repeat base met after 1-2 weeks to rule out hyperkalemia. His u rine culture was negative. FINAL DIAGNOSES: 1. Toxic metabolic encephalopathy, multifactorial. This was probably secondary to uncontrolled hype rtension as well as two missed hemodialysis sessions. 2. Sepsis with one of two coagulase negative Staphylococcus. Dr. Cheney recommended discontinuation of the antibiotics today. He was placed on broad-spectrum antibiotics. 3. Hypertensive urgency, improved, probably secondary to missed dialysis. Losartan was added to his home regimen. 4. Coronary artery disease, status post stent placement on aspirin and Plavix. 5. Benign prostatic hypertrophy. The patient was also seen by Dr. Gallagher. He will follow up with Dr Carmela Gallagher as outpatient. 6. End-stage renal disease on hemodialysis. 7. Dyslipidemia. 8. Diabetes mellitus type 2. 9. History of cerebrovascular accident. 10. Chronic anemia of renal disease. 11. Mild hyponatremia. Plan of care was discussed with the patient and the family at the bedside in detail. They stated und erstanding. Total time coordinating the discharge of this patient was 35 minutes.
[2017-12-03 13:15] VITALS: BP 146/79
== END 2017-12-03 12:09 | disposition home or self-care (01) | DRG 853 ==
LOC: ERS 10:58 → 2NO 14:54 → 2SE 11-29 07:43 → IMCU/EMU 11-29 20:06 → 2SE 12-01 12:36
PROVIDERS: ADMIT Internal Medicine; ATTEND Internal Medicine
PROC: 057F3ZZ Dilation of Left Cephalic Vein, Percutaneous Approach (ICD-10-PCS; principal; 2017-11-28)
PROC: B51WYZZ Fluoroscopy of Dialysis Shunt/Fistula using Other Contrast (ICD-10-PCS; 2017-11-28)
DX: A41.9 Sepsis, unspecified organism (principal); G92 Toxic encephalopathy; N18.6 End stage renal disease; I12.0 Hypertensive chronic kidney disease with stage 5 chronic kidney disease or end stage renal disease; E87.1 Hypo-osmolality and hyponatremia; R47.01 Aphasia; I16.0 Hypertensive urgency; I25.10 Atherosclerotic heart disease of native coronary artery without angina pectoris; N40.0 Benign prostatic hyperplasia without lower urinary tract symptoms; E11.22 Type 2 diabetes mellitus with diabetic chronic kidney disease; Z99.2 Dependence on renal dialysis; E78.5 Hyperlipidemia, unspecified; Z86.73 Personal history of transient ischemic attack (TIA), and cerebral infarction without residual deficits; D63.1 Anemia in chronic kidney disease; E87.5 Hyperkalemia; Z95.5 Presence of coronary angioplasty implant and graft; R41.0 Disorientation, unspecified; R29.810 Facial weakness; E11.21 Type 2 diabetes mellitus with diabetic nephropathy; Z83.3 Family history of diabetes mellitus
CPT/HCPCS: 36415; 36416; 36901; 36902; 70450; 70496; 70498; 70551; 71045; 76937; 80048; 80053; 80202; 81001; 82140; 82330; 82550; 82553; 82607; 82746; 82803; 83605; 84443; 84484; 85025; 85610; 85730; 87040; 87086; 87149; 87340; 90935; 93005; 93010; 94760; 96365; 96366; 96367; 96375; A4216; C1725; G0257; G8978-GP-CM; G8979-GP-CK; G8987-GO-CJ; G8988-GO-CI; G8996-GN-CL; G8997-GN-CI; J0360; J0692; J1630; J1644; J2060; J2405; J2543; J2997; J3370; J7050; Q4081

== ENCOUNTER 2018-01-01 22:03 | Emergency (ER) | payer MEDICARE ==
[2018-01-01] MEDS ORDERED: hydrALAZINE 20 MG/ML VIAL ONE (22:23)
[2018-01-01] MEDS ORDERED: Ondansetron HCl/PF 4 MG/2 ML Vial ONE (22:23)
[2018-01-01 22:43] LABS: #Eosinphils 0.1 thou/uL (0.0-0.7); #Lymphocytes 1.3 thou/uL (1.20-3.40); #Monocytes 0.4 thou/uL (0.11-0.59); #Neutrophils 4.6 thou/uL (1.40-6.50); %Basophils 0.8 % (0.0-1.0); %Eosinophils 2.2 % (0.0-10.0); %Lymphocytes 19.8 % (21.0-51.0); %Monocytes 6.3 % (0.0-10.0); Hemoglobin 12.9 g/dL (14.0-18.0); Mean Corpuscular HGB CONC 33.3 g/dL (32.0-36.0); Mean Corpuscular Hemoglobin 30.3 pg (27.0-31.0); Mean Corpuscular Volume 91.1 fL (78.0-98.0); Mean Platelet Volume 8.1 fL (7.4-10.4); Platelet Count 262 thou/uL (130-400); RBC Distribution Width 13.5 % (11.5-14.5); Red Blood Cell (RBC) Count 4.24 mill/uL (4.70-6.10); White Blood Cell (WBC) Count 6.5 thou/uL (4.8-10.8)
--- NOTE | 2018-01-01 22:45 | RAD ---
AP VIEW CHEST 01/01/18 INDICATION: Nausea, vomiting. COMPARISON: 11/29/17. IMPRESSION: No acute cardiopulmonary abnormality. COMMENTS: There is an azygos flow involving the right upper lobe. Heart size is within normal limits. No consol idation, pleural effusion or pneumothorax is evident. POS: [facility]
[2018-01-01 23:04] LABS: ALT (SGPT) 18 U/L (8-55); AST (SGOT) 15 U/L (5-34); Albumin 3.6 g/dL (3.4-4.8); Alkaline Phosphatase 197 U/L (40-150); Anion Gap 12 mmol/L (10-20); BUN (Urea Nitrogen) 38 mg/dL (8.4-25.7); Bilirubin, Total 0.5 mg/dL (0.2-1.2); Calc. Creatinine Clearance 0 mL/min (70-130); Calcium 9.3 mg/dL (7.8-10.44); Carbon Dioxide 31 mmol/L (23-31); Chloride 98 mmol/L (98-107); Estimated GFR-MDRD 19; Globulin 3.7 g/dL (2.4-3.5); Glucose 217 mg/dL (80-115); Lipase 18 U/L (8-78); Magnesium 1.8 mg/dL (1.6-2.6); Protein, Total 7.3 g/dL (5.8-8.1); Sodium 137 mmol/L (136-145)
[2018-01-01 23:11] LABS: CKMB 2.9 ng/mL (0-6.6); Troponin I 0.018 ng/mL (< 0.028)
== END 2018-01-02 00:28 | disposition home or self-care (01) ==
LOC: ERS 22:03
DX: I12.0 Hypertensive chronic kidney disease with stage 5 chronic kidney disease or end stage renal disease (principal); N18.6 End stage renal disease; E11.22 Type 2 diabetes mellitus with diabetic chronic kidney disease; I25.10 Atherosclerotic heart disease of native coronary artery without angina pectoris; Z99.2 Dependence on renal dialysis; F41.9 Anxiety disorder, unspecified; Z79.82 Long term (current) use of aspirin; Z79.899 Other long term (current) drug therapy
CPT/HCPCS: 71045; 80053; 82553; 83690; 83735; 84484; 85025; 93005; 96374; 96375; J0360; J2405

== ENCOUNTER 2018-02-10 15:53 | Emergency (ER) | payer MEDICARE ==
[2018-02-10 17:41] LABS: #Eosinphils 0.1 thou/uL (0.0-0.7); #Monocytes 0.4 thou/uL (0.11-0.59); #Neutrophils 6.4 thou/uL (1.40-6.50); %Basophils 0.4 % (0.0-1.0); %Eosinophils 0.9 % (0.0-10.0); %Lymphocytes 12.9 % (21.0-51.0); %Monocytes 5.2 % (0.0-10.0); %Neutrophils 80.6 % (42.0-75.0); Hemoglobin 11.6 g/dL (14.0-18.0); Mean Corpuscular HGB CONC 33.8 g/dL (32.0-36.0); Mean Corpuscular Hemoglobin 29.6 pg (27.0-31.0); Mean Corpuscular Volume 87.5 fL (78.0-98.0); Mean Platelet Volume 8.3 fL (7.4-10.4); Platelet Count 281 thou/uL (130-400); RBC Distribution Width 11.8 % (11.5-14.5); Red Blood Cell (RBC) Count 3.92 mill/uL (4.70-6.10)
[2018-02-10 18:02] LABS: ALT (SGPT) 15 U/L (8-55); AST (SGOT) 12 U/L (5-34); Albumin 3.3 g/dL (3.4-4.8); Alkaline Phosphatase 182 U/L (40-150); Anion Gap 14 mmol/L (10-20); BUN (Urea Nitrogen) 16 mg/dL (8.4-25.7); Bilirubin, Total 0.5 mg/dL (0.2-1.2); Calc. Creatinine Clearance 0 mL/min (70-130); Calcium 8.7 mg/dL (7.8-10.44); Carbon Dioxide 28 mmol/L (23-31); Chloride 99 mmol/L (98-107); Estimated GFR-MDRD 21; Globulin 4.1 g/dL (2.4-3.5); Glucose 189 mg/dL (80-115); Potassium 3.7 mmol/L (3.5-5.1); Protein, Total 7.4 g/dL (5.8-8.1); Sodium 137 mmol/L (136-145)
[2018-02-10 18:06] LABS: CKMB 2.8 ng/mL (0-6.6); Troponin I 0.021 ng/mL (< 0.028)
--- NOTE | 2018-02-10 18:19 | RAD ---
ONE VIEW CHEST: HISTORY: Altered mental status. TECHNIQUE: AP view chest is obtained. FINDINGS: The lungs are well aerated. Mild pulmonary vascular congestion is seen. No evidence of effusions, p neumonia, or pneumothorax is seen. IMPRESSION: Pulmonary vascular congestion; otherwise, unremarkable anterior-posterior view chest. POS: [facility]
== END 2018-02-10 18:42 | disposition left against medical advice (07) ==
LOC: ERS 15:53
DX: R41.82 Altered mental status, unspecified (principal); I10 Essential (primary) hypertension; E11.9 Type 2 diabetes mellitus without complications; I25.10 Atherosclerotic heart disease of native coronary artery without angina pectoris; F41.9 Anxiety disorder, unspecified
CPT/HCPCS: 36415; 71045; 80053; 82553; 84484; 85025; 93005

== ENCOUNTER 2018-02-28 10:00 | Emergency (ER) | payer MEDICARE ==
--- NOTE | 2018-02-28 10:38 | CT ---
CT HEAD NONCONTRAST: Date: 02/28/18 INDICATION: Post-traumatic head injury, pain. FINDINGS: There is moderate global atrophy and prominence of the ventricular system. Moderate chronic microvasc ular ischemic disease is present. No intracranial hemorrhage, mass effect, or midline shift. No mayito rial fracture. There is decreased pneumatization of mastoid air cells. IMPRESSION: 1. No acute intracranial hemorrhage or mass effect. 2. Global atrophy with ventriculomegaly. 3. Moderate chronic ischemic disease. Telephone call findings placed to ER physician, Sourav Vazquez, at 1022 hours on 02/28/18. CODE CR. POS: [facility]
== END 2018-02-28 10:48 | disposition home or self-care (01) ==
LOC: ERS 10:00
DX: S06.0X0A Concussion without loss of consciousness, initial encounter (principal); I10 Essential (primary) hypertension; E11.9 Type 2 diabetes mellitus without complications; I25.10 Atherosclerotic heart disease of native coronary artery without angina pectoris; F41.9 Anxiety disorder, unspecified; W01.10XA Fall on same level from slipping, tripping and stumbling with subsequent striking against unspecified object, initial encounter
CPT/HCPCS: 70450

== ENCOUNTER 2018-03-05 09:59 | Emergency (ER) | payer MEDICARE ==
[2018-03-05 10:56] LABS: #Eosinphils 0.3 thou/uL (0.0-0.7); #Lymphocytes 1.3 thou/uL (1.20-3.40); #Monocytes 0.5 thou/uL (0.11-0.59); #Neutrophils 4.5 thou/uL (1.40-6.50); %Basophils 0.2 % (0.0-1.0); %Eosinophils 4.1 % (0.0-10.0); %Lymphocytes 19.7 % (21.0-51.0); %Monocytes 7.7 % (0.0-10.0); %Neutrophils 68.3 % (42.0-75.0); Hemoglobin 12.4 g/dL (14.0-18.0); Mean Corpuscular Hemoglobin 28.7 pg (27.0-31.0); Mean Corpuscular Volume 89.6 fL (78.0-98.0); Mean Platelet Volume 8.5 fL (7.4-10.4); Platelet Count 217 thou/uL (130-400); RBC Distribution Width 13.3 % (11.5-14.5); Red Blood Cell (RBC) Count 4.33 mill/uL (4.70-6.10); White Blood Cell (WBC) Count 6.6 thou/uL (4.8-10.8)
[2018-03-05 11:20] LABS: ALT (SGPT) 15 U/L (8-55); AST (SGOT) 11 U/L (5-34); Albumin 2.9 g/dL (3.4-4.8); Alkaline Phosphatase 136 U/L (40-150); Anion Gap 13 mmol/L (10-20); BUN (Urea Nitrogen) 30 mg/dL (8.4-25.7); Bilirubin, Total 0.5 mg/dL (0.2-1.2); Calc. Creatinine Clearance 0 mL/min (70-130); Calcium 8.7 mg/dL (7.8-10.44); Carbon Dioxide 23 mmol/L (23-31); Chloride 104 mmol/L (98-107); Estimated GFR-MDRD 11; Globulin 3.4 g/dL (2.4-3.5); Glucose 234 mg/dL (80-115); Lipase 6 U/L (8-78); Protein, Total 6.3 g/dL (5.8-8.1); Sodium 136 mmol/L (136-145)
[2018-03-05] MEDS ORDERED: ISOVUE-370 76%-LOCM 1 ML ONE (12:52)
--- NOTE | 2018-03-05 12:59 | CT ---
CT ABDOMEN AND PELVIS PERFORMED WITH INTRAVENOUS CONTRAST ENHANCEMENT: HISTORY: Abdominal pain associated with diarrhea. Pain for the last several weeks, localized more to the epig astric region. The patient is a dialysis patient. FINDINGS: ABDOMEN: The lung bases show small bilateral pleural effusions, right larger than left, with some gr ound glass opacity in the bases. This could be on the basis of some edema change. The examination was obtained in a somewhat arterial phase. The liver and spleen are within normal li mits in size and show no focal abnormalities. The pancreas and gallbladder are unremarkable. The right and left adrenal glands are normal. The right and left kidneys are normal in size and are not obstructed. An exophytic cyst involves the right kidney, more in the upper pole, anterior cortex . It measures 3.4 cm. There is no significant periaortic or mesenteric adenopathy. There is colonic wall thickening. This is somewhat more pronounced in the right colon and cecum taryn on. The transverse and descending colon are largely decompressed, but they also show evidence for wa ll edema, as does some of the sigmoid colon. There is some minimal pericolonic fat stranding. No pn eumatosis is identified. PELVIS: Moderate stool is present in the rectosigmoid region. There is some minimal ascites noted. IMPRESSION: 1. Findings suggestive of fairly diffuse colitis involving both the right, transverse, descending, a nd sigmoid colon. There is some minimal pericolonic fat stranding, associated with the wall thickeni ng. No pneumatosis is identified. There is some trace ascites noted. 2. Small bilateral pleural effusions, right larger than left. POS: [facility]
== END 2018-03-05 13:25 | disposition home or self-care (01) ==
LOC: ERS 09:59
DX: K52.9 Noninfective gastroenteritis and colitis, unspecified (principal); K21.9 Gastro-esophageal reflux disease without esophagitis; E11.22 Type 2 diabetes mellitus with diabetic chronic kidney disease; I25.10 Atherosclerotic heart disease of native coronary artery without angina pectoris; I12.0 Hypertensive chronic kidney disease with stage 5 chronic kidney disease or end stage renal disease; N18.6 End stage renal disease; F41.9 Anxiety disorder, unspecified; Z99.2 Dependence on renal dialysis; Z79.82 Long term (current) use of aspirin; Z79.899 Other long term (current) drug therapy; Z79.4 Long term (current) use of insulin
CPT/HCPCS: 74177; 80053; 83690; 85025

== ENCOUNTER 2018-03-19 11:24 | Emergency (ER) | payer MEDICARE ==
[2018-03-19 12:51] LABS: #Basophils 0.1 thou/uL (0.0-0.2); #Eosinphils 0.2 thou/uL (0.0-0.7); #Lymphocytes 0.9 thou/uL (1.20-3.40); #Monocytes 0.7 thou/uL (0.11-0.59); %Basophils 0.8 % (0.0-1.0); %Eosinophils 3.2 % (0.0-10.0); %Lymphocytes 13.6 % (21.0-51.0); %Monocytes 10.4 % (0.0-10.0); Hemoglobin 9.7 g/dL (14.0-18.0); Mean Corpuscular HGB CONC 31.6 g/dL (32.0-36.0); Mean Corpuscular Hemoglobin 28.1 pg (27.0-31.0); Mean Platelet Volume 7.7 fL (7.4-10.4); Platelet Count 283 thou/uL (130-400); RBC Distribution Width 13.4 % (11.5-14.5); Red Blood Cell (RBC) Count 3.44 mill/uL (4.70-6.10); White Blood Cell (WBC) Count 6.9 thou/uL (4.8-10.8)
--- NOTE | 2018-03-19 13:08 | RAD ---
CHEST 2 VIEWS: HISTORY: Cough. COMPARISON: Radiograph 02/10/2018. FINDINGS: Lungs are clear. Incidental note is made of an azygous fissure. Cardiac silhouette and mediastinal contours are within normal limits. No acute osseous abnormality. IMPRESSION: No acute intrathoracic abnormality. POS: [facility]
[2018-03-19 13:09] LABS: Troponin I 0.032 ng/mL (< 0.028)
--- NOTE | 2018-03-19 13:14 | CT ---
CT BRAIN WITHOUT CONTRAST: INDICATIONS: History of productive cough, status post fall, hitting head on toilet. COMPARISON: 02/28/2018 FINDINGS: The skull and extracranial soft tissues are within normal limits. There is mild mucosal thickening w ith ethmoid air cells. There are bilateral mastoid effusions, which appear similar to the prior exam . Generalized cerebral and cerebellar atrophy is stable. Mild chronic small vessel white matter ischem ic change is similar appearing. Remote lacunar infarct involving the left thalamus is stable. The s eptum pellucidum and third ventricle are midline. IMPRESSION: 1. No acute intracranial abnormality. 2. Stable mild paranasal sinus disease and mild bilateral mastoid effusions. 3. Stable chronic findings as above. POS: [facility]
[2018-03-19 13:17] LABS: ALT (SGPT) 10 U/L (8-55); AST (SGOT) 13 U/L (5-34); Albumin 2.9 g/dL (3.4-4.8); Alkaline Phosphatase 124 U/L (40-150); Anion Gap 11 mmol/L (10-20); BUN (Urea Nitrogen) 47 mg/dL (8.4-25.7); Bilirubin, Total 0.6 mg/dL (0.2-1.2); Calc. Creatinine Clearance 0 mL/min (70-130); Calcium 8.7 mg/dL (7.8-10.44); Carbon Dioxide 25 mmol/L (23-31); Chloride 103 mmol/L (98-107); Estimated GFR-MDRD 10; Globulin 3.7 g/dL (2.4-3.5); Glucose 139 mg/dL (80-115); Potassium 4.7 mmol/L (3.5-5.1); Protein, Total 6.6 g/dL (5.8-8.1); Sodium 134 mmol/L (136-145)
--- NOTE | 2018-03-19 13:17 | CT ---
CT CERVICAL SPINE WITHOUT CONTRAST: INDICATIONS: Fall with neck pain. COMPARISON: None. FINDINGS: There is mild multilevel spondylosis of the cervical spine. The craniocervical junction appears with in normal limits. The osseous central canal is preserved. A degenerative cortical cyst-like abnorma lity is seen within the superior and posterior aspects of C7. This could reflect a small bony neva ioma as well. There is an azygous lobe. The prevertebral soft tissues appear within normal limits. IMPRESSION: 1. No acute fracture or subluxation demonstrated. 2. Mild multilevel spondylosis of the cervical spine. POS: [facility]
[2018-03-19] MEDS ORDERED: hydrALAZINE 25 MG TAB ONE (14:58)
--- NOTE | 2018-03-22 12:18 | EKG ---
Test Reason : Blood Pressure : / mmHG Vent. Rate : 060 BPM Atrial Rate : 060 BPM P-R Int : 142 ms QRS Dur : 090 ms QT Int : 426 ms P-R-T Axes : 000 034 003 degrees QTc Int : 426 ms Normal sinus rhythm Normal ECG Confirmed by LISSY MAN ([id number]), film and video editor MERCEDES POTTER ([id number]) on 03/22/2018 12:17:39 PM Referred By: Confirmed By:LISSY MAN
== END 2018-03-19 16:20 | disposition home or self-care (01) ==
LOC: ERS 11:24
DX: I12.0 Hypertensive chronic kidney disease with stage 5 chronic kidney disease or end stage renal disease (principal); N18.6 End stage renal disease; E11.22 Type 2 diabetes mellitus with diabetic chronic kidney disease; I25.10 Atherosclerotic heart disease of native coronary artery without angina pectoris; F41.9 Anxiety disorder, unspecified; Z99.2 Dependence on renal dialysis; Z79.82 Long term (current) use of aspirin; Z79.899 Other long term (current) drug therapy; Z79.4 Long term (current) use of insulin; R05 Cough; R53.1 Weakness
CPT/HCPCS: 36415; 70450; 71046; 72125; 80053; 82553; 83880; 84484; 85025; 87081; 87430; 93005

== ENCOUNTER 2018-04-13 22:33 | Emergency (ER) | payer MEDICARE ==
[2018-04-13 23:36] LABS: #Basophils 0.1 thou/uL (0.0-0.2); #Eosinphils 0.1 thou/uL (0.0-0.7); #Lymphocytes 1.1 thou/uL (1.20-3.40); #Monocytes 0.6 thou/uL (0.11-0.59); #Neutrophils 5.2 thou/uL (1.40-6.50); %Basophils 1.1 % (0.0-1.0); %Eosinophils 1.3 % (0.0-10.0); %Lymphocytes 16.2 % (21.0-51.0); %Monocytes 8.5 % (0.0-10.0); Hemoglobin 10.9 g/dL (14.0-18.0); Mean Corpuscular HGB CONC 32.4 g/dL (32.0-36.0); Mean Corpuscular Volume 89.6 fL (78.0-98.0); Mean Platelet Volume 8.6 fL (7.4-10.4); Platelet Count 266 thou/uL (130-400); Red Blood Cell (RBC) Count 3.77 mill/uL (4.70-6.10); White Blood Cell (WBC) Count 7.1 thou/uL (4.8-10.8)
[2018-04-13 23:57] LABS: ALT (SGPT) 10 U/L (8-55); AST (SGOT) 8 U/L (5-34); Albumin 3.1 g/dL (3.4-4.8); Alkaline Phosphatase 144 U/L (40-150); Anion Gap 12 mmol/L (10-20); BUN (Urea Nitrogen) 32 mg/dL (8.4-25.7); Bilirubin, Total 0.7 mg/dL (0.2-1.2); Calc. Creatinine Clearance 0 mL/min (70-130); Calcium 8.9 mg/dL (7.8-10.44); Carbon Dioxide 30 mmol/L (23-31); Chloride 96 mmol/L (98-107); Estimated GFR-MDRD 11; Globulin 3.9 g/dL (2.4-3.5); Glucose 308 mg/dL (80-115); Lipase 6 U/L (8-78); Potassium 4.4 mmol/L (3.5-5.1); Sodium 134 mmol/L (136-145)
[2018-04-14] MEDS ORDERED: Ondansetron PF 4 MG/2 ML Vial ONE ×2 (00:12→01:15)
--- NOTE | 2018-04-14 00:17 | RAD ---
FRONTAL RADIOGRAPH CHEST: 04/13/2018 HISTORY: Chest pain. COMPARISON: 02/10/2018 FINDINGS: There is pulmonary vascular congestion with interstitial opacity in the perihilar regions in both redd g bases. There is also perihilar and basilar subtle air space disease bilaterally. There is an azyg ous lobe and fissure. No focal consolidation or pneumothorax. IMPRESSION: Interstitial and alveolar opacity in the perihilar regions in both lung bases. Findings suggest pulm onary edema. Infectious pneumonitis or aspiration cannot be excluded. Recommend follow-up imaging f ollowing treatment to document resolution. POS: [facility]
[2018-04-14] MEDS ORDERED: Promethazine HCl 25 MG/ML VIAL ONE (01:24)
[2018-04-14] MEDS ORDERED: traMADol HCl 50 MG TAB ONE (02:19)
--- NOTE | 2018-04-14 08:04 | MRI ---
PRELIMINARY REPORT/[facility]/EMERGENTY AFTER-HOURS PROCEDURE MR Lumbar Spine Without Contrast EXAM DATE/TIME: 04/14/2018 12:39 AM CLINICAL HISTORY: 67 years old, male; Pain and injury or trauma; Fall; Initial encounter; Sprain or strain, lumbar liga ments; Low back pain; Injury details: Fell4 days ago, bilateral leg pain, access for cauda equina TECHNIQUE: Multiplanar magnetic resonance images of the lumbar spine without contrast. COMPARISON: No relevant prior studies available. FINDINGS: There is patient motion. Trace retrolisthesis of L1 and L2 and L2 on L3. Grade 1 anterolisthesis of L 5 on S1. Vertebral body heights are preserved. Multilevel disc desiccation. No evidence of discitis/o steomyelitis. Conus medullaris terminates at L1. No epidural fluid collection. Heterogeneous marrow signal. L1-L2: Mild disc bulge. No significant central canal stenosis with mild to moderate bilateral foramin al stenosis. L2-L3: Mild disc bulge. No significant central canal stenosis with moderate bilateral foraminal steno sis. L3-L4: Mild disc bulge. No significant central canal stenosis with mild to moderate bilateral foramin al stenosis. L4-L5: Mild disc bulge. No significant central canal stenosis with mild bilateral foraminal stenosis. L5-S1: Anterolisthesis of L5 on S1 most likely secondary to bilateral L5 pars defects. There is unroo fing of disc. No significant central canal compromise. Moderate to severe right and severe left elías inal stenosis. IMPRESSION: 1. No acute compression fracture. 2. No significant central canal compromise. 3. Anterolisthesis of L5 on S1 most likely secondary to bilateral L5 pars defects causing moderate to severe right and severe left foraminal stenosis. Thank you for allowing us to participate in the care of your patient. Dictated and Authenticated by: Lorenzo Loera MD 04/14/2018 1:25 AM Central Time ([place] & [place]) MRI LUMBAR SPINE WITHOUT CONTRAST: HISTORY: The patient fell four days ago. Low back pain. Evaluated for possible cauda equina. COMPARISON: None. FINDINGS: This report is in agreement with the preliminary report by [facility]. No acute lumbar spine fracture. There is anterolisthesis of L5 upon S1. There are associated bilate ral pars defects at L5. Throughout the lumbar spine, no high grade central canal stenosis. There is moderate right and moderate to severe left foraminal narrowing. POS: [facility]
== END 2018-04-14 03:00 | disposition home or self-care (01) ==
LOC: ERS 22:33
DX: R11.2 Nausea with vomiting, unspecified (principal); R07.81 Pleurodynia; R10.13 Epigastric pain; I12.0 Hypertensive chronic kidney disease with stage 5 chronic kidney disease or end stage renal disease; N18.6 End stage renal disease; E11.22 Type 2 diabetes mellitus with diabetic chronic kidney disease
CPT/HCPCS: 36415; 71045; 72148; 80053; 83690; 85025; 96374; 96375; J2405; J2550

== ENCOUNTER 2018-06-18 11:32 | Emergency (ER) | payer MEDICARE ==
[~2018-06-18 11:32] MED LIST: ISOVUE-370 76%-LOCM 1 ML ONE; Iopamidol 370 76% 50 ML VIAL FS ONE
--- NOTE | 2018-06-18 13:16 | RAD ---
CHEST 1 VIEW AND ABDOMEN 2 VIEWS: Date: 06/18/18 HISTORY: Abdominal pain. FINDINGS/IMPRESSION: The heart size is normal. No focal areas of consolidation, pneumothoraces, seven pulmonary edema, or pleural effusions are seen. There is elevation of the right hemidiaphragm. No free air or differentia l fluid levels are seen. The bowel gas pattern is unremarkable. Postop changes are noted in the pelvi s. There are degenerative changes in the spine. POS: [facility]
[2018-06-18] MEDS ORDERED: Ondansetron PF 4 MG/2 ML Vial ONE (13:22)
[2018-06-18 13:58] LABS: #Eosinphils 0.1 thou/uL (0.0-0.7); #Lymphocytes 0.9 thou/uL (1.20-3.40); #Monocytes 0.4 thou/uL (0.11-0.59); #Neutrophils 6.5 thou/uL (1.40-6.50); %Basophils 0.4 % (0.0-1.0); %Eosinophils 0.6 % (0.0-10.0); %Lymphocytes 11.6 % (21.0-51.0); %Monocytes 5.4 % (0.0-10.0); Hemoglobin 11.5 g/dL (14.0-18.0); Mean Corpuscular HGB CONC 32.3 g/dL (32.0-36.0); Mean Corpuscular Hemoglobin 29.2 pg (27.0-31.0); Mean Corpuscular Volume 90.6 fL (78.0-98.0); Mean Platelet Volume 9.6 fL (7.4-10.4); Platelet Count 228 thou/uL (130-400); RBC Distribution Width 13.6 % (11.5-14.5); Red Blood Cell (RBC) Count 3.92 mill/uL (4.70-6.10)
[2018-06-18 14:17] LABS: ALT (SGPT) 17 U/L (8-55); AST (SGOT) 12 U/L (5-34); Albumin 3.8 g/dL (3.4-4.8); Alkaline Phosphatase 247 U/L (40-150); Anion Gap 18 mmol/L (10-20); BUN (Urea Nitrogen) 52 mg/dL (8.4-25.7); Bilirubin, Total 0.6 mg/dL (0.2-1.2); Calc. Creatinine Clearance 0 mL/min (70-130); Calcium 9.2 mg/dL (7.8-10.44); Carbon Dioxide 23 mmol/L (23-31); Chloride 100 mmol/L (98-107); Estimated GFR-MDRD 9; Globulin 3.7 g/dL (2.4-3.5); Glucose 245 mg/dL (80-115); Lipase 14 U/L (8-78); Potassium 4.7 mmol/L (3.5-5.1); Protein, Total 7.5 g/dL (5.8-8.1); Sodium 136 mmol/L (136-145)
--- NOTE | 2018-06-18 16:13 | CT ---
CT ABDOMEN WITH CONTRAST CT PELVIS WITH CONTRAST: DATE: 06/18/18 HISTORY: 67-year-old male with generalized abdominal pain and constipation. COMPARISON: 03/05/18 TECHNIQUE: IV injection of iodinated contrast media: 70 mL Isovue 370 Oral contrast media: Administered FINDINGS: The previously demonstrated small right pleural effusion has become smaller. The previously very smal l left pleural effusion has decreased in volume, and is now tiny. No focal hepatic mass lesion identi fied. The hepatic enhancement and attenuation is slightly diffusely heterogeneous. There is no portal vein thrombosis. There is no small bowel dilation. No pneumoperitoneum. There are bilateral L5 pars interarticularis defects, causing a grade I anterolisthesis of L5 on S1. No splenomegaly. No abdomina l aortic aneurysm. No hydronephrosis or signs of pyelonephrosis. Approximately 3.5 cm exophytic, pedu nculated cyst arising from anterior surface of right renal mid pole is again noted. Unremarkable panc reas and adrenals. Surgical clips abut the tip of the cecum. The appendix is not visualized. Moderate volume of colonic stool, especially in the rectum which is mildly expanded by this stool (but less t ho previously), with AP and transverse rectal diameters of approximately 5 x 5 cm. There is a new fi nding of perirectal circumferential small amount of fluid, including in the presacral space. There is also another new finding of mild mural thickening in the lower rectum, and circumferential fat stran ding representing edema in the perirectal space deep to the circumferential small amount of fluid. The urinary bladder ruano are minimally thickened. No abscess. The previously demonstrated mural thic kening representing colitis involving the entire rest of the colon is no longer present. Moderate miguel unt of stool throughout the colon, especially in the ascending colon, cecum, and rectum. There is also mild fat stranding representing edema throughout the mesentery and perirenal spaces, an d a greater degree of edema throughout the subcutaneous fat circumferentially around the abdominal an d pelvic ruano representing anasarca. IMPRESSION: 1. New finding of anasarca. 2. New finding of circumferential perirectal edema and circumferential perirectal small amount o f fluid. It is uncertain whether this represents stercoral proctitis or is part of the generalized so ft tissue edema that is present. 3. Tiny bilateral pleural effusions. 4. Right renal cyst. 5. Nonspecific finding of slightly diffusely heterogeneous attenuation of the liver, which could represent diffuse hepatocellular disease. Recommend correlation with liver enzymes. 6. Grade I spondylolisthesis at L5-S1 due to spondylolysis. NUSRAT Giraldo POS: [facility]
--- NOTE | 2018-06-22 00:05 | EKG ---
Test Reason : Blood Pressure : / mmHG Vent. Rate : 054 BPM Atrial Rate : 054 BPM P-R Int : 110 ms QRS Dur : 084 ms QT Int : 454 ms P-R-T Axes : 085 050 -15 degrees QTc Int : 430 ms Sinus bradycardia with short MI Abnormal QRS-T angle, consider primary T wave abnormality Abnormal ECG Confirmed by KARY MESSINA, ALPHONSO ([id number]), photo editor LEIGH MYERS ([id number]) on 06/22/2018 12:04:15 AM Referred By: Confirmed By:ALPHONSO PRESTON MD
== END 2018-06-18 17:30 | disposition home or self-care (01) ==
LOC: ERS 11:32
DX: K56.41 Fecal impaction (principal); R11.2 Nausea with vomiting, unspecified; I13.2 Hypertensive heart and chronic kidney disease with heart failure and with stage 5 chronic kidney disease, or end stage renal disease; I50.9 Heart failure, unspecified; N18.6 End stage renal disease; E11.22 Type 2 diabetes mellitus with diabetic chronic kidney disease; Z79.82 Long term (current) use of aspirin; Z79.4 Long term (current) use of insulin; Z79.899 Other long term (current) drug therapy
CPT/HCPCS: 74022; 74177; 80053; 83605; 83690; 84484; 85025; 93005; 96361; 96374; J2405

== ENCOUNTER 2018-06-20 10:06 | Inpatient (IN) | payer MEDICARE ==
[2018-06-20] MEDS ORDERED: ISOVUE-370 76%-LOCM 1 ML ONE (10:11)
[2018-06-20 12:27] LABS: #Eosinphils 0.1 thou/uL (0.0-0.7); #Lymphocytes 1.2 thou/uL (1.20-3.40); #Monocytes 0.6 thou/uL (0.11-0.59); #Neutrophils 4.8 thou/uL (1.40-6.50); %Basophils 0.6 % (0.0-1.0); %Eosinophils 1.4 % (0.0-10.0); %Lymphocytes 18.3 % (21.0-51.0); %Monocytes 8.4 % (0.0-10.0); %Neutrophils 71.3 % (42.0-75.0); Hemoglobin 10.7 g/dL (14.0-18.0); Mean Corpuscular HGB CONC 33.3 g/dL (32.0-36.0); Mean Corpuscular Hemoglobin 30.3 pg (27.0-31.0); Mean Platelet Volume 9.4 fL (7.4-10.4); Platelet Count 206 thou/uL (130-400); RBC Distribution Width 13.7 % (11.5-14.5); Red Blood Cell (RBC) Count 3.53 mill/uL (4.70-6.10); White Blood Cell (WBC) Count 6.7 thou/uL (4.8-10.8)
[2018-06-20] MEDS ORDERED: Morphine 4 MG/ML VIAL ONE (12:27)
[2018-06-20 12:33] LABS: INR-International Normal Ratio 1.1; PTT 28.6 SEC (22.9-36.1); Prothrombin Time 14.2 SEC (12.0-14.7)
[2018-06-20 12:49] LABS: ALT (SGPT) 12 U/L (8-55); AST (SGOT) 11 U/L (5-34); Albumin 3.2 g/dL (3.4-4.8); Alkaline Phosphatase 183 U/L (40-150); Anion Gap 13 mmol/L (10-20); BUN (Urea Nitrogen) 62 mg/dL (8.4-25.7); Bilirubin, Total 0.5 mg/dL (0.2-1.2); CRP (Inflammatory) Less than 0.50 mg/dL (= or < 0.5); Calc. Creatinine Clearance 0 mL/min (70-130); Carbon Dioxide 28 mmol/L (23-31); Chloride 100 mmol/L (98-107); Estimated GFR-MDRD 7; Globulin 3.4 g/dL (2.4-3.5); Glucose 299 mg/dL (80-115); Potassium 5.1 mmol/L (3.5-5.1); Protein, Total 6.6 g/dL (5.8-8.1); Sodium 136 mmol/L (136-145)
[2018-06-20] MEDS ORDERED: Piperacillin/Tazobactam 3.375 GM VIAL ONE (13:32)
[2018-06-20] MEDS ORDERED: Dextrose 5% in Water 1,000 ML IV PRN (15:23)
[2018-06-20] MEDS ORDERED: Acetaminophen 325 MG TAB PO PRN (15:23)
[2018-06-20] MEDS ORDERED: Dextrose 50% Abboject 50 ML SYRINGE SLOW IVP PRN (15:23)
[2018-06-20] MEDS ORDERED: Zolpidem Tartrate 5 MG TAB PO PRN (15:23)
[2018-06-20] MEDS ORDERED: Ondansetron ODT 4 MG TAB PO PRN (15:23)
--- NOTE | 2018-06-20 15:44 | CT ---
ABDOMEN AND PELVIC CT SCAN WITH IV CONTRAST: History: 67-year-old male with history of pain, follow up rectal infection. Fever, chills, left flank pain. Co ngestive heart failure. Comparison: 06-18-18 FINDINGS: Small bilateral pleural effusions, increasing somewhat from 06-18 study. Minimal bilateral vascular co ngestion and possibly mild interstitial edema or pneumonitis changes in the bases. Minimal cardiomega ly. No pericardial effusion. Small hiatal hernia with some abnormal thickening of the GE junction reg ion and the distal esophagus, nonspecific, possibly some type of esophagitis or mass, stable from 05-28. This does appear to be more prominent than on a 03-05-18 study. Evidence for anasarca. Mild inc reased attenuation density within the gallbladder evidence for vicarious excretion from contrast from two days ago. Minimal periportal edematous changes. The pancreas, spleen, and adrenal glands are unr emarkable. No evidence for overt renal calculus or acute obstruction. Right upper pole renal cyst. Several mildly dilated fluid and air filled loops of small bowel in the central upper abdomen, possi max mild ileus or enteritis which I would favor over low grade partial small bowel obstruction. There is some thickening of the urinary bladder wall. Again noted is some prominent perirenal edematous ch anges. Minimal free fluid in the pelvis. This appears to be more prominent than on the prior study. G eneralized nonspecific mesenteric fat stranding probably related to the overall anasarca process. Po ateral pars defects with some mild anterolisthesis of L5 on S1. IMPRESSION: Diffuse anasarca including some diffuse nonspecific fat stranding within the mesentery, possibly slig htly progressive from 06-18-18. Small bilateral pleural effusions slightly progressive. Minimal bilate ral vascular congestion, slightly more prominent than on prior study. Some minimal thickening of the GE junction region and distal esophagus ruano, nonspecific, possibly some type of infiltrative proces s including infection, inflammation, or neoplastic. Minimal periportal hepatic edematous changes. Pepper dence for some vicarious excretion of contrast within the gallbladder. Several mildly dilated small b owel loops in the upper abdomen with air and fluid levels with possibilities including that of some m inimal enteritis or ileus versus less likely low grade partial small bowel obstruction. Minimal diffu se urinary bladder wall thickening. Overall stable appearing nonspecific perirenal edematous fluid ch anges with a small amount of new free fluid in the pelvis. Stable pars defects with minimal spondylol isthesis at L5-S1. Other findings as above. POS: [facility]
--- NOTE | 2018-06-20 16:54 | HP ---
PRIMARY CARE PROVIDER: [facility]. HYDROLOGY PROFESSOR: Dr. Harding, Patient referred to [facility] by [facility]. The patient was apparently seen on the and today in the emergency department. He has last had hemodialysis 1 week ago. He is a poor historian. He complains of progressive shortness of breath, orthopnea, and PND. He had a sharp chest pain, but no radiation. He has some minimal swelling in his legs. He was evaluated and found to be in volume overload, and referred for hemodialysis. PAST MEDICAL HISTORY: Pertinent for diabetes mellitus type 2 with end-stage renal disease, hypertension, dyslipidemia, peripheral neuropathy, coronary artery disease with PCI to the LAD, and anemia of chronic renal failure. PAST SURGICAL HISTORY: Appendectomy in 2014, nasal surgery in 1977, and cardiac cath in 2011 with stent placement in the LAD. ALLERGIES: NO KNOWN DRUG ALLERGIES. SOCIAL HISTORY: . Full code status. No tobacco. No alcohol. FAMILY HISTORY: His mother of cancer, unknown primary. His father is , had diabetes. MEDICATIONS: 1. Aspirin 81 mg a day. 2. Flomax 0.4 mg a day. 3. Nifedipine 90 mg a day. 4. Ranitidine 150 mg twice a day. 5. Lopressor 50 mg twice a day. 6. Hydralazine 25 mg twice a day. 7. Atorvastatin 40 mg a day. 8. Lisinopril 20 mg a day. 9. Levemir 12 units subcu twice a day. 10. Protonix 20 mg a day. REVIEW OF SYSTEMS: GENERAL: Pertinent for chills and sweats and some lightheadedness. EYES: He has poor vision in general secondary to his diabetes. EAR, NOSE, AND THROAT: Hard of hearing. No ear pain or drainage. No nasal bleeding. No trouble swallowing. CARDIAC: See present illness. RESPIRATION: No coughing or asthma. GASTROINTESTINAL: He had nausea and vomiting yesterday. He has been constipated. He was given lactulose in the ER with no results. He has had abdominal pain, cramping for about 3 weeks and now it is worse. He has had no diarrhea. GENITOURINARY: Makes occasional urine. No blood. MUSCULOSKELETAL: No pain in his joints or muscles. NEUROLOGICAL: He states he has had a CVA in the past, but has no residual. PSYCHIATRIC: No anxiety or depression. SKIN: No bruising, bleeding, or rash. HEME/LYMPH: No tender or swollen lymph nodes. PHYSICAL EXAMINATION: GENERAL: Alert, poor historian. VITAL SIGNS: Blood pressure 186/86, pulse 60, respirations 16, and temperature 98.1. HEAD, EYES, EARS, NOSE, AND THROAT: Reveal pupils are equal, round, and reactive to light. Extraocular movements intact. Sclerae are white. Tympanic membranes are clear. Nose is clear. Oral mucous membranes are wet. Dental hygiene is fair. NECK: No jugular venous distention, adenopathy, or thyromegaly. CHEST: Rales in the lower 1/3 of the chest posteriorly. Anterior breath sounds are good. HEART: Regular rate and rhythm. First and second heart sounds are clear. There are no appreciated murmurs or gallops. ABDOMEN: Soft. Bowel sounds are normal. No hepatosplenomegaly. No masses. He does have some mild generalized tenderness. EXTREMITIES: 1+ edema with no cyanosis or clubbing. PULSES: Carotid, radial, and femoral pulses. Pedal pulses diminished symmetrically. SKIN: Warm and dry without bruises or rash. HEME/LYMPH: No tender or swollen lymph nodes in the axilla, inguinal, cervical area. NEUROLOGICAL: Cranial nerves 2 through 12 intact. Moves all extremities. EKG, regular sinus rhythm with sinus bradycardia, short [place], no acute ST-T abnormality. CT of the abdomen has been done 2 days in a row. There are findings on the CT of the abdomen consistent with bilateral pleural effusions, pulmonary vascular congestion and some mild pulmonary edema, chest x-ray was not done, just reviewed by me as was EKG. LABORATORY DATA: CBC showed a normal white count of 6.7, hemoglobin 10.7, and platelet count of 206,000. Creatinine was 7.67, BUN 62, glucose 299, alkaline phosphatase 183. Lytes, bilirubin, transaminases normal. ASSESSMENT: 1. Volume overload secondary to missed hemodialysis. 2. End-stage renal disease requiring hemodialysis. 3. Abdominal pain with nausea, vomiting, and constipation, not relieved with lactulose. 4. Diabetes mellitus, type 2. 5. Hypertension. PLAN: 1. The patient is at hemodialysis. 2. Because of the history of coronary artery disease and his findings consistent with heart failure on chest exam, we will obtain an echocardiogram. 3. Accu-Cheks and sliding scale. 4. Flagyl IV for possible colitis. We will consult GI before being more aggressive with lactulose, as it has been unsuccessful and causing increased abdominal pain , selected home medicines. Job ID: [id number] [facility] HOSPITALJuan José
[2018-06-20 21:55] VITALS: BMI 27.1
[2018-06-20] MEDS: metroNIDAZOLE 500 MG in Premix Bag 1 BAG IVPB SCH ×2 (22:03→23:09)
[2018-06-20] MEDS: Metoprolol Tartrate 50 MG TAB PO SCH (22:04)
[2018-06-20] MEDS: hydrALAZINE 25 MG TAB PO SCH (22:20)
[2018-06-20] MEDS: HumaLOG 300 UNITS/3 ML VIAL SC PRN (22:21)
--- NOTE | 2018-06-21 | CON ---
DATE OF CONSULTATION: 06/20/2018 NEPHROLOGY CONSULTATION NOTE: CONSULTING PHYSICIAN: Hemanth Harding MD REASON FOR CONSULTATION: End-stage renal disease evaluation and care. REASON FOR ADMISSION: Abdominal pain. HISTORY OF PRESENT ILLNESS: This is a 67-year-old male with history of end-stage renal disease, hypertension, congestive heart failure, came to the hospital with rectal abscess that needs evaluation, nephrology consult, maintenance hemodialysis. He gets dialysis Saturday, Saturday, and Saturday; and due for dialysis today. The patient denies any significant symptoms. There is note of bradycardia. PAST MEDICAL HISTORY: 1. Positive for end-stage renal disease, on hemodialysis. 2. Coronary artery disease. 3. Congestive heart failure. 4. Hypertension. 5. BPH. 6. Hyperlipidemia. 7. Type 2 diabetes mellitus. 8. GERD. PAST SURGICAL HISTORY: 1. Appendectomy. 2. Cardiac stents. HOME MEDICATIONS: 1. Aspirin. 2. Flomax. 3. Nifedipine. 4. Ranitidine. 5. Lopressor. 6. Hydralazine. 7. Atorvastatin. 8. Lisinopril. 9. Levemir. 10. Phenergan. ALLERGIES: NO KNOWN DRUG ALLERGIES. SOCIAL HISTORY: No smoking, alcohol, or illicit drug use. FAMILY HISTORY: No history of any kidney disease. REVIEW OF SYSTEMS: CONSTITUTIONAL: Negative for weight loss or gain, ability to conduct usual activities. SKIN: Negative for rash, itching. EYES: Negative for double vision, pain. ENT/MOUTH: Negative for nose bleeding, neck stiffness, pain, tenderness. CARDIOVASCULAR: Negative for palpitations, dyspnea on exertion, orthopnea. RESPIRATORY: Negative for shortness of breath, wheezing, cough, hemoptysis, fever or night sweats. GASTROINTESTINAL: Negative for poor appetite, abdominal pain, heartburn, nausea, vomiting, constipation, or diarrhea. GENITOURINARY: Negative for urgency, frequency, dysuria, nocturia. MUSCULOSKELETAL: Negative for pain, swelling. NEUROLOGIC/PSYCHIATRIC: Negative for anxiety, depression. ALLERGY/IMMUNOLOGIC: Negative for skin rash, bleeding tendency. PHYSICAL EXAMINATION: GENERAL: Well-developed male, no apparent distress. VITAL SIGNS: Temperature 98.1, pulse 55, respirations 19, blood pressure 160/60. HEENT: Atraumatic and normocephalic. Oral mucosa is moist. NECK: Supple. CARDIOVASCULAR: S1 and S2 heard. Bradycardia. RESPIRATORY: Clear. GASTROINTESTINAL: Abdomen is soft. MUSCULOSKELETAL: 1+edema. DERMATOLOGIC: No skin rash. NEUROLOGIC: Alert and awake. PSYCHIATRIC: Normal mood and affect. LABORATORY DATA: Potassium is 5.1, BUN is 62, creatinine is 7.6. ASSESSMENT AND PLAN: 1. End-stage renal diease. We will continue on dialysis. 2. Bradycardia, follow with Cardiology. 3. Edema. 4. Hypertension, stable. 5. Anemia, monitor. 6. Hyperalbuminemia. 7. Continue on dialysis as tolerated. Job ID: [id number]
[2018-06-21] MEDS: HumaLOG 300 UNITS/3 ML VIAL SC PRN (06:58)
[2018-06-21] MEDS: metroNIDAZOLE 500 MG in Premix Bag 1 BAG IVPB SCH (07:37)
[2018-06-21] MEDS: hydrALAZINE 25 MG TAB PO SCH ×4 (07:38→20:13)
[2018-06-21] MEDS: Tamsulosin HCl 0.4 MG CAP PO SCH (07:38)
[2018-06-21] MEDS: Clopidogrel Bisulfate 75 MG TAB PO SCH (07:38)
[2018-06-21] MEDS: Aspirin 81 mg Enteric Coated Tablet PO SCH (07:39)
[2018-06-21] MEDS: Metoprolol Tartrate 50 MG TAB PO SCH ×2 (07:39→20:13)
[2018-06-21] MEDS: NIFEdipine XL 90 MG TAB PO SCH (07:41)
[2018-06-21 08:43] LABS: #Eosinphils 0.1 thou/uL (0.0-0.7); #Lymphocytes 0.9 thou/uL (1.20-3.40); #Monocytes 0.5 thou/uL (0.11-0.59); #Neutrophils 5.1 thou/uL (1.40-6.50); %Basophils 0.3 % (0.0-1.0); %Eosinophils 1.9 % (0.0-10.0); %Lymphocytes 13.1 % (21.0-51.0); %Monocytes 7.5 % (0.0-10.0); %Neutrophils 77.2 % (42.0-75.0); Hemoglobin 10.9 g/dL (14.0-18.0); Mean Corpuscular HGB CONC 32.4 g/dL (32.0-36.0); Mean Corpuscular Hemoglobin 29.5 pg (27.0-31.0); Mean Corpuscular Volume 90.8 fL (78.0-98.0); Mean Platelet Volume 9.5 fL (7.4-10.4); Platelet Count 196 thou/uL (130-400); RBC Distribution Width 13.8 % (11.5-14.5); Red Blood Cell (RBC) Count 3.69 mill/uL (4.70-6.10); White Blood Cell (WBC) Count 6.6 thou/uL (4.8-10.8)
[2018-06-21 09:08] LABS: Anion Gap 14 mmol/L (10-20); BUN (Urea Nitrogen) 46 mg/dL (8.4-25.7); Calc. Creatinine Clearance 13 mL/min (70-130); Calcium 8.7 mg/dL (7.8-10.44); Carbon Dioxide 26 mmol/L (23-31); Chloride 100 mmol/L (98-107); Estimated GFR-MDRD 9; Glucose 207 mg/dL (80-115); Potassium 4.5 mmol/L (3.5-5.1); Sodium 135 mmol/L (136-145)
[2018-06-21] MEDS: hydrALAZINE 20 MG/ML VIAL SLOW IVP PRN ×2 (12:06→18:21)
--- NOTE | 2018-06-21 15:34 | PDOC.PN ---
- Subjective Encounter Start Date: 06/21/18 (f/u bradycardia) Encounter Start Time: 15:33 Subjective: Pt denies any chest pain, abd pain, n/v. He reports bm's are every other -: day with straining and occ takes miralax. States bm's range from hard to -: sticky sohe doeesnt take daily - Objective Resuscitation Status - Order Detail: 06/20/18 15:14 Resuscitation Status Routine Resuscitation Status: FULL: Full Resuscitation Vital Signs & Weight: Vital Signs (12 hours) Temp Pulse Resp BP Pulse Ox 06/21/18 14:29 54 L 06/21/18 12:06 54 L 06/21/18 08:00 97 06/21/18 07:49 98.1 F 54 L 16 216/88 H 97 06/21/18 07:41 53 L 06/21/18 07:38 53 L 06/21/18 05:03 97.6 F 53 L 16 170/86 H 97 06/21/18 04:58 97.6 F 53 L 16 170/86 H 97 Weight Weight 178 lb 9.191 oz I&O: 06/20/18 06/21/18 06/22/18 06:59 06:59 06:59 Intake Total 410 900 Balance 410 900 Result Diagrams: 06/21/18 07:44 06/21/18 07:44 Additional Labs: Accuchecks 06/21/18 06/20/18 06:26 22:00 POC Glucose 259 H 231 H Phys Exam - Physical Examination Constitutional: NAD Respiratory: no wheezing, no rhonchi bibasilar faint rales Cardiovascular: RRR, no significant murmur Gastrointestinal: soft, non-tender, no distention, positive bowel sounds Musculoskeletal: no edema in LE bilateral Neurological: non-focal Dx/Plan (1) Volume overload Code(s): E87.70 - FLUID OVERLOAD, UNSPECIFIED Status: Acute (2) Bradycardia Code(s): R00.1 - BRADYCARDIA, UNSPECIFIED Status: Acute (3) Dementia Code(s): F03.90 - UNSPECIFIED DEMENTIA WITHOUT BEHAVIORAL DISTURBANCE Status: Chronic Qualifiers: Dementia type: unspecified type (4) Diabetes type 2, controlled Code(s): E11.9 - TYPE 2 DIABETES MELLITUS WITHOUT COMPLICATIONS Status: Chronic Qualifiers: Diabetes mellitus skilled nursing insulin use: with skilled nursing use Diabetes mellitus complication status: with kidney complications Diabetes mellitus complication detail: with chronic kidney disease Chronic kidney disease stage : on chronic dialysis Qualified Code(s): E11.22 - Type 2 diabetes mellitus with diabetic chronic kidney disease; N18.6 - End stage renal disease; Z99.2 - Dependence on renal dialysis; Z99.2 - Dependence on renal dialysis; Z99.2 - Dependence on renal dialysis; N18.6 - End stage renal disease; N18.6 - End stage renal disease; N18.6 - End stage renal disease; 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 Continue curent regimen. (5) ESRD (end stage renal disease) on dialysis Code(s): N18.6 - END STAGE RENAL DISEASE; Z99.2 - DEPENDENCE ON RENAL DIALYSIS Status: Chronic Comment: HD per nephrology. (6) Hypertension Code(s): I10 - ESSENTIAL (PRIMARY) HYPERTENSION Status: Chronic - Plan * volume overload with ESRD - improved * doubt colitis - d/c metronidazole and GI consult. Pt's presentation more c/w volume overload rather than colitis * bradycardia - hold parameters on metoprolol, move to telemetry and echo with cardiology consult. Pt with hx of stents - continue aspirin, plavix, statin * htn - not well controlled. hydralazine increased by Dr. Mae, will add back home lisinopril. Continue nifedipine * * constipation - colace bid * * dvt prophy - scd's * gi prophy - not indicated * code status full * * reviewed plan of care with patient and , no questions or further needs at end of eval * pt remains at high risk in current condition
--- NOTE | 2018-06-21 15:57 | PRG ---
DATE OF SERVICE: 06/21/2018 SUBJECTIVE: Patient was seen and examined at bedside and overnight events noted. Patient denies any shortness of breath or chest pain or palpitation. No history of nausea or vomiting or diarrhea or fever or chills or cramps. OBJECTIVE: GENERAL: This is a well-built male, in no apparent distress. VITAL SIGNS: Temperature 98.1. Pulse 54. Respiratory rate 16. Blood pressure 206/88. HEENT: Atraumatic, normocephalic. Oral mucosa is moist NECK: Supple. CARDIOVASCULAR: S1, S2 heard. Rate and rhythm regular. RESPIRATORY: Clear to auscultation. GASTROINTESTINAL: Abdomen is soft. MUSCULOSKELETAL: No tenderness. No edema. DERMATOLOGIC: No skin rash. NEUROLOGIC: Alert and awake and oriented X3. No focal neurologic deficits. Moving all the extremities. PSYCHIATRIC: Mood and affect normal. LABORATORY DATA: Potassium is 4.5, BUN is 46, and creatinine is 6.3. ASSESSMENT AND PLAN: 1. End-stage renal disease. Continue on dialysis Saturday, Saturday, and Saturday as tolerated. No acute indication for dialysis today. 2. Bradycardia. 3. Edema. 4. Hypertension. 5. Anemia. 6. Hyperalbuminemia. 7. We will continue on dialysis as tolerated. Job ID: [id number]
--- NOTE | 2018-06-21 17:30 | PDOC.EVN ---
Event Note - Event Note Event Note: called by Rn for bp 200's systolic, pt has received hydralazine recently. Reviewed and today received dialysis, hydralazine oral, nifedipine, metoprolol. Add back a dose of lisinopril today and continue with IV hydralazine prn. Avoid additional beta-gabriela and clonidine due to bradycardia.
[2018-06-21] MEDS ORDERED: Lisinopril 10 MG TAB PO SCH (17:45)
[2018-06-21] MEDS ORDERED: cloNIDine 0.1 MG TAB PO SCH (19:45)
[2018-06-21] MEDS: Docusate 100 MG CAP PO SCH (20:13)
[2018-06-21] MEDS ORDERED: NIFEdipine XL 30 MG TAB PO SCH (23:00)
[2018-06-22] MEDS: hydrALAZINE 20 MG/ML VIAL SLOW IVP PRN (04:46)
[2018-06-22] MEDS ORDERED: Sodium Chloride 0.9% 10 ML ONE (08:49)
[2018-06-22] MEDS: hydrALAZINE 25 MG TAB PO SCH ×3 (09:10→20:14)
[2018-06-22] MEDS: Clopidogrel Bisulfate 75 MG TAB PO SCH (09:11)
[2018-06-22] MEDS: Metoprolol Tartrate 50 MG TAB PO SCH (09:11)
[2018-06-22] MEDS: Aspirin 81 mg Enteric Coated Tablet PO SCH (09:11)
[2018-06-22] MEDS: Docusate 100 MG CAP PO SCH ×2 (09:11→20:14)
[2018-06-22] MEDS: Tamsulosin HCl 0.4 MG CAP PO SCH (09:11)
[2018-06-22] MEDS: NIFEdipine XL 90 MG TAB PO SCH (09:12)
[2018-06-22] MEDS: HumaLOG 300 UNITS/3 ML VIAL SC PRN ×3 (09:13→18:19)
[2018-06-22] MEDS: Lisinopril 10 MG TAB PO SCH (09:13)
--- NOTE | 2018-06-22 12:49 | PDOC.PN ---
- Subjective Encounter Start Date: 06/22/18 (f/u volume overload) Encounter Start Time: 12:48 Subjective: Pt c/o feeling hungry - has been on a liquid diet. also c/o -: heartburn. Walks with a walker at home. Is up to a chair. - Objective Resuscitation Status - Order Detail: 06/20/18 15:14 Resuscitation Status Routine Resuscitation Status: FULL: Full Resuscitation Vital Signs & Weight: Vital Signs (12 hours) Temp Pulse Resp BP BP Pulse Ox 06/22/18 09:13 151/71 H 06/22/18 09:12 48 L 151/71 H 06/22/18 09:10 48 L 155/71 H 06/22/18 08:00 97.6 F 48 L 18 155/71 H 99 06/22/18 04:46 50 L 06/22/18 03:49 98.3 F 50 L 12 185/82 H 98 Weight Weight 170 lb 1.6 oz I&O: 06/21/18 06/22/18 06/23/18 06:59 06:59 06:59 Intake Total 410 1460 Output Total 175 Balance 410 1285 Result Diagrams: 06/21/18 07:44 06/21/18 07:44 Additional Labs: Accuchecks 06/22/18 06/22/18 06/21/18 10:27 05:52 20:28 POC Glucose 218 H 225 H 272 H 06/21/18 15:44 POC Glucose 118 H EKG Reviewed by me: Yes (tele - brenna to 40-50's) Phys Exam - Physical Examination Constitutional: NAD Respiratory: no wheezing, no rhonchi faint rales at bases Cardiovascular: RRR, no significant murmur Gastrointestinal: soft, non-tender, no distention, positive bowel sounds Musculoskeletal: no edema in bilateral LE Neurological: non-focal Skin: no rash Dx/Plan (1) Volume overload Code(s): E87.70 - FLUID OVERLOAD, UNSPECIFIED Status: Acute (2) Bradycardia Code(s): R00.1 - BRADYCARDIA, UNSPECIFIED Status: Acute (3) Dementia Code(s): F03.90 - UNSPECIFIED DEMENTIA WITHOUT BEHAVIORAL DISTURBANCE Status: Chronic Qualifiers: Dementia type: unspecified type (4) Diabetes type 2, controlled Code(s): E11.9 - TYPE 2 DIABETES MELLITUS WITHOUT COMPLICATIONS Status: Chronic Qualifiers: Diabetes mellitus meterman insulin use: with meterman use Diabetes mellitus complication status: with kidney complications Diabetes mellitus complication detail: with chronic kidney disease Chronic kidney disease stage : on chronic dialysis Qualified Code(s): E11.22 - Type 2 diabetes mellitus with diabetic chronic kidney disease; N18.6 - End stage renal disease; Z79.4 - middle or intermediate school principal (current) use of insulin; Z99.2 - Dependence on renal dialysis Comment: Fair control. Continue curent regimen. (5) ESRD (end stage renal disease) on dialysis Code(s): N18.6 - END STAGE RENAL DISEASE; Z99.2 - DEPENDENCE ON RENAL DIALYSIS Status: Chronic Comment: HD per nephrology. (6) Hypertension Code(s): I10 - ESSENTIAL (PRIMARY) HYPERTENSION Status: Chronic (7) Anemia Code(s): D64.9 - ANEMIA, UNSPECIFIED Status: Acute Qualifiers: Chronic kidney disease stage: on chronic dialysis - Plan * * volume overload with ESRD - next dialysis tomorrow. Discussed with pt/ that three times weekly dialysis will help with this. * doubt colitis - d/c metronidazole and GI consult yesterday. Pt's presentation more c/w volume overload rather than colitis - recommend 3x/week dialysis. Start miralax as well as colace for chronic constipation. Family asking about colon mass - reviewed CT report and midly dilated bowel loops with ? minimal enteritis or ileus - he is asx with this. CT scan with perirectal edema and small amount of circumferential fluid on May - this likely part of the anasarca. Tx generalized constipation and follow sx. * bradycardia - hold parameters on metoprolol, telemetry and echo with cardiology consult. Pt with hx of stents - continue aspirin, plavix, statin * htn - on hydralazine, lisinopril, and received a dose of clonidine. Metoprolol ordered with hold parameters * * constipation - colace bid - add miralax today * gerd - start daily famotidine * anemia - stable * * discharge planning - anticipate after dialysis, if cleared by cardiology, pt can be discharged tomorrow. Will need bowel regimen, encouragement for three times weekly dialysis and f/u with cardiology. * * dvt prophy - scd's * gi prophy - not indicated * code status full * * reviewed plan of care with patient and , no questions or further needs at end of eval * pt remains at high risk in current condition .
[2018-06-22] MEDS ORDERED: Famotidine 20 MG TAB PO SCH (13:00)
[2018-06-22] MEDS ORDERED: Polyethylene Glycol 3350 17 GM Packet PO SCH (13:00)
--- NOTE | 2018-06-22 14:23 | PRG ---
DATE OF SERVICE: 06/22/2018 SUBJECTIVE: Patient was seen and examined at bedside and overnight events noted. Patient denies any shortness of breath or chest pain or palpitation. No history of nausea or vomiting or diarrhea or fever or chills or cramps. OBJECTIVE: GENERAL: This is a well-built male in no apparent distress. VITAL SIGNS: Temperature 97.6. Heart rate 48. Respiratory rate 18. Blood pressure 151/71. HEENT: Atraumatic, normocephalic. Oral mucosa is moist NECK: Supple. CARDIOVASCULAR: S1, S2 heard. Rate and rhythm regular. RESPIRATORY: Clear to auscultation. GASTROINTESTINAL: Abdomen is soft. MUSCULOSKELETAL: No tenderness. No edema. DERMATOLOGIC: No skin rash. NEUROLOGIC: Alert and awake and oriented X3. No focal neurologic deficits. Moving all the extremities. PSYCHIATRIC: Mood and affect normal. LABORATORY DATA: No labs done today. ASSESSMENT AND PLAN: 1. End-stage renal disease. Continue on dialysis as tolerated. 2. Bradycardia. Follow up with primary team and cardiology. 3. Edema. Remove fluid with dialysis. 4. Hypertension. We will increase hydralazine as tolerated. 5. Hyperalbuminemia. 6. Anemia. Monitor hemoglobin. 7. Continue on dialysis as tolerated. Job ID: [id number]
--- NOTE | 2018-06-22 17:20 | CON ---
DATE OF CONSULTATION: 06/22/2018 CARDIOLOGY CONSULTATION REASON FOR CONSULTATION: Bradycardia. HISTORY OF PRESENT ILLNESS: Mr. Ho is a pleasant 67-year-old white gentleman, who comes to the hospital for volume overload after missing dialysis. He has end-stage renal disease. He also had abdominal pain with nausea and vomiting and some constipation. He was admitted, placed on hemodialysis, and secondary to history of coronary artery disease and previous stenting, he was placed on telemetry. He went to have dialysis yesterday and became bradycardic down to the 20s, so Cardiology is being consulted for this. Currently, his heart rate is in the 40s consistently. PAST MEDICAL HISTORY: 1. Type 2 diabetes. 2. End-stage renal disease, on hemodialysis. 3. Hypertension. 4. Hyperlipidemia. 5. Peripheral neuropathy. 6. Coronary artery disease, previous PCI to the LAD in 2014. 7. Anemia of chronic disease. PAST SURGICAL HISTORY: 1. Appendectomy. 2. Nasal surgery. 3. Cardiac cath in 2014 with stent to the LAD. OUTPATIENT MEDICATIONS: 1. Aspirin 81 a day. 2. Flomax. 3. Nifedipine 90 mg a day. 4. Ranitidine. 5. Lopressor 50 mg b.i.d. 6. Hydralazine 25 mg twice a day. 7. Atorvastatin 40 a day. 8. Lisinopril 20 a day. 9. Levemir. 10. Protonix. ALLERGIES: NO KNOWN DRUG ALLERGIES. SOCIAL HISTORY: No alcohol, tobacco, or drugs. FAMILY HISTORY: Mother of unknown cancer. Father with diabetes. REVIEW OF SYSTEMS: A 12-point review of systems was done and was found to be negative unless stated in the history of present illness. PHYSICAL EXAMINATION: VITAL SIGNS: Temperature 97.6, pulse 48, respiratory rate 18, saturating 99% on 2 L nasal cannula, and blood pressure 125/71. GENERAL: Awake, alert, and oriented x3. No distress. HEENT: Normocephalic and atraumatic. NECK: Supple. LUNGS: Clear. CARDIOVASCULAR: S1 and S2. No S3 or S4. No murmurs. ABDOMEN: Soft. Positive bowel sounds. EXTREMITIES: No edema. SKIN: Warm and dry. LABORATORY DATA: Laboratory work was reviewed. CBC, coags, and CMP were reviewed. Electrolytes were unremarkable. I cannot find an EKG on the chart. Telemetry seems to be sinus bradycardia in the upper 40s, low 50s. ASSESSMENT AND PLAN: 1. Symptomatic bradycardia: He has been feeling weak and tired for the last few days as well as almost feeling presyncopal during dialysis and . We will stop metoprolol for now. If his heart rate does not come up or if he continues to drop after stopping metoprolol for 3 days, then he may be a candidate for pacemaker. 2. We will get an EKG to make sure this is not to 2:1 block. I do not see an EKG on file. He may have been misplaced. We will try to fight. 3. We will follow. Job ID: [id number]
[2018-06-23] MEDS: Polyethylene Glycol 3350 17 GM Packet PO SCH (08:23)
[2018-06-23] MEDS: Aspirin 81 mg Enteric Coated Tablet PO SCH (08:23)
[2018-06-23] MEDS: Clopidogrel Bisulfate 75 MG TAB PO SCH (08:23)
[2018-06-23] MEDS: Docusate 100 MG CAP PO SCH ×2 (08:23→20:23)
[2018-06-23] MEDS: hydrALAZINE 25 MG TAB PO SCH ×3 (08:24→20:23)
[2018-06-23] MEDS: Famotidine 20 MG TAB PO SCH (08:24)
[2018-06-23] MEDS: Tamsulosin HCl 0.4 MG CAP PO SCH (08:25)
[2018-06-23] MEDS: Lisinopril 10 MG TAB PO SCH (08:25)
[2018-06-23] MEDS: NIFEdipine XL 90 MG TAB PO SCH (08:25)
--- NOTE | 2018-06-23 08:52 | PDOC.PN ---
- Subjective Encounter Start Date: 06/23/18 Encounter Start Time: 11:50 Subjective: Patient feeling better. No chest pain. No SOB. Awaiting dialysis. - Objective Resuscitation Status - Order Detail: 06/20/18 15:14 Resuscitation Status Routine Resuscitation Status: FULL: Full Resuscitation MAR Reviewed: Yes Vital Signs & Weight: Vital Signs (12 hours) Temp Pulse Resp BP Pulse Ox 06/23/18 07:22 98 F 59 L 18 185/86 H 96 06/23/18 03:50 98 F 55 L 16 168/77 H 96 Weight Weight 170 lb 1.6 oz I&O: 06/22/18 06/23/18 06/24/18 06:59 06:59 06:59 Intake Total 1460 1315 Output Total 175 650 Balance 1285 665 Result Diagrams: 06/21/18 07:44 06/21/18 07:44 Additional Labs: Accuchecks 06/23/18 06/22/18 06/22/18 05:59 20:13 16:37 POC Glucose 163 H 211 H 189 H 06/22/18 10:27 POC Glucose 218 H Phys Exam - Physical Examination Constitutional: NAD HEENT: moist MMs Respiratory: no wheezing, no rales, no rhonchi Cardiovascular: RRR Gastrointestinal: soft, positive bowel sounds Musculoskeletal: no edema Psychiatric: normal affect Dx/Plan (1) Volume overload Code(s): E87.70 - FLUID OVERLOAD, UNSPECIFIED Status: Acute Comment: improved after dialysis (2) ESRD (end stage renal disease) on dialysis Code(s): N18.6 - END STAGE RENAL DISEASE; Z99.2 - DEPENDENCE ON RENAL DIALYSIS Status: Chronic Comment: HD per nephrology. (3) Bradycardia Code(s): R00.1 - BRADYCARDIA, UNSPECIFIED Status: Acute Comment: down to the 20s after dialysis, now improved with holding Metoprolol (4) Hypertension Code(s): I10 - ESSENTIAL (PRIMARY) HYPERTENSION Status: Chronic Qualifiers: Hypertension type: essential hypertension Qualified Code(s): I10 - Essential (primary) hypertension Comment: Improved control after dialysis (5) Hypertensive urgency Code(s): I16.0 - HYPERTENSIVE URGENCY Status: Resolved (6) DM2 (diabetes mellitus, type 2) Status: Chronic Qualifiers: Chronic kidney disease stage: on chronic dialysis Comment: on sliding scale (7) Dementia Code(s): F03.90 - UNSPECIFIED DEMENTIA WITHOUT BEHAVIORAL DISTURBANCE Status: Chronic Qualifiers: Dementia type: unspecified type (8) Anemia Code(s): D64.9 - ANEMIA, UNSPECIFIED Status: Chronic Qualifiers: Anemia type: due to chronic kidney disease Chronic kidney disease stage: on chronic dialysis Qualified Code(s): N18.6 - End stage renal disease; D63.1 - Anemia in chronic kidney disease; Z99.2 - Dependence on renal dialysis Comment: stable - Plan cont current plan of care, PT/OT, DVT proph w/SCDs Dialysis today. Hold Betablocker. May be able to be discharged if -: no bradycardia with dialysis. * . - Discharge Day Encounter end time: 12:00
[2018-06-23] MEDS: HumaLOG 300 UNITS/3 ML VIAL SC PRN (11:35)
--- NOTE | 2018-06-23 14:10 | PRG ---
DATE OF SERVICE: 06/23/2018 SUBJECTIVE: A 67-year-old gentleman, being seen for acute kidney injury. The patient denied any nausea, vomiting, or chest pain. PHYSICAL EXAMINATION: CONSTITUTIONAL: The patient is awake, alert. VITAL SIGNS: Afebrile. Pulse 75, breathing 16, blood pressure was 115/56. GENERAL APPEARANCE AND MENTAL STATUS: Fair. HEAD/NECK: Normocephalic. Atraumatic. EYES: EOMI. No deformity. EARS: Clear. No ulcers. NOSE: Intact. No lesions. MOUTH: Clear. No discharge. THROAT: Clear. No exudate. LUNGS: Clear. No crackles. CARDIAC: S1, S2. No rub. ABDOMEN: Benign. Bowel sounds positive. GENITALIA/RECTUM: Barrera absent. BACK/EXTREMITIES: Edema 0+. NEUROLOGICAL: Alert and motor intact. SKIN: LYMPHATICS: LABORATORY DATA: Lab showed hemoglobin 10.9. ASSESSMENT: 1. Stage 6 chronic kidney disease, continue hemodialysis. 2. Hypertension, stable. 3. Anemia, stable. 4. Medication based on GFR appropriate. Job ID: [id number]
--- NOTE | 2018-06-23 14:50 | PDOC.CTH ---
Cardiology Progress Note - Subjective No new issues. HR in the mid 50's since stopping BB. - Objective Vital Signs Temp Pulse Pulse Pulse Resp BP BP 06/23/18 11:32 98 F 60 16 06/23/18 10:30 63 62 173/74 H 175/72 H 06/23/18 07:22 98 F 59 L 18 06/23/18 03:50 98 F 55 L 16 BP Pulse Ox 06/23/18 11:32 115/56 L 94 L 06/23/18 10:30 06/23/18 07:22 185/86 H 96 06/23/18 03:50 168/77 H 96 Weight 170 lb 1.6 oz 06/22/18 06/23/18 06/24/18 06:59 06:59 06:59 Intake Total 1460 1315 Output Total 175 650 Balance 1285 665 - Physical Examination General/Neuro: alert & oriented x3, NAD Neck: no JVD present Lungs: CTA, unlabored respirations Heart: RRR Abdomen: NT/ND Extremities: + edema B (trace) - Telemetry Telemetry Rhythm: S Dajuan - Labs Result Diagrams: 06/21/18 07:44 06/21/18 07:44 - Assessment/Plan 1. S. Bradycardia. 2. ESRD PLAN: - Continue to hold BB. - If he continues to be Bradycardic on HD not letting him finish then he may need a PPM.
[2018-06-24] MEDS: hydrALAZINE 20 MG/ML VIAL SLOW IVP PRN (03:46)
[2018-06-24] MEDS: NIFEdipine XL 90 MG TAB PO SCH (07:54)
[2018-06-24] MEDS: Lisinopril 10 MG TAB PO SCH (07:55)
[2018-06-24] MEDS: hydrALAZINE 25 MG TAB PO SCH ×3 (07:55→21:39)
--- NOTE | 2018-06-24 07:59 | PDOC.PN ---
- Subjective Encounter Start Date: 06/24/18 Encounter Start Time: 10:30 Subjective: Patient reports no SOB or chest pain. No issues with severe bradycardia -: during dialysis yesterday. Blood pressures severely elevated this morning. - Objective Resuscitation Status - Order Detail: 06/20/18 15:14 Resuscitation Status Routine Resuscitation Status: FULL: Full Resuscitation MAR Reviewed: Yes Vital Signs & Weight: Vital Signs (12 hours) Temp Pulse Resp BP BP Pulse Ox 06/24/18 07:27 98.6 F 68 18 219/95 H 96 06/24/18 03:46 67 209/93 H 06/24/18 03:31 98.1 F 67 16 209/93 H 94 L 06/23/18 20:23 71 172/76 H 06/23/18 20:00 97.8 F 71 18 172/76 H 97 Weight Weight 170 lb 1.6 oz I&O: 06/23/18 06/24/18 06/25/18 06:59 06:59 06:59 Intake Total 1315 1150 Output Total 650 425 Balance 665 725 Result Diagrams: 06/21/18 07:44 06/21/18 07:44 Additional Labs: Accuchecks 06/24/18 06/23/18 06/23/18 05:43 20:36 16:37 POC Glucose 215 H 263 H 195 H 06/23/18 10:33 POC Glucose 246 H Phys Exam - Physical Examination Constitutional: NAD HEENT: moist MMs Respiratory: no wheezing, no rales, no rhonchi Cardiovascular: RRR Gastrointestinal: soft, positive bowel sounds Neurological: non-focal, moves all 4 limbs Psychiatric: normal affect, A&O x 3 Dx/Plan (1) Volume overload Code(s): E87.70 - FLUID OVERLOAD, UNSPECIFIED Status: Acute Comment: improved after dialysis (2) ESRD (end stage renal disease) on dialysis Code(s): N18.6 - END STAGE RENAL DISEASE; Z99.2 - DEPENDENCE ON RENAL DIALYSIS Status: Chronic Comment: HD per nephrology. (3) Bradycardia Code(s): R00.1 - BRADYCARDIA, UNSPECIFIED Status: Acute Comment: down to the 20s after dialysis, now improved with holding Metoprolol (4) Hypertension Code(s): I10 - ESSENTIAL (PRIMARY) HYPERTENSION Status: Chronic Qualifiers: Hypertension type: essential hypertension Qualified Code(s): I10 - Essential (primary) hypertension Comment: Improved control after dialysis (5) Hypertensive urgency Code(s): I16.0 - HYPERTENSIVE URGENCY Status: Acute (6) DM2 (diabetes mellitus, type 2) Status: Chronic Qualifiers: Chronic kidney disease stage: on chronic dialysis Comment: on sliding scale (7) Dementia Code(s): F03.90 - UNSPECIFIED DEMENTIA WITHOUT BEHAVIORAL DISTURBANCE Status: Chronic Qualifiers: Dementia type: unspecified type (8) Anemia Code(s): D64.9 - ANEMIA, UNSPECIFIED Status: Chronic Qualifiers: Anemia type: due to chronic kidney disease Chronic kidney disease stage: on chronic dialysis Qualified Code(s): N18.6 - End stage renal disease; D63.1 - Anemia in chronic kidney disease; Z99.2 - Dependence on renal dialysis Comment: stable - Plan cont current plan of care D/C if no bradycardia during dialysis and can control blood pressure, if -: not may need pacemaker * . - Discharge Day Encounter end time: 10:40
[2018-06-24] MEDS: Clopidogrel Bisulfate 75 MG TAB PO SCH (08:00)
[2018-06-24] MEDS: Tamsulosin HCl 0.4 MG CAP PO SCH (08:00)
[2018-06-24] MEDS: Docusate 100 MG CAP PO SCH ×2 (08:00→21:39)
[2018-06-24] MEDS: Famotidine 20 MG TAB PO SCH (08:00)
[2018-06-24] MEDS: Polyethylene Glycol 3350 17 GM Packet PO SCH (08:00)
[2018-06-24] MEDS: Aspirin 81 mg Enteric Coated Tablet PO SCH (08:00)
--- NOTE | 2018-06-24 11:28 | PRG ---
DATE OF SERVICE: 06/24/2018 SUBJECTIVE: A 67-year-old gentleman, being seen for end-stage renal disease. The patient denied nausea, vomiting, or chest pain. OBJECTIVE: GENERAL: Awake and alert. VITAL SIGNS: Afebrile, pulse 75, breathing 16, blood pressure was 157/80. GENERAL APPEARANCE AND MENTAL STATUS: Fair. HEAD/NECK: Normocephalic. Atraumatic. EYES: EOMI. No deformity. EARS: Clear. No ulcers. NOSE: Intact. No lesions. MOUTH: Clear. No discharge. THROAT: Clear. No exudate. LUNGS: Clear. No crackles. CARDIAC: S1, S2. No rub. ABDOMEN: Benign. Bowel sounds positive. GENITALIA/RECTUM: Barrera absent. BACK/EXTREMITIES: Edema 0+. NEUROLOGICAL: Alert and motor intact. LABORATORY DATA: Reviewed. ASSESSMENT: Stage 6 chronic kidney disease. Plan dialysis tomorrow. Hypertension, stable. Anemia, stable. Medications based on GFR are appropriate. Job ID: [id number]
[2018-06-24] MEDS: HumaLOG 300 UNITS/3 ML VIAL SC PRN ×3 (11:53→21:39)
--- NOTE | 2018-06-24 18:15 | PDOC.CTH ---
Cardiology Progress Note - Subjective Had HD yesterday without issues. His HR has continued to increase the further away form last dose of BB we get. Currently HR in the 70's. - Objective Vital Signs Temp Pulse Resp BP Pulse Ox 06/24/18 15:17 98.2 F 68 18 136/63 93 L 06/24/18 11:48 97.6 F 66 16 132/63 94 L 06/24/18 09:32 75 147/83 H 06/24/18 07:27 98.6 F 68 18 219/95 H 96 Weight 170 lb 1.6 oz 06/23/18 06/24/18 06/25/18 06:59 06:59 06:59 Intake Total 1315 1150 Output Total 650 425 Balance 665 725 - Physical Examination General/Neuro: alert & oriented x3, NAD Neck: no JVD present Lungs: CTA, unlabored respirations Heart: RRR Abdomen: NT/ND Extremities: other: (no edema) - Telemetry Telemetry Rhythm: NSR - Labs Result Diagrams: 06/21/18 07:44 06/21/18 07:44 - Assessment/Plan 1. S. Bradycardia. 2. ESRD PLAN: - Continue to hold BB. - HR overall improved off BB. - Will hold indefinitely. - If he continues to be Bradycardic on HD he will need a PPM. - Tomorrow he is scheduled to have HD again. If he tolerates without any lows he may be discharged home OFF beta gabriela completely.
--- NOTE | 2018-06-25 07:30 | PDOC.PN ---
- Subjective Encounter Start Date: 06/25/18 Encounter Start Time: 09:30 Subjective: Patient yest afternoon said he didn't want to do dialysis anymore. This -: AM he is agreeable to it again after discussing with . No sig SOB. No -: chest pain. BP improved. - Objective Resuscitation Status - Order Detail: 06/20/18 15:14 Resuscitation Status Routine Resuscitation Status: FULL: Full Resuscitation MAR Reviewed: Yes Vital Signs & Weight: Vital Signs (12 hours) Temp Pulse Resp BP Pulse Ox 06/25/18 03:49 98.3 F 73 12 142/63 H 95 06/24/18 19:30 98.4 F 64 16 185/84 H 95 Weight Weight 170 lb 1.6 oz I&O: 06/24/18 06/25/18 06/26/18 06:59 06:59 06:59 Intake Total 1150 960 Output Total 425 625 Balance 725 335 Result Diagrams: 06/21/18 07:44 06/21/18 07:44 Additional Labs: Accuchecks 06/25/18 06/24/18 06/24/18 05:39 20:35 16:38 POC Glucose 124 H 242 H 213 H 06/24/18 10:43 POC Glucose 202 H Phys Exam - Physical Examination Constitutional: NAD HEENT: moist MMs Respiratory: no wheezing, no rales, no rhonchi Cardiovascular: RRR Gastrointestinal: soft, positive bowel sounds Musculoskeletal: no edema Neurological: non-focal, moves all 4 limbs Psychiatric: normal affect, A&O x 3 Dx/Plan (1) Volume overload Code(s): E87.70 - FLUID OVERLOAD, UNSPECIFIED Status: Resolved Comment: improved after dialysis (2) ESRD (end stage renal disease) on dialysis Code(s): N18.6 - END STAGE RENAL DISEASE; Z99.2 - DEPENDENCE ON RENAL DIALYSIS Status: Chronic Comment: HD per nephrology. (3) Bradycardia Code(s): R00.1 - BRADYCARDIA, UNSPECIFIED Status: Acute Comment: down to the 20s after dialysis, now improved with holding Metoprolol (4) Hypertension Code(s): I10 - ESSENTIAL (PRIMARY) HYPERTENSION Status: Chronic Qualifiers: Hypertension type: essential hypertension Qualified Code(s): I10 - Essential (primary) hypertension Comment: Improved control after dialysis (5) Hypertensive urgency Code(s): I16.0 - HYPERTENSIVE URGENCY Status: Acute Comment: Improved today even off beta gabriela (6) DM2 (diabetes mellitus, type 2) Status: Chronic Qualifiers: Chronic kidney disease stage: on chronic dialysis Comment: on sliding scale (7) Dementia Code(s): F03.90 - UNSPECIFIED DEMENTIA WITHOUT BEHAVIORAL DISTURBANCE Status: Chronic Qualifiers: Dementia type: unspecified type (8) Anemia Code(s): D64.9 - ANEMIA, UNSPECIFIED Status: Chronic Qualifiers: Anemia type: due to chronic kidney disease Chronic kidney disease stage: on chronic dialysis Qualified Code(s): N18.6 - End stage renal disease; D63.1 - Anemia in chronic kidney disease; Z99.2 - Dependence on renal dialysis Comment: stable - Plan cont current plan of care Palliative care consult. For now patient will continue regular dialysis. -: Likely can go home if tolerated dialysis well today without bradycardia. * . - Discharge Day Encounter end time: 09:40
[2018-06-25] MEDS: hydrALAZINE 25 MG TAB PO SCH ×3 (10:04→18:26)
[2018-06-25] MEDS: Polyethylene Glycol 3350 17 GM Packet PO SCH (10:04)
[2018-06-25] MEDS: HumaLOG 300 UNITS/3 ML VIAL SC PRN (11:13)
[2018-06-25] MEDS: hydrALAZINE 20 MG/ML VIAL SLOW IVP PRN ×2 (11:16→15:44)
--- NOTE | 2018-06-25 12:11 | PRG ---
DATE OF SERVICE: 06/25/2018 SUBJECTIVE: A 67-year-old gentleman, being seen for end-stage renal disease. The patient denied any nausea, vomiting, or chest pain. OBJECTIVE: CONSTITUTIONAL: The patient is awake and alert, in no acute distress. VITAL SIGNS: Afebrile. Pulse 72, breathing 16, blood pressure 142/60. GENERAL APPEARANCE AND MENTAL STATUS: Fair. HEAD/NECK: Normocephalic. Atraumatic. EYES: EOMI. No deformity. EARS: Clear. No ulcers. NOSE: Intact. No lesions. MOUTH: Clear. No discharge. THROAT: Clear. No exudate. LUNGS: Clear. No crackles. CARDIAC: S1, S2. No rub. ABDOMEN: Benign. Bowel sounds positive. GENITALIA/RECTUM: Barrera absent. BACK/EXTREMITIES: Edema 0+. NEUROLOGICAL: Alert and motor intact. SKIN: LYMPHATICS: LABORATORY DATA: Lab showed hemoglobin 10.9. ASSESSMENT: 1. Stage 6 chronic kidney disease. Continue hemodialysis. 2. Hypertension, stable. 3. Anemia, stable. 4. Medication based on GFR appropriate. Job ID: [id number]
--- NOTE | 2018-06-25 15:19 | PQF ---
TASHA CLEMENTS, JL WONG MD [id number] CLINICAL DOCUMENTATION IMPROVEMENT CLARIFICATION FORM: ICD-10 Updated PLEASE DO AN ADDENDUM TO THE PROGRESS NOTE WITH ANY DOCUMENTATION UPDATES OR ADDITIONS AND CARRY THROUGH TO DC SUMMARY. THANK YOU. DATE: 06/25/2018 ATTN: DR. DEAN Please exercise your independent, professional judgment in responding to the clarification form. Clinical indicators are provided on the bottom of this form for your review Please check appropriate box(s): HEART FAILURE A. TYPE: [ ] Systolic / HFrEF [ X ] Diastolic / HFpEF [ ] Combined Systolic / Diastolic B. ACUITY: [ ] Acute [ X ] Acute on Chronic [ ] Chronic [ ] Other diagnosis [ ] Unable to determine In addition, please specify: Present on Admission (POA): [ X ] Yes [ ] No [ ] Unable to determine For continuity of documentation, please document condition throughout progress notes and discharge summary. Thank You. CLINICAL INDICATORS - SIGNS / SYMPTOMS / LABS 06/20-H&P: FINDINGS CONSISTENT WITH HEART FAILURE ON CHEST EXAM. GET ECHO. 06/22-ECHO: EF ESTIMATED 55-60%. GRADE 2/3 DIASTOLIC DYSFUNCTION. MODERATELY DILATED LEFT ATRIUM. MILDLY ENLARGED RIGHT ATRIUM SIZE. MILD MITRAL REGURG. MILD TRICUSPID REGURG. RISKS: History of CAD ESRD on HD Hypertension Hyperlipidemia TREATMENTS: Administration of BB Cardiac monitoring / telemetry Echo Cardiology Consult Thank You, Shae (This form is maintained as a part of the permanent medical record) 2015 [employer], [place]. All Rights Reserved Shae Mckinnon RN, CDIS [email or web address] [phone] MTDD
[2018-06-25] MEDS: Tamsulosin HCl 0.4 MG CAP PO SCH (17:30)
[2018-06-25] MEDS: Docusate 100 MG CAP PO SCH ×2 (17:30→20:14)
[2018-06-25] MEDS: Famotidine 20 MG TAB PO SCH (17:30)
[2018-06-25] MEDS: Clopidogrel Bisulfate 75 MG TAB PO SCH (17:30)
[2018-06-25] MEDS: Lisinopril 10 MG TAB PO SCH (17:31)
[2018-06-25] MEDS: Aspirin 81 mg Enteric Coated Tablet PO SCH (17:31)
[2018-06-25] MEDS: NIFEdipine XL 90 MG TAB PO SCH (17:31)
[2018-06-25] MEDS ORDERED: cloNIDine 0.1 MG TAB PO PRN ×2 (21:15→21:17)
[2018-06-26] MEDS: HumaLOG 300 UNITS/3 ML VIAL SC PRN ×2 (06:05→12:27)
[2018-06-26] MEDS: Docusate 100 MG CAP PO SCH (08:43)
[2018-06-26] MEDS: Aspirin 81 mg Enteric Coated Tablet PO SCH (08:43)
[2018-06-26] MEDS: Clopidogrel Bisulfate 75 MG TAB PO SCH (08:43)
[2018-06-26] MEDS: Famotidine 20 MG TAB PO SCH (08:43)
[2018-06-26] MEDS: hydrALAZINE 25 MG TAB PO SCH ×2 (08:44→15:21)
[2018-06-26] MEDS: NIFEdipine XL 90 MG TAB PO SCH (08:44)
[2018-06-26] MEDS: Lisinopril 10 MG TAB PO SCH (08:44)
[2018-06-26] MEDS: Polyethylene Glycol 3350 17 GM Packet PO SCH (08:45)
[2018-06-26] MEDS: Tamsulosin HCl 0.4 MG CAP PO SCH (08:45)
--- NOTE | 2018-06-26 09:14 | PDOC.PN ---
- Subjective Encounter Start Date: 06/26/18 Encounter Start Time: 10:40 Subjective: Patient without complaint. No significant bradycardia during -: dialysis. Ready to go home. - Objective Resuscitation Status - Order Detail: 06/20/18 15:14 Resuscitation Status Routine Resuscitation Status: FULL: Full Resuscitation MAR Reviewed: Yes Vital Signs & Weight: Vital Signs (12 hours) Temp Pulse Resp BP BP Pulse Ox 06/26/18 08:44 71 143/64 H 06/26/18 08:41 97.5 F L 71 16 143/64 H 97 06/26/18 04:00 98 F 70 16 166/77 H 96 06/26/18 00:00 126/58 L Weight Weight 156 lb 6.4 oz I&O: 06/25/18 06/26/18 06/27/18 06:59 06:59 06:59 Intake Total 960 480 Output Total 625 3650 Balance 335 -3170 Result Diagrams: 06/21/18 07:44 06/21/18 07:44 Additional Labs: Accuchecks 06/26/18 06/25/18 06/25/18 06:01 20:31 17:12 POC Glucose 350 H 277 H 127 H 06/25/18 10:34 POC Glucose 234 H Phys Exam - Physical Examination Constitutional: NAD HEENT: moist MMs Respiratory: no wheezing, no rales, no rhonchi Cardiovascular: RRR, no significant murmur Gastrointestinal: soft, positive bowel sounds Musculoskeletal: no edema Neurological: non-focal, moves all 4 limbs Psychiatric: normal affect, A&O x 3 Dx/Plan (1) Volume overload Code(s): E87.70 - FLUID OVERLOAD, UNSPECIFIED Status: Resolved Comment: improved after dialysis (2) ESRD (end stage renal disease) on dialysis Code(s): N18.6 - END STAGE RENAL DISEASE; Z99.2 - DEPENDENCE ON RENAL DIALYSIS Status: Chronic Comment: HD per nephrology. (3) Bradycardia Code(s): R00.1 - BRADYCARDIA, UNSPECIFIED Status: Acute Comment: down to the 20s after dialysis, now improved with holding Metoprolol (4) Hypertension Code(s): I10 - ESSENTIAL (PRIMARY) HYPERTENSION Status: Chronic Qualifiers: Hypertension type: essential hypertension Qualified Code(s): I10 - Essential (primary) hypertension Comment: Improved control after dialysis (5) Hypertensive urgency Code(s): I16.0 - HYPERTENSIVE URGENCY Status: Acute Comment: Improved today even off beta gabriela (6) DM2 (diabetes mellitus, type 2) Status: Chronic Qualifiers: Chronic kidney disease stage: on chronic dialysis Comment: on sliding scale (7) Dementia Code(s): F03.90 - UNSPECIFIED DEMENTIA WITHOUT BEHAVIORAL DISTURBANCE Status: Chronic Qualifiers: Dementia type: unspecified type (8) Anemia Code(s): D64.9 - ANEMIA, UNSPECIFIED Status: Chronic Qualifiers: Anemia type: due to chronic kidney disease Chronic kidney disease stage: on chronic dialysis Qualified Code(s): N18.6 - End stage renal disease; D63.1 - Anemia in chronic kidney disease; Z99.2 - Dependence on renal dialysis Comment: stable (9) Diastolic CHF, acute Code(s): I50.31 - ACUTE DIASTOLIC (CONGESTIVE) HEART FAILURE Status: Resolved Comment: resolved after diuresis - Plan cont current plan of assisted today * . - Discharge Day Encounter end time: 11:00
--- NOTE | 2018-06-26 11:25 | PRG ---
DATE OF SERVICE: 06/26/2018 SUBJECTIVE: A 67-year-old gentleman being seen for end-stage kidney disease. The patient denies any nausea, vomiting, or chest pain. OBJECTIVE: CONSTITUTIONAL: The patient is awake and alert. VITAL SIGNS: Afebrile. Pulse 71, breathing 16, and blood pressure 143/64. GENERAL APPEARANCE AND MENTAL STATUS: Fair. HEAD/NECK: Normocephalic. Atraumatic. EYES: EOMI. No deformity. EARS: Clear. No ulcers. NOSE: Intact. No lesions. MOUTH: Clear. No discharge. THROAT: Clear. No exudate. LUNGS: Clear. No crackles. CARDIAC: S1, S2. No rub. ABDOMEN: Benign. Bowel sounds positive. GENITALIA/RECTUM: Barrera absent. BACK/EXTREMITIES: Edema 0+. NEUROLOGICAL: Alert and motor intact. SKIN: LYMPHATICS: LABORATORY DATA: Lab showed hemoglobin 10.9. ASSESSMENT: 1. Stage 6 chronic kidney disease. Continue hemodialysis. 2. Hypertension, stable. 3. Anemia, stable. 4. Medication based on GFR appropriate. Job ID: [id number]
[2018-06-26 12:26] VITALS: TEMP 97.7
--- NOTE | 2018-06-26 14:42 | DIS ---
DATE OF ADMISSION: 06/20/2018 DATE OF DISCHARGE: 06/26/2018 PRIMARY CARE PHYSICIAN: [facility] in [place]. REASON FOR ADMISSION: Volume overload secondary to missed hemodialysis. DIAGNOSES AT DISCHARGE: 1. Acute diastolic congestive heart failure with volume overload, resolved. 2. End-stage renal disease, on hemodialysis. 3. Bradycardia, resolved off of metoprolol. 4. Hypertension. 5. Hypertensive urgency, resolved. 6. Diabetes mellitus type 2. 7. Dementia. 8. Anemia. PROCEDURES: 1. CT of the abdomen and pelvis with IV contrast showing diffuse anasarca with nonspecific fat stranding within the mesentery. Small bilateral pleural effusions. Minimal bilateral vascular congestion. Minimal thickening of the GE junction region and distal esophagus ruano. Some mildly dilated small bowel loops in the upper abdomen and air-fluid levels, possible enteritis versus ileus. Overall, stable though from previous CTs. 2. Echocardiogram showing ejection fraction of 55% to 60%, grade 2/3 diastolic dysfunction and elevated right ventricular systolic pressure of 48 mmHg. CONSULTATIONS: 1. Nephrology, Dr. Mae for Dr. Harding. 2. Cardiology, Dr. Orr. SUMMARY OF HOSPITAL COURSE: This is a 67-year-old man with history of end-stage renal disease, on dialysis. He has been missing his dialysis somewhat regularly once a week. He missed it for the past week before coming in and became short of breath and also had orthopnea and paroxysmal nocturnal dyspnea, some sharp chest pains as well and some swelling in his legs. He was seen in the ER and admitted for hemodialysis. The patient had resolution of his shortness of breath and all symptoms with regular dialysis. However, during his first dialysis in the hospital, his heart rate dropped into the 20s. His metoprolol was discontinued and Dr. Orr was consulted for Cardiology. Dr. Orr recommended stopping all beta blockers and then watching the patient closely during future dialyses. The patient's heart rate improved through the course of hospitalization, and he was able to get dialysis without any sort of hypotension or bradycardia. His blood pressure medicines were adjusted to assist in controlling his blood pressure off his Toprol and he was doing well on the day of discharge. The patient did express a desire to stop dialysis during hospitalizations, so I discussed this with him further; however, he eventually changed his mind and decided he wanted to be on dialysis and he would go regularly and this is in agreement with his who helps him to make medical decisions. I did tell him that if he ever wanted to stop dialysis and consider hospice, that he should talk with his technical developer about that, and we could also have Palliative Care speak with them about that as well. On the day of discharge, the patient is doing well and was ready to go back home. DISCHARGE MANAGEMENT: Discharged home. FOLLOWUP: Follow up with the [facility] and with Dr. Harding as indicated. ACTIVITY: As tolerated. DIET: Renal diet. MEDICATIONS: 1. Aspirin 81 mg daily. 2. Clopidogrel 75 mg daily. 3. Hydralazine 100 mg 3 times a day. This is a new dose for him. 4. Lisinopril 10 mg daily. 5. Nifedipine 90 mg daily. 6. Tamsulosin 0.4 mg daily, none. 7. Isosorbide mononitrate extended release 30 mg daily. Job ID: [id number]
[2018-06-26 15:22] VITALS: BP 134/65
--- NOTE | 2018-06-26 16:57 | PDOC.CTH ---
Cardiology Progress Note - Subjective Doing well. No new issues. - Objective Vital Signs Temp Pulse Pulse Pulse Resp BP BP 06/26/18 15:21 65 134/65 06/26/18 12:25 97.7 F 72 16 06/26/18 11:46 82 81 98/55 L 06/26/18 08:44 71 143/64 H 06/26/18 08:41 97.5 F L 71 16 BP BP Pulse Ox Pulse Ox Pulse Ox 06/26/18 15:21 06/26/18 12:25 122/60 97 06/26/18 11:46 96/54 L 97 97 06/26/18 08:44 06/26/18 08:41 143/64 H 97 Weight 156 lb 6.4 oz 06/25/18 06/26/18 06/27/18 06:59 06:59 06:59 Intake Total 960 480 Output Total 625 3650 Balance 335 -3170 - Physical Examination General/Neuro: alert & oriented x3, NAD Neck: no JVD present Lungs: unlabored respirations Heart: RRR Abdomen: NT/ND Extremities: other: (no edema.) - Telemetry Telemetry Rhythm: NSR - Labs Result Diagrams: 06/21/18 07:44 06/21/18 07:44 - Assessment/Plan 1. S. Bradycardia. 2. ESRD PLAN: - Continue to hold BB. - HR overall improved off BB. - May discharge any time from cardiac perspective off beta blockers. - Will sign off. Please call with any questions.
== END 2018-06-26 17:00 | disposition home or self-care (01) | DRG 640 ==
LOC: ERS 10:06 → T4-B 21:11 → 2NO 06-21 17:01
PROVIDERS: ADMIT Internal Medicine; ATTEND Internal Medicine
PROC: 5A1D70Z Performance of Urinary Filtration, Intermittent, Less than 6 Hours Per Day (ICD-10-PCS; principal; 2018-06-20)
DX: E87.79 Other fluid overload (principal); N18.6 End stage renal disease; I50.33 Acute on chronic diastolic (congestive) heart failure; I13.2 Hypertensive heart and chronic kidney disease with heart failure and with stage 5 chronic kidney disease, or end stage renal disease; N17.9 Acute kidney failure, unspecified; Z91.15 Patient's noncompliance with renal dialysis; E11.22 Type 2 diabetes mellitus with diabetic chronic kidney disease; Z99.2 Dependence on renal dialysis; I25.10 Atherosclerotic heart disease of native coronary artery without angina pectoris; D63.1 Anemia in chronic kidney disease; E11.42 Type 2 diabetes mellitus with diabetic polyneuropathy; E78.5 Hyperlipidemia, unspecified; K59.00 Constipation, unspecified; I16.0 Hypertensive urgency; F03.90 Unspecified dementia, unspecified severity, without behavioral disturbance, psychotic disturbance, mood disturbance, and anxiety; K21.9 Gastro-esophageal reflux disease without esophagitis; R00.1 Bradycardia, unspecified; R79.89 Other specified abnormal findings of blood chemistry; N40.0 Benign prostatic hyperplasia without lower urinary tract symptoms; Z95.5 Presence of coronary angioplasty implant and graft; Z79.82 Long term (current) use of aspirin; Z79.4 Long term (current) use of insulin
CPT/HCPCS: 36415; 36416; 74177; 80048; 80053; 83605; 85025; 85610; 85652; 85730; 86140; 90935; 93005; 93010; 93306; 96365; 96375; G0257; J0360; J2270; J2543; Q9966

== ENCOUNTER 2018-08-13 00:09 | Inpatient (IN) | payer MEDICARE ==
[2018-08-13] MEDS ORDERED: Acetaminophen 500 MG TAB ONE (00:32)
[2018-08-13 01:02] LABS: #Lymphocytes 0.6 thou/uL (1.20-3.40); #Monocytes 0.5 thou/uL (0.11-0.59); #Neutrophils 2.9 thou/uL (1.40-6.50); %Basophils 0.9 % (0.0-1.0); %Eosinophils 0.7 % (0.0-10.0); %Lymphocytes 14.2 % (21.0-51.0); %Monocytes 12.3 % (0.0-10.0); %Neutrophils 71.9 % (42.0-75.0); Hemoglobin 11.9 g/dL (14.0-18.0); Mean Corpuscular HGB CONC 32.9 g/dL (32.0-36.0); Mean Corpuscular Hemoglobin 30.7 pg (27.0-31.0); Mean Corpuscular Volume 93.3 fL (78.0-98.0); Platelet Count 196 thou/uL (130-400); RBC Distribution Width 14.3 % (11.5-14.5); Red Blood Cell (RBC) Count 3.86 mill/uL (4.70-6.10); White Blood Cell (WBC) Count 4.1 thou/uL (4.8-10.8)
[2018-08-13 01:21] LABS: ALT (SGPT) 15 U/L (8-55); AST (SGOT) 26 U/L (5-34); Albumin 3.4 g/dL (3.4-4.8); Alkaline Phosphatase 144 U/L (40-150); Anion Gap 11 mmol/L (10-20); BUN (Urea Nitrogen) 24 mg/dL (8.4-25.7); Bilirubin, Total 0.7 mg/dL (0.2-1.2); CK (CPK) 370 U/L (30-200); Calc. Creatinine Clearance 0 mL/min (70-130); Calcium 8.8 mg/dL (7.8-10.44); Carbon Dioxide 33 mmol/L (23-31); Chloride 98 mmol/L (98-107); Estimated GFR-MDRD 14; Globulin 3.1 g/dL (2.4-3.5); Glucose 121 mg/dL (80-115); Potassium 3.8 mmol/L (3.5-5.1); Protein, Total 6.5 g/dL (5.8-8.1); Sodium 138 mmol/L (136-145)
[2018-08-13] MEDS ORDERED: Piperacillin/Tazobactam 4.5 GM VIAL ONE (01:36)
[2018-08-13 01:43] LABS: CKMB 2.8 ng/mL (0-6.6)
[2018-08-13] MEDS ORDERED: Aspirin Chewable 81 MG TAB ONE (02:42)
[2018-08-13 04:27] LABS: Troponin I 0.137 ng/mL (< 0.028)
[2018-08-13 08:01] LABS: Troponin I 0.148 ng/mL (< 0.028)
--- NOTE | 2018-08-13 08:09 | RAD ---
SINGLE VIEW OF THE CHEST History: Shortness of breath, cough Comparison: None. FINDINGS: Single view of the chest shows a normal sized cardiomediastinal silhouette. There is no evidence of c onsolidation, mass, or pleural effusion. The bones are unremarkable. IMPRESSION: No evidence of acute cardiopulmonary disease. . POS: C
[2018-08-13] MEDS ORDERED: ISOVUE-370 76%-LOCM 1 ML ONE (08:10)
[2018-08-13] MEDS: Oseltamivir 75 MG CAP PO SCH ×2 (08:54→21:53)
--- NOTE | 2018-08-13 09:59 | CT ---
PRELIMINARY REPORT/[facility]/EMERGENTY AFTER-HOURS PROCEDURE CT Abdomen and Pelvis With Contrast EXAM DATE/TIME: 08/13/2018 1:05 AM CLINICAL HISTORY: 67 years old, male; Pain; Abdominal pain; Generalized; Patient HX: 67/m PT presents with complaint of abdominal pain that started today. PT also reports fever, body aches, and chills TECHNIQUE: Imaging protocol: Axial computed tomography images of the abdomen and pelvis with intravenous contras t. Coronal reformatted images were created and reviewed. COMPARISON: No relevant prior studies available. FINDINGS: Lower thorax: There are widespread coronary artery calcifications. There are coronary artery stents. There is a trace right pleural effusion. ABDOMEN: Liver: Normal. No mass. Gallbladder and bile ducts: Normal. No calcified stones. No ductal dilation. Pancreas: Normal. No ductal dilation. Spleen: Calcifications in the spleen are consistent with granulomas. No splenomegaly. Adrenals: Normal. No mass. Kidneys and ureters: There is a 3.8 cm probable cyst in the right kidney. Stomach and bowel: There is a large amount of stool in the colon. There is a prominent amount of gas in the small bowel. The wall of the ascending colon may be mildly thickened. Appendix: The appendix is not identified, apparently resected. PELVIS: Bladder: The wall of the urinary bladder is mildly thickened. Reproductive: Unremarkable as visualized. ABDOMEN and PELVIS: Intraperitoneal space: Unremarkable. No free fluid or free air. No fluid collection. Bones/joints: No fracture. No dislocation. Soft tissues: There is diffuse intra-abdominal fat edema. Vasculature: Calcifications in the ruano of the aorta and other arteries are consistent with atherosc lerosis. No abdominal aortic aneurysm or dissection is identified. Lymph nodes: Normal. No enlarged lymph nodes. IMPRESSION: 1. Prominent amount of gas in the small bowel which may be due to ileus or enteritis. 2. Small amount of free fluid and nonspecific intra-abdominal fat edema. 3. Additional findings as above. Thank you for allowing us to participate in the care of your patient. Dictated and Authenticated by: Isreal Goins MD 08/13/2018 2:38 AM Central Time ([place] & [place]) FINAL REPORT EMERGENCY AFTER HOURS CT ABDOMEN AND PELVIS: Date: 08/13/18 FINDINGS: I agree with the preliminary report provided by [facility]. There is diffuse mild anasarca and mild ascites, which was present on the comparison examination date d 06/20/18. Small bilateral pleural effusions, again similar to prior exam. There are scattered calcified granuloma. No focal renal lesion is evident. There are stable right rosy al cysts. Pancreas, liver, and spleen appear unchanged. There are mild to moderate calcifications inv olving the abdominopelvic vasculature. IMPRESSION: 1. Some mild bilateral pleural effusions, mild anasarca and mild ascites, nonspecific. 2. Mild amount of retained stool within the colon. POS: BH
[2018-08-13] MEDS: hydrALAZINE 20 MG/ML VIAL SLOW IVP PRN ×2 (14:54→22:12)
[2018-08-13] MEDS ORDERED: hydrALAZINE 20 MG/ML VIAL ONE (14:57)
[2018-08-13] MEDS ORDERED: Ondansetron PF 4 MG/2 ML Vial IVP PRN (15:00)
[2018-08-13] MEDS ORDERED: Bisacodyl 5 MG TAB PO PRN (15:00)
[2018-08-13] MEDS ORDERED: Acetaminophen 650 MG Suppository PR PRN (15:00)
[2018-08-13] MEDS ORDERED: Dextrose 50% Abboject 50 ML SYRINGE SLOW IVP PRN (15:17)
[2018-08-13] MEDS ORDERED: Dextrose 5% in Water 1,000 ML IV PRN (15:17)
[2018-08-13] MEDS: Labetalol HCl 100 MG/20 ML VIAL SLOW IVP PRN ×2 (15:25→23:38)
--- NOTE | 2018-08-13 16:08 | HP ---
PRIMARY CARE PROVIDER: Clinic in [place]. CHIEF COMPLAINT: Generalized weakness. HISTORY OF PRESENT ILLNESS: Mr. Ho is a pleasant 67-year-old gentleman, who was seen at [facility] on August 13, 2018. He reports that yesterday he started feeling weak all over. He also reports cough, that is nonproductive. He denies any fevers or chills. He denies any chest pain. His reports that she also developed a cough this morning. He denies any nausea or vomiting. He reports that he had abdominal pain at the time of his presentation, but that has now resolved. REVIEW OF SYSTEMS: All other systems reviewed and found to be negative. PAST MEDICAL HISTORY: 1. Diabetes mellitus type 2. 2. Hypertension. 3. Dyslipidemia. 4. Diabetic nephropathy. 5. End-stage renal disease, on hemodialysis. 6. Coronary artery disease, status post PCI with stent placement to LAD. 7. Anemia of renal disease. PAST SURGICAL HISTORY: 1. Appendectomy in 2014. 2. Nasal surgery in 1977. 3. Cardiac catheterization in 2011 with stent placement to distal LAD. 4. Hemodialysis catheter placement. ALLERGIES: NO KNOWN DRUG ALLERGIES. FAMILY HISTORY: Malignancy in his mother, primary unknown. Diabetes mellitus in his father. SOCIAL HISTORY: The patient denies tobacco use, alcohol use, or recreational drug use. CODE STATUS: He is full code. CURRENT MEDICATIONS: 1. Flomax 0.4 mg daily. 2. Nifedipine 90 mg daily. 3. Hydralazine 25 mg four times a day. 4. Atorvastatin 80 mg daily. 5. Lisinopril 20 mg daily. 6. Plavix 75 mg daily. 7. Isosorbide mononitrate 30 mg daily. 8. Levemir insulin by sliding scale. PHYSICAL EXAMINATION: GENERAL: On examination, Mr. Ho is awake and alert, not in acute distress. He appears tired. VITAL SIGNS: Blood pressure is 185/91, pulse 93, respiratory rate 22, and oxygen saturation 100% on room air. He is afebrile. EYES: No scleral icterus. No conjunctival pallor. ENT: Moist mucosal membranes. No oropharyngeal erythema or exudates. NECK: Supple, nontender. Trachea is midline. RESPIRATORY: Accessory muscles of breathing are not active. Chest wall movements are symmetric bilaterally. Lungs are clear to auscultation without wheeze, rhonchi, or crepitations. CARDIOVASCULAR: S1 and S2 are heard, regular. Peripheral pulses palpable. No carotid bruit. No pericardial rub. ABDOMEN: Soft, nontender. Bowel sounds heard. No hepatomegaly. No splenomegaly. NEUROLOGIC: Cranial nerves 2 through 12 intact. Deep tendon reflexes 2+. MUSCULOSKELETAL: Power is 5/5 in all 4 extremities. SKIN: No rashes or subcutaneous nodules. LYMPHATIC: No cervical lymphadenopathy. PSYCHIATRIC: Normal mood, normal affect. The patient is oriented to person, place, and time. LABORATORY DATA: Mr. Ho's labs and investigations were reviewed. Echocardiogram, which shows sinus tachycardia, no ST changes to suggest an acute coronary syndrome. I also reviewed his chest x-ray, which does not show any pulmonary infiltrates. He also had CT scan of the abdomen and pelvis, which showed prominent amount of gas in the small bowel, which may be due to ileus or enteritis; small amount of free fluid; and nonspecific intraabdominal fat edema. He has leukopenia with 4100 white cells, normal platelet count, normal MCV, hemoglobin decreased at 11.9. Normal sodium, normal potassium, normal blood urea nitrogen, elevated creatinine of 4.27, elevated CK of 370, indeterminate troponin-I of 0.137, and unremarkable LFTs. Lactic acid level is 0.9. Influenza screen is positive for influenza B antigen. ASSESSMENT AND PLAN: Mr. Ho is a pleasant 67-year-old gentleman, who was seen at [facility] on August 13, 2018. His problem list includes: 1. Sepsis: Mr. Ho is presenting with sepsis. He had a T-max of 100.7 degrees Fahrenheit in the emergency room and maximum respiratory rate of 24. He also has leukopenia. He has known source of infection in the form of influenza B. He will be admitted to the hospital for further management. 2. Influenza B infection: He has been started on tamsulosin, which I will continue. 3. End-stage renal disease, on dialysis: Nephrology Service has been consulted for maintenance hemodialysis. 4. Hypertensive urgency: In the emergency room, Mr. Ho has had elevated blood pressures. We will start him on p.r.n. antihypertensives and resume his home medications. 5. Diabetes mellitus: We will start him on Accu-Cheks and insulin sliding scale. 6. Dyslipidemia: We will continue statin. Many thanks for allowing me to participate in Mr. Ho's care. Please feel free to contact me with any questions or concerns. LEVEL OF RISK: High. LEVEL OF COMPLEXITY: High. Job ID: [id number]
[2018-08-13] MEDS: Heparin 5,000 UNITS/ML VIAL SC SCH ×2 (17:18→21:50)
[2018-08-13] MEDS ORDERED: Amlodipine 5 MG TAB PO SCH (18:00)
[2018-08-13] MEDS ORDERED: Lisinopril 10 MG TAB PO SCH (18:00)
[2018-08-13] MEDS ORDERED: hydrALAZINE 25 MG TAB PO SCH (18:00)
[2018-08-13] MEDS: Acetaminophen 325 MG TAB PO PRN (19:42)
[2018-08-13 20:28] LABS: HBSAg Index 0.95 S/CO (0-0.99); Hep B Surf Ag Non-Reactive S/CO (NonReactive)
[2018-08-13 20:40] LABS: HBSAB Concentration 31.65 mIU/mL; Hep B Surf AB Reactive (NonReactive)
[2018-08-13] MEDS: hydrALAZINE 25 MG TAB PO SCH (21:51)
--- NOTE | 2018-08-14 00:38 | CON ---
DATE OF CONSULTATION: 08/13/2018 CONSULTING PHYSICIAN: Sunny Grijalva MD REASON FOR CONSULTATION: End-stage renal disease evaluation and care. REASON FOR ADMISSION: Weakness. HISTORY OF PRESENT ILLNESS: This is a 67-year-old male with history of type 2 diabetes, hypertension, end-stage renal disease, who came to the hospital with weakness and he was evaluated. Nephrology consult for maintenance hemodialysis. He gets dialysis on Saturday, Saturday, and Saturday. PAST MEDICAL HISTORY: Positive for type 2 diabetes, hypertension, hyperlipidemia, end-stage renal disease, and anemia. PAST SURGICAL HISTORY: Appendectomy, nasal surgery, cardiac cath, and hemodialysis catheter placement. HOME MEDICATIONS: Reviewed. ALLERGIES: NO KNOWN DRUG ALLERGIES. SOCIAL HISTORY: No smoking, alcohol, or illicit drug abuse. FAMILY HISTORY: No history of any kidney disease. REVIEW OF SYSTEMS: CONSTITUTIONAL: Negative for weight loss or gain, ability to conduct usual activities. SKIN: Negative for rash, itching. EYES: Negative for double vision, pain. ENT/MOUTH: Negative for nose bleeding, neck stiffness, pain, tenderness. CARDIOVASCULAR: Negative for palpitations, dyspnea on exertion, orthopnea. RESPIRATORY: Negative for shortness of breath, wheezing, cough, hemoptysis, fever or night sweats. GASTROINTESTINAL: Negative for poor appetite, abdominal pain, heartburn, nausea, vomiting, constipation, or diarrhea. GENITOURINARY: Negative for urgency, frequency, dysuria, nocturia. MUSCULOSKELETAL: Negative for pain, swelling. NEUROLOGIC/PSYCHIATRIC: Negative for anxiety, depression. ALLERGY/IMMUNOLOGIC: Negative for skin rash, bleeding tendency. PHYSICAL EXAMINATION: GENERAL: This is a well-built male, in no apparent distress. VITAL SIGNS: Temperature 98.6, pulse 84, respirations 19, blood pressure 218/90. HEENT: Atraumatic and normocephalic. Oral mucosa is moist. NECK: Supple. CVS: S1 and S2 heard. Rate and rhythm regular. RESPIRATORY: Clear. GASTROINTESTINAL: Abdomen is soft. MUSCULOSKELETAL: 1+ edema. DERMATOLOGIC: No skin rash. NEUROLOGIC: Alert and awake. PSYCHIATRIC: Normal mood and affect. LABORATORY DATA: Potassium 3.8, BUN is 24, and creatinine is 4.2. ASSESSMENT AND PLAN: 1. End-stage renal disease. Continue on dialysis Saturday, Saturday, and Saturday. 2. Edema. 3. Hypertension. 4. Anemia, monitor. 5. Plan is to continue on dialysis as tolerated. Job ID: [id number]
[2018-08-14] MEDS: hydrALAZINE 20 MG/ML VIAL SLOW IVP PRN (05:14)
[2018-08-14] MEDS: Acetaminophen 325 MG TAB PO PRN ×2 (05:21→15:11)
[2018-08-14 06:29] LABS: #Lymphocytes 0.8 thou/uL (1.20-3.40); #Monocytes 0.5 thou/uL (0.11-0.59); #Neutrophils 2.3 thou/uL (1.40-6.50); %Basophils 0.4 % (0.0-1.0); %Eosinophils 0.2 % (0.0-10.0); %Lymphocytes 21.8 % (21.0-51.0); %Monocytes 14.9 % (0.0-10.0); %Neutrophils 62.6 % (42.0-75.0); Hemoglobin 11.1 g/dL (14.0-18.0); Mean Corpuscular HGB CONC 32.6 g/dL (32.0-36.0); Mean Corpuscular Hemoglobin 30.5 pg (27.0-31.0); Mean Corpuscular Volume 93.6 fL (78.0-98.0); Mean Platelet Volume 8.2 fL (7.4-10.4); Platelet Count 168 thou/uL (130-400); RBC Distribution Width 14.2 % (11.5-14.5); Red Blood Cell (RBC) Count 3.64 mill/uL (4.70-6.10); White Blood Cell (WBC) Count 3.6 thou/uL (4.8-10.8)
[2018-08-14 06:50] LABS: Anion Gap 13 mmol/L (10-20); BUN (Urea Nitrogen) 20 mg/dL (8.4-25.7); Calc. Creatinine Clearance 22 mL/min (70-130); Calcium 8.1 mg/dL (7.8-10.44); Carbon Dioxide 29 mmol/L (23-31); Chloride 99 mmol/L (98-107); Estimated GFR-MDRD 18; Glucose 171 mg/dL (80-115); Potassium 3.6 mmol/L (3.5-5.1); Sodium 137 mmol/L (136-145)
[2018-08-14] MEDS ORDERED: Sodium Chloride 0.9% 10 ML ONE (08:33)
[2018-08-14] MEDS: HumaLOG 300 UNITS/3 ML VIAL SC PRN ×2 (08:46→18:13)
[2018-08-14] MEDS: NIFEdipine XL 90 MG TAB PO SCH (08:47)
[2018-08-14] MEDS: Heparin 5,000 UNITS/ML VIAL SC SCH ×3 (08:47→20:43)
[2018-08-14] MEDS: Aspirin 81 mg Enteric Coated Tablet PO SCH (08:47)
[2018-08-14] MEDS: Clopidogrel Bisulfate 75 MG TAB PO SCH (08:48)
[2018-08-14] MEDS: hydrALAZINE 25 MG TAB PO SCH (08:48)
[2018-08-14] MEDS: Tamsulosin HCl 0.4 MG CAP PO SCH (08:49)
[2018-08-14] MEDS: Oseltamivir 75 MG CAP PO SCH ×2 (08:49→20:44)
[2018-08-14] MEDS ORDERED: Lisinopril 10 MG TAB PO SCH (09:00)
--- NOTE | 2018-08-14 11:51 | PDOC.PN ---
- Subjective Encounter Start Date: 08/14/18 Encounter Start Time: 11:49 Subjective: admitted with acute onset of cough and weakness. -: Found to have sepsis due to influenza B infection. Also with htn urgenciy. -: Still very weak and unable to stand. Denied chest pain, dysuria, hematuria - Objective Vital Signs & Weight: Vital Signs (12 hours) Temp Pulse Resp BP BP Pulse Ox 08/14/18 07:31 99.7 F H 64 16 190/81 H 100 08/14/18 07:15 99.7 F H 08/14/18 06:41 67 162/68 H 08/14/18 05:14 65 188/78 H 08/14/18 04:00 100.0 F H 67 20 188/80 H 96 08/14/18 01:17 67 162/77 H Weight Weight 153 lb 10.595 oz I&O: 08/13/18 08/14/18 08/15/18 06:59 06:59 06:59 Intake Total 400 Balance 400 Result Diagrams: 08/14/18 05:21 08/14/18 05:21 Additional Labs: Accuchecks 08/14/18 08/13/18 11:28 17:02 POC Glucose 103 165 H Phys Exam - Physical Examination HEENT: PERRLA, moist MMs Neck: no JVD, supple Respiratory: no rhonchi Fair air entry bilaterally with some transmitted sound Cardiovascular: RRR, no significant murmur Gastrointestinal: soft, non-tender, no distention, positive bowel sounds Musculoskeletal: no edema, pulses present Neurological: moves all 4 limbs Power 4-/5 lower limbs Psychiatric: A&O x 3 Dx/Plan (1) Physical deconditioning Code(s): R53.81 - OTHER MALAISE Status: Acute (2) Hypertensive urgency Code(s): I16.0 - HYPERTENSIVE URGENCY Status: Acute Comment: Improved today even off beta gabriela (3) Sepsis Code(s): A41.9 - SEPSIS, UNSPECIFIED ORGANISM Status: Acute Comment: with Staph CN 1/2 bacteremia - On Vancomycin and Cefepime (4) Anemia of renal disease Code(s): D63.1 - ANEMIA IN CHRONIC KIDNEY DISEASE Status: Chronic (5) BPH (benign prostatic hyperplasia) Code(s): N40.0 - BENIGN PROSTATIC HYPERPLASIA WITHOUT LOWER URINRY TRACT SYMP Status: Chronic Comment: on Flomax - follows Dr Gallagher (6) CAD (coronary artery disease) Code(s): I25.10 - ATHSCL HEART DISEASE OF [place] CORONARY ARTERY W/O ANG PCTRS Status: Chronic Comment: on ASA/Plavix (7) DM2 (diabetes mellitus, type 2) Status: Chronic Qualifiers: Chronic kidney disease stage: on chronic dialysis Comment: on sliding scale (8) Dyslipidemia Code(s): E78.5 - HYPERLIPIDEMIA, UNSPECIFIED Status: Chronic (9) ESRD (end stage renal disease) on dialysis Code(s): N18.6 - END STAGE RENAL DISEASE; Z99.2 - DEPENDENCE ON RENAL DIALYSIS Status: Chronic Comment: HD per nephrology. (10) GERD (gastroesophageal reflux disease) Code(s): K21.9 - GASTRO-ESOPHAGEAL REFLUX DISEASE WITHOUT ESOPHAGITIS Status: Chronic - Plan Increase lisinopril to 40 mg daily. DV hydralazine. Start oral labetalol -: Continue nifedipine and imdur. start lasix 80 bid. -: Continue tamiflu -: Consult PT/Ot * .
[2018-08-14] MEDS ORDERED: Labetalol 100 MG TAB PO SCH (12:00)
--- NOTE | 2018-08-14 14:14 | PRG ---
DATE OF SERVICE: 08/14/2018 SUBJECTIVE: Patient was seen and examined at bedside and overnight events noted. Patient denies any shortness of breath or chest pain or palpitation. No history of nausea or vomiting or diarrhea or fever or chills or cramps. OBJECTIVE: GENERAL: This is a well-built male, in no apparent distress. VITAL SIGNS: Temperature 97. Pulse 67, respiratory rate 16, blood pressure 162/68. HEENT: Atraumatic, normocephalic. Oral mucosa is moist NECK: Supple. CARDIOVASCULAR: S1, S2 heard. Rate and rhythm regular. RESPIRATORY: Clear to auscultation. GASTROINTESTINAL: Abdomen is soft. MUSCULOSKELETAL: No tenderness. No edema. DERMATOLOGIC: No skin rash. NEUROLOGIC: Alert and awake and oriented X3. No focal neurologic deficits. Moving all the extremities. PSYCHIATRIC: Mood and affect normal. LABORATORY DATA: Potassium is 3.6, BUN is 20 and creatinine is 3.4. ASSESSMENT AND PLAN: 1. End-stage renal disease. Continue on dialysis Saturday, Saturday, and Saturday. 2. Edema, remove fluid with dialysis. 3. Hypertension. 4. Anemia. We will monitor hemoglobin. 5. Plan is to continue on dialysis as tolerated. Job ID: [id number]
[2018-08-14] MEDS: Furosemide 80 MG TAB PO SCH (15:11)
[2018-08-14] MEDS: Labetalol 100 MG TAB PO SCH (20:43)
[2018-08-15] MEDS: NIFEdipine XL 90 MG TAB PO SCH (08:21)
[2018-08-15] MEDS: Tamsulosin HCl 0.4 MG CAP PO SCH (08:22)
[2018-08-15] MEDS: Furosemide 80 MG TAB PO SCH ×2 (08:22→15:05)
[2018-08-15] MEDS: Clopidogrel Bisulfate 75 MG TAB PO SCH (08:22)
[2018-08-15] MEDS: Lisinopril 20 MG TAB PO SCH (08:22)
[2018-08-15] MEDS: Labetalol 100 MG TAB PO SCH ×2 (08:22→22:41)
[2018-08-15] MEDS: Heparin 5,000 UNITS/ML VIAL SC SCH ×3 (08:23→22:41)
[2018-08-15] MEDS: Oseltamivir 75 MG CAP PO SCH ×2 (08:23→22:42)
[2018-08-15] MEDS: Aspirin 81 mg Enteric Coated Tablet PO SCH (08:23)
[2018-08-15] MEDS: HumaLOG 300 UNITS/3 ML VIAL SC PRN (08:24)
--- NOTE | 2018-08-15 08:46 | PDOC.PN ---
- Subjective Encounter Start Date: 08/15/18 Encounter Start Time: 08:44 Subjective: Feeling better but still very weak. -: Fever has subsided. Denied SOB, palpitaion, chest pain, nausea or vomiting. - Objective Vital Signs & Weight: Vital Signs (12 hours) Temp Pulse Resp BP Pulse Ox 08/15/18 08:22 67 08/15/18 08:21 67 08/15/18 07:35 99.0 F 66 16 160/76 H 93 L 08/15/18 04:00 98.1 F 65 12 139/67 93 L Weight Weight 155 lb 6.814 oz I&O: 08/14/18 08/15/18 08/16/18 06:59 06:59 06:59 Intake Total 400 1535 Balance 400 1535 Result Diagrams: 08/14/18 05:21 08/14/18 05:21 Additional Labs: Accuchecks 08/15/18 08/14/18 08/14/18 05:37 21:03 17:11 POC Glucose 163 H 113 H 166 H 08/14/18 11:28 POC Glucose 103 Phys Exam - Physical Examination HEENT: moist MMs Neck: supple fair air entry bilaterally with some transmitted sound. Cardiovascular: RRR Gastrointestinal: soft, non-tender, no distention, positive bowel sounds Neurological: non-focal awake and oriented. Moves all limbs but weakly. Dx/Plan (1) Physical deconditioning Code(s): R53.81 - OTHER MALAISE Status: Acute Comment: Due to acute illness (2) Hypertensive urgency Code(s): I16.0 - HYPERTENSIVE URGENCY Status: Acute Comment: BP control better today. (3) Sepsis Code(s): A41.9 - SEPSIS, UNSPECIFIED ORGANISM Status: Acute Comment: Due to Influenza B infection (4) Anemia of renal disease Code(s): D63.1 - ANEMIA IN CHRONIC KIDNEY DISEASE Status: Chronic (5) BPH (benign prostatic hyperplasia) Code(s): N40.0 - BENIGN PROSTATIC HYPERPLASIA WITHOUT LOWER URINRY TRACT SYMP Status: Chronic (6) CAD (coronary artery disease) Code(s): I25.10 - ATHSCL HEART DISEASE OF [place] CORONARY ARTERY W/O ANG PCTRS Status: Chronic Comment: on ASA/Plavix (7) DM2 (diabetes mellitus, type 2) Status: Chronic Qualifiers: Chronic kidney disease stage: on chronic dialysis Comment: on sliding scale (8) Dyslipidemia Code(s): E78.5 - HYPERLIPIDEMIA, UNSPECIFIED Status: Chronic (9) ESRD (end stage renal disease) on dialysis Code(s): N18.6 - END STAGE RENAL DISEASE; Z99.2 - DEPENDENCE ON RENAL DIALYSIS Status: Chronic Comment: HD per nephrology. (10) GERD (gastroesophageal reflux disease) Code(s): K21.9 - GASTRO-ESOPHAGEAL REFLUX DISEASE WITHOUT ESOPHAGITIS Status: Chronic - Plan PT/OT. -: Continue current antihypertensives. -: Lasix added for both antihypertension and to help with volume status -: Anticipate discharge to SNF or acute rehab. -: Continue tamiflu. * .
--- NOTE | 2018-08-15 19:13 | PRG ---
DATE OF SERVICE: 08/15/2018 SUBJECTIVE: Patient was seen and examined at bedside and overnight events noted. Patient denies any shortness of breath or chest pain or palpitation. No history of nausea or vomiting or diarrhea or fever or chills or cramps. OBJECTIVE: GENERAL: This is a well-built male, in no apparent distress. VITAL SIGNS: Temperature 98.7. Heart rate 62. Respiratory rate 16. Blood pressure 160/76. HEENT: Atraumatic, normocephalic. Oral mucosa is moist NECK: Supple. CARDIOVASCULAR: S1, S2 heard. Rate and rhythm regular. RESPIRATORY: Clear to auscultation. GASTROINTESTINAL: Abdomen is soft. MUSCULOSKELETAL: No tenderness. No edema. DERMATOLOGIC: No skin rash. NEUROLOGIC: Alert and awake and oriented X3. No focal neurologic deficits. Moving all the extremities. PSYCHIATRIC: Mood and affect normal. LABORATORY DATA: Potassium of 3.6, BUN is 20, and creatinine is 3.4. ASSESSMENT AND PLAN: 1. End-stage renal disease. Continue on dialysis Saturday, Saturday, and Saturday. 2. Edema. 3. Hypertension. 4. Anemia. Continue dialysis Saturday, Saturday and Saturday. Job ID: [id number]
[2018-08-15] MEDS ORDERED: Sodium Chloride 0.9% 100 ML BAG IVPB PRN (20:45)
[2018-08-16] MEDS: hydrALAZINE 20 MG/ML VIAL SLOW IVP PRN (02:11)
[2018-08-16 06:43] LABS: #Monocytes 0.3 thou/uL (0.11-0.59); #Neutrophils 1.1 thou/uL (1.40-6.50); %Basophils 0.6 % (0.0-1.0); %Eosinophils 1.8 % (0.0-10.0); %Lymphocytes 41.1 % (21.0-51.0); %Neutrophils 44.6 % (42.0-75.0); Hemoglobin 10.7 g/dL (14.0-18.0); Mean Corpuscular Hemoglobin 30.7 pg (27.0-31.0); Mean Corpuscular Volume 93.1 fL (78.0-98.0); Mean Platelet Volume 8.4 fL (7.4-10.4); Platelet Count 159 thou/uL (130-400); Red Blood Cell (RBC) Count 3.48 mill/uL (4.70-6.10); White Blood Cell (WBC) Count 2.5 thou/uL (4.8-10.8)
[2018-08-16 07:03] LABS: Albumin 2.9 g/dL (3.4-4.8); Anion Gap 13 mmol/L (10-20); BUN (Urea Nitrogen) 15 mg/dL (8.4-25.7); Calc. Creatinine Clearance 22 mL/min (70-130); Calcium 7.5 mg/dL (7.8-10.44); Carbon Dioxide 27 mmol/L (23-31); Chloride 98 mmol/L (98-107); Estimated GFR-MDRD 20; Glucose 167 mg/dL (80-115); Phosphorus 3.1 mg/dL (2.3-4.7); Potassium 3.7 mmol/L (3.5-5.1); Sodium 134 mmol/L (136-145)
[2018-08-16] MEDS: Furosemide 80 MG TAB PO SCH ×2 (09:17→14:05)
[2018-08-16] MEDS: Heparin 5,000 UNITS/ML VIAL SC SCH ×3 (09:17→21:43)
[2018-08-16] MEDS: Aspirin 81 mg Enteric Coated Tablet PO SCH (09:17)
[2018-08-16] MEDS: Clopidogrel Bisulfate 75 MG TAB PO SCH (09:17)
[2018-08-16] MEDS: Lisinopril 20 MG TAB PO SCH (09:18)
[2018-08-16] MEDS: NIFEdipine XL 90 MG TAB PO SCH (09:18)
[2018-08-16] MEDS: Labetalol 100 MG TAB PO SCH ×2 (09:18→23:15)
[2018-08-16] MEDS: Oseltamivir 75 MG CAP PO SCH ×2 (09:19→21:43)
[2018-08-16] MEDS: Tamsulosin HCl 0.4 MG CAP PO SCH (09:19)
--- NOTE | 2018-08-16 09:23 | PDOC.PN ---
- Subjective Encounter Start Date: 08/16/18 Encounter Start Time: 09:22 Subjective: Feeling better. wants now to work with PT/OT. -: had declined working with PT in the last 2 days desiring to go home. -: patient still unable to stand and ambulate without assistance. - Objective Vital Signs & Weight: Vital Signs (12 hours) Temp Pulse Resp BP BP BP BP 08/16/18 09:14 98.0 F 73 18 177/82 H 08/16/18 04:00 98.6 F 67 17 155/72 H 08/16/18 02:11 63 190/88 H 08/16/18 02:00 08/16/18 01:54 17 190/88 H 08/15/18 22:41 65 121/60 Pulse Ox 08/16/18 09:14 96 08/16/18 04:00 95 08/16/18 02:11 08/16/18 02:00 94 L 08/16/18 01:54 94 L 08/15/18 22:41 Weight Weight 149 lb 4.047 oz I&O: 08/15/18 08/16/18 08/17/18 06:59 06:59 06:59 Intake Total 1535 780 Output Total 0 Balance 1535 780 Result Diagrams: 08/16/18 06:20 08/16/18 06:20 Additional Labs: Accuchecks 08/16/18 08/15/18 08/15/18 05:56 20:31 17:10 POC Glucose 158 H 204 H 112 H 08/15/18 11:38 POC Glucose 151 H Phys Exam - Physical Examination Constitutional: NAD HEENT: PERRLA, moist MMs Neck: no JVD, supple Respiratory: no wheezing, no rales, no rhonchi, clear to auscultation bilateral Cardiovascular: RRR, no significant murmur Gastrointestinal: soft, non-tender, no distention, positive bowel sounds Musculoskeletal: no edema, pulses present Neurological: non-focal oriented x3. moves all limbs. Dx/Plan (1) Physical deconditioning Code(s): R53.81 - OTHER MALAISE Status: Acute Comment: Due to acute illness. Unable to ambulate without support (2) Hypertensive urgency Code(s): I16.0 - HYPERTENSIVE URGENCY Status: Acute Comment: BP control better but still suboptimal. (3) Sepsis Code(s): A41.9 - SEPSIS, UNSPECIFIED ORGANISM Status: Acute Comment: Due to Influenza B infection (4) Anemia of renal disease Code(s): D63.1 - ANEMIA IN CHRONIC KIDNEY DISEASE Status: Chronic (5) BPH (benign prostatic hyperplasia) Code(s): N40.0 - BENIGN PROSTATIC HYPERPLASIA WITHOUT LOWER URINRY TRACT SYMP Status: Chronic (6) CAD (coronary artery disease) Code(s): I25.10 - ATHSCL HEART DISEASE OF [place] CORONARY ARTERY W/O ANG PCTRS Status: Chronic Comment: on ASA/Plavix (7) DM2 (diabetes mellitus, type 2) Status: Chronic Qualifiers: Chronic kidney disease stage: on chronic dialysis Comment: on sliding scale (8) Dyslipidemia Code(s): E78.5 - HYPERLIPIDEMIA, UNSPECIFIED Status: Chronic (9) ESRD (end stage renal disease) on dialysis Code(s): N18.6 - END STAGE RENAL DISEASE; Z99.2 - DEPENDENCE ON RENAL DIALYSIS Status: Chronic Comment: HD per nephrology. (10) GERD (gastroesophageal reflux disease) Code(s): K21.9 - GASTRO-ESOPHAGEAL REFLUX DISEASE WITHOUT ESOPHAGITIS Status: Chronic - Plan Increase imdur to 60 daily. Continue labetalol, lasix and nifedipine -: HD as per Nephrology -: PT/OT to evaluate. rehab screening also requested. -: consult palliative care -: Patient is unsafe to go home and he has intermittent confusion. * .
[2018-08-16] MEDS: HumaLOG 300 UNITS/3 ML VIAL SC PRN (14:05)
--- NOTE | 2018-08-16 14:57 | PRG ---
DATE OF SERVICE: 08/16/2018 SUBJECTIVE: Patient was seen and examined at bedside and overnight events noted. Patient denies any shortness of breath or chest pain or palpitation. No history of nausea or vomiting or diarrhea or fever or chills or cramps. OBJECTIVE: GENERAL: This is a well-built male, in no apparent distress. VITAL SIGNS: Temperature 97.9. Heart rate 80. Respiratory rate 14. Blood pressure 108/50. HEENT: Atraumatic, normocephalic. Oral mucosa is moist NECK: Supple. CARDIOVASCULAR: S1, S2 heard. Rate and rhythm regular. RESPIRATORY: Clear to auscultation. GASTROINTESTINAL: Abdomen is soft. MUSCULOSKELETAL: No tenderness. No edema. DERMATOLOGIC: No skin rash. NEUROLOGIC: Alert and awake and oriented X3. No focal neurologic deficits. Moving all the extremities. PSYCHIATRIC: Mood and affect normal. LABORATORY DATA: Potassium 3.7, BUN is 15, creatinine is 3.1. ASSESSMENT AND PLAN: 1. End-stage renal disease. 2. Edema. 3. Hypertension. 4. Anemia. 5. Continue dialysis Saturday, Saturday, Saturday as tolerated. Job ID: [id number]
--- NOTE | 2018-08-16 19:02 | EKG ---
Test Reason : AMS Blood Pressure : / mmHG Vent. Rate : 109 BPM Atrial Rate : 109 BPM P-R Int : 128 ms QRS Dur : 084 ms QT Int : 340 ms P-R-T Axes : 057 046 -12 degrees QTc Int : 457 ms Sinus tachycardia T wave abnormality, consider inferior ischemia Abnormal ECG Confirmed by DEAN ARIAS MD ([id number]), food editor LEIGH MYERS ([id number]) on 08/16/2018 7:02:03 PM Referred By: MAYI ARIAS Confirmed By:DEAN ARIAS MD
[2018-08-17] MEDS: Lisinopril 20 MG TAB PO SCH (08:50)
[2018-08-17] MEDS: Furosemide 80 MG TAB PO SCH ×2 (08:51→13:58)
[2018-08-17] MEDS: Clopidogrel Bisulfate 75 MG TAB PO SCH (08:52)
[2018-08-17] MEDS: Heparin 5,000 UNITS/ML VIAL SC SCH ×3 (08:52→21:36)
[2018-08-17] MEDS: Tamsulosin HCl 0.4 MG CAP PO SCH (08:52)
[2018-08-17] MEDS: Aspirin 81 mg Enteric Coated Tablet PO SCH (08:52)
[2018-08-17] MEDS: Labetalol 100 MG TAB PO SCH ×2 (10:02→21:39)
[2018-08-17] MEDS: NIFEdipine XL 90 MG TAB PO SCH (10:02)
[2018-08-17] MEDS: Oseltamivir 75 MG CAP PO SCH ×2 (10:03→21:36)
[2018-08-17] MEDS ORDERED: hydrALAZINE 25 MG TAB PO SCH (11:36)
--- NOTE | 2018-08-17 17:13 | PRG ---
DATE OF SERVICE: 08/17/2018 SUBJECTIVE: The patient is seen and examined at the bedside. His is present in the room during my visit. All questions she has were answered satisfactorily. OBJECTIVE: VITAL SIGNS: Blood pressure is 181/78, pulse is 64, respiratory rate is 18, O2 saturation 98% on room air, and his temperature is 98.5. HEENT: Head is atraumatic and normocephalic. Eyes are PERRLA. Sclerae are nonicteric. Conjunctivae are palish. Oral mucosa is moist. NECK: Supple. LUNGS: Clear. HEART: S1 and S2 normal. No S3. No S4. ABDOMEN: Soft. Mildly tender in the deeper palpation. No guarding. No masses. EXTREMITIES: No clubbing, cyanosis, or edema. NEUROLOGIC: He is alert and oriented x3. There is no any motor or sensory deficits. LABORATORY DATA: Glycemia is ranging from 111 to 221. Microbiology, no new findings. IMPRESSION: 1. Hypertensive urgency. 2. Sepsis. 3. Anemia of chronic disease. 4. Benign prostatic hyperplasia. 5. Coronary artery disease. 6. Diabetes mellitus, type 2. 7. Dyslipidemia. 8. End-stage renal disease, on dialysis 3 times a week. 9. Gastroesophageal reflux disease. PLAN: Plan is to continue with dialysis tomorrow morning. He is going to have arranged alf unit for rehabilitation purposes, and as soon as this is arranged, he can be transferred. He will continue his outpatient hemodialysis per Dr. Mae's recommendations. Job ID: [id number]
[2018-08-17] MEDS: HumaLOG 300 UNITS/3 ML VIAL SC PRN (17:41)
--- NOTE | 2018-08-17 20:06 | PRG ---
DATE OF SERVICE: 08/17/2018 SUBJECTIVE: The patient was seen and examined at bedside and overnight events noted. The patient denies any shortness of breath or chest pain or palpitation. No history of nausea or vomiting or diarrhea or fever or chills or cramps. OBJECTIVE: GENERAL: This is a well-built male, in no apparent distress. VITAL SIGNS: Temperature 97.8, pulse 68, respiratory rate 18, blood pressure 173/74. HEENT: Atraumatic, normocephalic. Oral mucosa is moist NECK: Supple. CARDIOVASCULAR: S1, S2 heard. Rate and rhythm regular. RESPIRATORY: Clear to auscultation. GASTROINTESTINAL: Abdomen is soft. MUSCULOSKELETAL: No tenderness. No edema. DERMATOLOGIC: No skin rash. NEUROLOGIC: Alert and awake and oriented X3. No focal neurologic deficits. Moving all the extremities. PSYCHIATRIC: Mood and affect normal. LABORATORY DATA: Not done today. ASSESSMENT AND PLAN: 1. End-stage renal disease, continue on hemodialysis Saturday, Saturday, and Saturday. 2. Edema. Remove fluid. 3. Hypertension. 4. Anemia. Plan is to continue on dialysis as tolerated. Recheck labs in the morning. Job ID: [id number]
[2018-08-17] MEDS: hydrALAZINE 25 MG TAB PO SCH (21:36)
[2018-08-18 04:36] VITALS: BMI 23.9
[2018-08-18] MEDS: Furosemide 80 MG TAB PO SCH ×2 (12:07→13:27)
[2018-08-18] MEDS: Heparin 5,000 UNITS/ML VIAL SC SCH ×3 (12:07→20:23)
[2018-08-18] MEDS: NIFEdipine XL 90 MG TAB PO SCH (13:26)
[2018-08-18] MEDS: Lisinopril 20 MG TAB PO SCH (13:26)
[2018-08-18] MEDS: Tamsulosin HCl 0.4 MG CAP PO SCH (13:26)
[2018-08-18] MEDS: Aspirin 81 mg Enteric Coated Tablet PO SCH (13:27)
[2018-08-18] MEDS: hydrALAZINE 25 MG TAB PO SCH ×2 (13:27→20:24)
[2018-08-18] MEDS: Labetalol 100 MG TAB PO SCH ×2 (13:27→20:24)
[2018-08-18] MEDS: Clopidogrel Bisulfate 75 MG TAB PO SCH (13:27)
--- NOTE | 2018-08-18 14:17 | PRG ---
DATE OF SERVICE: 08/18/2018 SUBJECTIVE: This is a 67-year-old gentleman being seen for acute kidney injury. The patient denied nausea, vomiting, or chest pain. OBJECTIVE: GENERAL: The patient is awake and alert. VITAL SIGNS: , breathing 16, blood pressure 131/55. GENERAL APPEARANCE AND MENTAL STATUS: Fair. HEAD/NECK: Normocephalic. Atraumatic. EYES: EOMI. No deformity. EARS: Clear. No ulcers. NOSE: Intact. No lesions. MOUTH: Clear. No discharge. THROAT: Clear. No exudate. LUNGS: Clear. No crackles. CARDIAC: S1, S2. No rub. ABDOMEN: Benign. Bowel sounds positive. GENITALIA/RECTUM: Barrera absent. BACK/EXTREMITIES: Edema 0+. NEUROLOGICAL: Alert and motor intact. SKIN: LYMPHATICS: LABORATORY DATA: Labs showed potassium 3.7, creatinine 3.19. ASSESSMENT AND PLAN: 1. stable. 2. Anemia, stable. Medications based on GFR appropriate. Job ID: [id number]
--- NOTE | 2018-08-18 15:59 | PRG ---
DATE OF SERVICE: 08/18/2018 SUBJECTIVE: The patient is seen and examined at the bedside. He is feeling significantly better today. He finished his dialysis. He ate his lunch. OBJECTIVE: VITAL SIGNS: Blood pressure is 188/71, pulse is 69, respiratory rate is 16, O2 saturation is 97% on room air. HEENT: His head is atraumatic and normocephalic. Eyes are PERRLA. Sclerae are nonicteric. Conjunctivae palish. Oral mucosa is moist. NECK: Supple. LUNGS: Breath sounds somewhat diminished at both bases. HEART: S1, S2 normal. No S3. No S4. ABDOMEN: Soft, nontender, nondistended. EXTREMITIES: No clubbing, cyanosis, or edema. NEUROLOGICAL: He follows my commands. He moves his all four extremities. There is some generalized weakness in upper and lower extremities. LABORATORY DATA: Glycemia is ranging from 118-244. IMPRESSION: 1. Hypertensive urgency. Still have liable blood pressure. 2. Sepsis, resolved. 3. Anemia of chronic disease. 4. Benign prostatic hyperplasia. 5. Coronary artery disease, chronic, stable. 6. Diabetes mellitus type 2, chronic, stable. 7. Dyslipidemia, chronic, stable. 8. End-stage renal disease, on dialysis 3 times a week. 9. Gastroesophageal reflux disease. PLAN: The referral was sent to rehabilitation center and the case is reviewed by the doctor. We are waiting for the final decision about his transfer if he is approved. He will be sent out tonight or tomorrow morning. Job ID: [id number]
[2018-08-18] MEDS: HumaLOG 300 UNITS/3 ML VIAL SC PRN (17:35)
[2018-08-19 07:24] VITALS: TEMP 98.6
[2018-08-19] MEDS: Aspirin 81 mg Enteric Coated Tablet PO SCH (08:47)
[2018-08-19] MEDS: Labetalol 100 MG TAB PO SCH (08:47)
[2018-08-19] MEDS: Heparin 5,000 UNITS/ML VIAL SC SCH ×2 (08:47→14:46)
[2018-08-19] MEDS: Clopidogrel Bisulfate 75 MG TAB PO SCH (08:47)
[2018-08-19] MEDS: Tamsulosin HCl 0.4 MG CAP PO SCH (08:47)
[2018-08-19] MEDS: Furosemide 80 MG TAB PO SCH ×2 (08:47→14:44)
--- NOTE | 2018-08-19 10:50 | DIS ---
DATE OF ADMISSION: 08/14/2018 DATE OF DISCHARGE: 08/18/2018 FINAL DIAGNOSES: 1. Hypertensive urgency. 2. Sepsis, resolved. 3. Anemia of chronic disease. 4. Coronary artery disease, chronic, stable. 5. Benign prostatic hyperplasia. 6. Diabetes mellitus type 2, chronic, stable. 7. Dyslipidemia. 8. End-stage renal disease, on dialysis 3 times a week. 9. Gastroesophageal reflux disease. 10. Mildly elevated troponins related to his renal disease. CONSULTANTS: Dr. Mae and Dr. Harding of Nephrology Service. HOSPITAL COURSE: The patient is a 67-year-old male, who was admitted to the hospital with chief complaint of generalized weakness. He started having some cough nonproductive. No fever or chills. He denied any chest pain. He denied any nausea or vomiting, but he had some abdominal pain at this time. He was evaluated in the emergency room. His blood pressure was up to 185/91, pulse was 93. His labs at the time of admission showed leukopenia at 4100, hemoglobin was 11.9. Creatinine at 4.27. CK was 370 and troponin I was indeterminate at 0.137. Influenza screen was positive for influenza B antigen. The patient got admitted to the hospital with working diagnosis of sepsis. The temperature was 100.7 in the emergency room and maximum respiratory rate was up to 24. He was treated with tamsulosin for that diagnosis. He was started on PT and OT. Nephrology was consulted. He was continued on his schedule with dialysis after completion of his flu treatment. The arrangements were made for rehab transfer for further PT and OT treatments, but he finally made his decision that he is going to go home with home health significantly better after he completed his Tamiflu course. PHYSICAL EXAMINATION: VITAL SIGNS: Blood pressure is 118/50, pulse is 64, temperature is 98.6, and on room air he is 95% with respirations of 16 per minute. LUNGS: Clear. HEART: S1 and S2 normal. ABDOMEN: Soft, nontender. EXTREMITIES: No clubbing, cyanosis, or edema. DISCHARGE INSTRUCTIONS: He is discharged home on diabetic diet 2000 calories. Activities as tolerated. DISPOSITION: Home with home health. MEDICATIONS: At the time of discharge; 1. Atorvastatin 80 mg at bedtime. 2. Hydralazine 25 mg four times a day. 3. Lisinopril 10 mg once a day. 4. Aspirin 81 mg once a day. 5. Clopidogrel 75 mg once a day. 6. Flomax 0.4 mg once a day. 7. Nifedipine 90 mg daily. 8. Isosorbide mononitrate 30 mg once a day. 9. Furosemide 80 mg once a day, this is new prescription for him. FOLLOWUP: He will follow up with his primary care physician in 1 week and he will continue his dialysis with Dr. Mae and Dr. Harding, supervising physicians three times a week. TIME SPENT: Discharge time is less than 30 minutes. Job ID: [id number]
[2018-08-19] MEDS: Lisinopril 20 MG TAB PO SCH (11:22)
[2018-08-19] MEDS: hydrALAZINE 25 MG TAB PO SCH (11:22)
[2018-08-19] MEDS: NIFEdipine XL 90 MG TAB PO SCH (11:22)
[2018-08-19] MEDS: HumaLOG 300 UNITS/3 ML VIAL SC PRN (12:02)
--- NOTE | 2018-08-19 12:55 | PRG ---
DATE OF SERVICE: 08/19/2018 SUBJECTIVE: A 67-year-old male, being seen for end-stage renal disease. The patient denied nausea, vomiting, or chest pain. OBJECTIVE: CONSTITUTIONAL: The patient is awake and alert. VITAL SIGNS: Pulse 75, breathing 16, blood pressure 122/52. GENERAL APPEARANCE AND MENTAL STATUS: Fair. HEAD/NECK: Normocephalic. Atraumatic. EYES: EOMI. No deformity. EARS: Clear. No ulcers. NOSE: Intact. No lesions. MOUTH: Clear. No discharge. THROAT: Clear. No exudate. LUNGS: Clear. No crackles. CARDIAC: S1, S2. No rub. ABDOMEN: Benign. Bowel sounds positive. GENITALIA/RECTUM: Barrera absent. BACK/EXTREMITIES: Edema 0+. NEUROLOGICAL: Alert and motor intact. SKIN: LYMPHATICS: LABORATORY DATA: Reviewed. IMPRESSION AND PLAN: 1. Stage 6 chronic kidney disease, continue hemodialysis. 2. Hypertension, stable. 3. Anemia, stable. 4. Medication based on GFR, appropriate. Job ID: [id number]
[2018-08-19 14:45] VITALS: BP 137/69
== END 2018-08-19 15:03 | disposition home health service (06) | DRG 871 ==
LOC: ERS 00:09 → ERHOLD 02:20 → 2NO 15:56 → OBSVTOIN 08-14 11:46 → T4-A 08-16 19:40
PROVIDERS: ADMIT Internal Medicine; ATTEND Internal Medicine
PROC: 5A1D70Z Performance of Urinary Filtration, Intermittent, Less than 6 Hours Per Day (ICD-10-PCS; principal; 2018-08-18)
DX: A41.89 Other specified sepsis (principal); N18.6 End stage renal disease; N17.9 Acute kidney failure, unspecified; I12.0 Hypertensive chronic kidney disease with stage 5 chronic kidney disease or end stage renal disease; E11.21 Type 2 diabetes mellitus with diabetic nephropathy; E78.5 Hyperlipidemia, unspecified; J10.1 Influenza due to other identified influenza virus with other respiratory manifestations; E11.22 Type 2 diabetes mellitus with diabetic chronic kidney disease; I16.0 Hypertensive urgency; N40.0 Benign prostatic hyperplasia without lower urinary tract symptoms; I25.10 Atherosclerotic heart disease of native coronary artery without angina pectoris; K21.9 Gastro-esophageal reflux disease without esophagitis; D63.1 Anemia in chronic kidney disease; R53.81 Other malaise; Z99.2 Dependence on renal dialysis; Z79.4 Long term (current) use of insulin; Z79.02 Long term (current) use of antithrombotics/antiplatelets; Z79.899 Other long term (current) drug therapy; Z95.5 Presence of coronary angioplasty implant and graft; Z83.3 Family history of diabetes mellitus
CPT/HCPCS: 36415; 36416; 71045; 74177; 80048; 80053; 80069; 82550; 82553; 83605; 84484; 85025; 86706; 87040; 87340; 87804; 90935; 93005; 94760; 96361; 96365; 96367; 96375; G0257; J0360; J1644; J2543; J3370; J3490; Q9966

== ENCOUNTER 2018-09-25 04:17 | Emergency (ER) | payer MEDICARE ==
[2018-09-25] MEDS ORDERED: hydrALAZINE 20 MG/ML VIAL ONE (05:00)
[2018-09-25 05:10] LABS: #Eosinphils 0.1 thou/uL (0.0-0.7); #Lymphocytes 1.2 thou/uL (1.20-3.40); #Monocytes 0.5 thou/uL (0.11-0.59); %Basophils 0.3 % (0.0-1.0); %Eosinophils 1.9 % (0.0-10.0); %Lymphocytes 20.4 % (21.0-51.0); %Monocytes 8.2 % (0.0-10.0); %Neutrophils 69.3 % (42.0-75.0); Hemoglobin 12.2 g/dL (14.0-18.0); Mean Corpuscular HGB CONC 31.9 g/dL (32.0-36.0); Mean Corpuscular Hemoglobin 30.4 pg (27.0-31.0); Mean Corpuscular Volume 95.4 fL (78.0-98.0); Mean Platelet Volume 7.8 fL (7.4-10.4); Platelet Count 213 thou/uL (130-400); RBC Distribution Width 14.3 % (11.5-14.5); Red Blood Cell (RBC) Count 4.01 mill/uL (4.70-6.10); White Blood Cell (WBC) Count 5.7 thou/uL (4.8-10.8)
[2018-09-25 05:31] LABS: Chloride 105 mmol/L (98-107); Potassium 4.1 mmol/L (3.5-5.1); Sodium 136 mmol/L (136-145)
[2018-09-25 05:48] LABS: Albumin 3.2 g/dL (3.4-4.8)
[2018-09-25 05:50] LABS: Calcium 8.7 mg/dL (7.8-10.44)
[2018-09-25 05:51] LABS: Globulin 3.4 g/dL (2.4-3.5); Glucose 191 mg/dL (80-115); Protein, Total 6.6 g/dL (5.8-8.1)
[2018-09-25 05:52] LABS: Carbon Dioxide 17 mmol/L (23-31)
[2018-09-25 05:53] LABS: Bilirubin, Total 0.5 mg/dL (0.2-1.2)
[2018-09-25 05:54] LABS: Alkaline Phosphatase 193 U/L (40-150); Calc. Creatinine Clearance 0 mL/min (70-130); Estimated GFR-MDRD 8
[2018-09-25] MEDS ORDERED: cloNIDine 0.1 MG TAB ONE (05:54)
[2018-09-25 05:55] LABS: BUN (Urea Nitrogen) 49 mg/dL (8.4-25.7)
[2018-09-25 05:56] LABS: AST (SGOT) 18 U/L (5-34)
[2018-09-25 05:57] LABS: ALT (SGPT) 16 U/L (8-55)
[2018-09-25 06:12] LABS: Anion Gap 18 mmol/L (10-20)
== END 2018-09-25 10:04 | disposition home or self-care (01) ==
LOC: ERS 04:17
DX: I13.11 Hypertensive heart and chronic kidney disease without heart failure, with stage 5 chronic kidney disease, or end stage renal disease (principal); I50.9 Heart failure, unspecified; N18.6 End stage renal disease; R10.9 Unspecified abdominal pain; E11.22 Type 2 diabetes mellitus with diabetic chronic kidney disease; F41.9 Anxiety disorder, unspecified; Z79.4 Long term (current) use of insulin; Z79.899 Other long term (current) drug therapy
CPT/HCPCS: 36415; 80053; 85025; 93005; 96372; J0360

== ENCOUNTER 2019-01-22 23:55 | Observation (INO) | payer MEDICARE ==
[2019-01-23] MEDS ORDERED: Pantoprazole 40 MG VIAL ONE ×2 (00:36→00:57)
[2019-01-23 00:45] LABS: #Lymphocytes 0.8 thou/uL (1.20-3.40); #Monocytes 0.4 thou/uL (0.11-0.59); #Neutrophils 6.6 thou/uL (1.40-6.50); %Basophils 0.4 % (0.0-1.0); %Eosinophils 0.4 % (0.0-10.0); %Lymphocytes 10.3 % (21.0-51.0); %Monocytes 5.3 % (0.0-10.0); %Neutrophils 83.6 % (42.0-75.0); Hemoglobin 11.2 g/dL (14.0-18.0); Mean Corpuscular HGB CONC 34.2 g/dL (32.0-36.0); Mean Corpuscular Hemoglobin 31.9 pg (27.0-31.0); Mean Corpuscular Volume 93.1 fL (78.0-98.0); Mean Platelet Volume 8.3 fL (7.4-10.4); Platelet Count 256 thou/uL (130-400); RBC Distribution Width 12.4 % (11.5-14.5); White Blood Cell (WBC) Count 7.9 thou/uL (4.8-10.8)
[2019-01-23 00:51] LABS: PTT 30.6 SEC (22.9-36.1); Prothrombin Time 13.5 SEC (12.0-14.7)
[2019-01-23 01:09] LABS: ALT (SGPT) 14 U/L (8-55); AST (SGOT) 12 U/L (5-34); Albumin 3.8 g/dL (3.4-4.8); Alkaline Phosphatase 158 U/L (40-150); Anion Gap 20 mmol/L (10-20); BUN (Urea Nitrogen) 77 mg/dL (8.4-25.7); Bilirubin, Total 0.6 mg/dL (0.2-1.2); Calc. Creatinine Clearance 0 mL/min (70-130); Calcium 9.6 mg/dL (7.8-10.44); Carbon Dioxide 22 mmol/L (23-31); Chloride 105 mmol/L (98-107); Estimated GFR-MDRD 6; Globulin 3.7 g/dL (2.4-3.5); Glucose 212 mg/dL (80-115); Lipase 13 U/L (8-78); Magnesium 1.8 mg/dL (1.6-2.6); Potassium 5.9 mmol/L (3.5-5.1); Protein, Total 7.5 g/dL (5.8-8.1); Sodium 141 mmol/L (136-145)
[2019-01-23 01:33] LABS: CKMB 8.5 ng/mL (0-6.6)
[2019-01-23] MEDS ORDERED: Calcium Chloride 1 GM/10 ML Abboject SYRINGE ONE (01:59)
[2019-01-23] MEDS ORDERED: Insulin Regular 300 UNITS/3 ML VIAL ONE (01:59)
[2019-01-23] MEDS ORDERED: Sodium Bicarb 50 MEQ/50 ML Abboject 8.4% SYRINGE ONE (01:59)
[2019-01-23] MEDS ORDERED: Dextrose 50% Abboject 50 ML SYRINGE ONE (01:59)
[2019-01-23 02:05] LABS: Bilirubin Negative (Negative); Blood, Urine Trace (Negative); Clarity Turbid (Clear); Glucose, Urine (Dipstick) 300 mg/dL (Negative); Leukocyte Negative Leu/uL (Negative); Nitrite Negative (Negative); Protein, Urine (Dipstick) 300 mg/dL (Neg-Trace); RBC/HPF 0-3 HPF (0-3); Squamous Epithelial 0-3 HPF (0-3); Urobilinogen Normal mg/dL (Less than 2)
[2019-01-23] MEDS ORDERED: Sodium Bicarb 50 MEQ/50 ML VIAL ONE (02:05)
[2019-01-23 02:06] LABS: Bacteria/HPF 1+ HPF (None Seen)
[2019-01-23] MEDS ORDERED: Metoclopramide HCl 10 MG/2 ML VIAL ONE (02:23)
[2019-01-23] MEDS ORDERED: Pantoprazole 80 MG in Sodium Chloride 0.9% 100 ML IVPB SCH (03:00)
[2019-01-23 03:45] VITALS: BMI 24.3
[2019-01-23] MEDS ORDERED: Acetaminophen 325 MG TAB PO PRN (03:53)
[2019-01-23] MEDS ORDERED: HumaLOG 300 UNITS/3 ML VIAL SC PRN (03:53)
[2019-01-23] MEDS ORDERED: Dextrose 50% Abboject 50 ML SYRINGE SLOW IVP PRN (03:53)
[2019-01-23] MEDS ORDERED: Ondansetron PF 4 MG/2 ML Vial IVP PRN (03:53)
[2019-01-23] MEDS ORDERED: Dextrose 5% in Water 1,000 ML IV PRN (03:53)
[2019-01-23 04:33] LABS: Troponin I 0.055 ng/mL (< 0.028)
--- NOTE | 2019-01-23 04:33 | HP ---
REASON FOR ADMISSION: Volume overload, coffee-grounds emesis, and hyperkalemia. HISTORY OF PRESENTING ILLNESS: Please note majority of this history is obtained by talking to ER physician as the patient is not oriented fully. He has underlying dementia and has issues with memory. Per ER physician, Dr. Billingsley, the patient had an episode of coffee-ground emesis yesterday evening at home. He has also missed hemodialysis for 3 days for unclear reasons at present. The family essentially brought him to the emergency room for the coffee-grounds emesis. Currently, has no complaints of chest pain or palpitation. No complaints of abdominal pain. He does not recall why he missed dialysis. PAST MEDICAL AND SURGICAL HISTORY: History of end-stage renal disease on hemodialysis, hypertension, dyslipidemia, history of coronary artery disease, diabetes mellitus type 2, chronic anemia due to renal disease, appendectomy, nasal surgery, cardiac cath done in 2011 with stent placement to distal LAD, hemodialysis access procedures. PERSONAL HISTORY: Does not abuse alcohol or drugs. No history of smoking. FAMILY HISTORY: Mother has unknown malignancy. Father had diabetes. CURRENT MEDICATIONS: The patient is on; 1. Atorvastatin 80 mg p.o. at bedtime. 2. Hydralazine 25 mg p.o. 4 times daily. 3. Lisinopril 10 mg daily. 4. Procardia XL 90 mg p.o. daily. 5. Aspirin 81 mg p.o. daily. 6. Plavix 75 mg p.o. daily. 7. Lasix 80 mg p.o. daily. 8. Imdur extended release 30 mg p.o. daily. 9. Flomax 0.4 mg p.o. daily. Please note all of these medications were pulled from [employer] as the patient does not recall any of his medications. ALLERGIES: NO KNOWN DRUG ALLERGIES. CODE STATUS: Full per prior records. REVIEW OF SYSTEMS: Cannot be accurately obtained as the patient is not oriented. PHYSICAL EXAMINATION: GENERAL: The patient is a 68-year-old male who is currently not in any acute distress. He is wanting water to drink as his throat is dry. VITAL SIGNS: Blood pressure 150/76, pulse 90 per minute, respiratory rate 18 per minute, saturating 95% on room air, temperature is 98.5 degrees Fahrenheit. NECK: Supple. No elevated JVD. HEENT: Eyes; extraocular muscles intact. Pupils reacting to light. Oral cavity, mucous membranes are dry. No exudates or congestion. CARDIOVASCULAR SYSTEM: S1, S2 heard. Regular rhythm. RESPIRATORY SYSTEM: Air entry 1+ bilateral. No rales or rhonchi. ABDOMEN: Soft. Bowel sounds heard. No tenderness, rigidity, or guarding. EXTREMITIES: No peripheral edema or calf tenderness. VASCULAR SYSTEM: Peripheral pulses 1+ bilateral. No ischemic ulcerations or gangrene. CENTRAL NERVOUS SYSTEM: No gross focal deficits noted. The patient is not oriented and keeps repeating the same question over and over. He seems to have underlying dementia. Likely vascular. PSYCHIATRIC SYSTEM: Cannot be accurately assessed as the patient is not oriented at present. There are no obvious hallucinations at present. LABORATORY DATA: EKG done shows normal sinus rhythm at 86 beats per minute, there are signs of mild LVH, nonspecific ST-T wave changes. Troponin I is 0.05. Albumin 3.8, CK-MB 8.5, alkaline phosphatase is 158, AST and ALT 12 and 14, total bilirubin 0.6, BUN 77, creatinine 8.5, serum glucose 212, potassium is 5.9, serum bicarb 22, white count of 7, H and H are 11 and 32, platelet count 256, MCV is 93 with 83% neutrophils. CLINICAL IMPRESSION AND PLAN: The patient will be admitted to telemetry under observation for volume overload and one episode of coffee-ground emesis. We will obtain serial H and H. he will be on Protonix drip. We will consult Dr. Harding for hemodialysis. The patient apparently has missed 3 of his previous sessions of hemodialysis. No family is available at present to confirm the same. We will inquire with Dr. Harding regarding the same. He will be kept n.p.o. for possible upper endoscopy as the patient requires aspirin and Plavix for his coronary artery disease. He will be on Lipitor, Imdur, hydralazine, Procardia XL, and Flomax as before. If needed, the patient's status will be changed to inpatient based on clinical response. Job ID: [id number] [facility]
[2019-01-23] MEDS: Pantoprazole 80 MG, Admixture Fee 1 EACH in Sodium Chloride 0.9% 100 ML IVPB SCH ×2 (08:04→18:37)
[2019-01-23] MEDS ORDERED: Enoxaparin Sodium 30 MG/0.3 ML SYRINGE SC SCH (09:00)
--- NOTE | 2019-01-23 10:34 | CON ---
DATE OF CONSULTATION: REASON FOR CONSULTATION: Hyperkalemia. HISTORY OF PRESENT ILLNESS: This is a very pleasant 68-year-old gentleman, who presented to the hospital after missing dialysis for a week. The patient was hyperkalemia, dyspneic. The patient denies any nausea, vomiting, or chest pain. PAST MEDICAL HISTORY: Significant for end-stage renal disease, hypertension, anemia, appendectomy, nasal surgery, cardiac cath, coronary artery disease, stent placement, history of dementia, and diabetes mellitus type 2. SOCIAL HISTORY: No alcohol or drug abuse. FAMILY HISTORY: Negative for ESRD. ALLERGIES: REVIEWED. HOME MEDICATIONS: List reviewed. REVIEW OF SYSTEMS: A 15-point review of system was performed and negative except for positives noted above. GENERAL: HEAD: NECK: No swelling or lumps. NOSE: No epistaxis or discharge. EYES: No diplopia or pain. RESPIRATORY: CARDIOVASCULAR: GASTROINTESTINAL: /TOPSTITCHER ZIGZAG: MUSCULOSKELETAL: No joint pain. NEUROPSYCHIATRIC SYSTEMS: No suicidal ideation. No ideation. SKIN: Denies any rash or ulcer. CONSTITUTIONAL: No fever or chills. PHYSICAL EXAMINATION: CONSTITUTIONAL: On exam, the patient is awake and alert. VITAL SIGNS: Afebrile, pulse 73, breathing 16, and blood pressure 158/79. GENERAL APPEARANCE AND MENTAL STATUS: Fair. HEAD/NECK: Normocephalic. Atraumatic. EYES: EOMI. No deformity. EARS: Clear. No ulcers. NOSE: Intact. No lesions. MOUTH: Clear. No discharge. THROAT: Clear. No exudate. LUNGS: Clear. No crackles. CARDIAC: S1, S2. No rub. ABDOMEN: Benign. Bowel sounds positive. GENITALIA/RECTUM: Barrera absent. BACK/EXTREMITIES: Edema 0+. NEUROLOGICAL: Alert and motor intact. SKIN: LYMPHATICS: LABORATORY DATA: Reviewed. ASSESSMENT AND PLAN: 1. Chronic kidney disease, stage 6. Plan urgent dialysis. 2. Respiratory failure. Plan dialysis. 3. Anemia, stable. 4. Hypertension, stable. Medications based on GFR are appropriate. Compliance was discussed with the patient. Job ID: [id number]
[2019-01-23 10:40] LABS: Anion Gap 14 mmol/L (10-20); BUN (Urea Nitrogen) 43 mg/dL (8.4-25.7); Calc. Creatinine Clearance 14 mL/min (70-130); Calcium 9.1 mg/dL (7.8-10.44); Carbon Dioxide 25 mmol/L (23-31); Chloride 102 mmol/L (98-107); Estimated GFR-MDRD 11; Glucose 102 mg/dL (80-115); Potassium 4.2 mmol/L (3.5-5.1); Sodium 137 mmol/L (136-145)
[2019-01-23 10:46] LABS: Troponin I 0.061 ng/mL (< 0.028)
[2019-01-23 11:40] LABS: Hemoglobin 9.8 g/dL (14.0-18.0); Platelet Count 227 thou/uL (130-400)
--- NOTE | 2019-01-23 12:52 | PDOC.HOSPP ---
- Subjective Encounter Date: 01/23/19 Encounter Time: 12:50 Subjective: Still confused. Denies pain or complaints. - Objective Vital Signs & Weight: Vital Signs (12 hours) Temp Pulse Resp BP BP BP BP 01/23/19 12:20 98.0 F 82 18 169/84 H 01/23/19 07:55 97.2 F L 93 18 174/77 H 174/77 H 01/23/19 03:53 98.3 F 82 16 158/79 H Pulse Ox 01/23/19 12:20 01/23/19 07:55 95 01/23/19 03:53 99 Weight Admit Weight 165 lb Weight 165 lb Result Diagrams: 01/23/19 10:28 01/23/19 10:15 Additional Labs: Accuchecks 01/23/19 05:43 POC Glucose 91 Hospitalist ROS - Medication Medications: Active Medications Generic Name Dose Route Start Last Admin Trade Name Freq PRN Reason Stop Dose Admin Pantoprazole Sodium 80 mg/ 100 mls @ 10 mls/hr 01/23/19 04:00 01/23/19 08:04 Miscellaneous Medication 1 IVPB 100 mls each/ Sodium Chloride INF SHARIF Administration - Exam General Appearance: NAD, awake alert Neck: supple, symmetric, no JVD, no thyromegaly, no lymphadenopathy, no carotid bruit Heart: RRR, no murmur, no gallops, no rubs, normal peripheral pulses Respiratory: CTAB, no wheezes, no rales, no ronchi, normal chest expansion, no tachypnea, normal percussion Gastrointestinal: soft, non-tender, non-distended, normal bowel sounds, no palpable masses, no hepatomegaly, no splenomegaly, no bruit Extremities: no cyanosis, no clubbing, no edema Musculoskeletal: generalized weakness Psychiatric: not oriented Hosp A/P (1) Volume overload Code(s): E87.70 - FLUID OVERLOAD, UNSPECIFIED Status: Resolved (2) Acute metabolic encephalopathy Code(s): G93.41 - METABOLIC ENCEPHALOPATHY Status: Acute (3) Anemia of renal disease Code(s): D63.1 - ANEMIA IN CHRONIC KIDNEY DISEASE Status: Chronic (4) BPH (benign prostatic hyperplasia) Code(s): N40.0 - BENIGN PROSTATIC HYPERPLASIA WITHOUT LOWER URINRY TRACT SYMP Status: Chronic (5) CAD (coronary artery disease) Code(s): I25.10 - ATHSCL HEART DISEASE OF [place] CORONARY ARTERY W/O ANG PCTRS Status: Chronic (6) DM2 (diabetes mellitus, type 2) Status: Chronic (7) ESRD (end stage renal disease) on dialysis Code(s): N18.6 - END STAGE RENAL DISEASE; Z99.2 - DEPENDENCE ON RENAL DIALYSIS Status: Chronic (8) Elevated troponin Code(s): R74.8 - ABNORMAL LEVELS OF OTHER SERUM ENZYMES Status: Chronic (9) GERD (gastroesophageal reflux disease) Code(s): K21.9 - GASTRO-ESOPHAGEAL REFLUX DISEASE WITHOUT ESOPHAGITIS Status: Chronic (10) Hypertension Code(s): I10 - ESSENTIAL (PRIMARY) HYPERTENSION Status: Chronic (11) UGIB (upper gastrointestinal bleed) Code(s): K92.2 - GASTROINTESTINAL HEMORRHAGE, UNSPECIFIED Status: Acute - Plan Patient's is in the patient's room and says he general not encephalopathic. Suspect the encephalopathy is related to uremia. Will see if it clears with HD. PPI gtt. GI consult. Hold Lovenox. Hgb dropped slightly. Will recheck. Trops normal for age and renal function. Continue home meds for DM, HTN
[2019-01-23] MEDS: hydrALAZINE 25 MG TAB PO SCH ×4 (13:05→20:43)
[2019-01-23] MEDS: Isosorbide Mononitrate (ER) 30 MG TAB PO SCH (14:10)
[2019-01-23] MEDS: NIFEdipine XL 90 MG TAB PO SCH (14:10)
[2019-01-23] MEDS: Tamsulosin HCl 0.4 MG CAP PO SCH (14:10)
[2019-01-23 17:03] LABS: Hemoglobin 10.6 g/dL (14.0-18.0); Platelet Count 223 thou/uL (130-400)
[2019-01-23] MEDS ORDERED: Budesonide 0.5 MG/2 ML NEB ONE (20:46)
[2019-01-23] MEDS ORDERED: Atorvastatin Calcium 40 MG TAB PO SCH (21:00)
[2019-01-23] MEDS ORDERED: Prevnar 13-Val Conj/PF 0.5 ML SYRINGE IM ONE (21:00)
[2019-01-23 22:38] LABS: Hemoglobin 10.2 g/dL (14.0-18.0); Platelet Count 234 thou/uL (130-400)
--- NOTE | 2019-01-24 02:26 | CON ---
DATE OF CONSULTATION: 01/23/2019 REASON FOR CONSULTATION: Hematemesis. CONSULTING PROVIDER: Dr. Dannie Billingsley. HISTORY OF PRESENT ILLNESS: The patient is a 68-year-old male with past medical history of end-stage renal disease, on hemodialysis, hypertension, hyperlipidemia, diabetes, coronary artery disease, and anemia of renal disease, presenting with complaints of hematemesis. Information was obtained from both the patient as well as chart review with what appears to be maybe some intellectual disability on the part of the patient, but per chart review, the patient's family had brought the individual to the ER for an episode of coffee-ground emesis he experienced at home the evening prior. Per patient, he states that he had been drinking coffee which he did not like, which then induced nausea and vomiting of this what appeared to be coffee-ground emesis. Otherwise, he has not had any further episodes of both nausea or vomiting, with no observed hematemesis during this admission. Currently, he denies any nausea, vomiting, fevers, chills, abdominal pain, hematemesis, melena, hematochezia, diarrhea, constipation, or weight loss. REVIEW OF SYSTEMS: A 10-category review of systems was obtained with all responses negative except for the pertinent positives as listed in HPI. PAST MEDICAL HISTORY: As per HPI. PAST SURGICAL HISTORY: Appendectomy, nasal surgery, cardiac catheterization with stent placement, hemodialysis access with arteriovenous fistula. FAMILY HISTORY: Mother with an unknown malignancy, but otherwise denies any GI malignancies. SOCIAL HISTORY: Denies any tobacco, alcohol, or illicit drug use. OUTPATIENT MEDICATIONS: Reviewed. ALLERGIES: NO KNOWN DRUG ALLERGIES. PHYSICAL EXAMINATION: VITAL SIGNS: Temperature 99.6, pulse 85, blood pressure 133/63, respiratory rate 16, saturating 97% on room air. GENERAL: The patient was lying in bed, in no acute distress. Alert and oriented x3. HEENT: Normocephalic, atraumatic. NECK: Supple. No JVD or scleral icterus noted. CARDIOVASCULAR: Regular rate and rhythm with no discernible wheezes or rales. RESPIRATORY: Clear to auscultation bilaterally with no discernible wheezes or rales. ABDOMEN: Normoactive bowel sounds. Soft, nontender, nondistended. EXTREMITIES: No cyanosis, clubbing, or edema. LABORATORY DATA: CBC with a white blood cell count of 7.9, hemoglobin 11.2, hematocrit 32.6, platelets 256, INR 1.0. Chemistry with a sodium of 141, potassium 5.9, chloride 105, CO2 22, BUN 77, creatinine 8.54, glucose 212, AST 12, ALT 14, alkaline phosphatase 158, total bilirubin 0.6, albumin 3.8. IMAGING DATA: No current GI imaging is available for review. ASSESSMENT AND PLAN: The patient is a 68-year-old male with past medical history of end-stage renal disease, on hemodialysis, hypertension, hyperlipidemia, diabetes, coronary artery disease, and anemia of renal disease, presenting with hematemesis. Hematemesis. It is unclear whether or not the patient did actually have an episode of hematemesis, or instead vomited up actual coffee that he was drinking prior to his episode of nausea and vomiting. On chart review, the patient does have a mild decrease of his hemoglobin and hematocrit when compared to baseline in July of this year, but has not exhibited any other episodes of hematemesis, nor any other evidence of active GI bleeding. He does state that he takes aspirin intermittently at home, which could further contribute to irritation of the GI tract and subsequent bleeding, but he takes it approximately 1 to 2 times per week. 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 At this time, the differential could include severe esophagitis, gastritis, Prudence-Maddox tear, vomiting of ingested food stuffs, arteriovenous malformation, Dieulafoy lesion and/or GI malignancy (much less likely). RECOMMENDATIONS: 1. We would continue to trend H and H and transfuse as necessary to maintain an H and H of 7/21. 2. Continue to monitor clinically for signs of active GI bleeding. 3. We will continue the patient on PPI drip at least for the time being, but I would have a low threshold to stopping this medication. 4. We would hold any anticoagulation until further evaluation with upper endoscopy. 5. We will make the patient n.p.o. at midnight in anticipation of EGD tomorrow morning. We will continue to follow. Please call with any questions. Job ID: [id number]
[2019-01-24] MEDS ORDERED: hydrALAZINE 20 MG/ML VIAL SLOW IVP PRN (05:10)
[2019-01-24 05:50] LABS: Albumin 3.3 g/dL (3.4-4.8); Anion Gap 14 mmol/L (10-20); BUN (Urea Nitrogen) 32 mg/dL (8.4-25.7); BUN/Creatinine Ratio 6.82; Calc. Creatinine Clearance 16 mL/min (70-130); Calcium 8.8 mg/dL (7.8-10.44); Carbon Dioxide 26 mmol/L (23-31); Chloride 103 mmol/L (98-107); Estimated GFR-MDRD 12; Glucose 117 mg/dL (80-115); Phosphorus 3.9 mg/dL (2.3-4.7); Potassium 4.5 mmol/L (3.5-5.1); Sodium 138 mmol/L (136-145)
[2019-01-24] MEDS: Pantoprazole 80 MG, Admixture Fee 1 EACH in Sodium Chloride 0.9% 100 ML IVPB SCH (06:17)
[2019-01-24] MEDS ORDERED: PROPOFOL 200 MG/20 ML VIAL ONE (08:45)
[2019-01-24] MEDS ORDERED: Lidocaine 1% PF 5 ML VIAL ONE (08:45)
--- NOTE | 2019-01-24 10:24 | PDOC.HOSPP ---
- Subjective Encounter Date: 01/24/19 Encounter Time: 10:22 Subjective: Patient seen and examined, no new issues. - Objective Vital Signs & Weight: Vital Signs (12 hours) Temp Pulse Resp BP BP Pulse Ox 01/24/19 07:47 97.5 F L 87 18 153/70 H 97 01/24/19 06:08 84 177/77 H 01/24/19 04:00 99.2 F 74 16 177/77 H 97 01/24/19 00:00 98.1 F 84 14 177/77 H 97 Weight Admit Weight 165 lb Weight 165 lb I&O: 01/23/19 01/24/19 01/25/19 06:59 06:59 06:59 Intake Total 816 Output Total 200 Balance 616 Result Diagrams: 01/23/19 22:22 01/24/19 04:54 Additional Labs: Accuchecks 01/24/19 01/23/19 01/23/19 05:31 23:33 17:18 POC Glucose 124 H 112 H 99 01/23/19 14:18 POC Glucose 96 Hospitalist ROS - Medication Medications: Active Medications Generic Name Dose Route Start Last Admin Trade Name Freq PRN Reason Stop Dose Admin Atorvastatin Calcium 80 mg 01/23/19 21:00 01/23/19 20:43 Lipitor PO 80 mg HS SHARIF Administration Enoxaparin Sodium 30 mg 01/23/19 09:00 01/23/19 13:05 Lovenox SC Not Given 0900 SHARIF Hydralazine HCl 25 mg 01/23/19 09:00 01/23/19 20:43 Apresoline PO 25 mg QID SHARIF Administration Hydralazine HCl 10 mg 01/24/19 05:10 01/24/19 06:08 Apresoline SLOW IVP 10 mg Q6H PRN Administration SBP>170 OR DBP>100 Pantoprazole Sodium 80 mg/ 100 mls @ 10 mls/hr 01/23/19 04:00 01/24/19 06:17 Miscellaneous Medication 1 IVPB 100 mls each/ Sodium Chloride INF SHARIF Administration Isosorbide Mononitrate 30 mg 01/23/19 09:00 01/23/19 14:10 Imdur Er PO 30 mg DAILY SHARIF Administration Nifedipine 90 mg 01/23/19 09:00 01/23/19 14:10 Procardia Xl PO 90 mg DAILY SHARIF Administration Tamsulosin HCl 0.4 mg 01/23/19 09:00 01/23/19 14:10 Flomax PO 0.4 mg DAILY SHARIF Administration - Exam General Appearance: NAD, awake alert Eye: PERRL, anicteric sclera ENT: normocephalic atraumatic, no oropharyngeal lesions Neck: supple, symmetric, no JVD, no thyromegaly Heart: RRR, no murmur, no gallops, no rubs Respiratory: CTAB, no wheezes, no rales Gastrointestinal: soft, non-tender, non-distended, normal bowel sounds Hosp A/P (1) Bradycardia Code(s): R00.1 - BRADYCARDIA, UNSPECIFIED Status: Acute (2) Physical deconditioning Code(s): R53.81 - OTHER MALAISE Status: Acute (3) Diabetes type 2, controlled Code(s): E11.9 - TYPE 2 DIABETES MELLITUS WITHOUT COMPLICATIONS Status: Chronic Qualifiers: Diabetes mellitus shelter insulin use: with shelter use Diabetes mellitus complication status: with kidney complications Diabetes mellitus complication detail: with chronic kidney disease Chronic kidney disease stage : on chronic dialysis Qualified Code(s): E11.22 - Type 2 diabetes mellitus with diabetic chronic kidney disease; N18.6 - End stage renal disease; Z79.4 - halfway (current) use of insulin; Z99.2 - Dependence on renal dialysis (4) ESRD (end stage renal disease) on dialysis Code(s): N18.6 - END STAGE RENAL DISEASE; Z99.2 - DEPENDENCE ON RENAL DIALYSIS Status: Chronic (5) GERD (gastroesophageal reflux disease) Code(s): K21.9 - GASTRO-ESOPHAGEAL REFLUX DISEASE WITHOUT ESOPHAGITIS Status: Chronic (6) Hypertension Code(s): I10 - ESSENTIAL (PRIMARY) HYPERTENSION Status: Chronic Qualifiers: Hypertension type: essential hypertension Qualified Code(s): I10 - Essential (primary) hypertension (7) Diastolic CHF, acute Code(s): I50.31 - ACUTE DIASTOLIC (CONGESTIVE) HEART FAILURE Status: Resolved (8) Volume overload Code(s): E87.70 - FLUID OVERLOAD, UNSPECIFIED Status: Resolved - Plan - cont current plan of care - HD planned for today - labs in AM - DC in AM post HD if patient remains stable over the next 24 hours.
--- NOTE | 2019-01-24 12:28 | PRG ---
DATE OF SERVICE: 01/24/2019 SUBJECTIVE: A 68-year-old gentleman, being seen for end-stage kidney disease. The patient denied nausea, vomiting, or chest pain. OBJECTIVE: CONSTITUTIONAL: On exam, the patient is awake and alert. VITAL SIGNS: Pulse 84, breathing 16, and blood pressure 153/70. GENERAL APPEARANCE AND MENTAL STATUS: Fair. HEAD/NECK: Normocephalic. Atraumatic. EYES: EOMI. No deformity. EARS: Clear. No ulcers. NOSE: Intact. No lesions. MOUTH: Clear. No discharge. THROAT: Clear. No exudate. LUNGS: Clear. No crackles. CARDIAC: S1, S2. No rub. ABDOMEN: Benign. Bowel sounds positive. GENITALIA/RECTUM: Barrera absent. BACK/EXTREMITIES: Edema 0+. NEUROLOGICAL: Alert and motor intact. SKIN: LYMPHATICS: LABORATORY DATA: Reviewed. ASSESSMENT AND PLAN: 1. Stage 6 chronic kidney disease, plan dialysis Saturday. 2. Hypertension, stable. 3. Anemia, stable. Medications based on GFR are appropriate. Job ID: [id number]
[2019-01-24] MEDS: hydrALAZINE 25 MG TAB PO SCH ×3 (13:00→17:29)
[2019-01-24] MEDS: Isosorbide Mononitrate (ER) 30 MG TAB PO SCH (13:04)
[2019-01-24] MEDS: NIFEdipine XL 90 MG TAB PO SCH (13:04)
[2019-01-24] MEDS: Tamsulosin HCl 0.4 MG CAP PO SCH (13:04)
--- NOTE | 2019-01-24 14:43 | PDOC.EVN ---
Event Note - Event Note Event Note: DC SUMMARY #[id number]
[2019-01-24 15:51] VITALS: TEMP 97.9
--- NOTE | 2019-01-24 17:12 | DIS ---
DATE OF ADMISSION: 01/23/2019 DATE OF DISCHARGE: 01/24/2019 ADMITTING DIAGNOSES: Suspected coffee-ground emesis, end-stage renal disease, hypertension, hyperlipidemia, metabolic bone disease. DISCHARGE DIAGNOSES: Hemoglobin stable, no upper gastrointestinal bleed noted. End-stage renal disease, hypertension, and hyperlipidemia. HOSPITAL COURSE: This is a 68-year-old male, who presented to hospital with nausea, vomiting, suspected coffee-ground emesis, was admitted to Internal Medicine Team, seen by GI as well as Nephrology. The patient was given dialysis treatments in the hospital as appropriate and also had endoscopy done by EGD. No bleeding source was noted. The patient suspected to have probably vomited actual coffee. The patient was given dialysis treatments. Advised to follow up with his dialysis unit on Saturday for further management and care. CONDITION: Stable. PROGNOSIS: Good. DISPOSITION: Home. MEDICATIONS: See MAR. ACTIVITY: As tolerated with assistance as needed. DIET: Low-fat, low-calorie, high-fiber diet. FOLLOWUP: Follow up with PCP in one week, dialysis unit on Saturday. Case and plan discussed with the patient at length. He understood and agreed to this plan. Job ID: [id number]
[2019-01-24 17:25] VITALS: BP 128/60
--- NOTE | 2019-01-24 18:51 | OP ---
DATE OF PROCEDURE: 01/24/2019 PROCEDURE PERFORMED: Esophagogastroduodenoscopy with biopsy. INDICATION FOR PROCEDURE: Hematemesis, anemia. DESCRIPTION OF PROCEDURE: After the risks and benefits of the procedure were explained to the patient including risks of bleeding, infection, perforation, reactions to anesthesia, aspiration and/or pain, informed consent was obtained. The patient was then taken to the endoscopy suite, where deep sedation was administered via propofol and anesthesia support. Once adequate sedation was achieved, the patient was maneuvered into the left lateral decubitus position in preparation for the EGD. Once in position, the standard gastroscope was introduced into the mouth with intubation of the esophagus, stomach, and the proximal small intestines with the findings listed below. The patient tolerated the procedure well with no immediate perioperative complications. Upon conclusion of the procedure, all equipment was removed from the patient and he was transferred to PACU in satisfactory condition. FINDINGS: Esophagus: Normal-appearing mucosa was seen both in the proximal and mid esophagus, however in the distal esophagus, circumferential salmon-colored mucosa was seen extending from 37 cm to 40 cm past the incisors concerning for [place] esophagus. He did not exhibit any nodularity nor did it have any erosions or ulcerations. Multiple biopsies were taken from this region to confirm diagnosis. There was no evidence of active/recent bleeding seen anywhere in the esophagus. A small hiatal hernia was also seen in the distal esophagus extending from 40 to 42 cm with the diaphragmatic pinch well seen at 42 cm. Stomach: Mild mucosal erythema was seen throughout the entire stomach including the gastric cardia, fundus, body, greater curvature, antrum, and incisura. This increased mucosal erythema exhibited a mild mosaic type appearance and was in addition to a mottled type pattern, especially with the antrum. Random gastric biopsies were taken throughout the stomach for further evaluation. There was no evidence of erosions, ulcerations, mass, lesions, or active/recent bleeding. Duodenum: Normal-appearing mucosa was seen in both the duodenal bulb and second portion of the duodenum. There was no evidence of erosions, ulcerations, mass, lesions, or active/recent bleeding. IMPRESSION: 1. Chariton-colored mucosa seen in the distal esophagus concerning for [place] esophagus, status post biopsies (Woodruff classification C3 M3). 2. 2 cm hiatal hernia. 3. Mild nonspecific gastropathy seen throughout the entire stomach, status post biopsy. 4. No etiology for patient's hematemesis was seen during this examination. RECOMMENDATIONS: 1. 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 2. We would avoid any NSAIDs. 3. While still inpatient, we would continue to trend his H and H and transfuse as necessary to maintain an H and H of 12/14. 4. We would continue to monitor clinically for signs of active GI bleeding. 5. We will follow up on the biopsy results with repeat upper endoscopy based on the pathology report. 6. Given lack of evidence of bleeding seen on the upper endoscopy today, the patient can be potentially discharged to home with followup in the GI Clinic. We will sign off at this time. Please call with any questions. Job ID: [id number]
== END 2019-01-24 17:23 | disposition home or self-care (01) ==
LOC: ERS 23:55 → 2NO 01-23 02:30
PROVIDERS: ADMIT Internal Medicine; ATTEND Internal Medicine
PROC: 0DB58ZX Excision of Esophagus, Via Natural or Artificial Opening Endoscopic, Diagnostic (ICD-10-PCS; principal; 2019-01-23)
PROC: 0DB68ZX Excision of Stomach, Via Natural or Artificial Opening Endoscopic, Diagnostic (ICD-10-PCS; 2019-01-23)
DX: D64.9 Anemia, unspecified (principal); K21.0 Gastro-esophageal reflux disease with esophagitis; K29.50 Unspecified chronic gastritis without bleeding; K44.9 Diaphragmatic hernia without obstruction or gangrene; K31.9 Disease of stomach and duodenum, unspecified; I12.0 Hypertensive chronic kidney disease with stage 5 chronic kidney disease or end stage renal disease; N18.6 End stage renal disease; E78.5 Hyperlipidemia, unspecified
CPT/HCPCS: 43239; 80048; 80053; 80069; 82140; 82553; 82962 ×2; 83690; 83735; 84484 ×2; 85014; 85018; 85025; 85049; 85610; 85730; 86850; 86900; 86901; 88305; 90670; 93005; 96374; 96375 ×2; 97116; 97139 ×4; 99285; G0009; G0378 ×2; 36415; 36416; 81003; 81015; 90471; 90935; C9113; G0257; J0360; J1815; J2001; J2704; J2765; J3490; J7626

== ENCOUNTER 2019-02-16 10:55 | Inpatient (IN) | payer MEDICARE ==
--- NOTE | 2019-02-16 11:39 | RAD ---
EXAM: Single view of the chest HISTORY: Cough and shortness of breath COMPARISON: 08/13/2018 FINDINGS: Single view of the chest shows a normal sized cardiomediastinal silhouette. There is no suki dence of consolidation, mass, or pleural effusion. The bones are unremarkable. IMPRESSION: No evidence of acute cardiopulmonary disease
[2019-02-16 11:54] LABS: #Eosinphils 0.1 thou/uL (0.0-0.7); #Lymphocytes 1.1 thou/uL (1.20-3.40); #Monocytes 0.7 thou/uL (0.11-0.59); #Neutrophils 6.8 thou/uL (1.40-6.50); %Basophils 0.5 % (0.0-1.0); %Eosinophils 1.7 % (0.0-10.0); %Lymphocytes 12.2 % (21.0-51.0); %Monocytes 7.6 % (0.0-10.0); Hemoglobin 11.3 g/dL (14.0-18.0); Mean Corpuscular HGB CONC 34.1 g/dL (32.0-36.0); Mean Corpuscular Hemoglobin 31.7 pg (27.0-31.0); Mean Corpuscular Volume 92.9 fL (78.0-98.0); Platelet Count 225 thou/uL (130-400); RBC Distribution Width 12.9 % (11.5-14.5); Red Blood Cell (RBC) Count 3.55 mill/uL (4.70-6.10); White Blood Cell (WBC) Count 8.7 thou/uL (4.8-10.8)
[2019-02-16 12:21] LABS: ALT (SGPT) 20 U/L (8-55); AST (SGOT) 13 U/L (5-34); Albumin 3.4 g/dL (3.4-4.8); Alkaline Phosphatase 248 U/L (40-150); Anion Gap 14 mmol/L (10-20); BUN (Urea Nitrogen) 48 mg/dL (8.4-25.7); Bilirubin, Total 0.4 mg/dL (0.2-1.2); Calc. Creatinine Clearance 0 mL/min (70-130); Calcium 8.8 mg/dL (7.8-10.44); Carbon Dioxide 27 mmol/L (23-31); Chloride 96 mmol/L (98-107); Estimated GFR-MDRD 9; Globulin 3.2 g/dL (2.4-3.5); Glucose 277 mg/dL (80-115); Lipase 58 U/L (8-78); Potassium 4.6 mmol/L (3.5-5.1); Protein, Total 6.6 g/dL (5.8-8.1); Sodium 132 mmol/L (136-145)
--- NOTE | 2019-02-16 12:21 | CT ---
Head CT without contrast 02/16/2019: COMPARISON: 03/19/2018 HISTORY: Altered mental status TECHNIQUE: Axial CT imaging at 5 mm intervals from vertex through skull base without contrast FINDINGS: The visualized paranasal sinuses and mastoid air cells are well aerated. There is partial o pacification of the mastoid air cells on the left, stable. There is extensive periventricular and deep white matter hypodensity, evidence of stable significant small vessel disease. There is stable p rominence of the CSF containing spaces with prominence of the ventricular system on the basis of cerebral volume loss. IMPRESSION: Stable head CT as detailed above. No intracranial hemorrhage.
[2019-02-16 12:38] LABS: CKMB 3.5 ng/mL (0-6.6)
[2019-02-16] MEDS ORDERED: Aspirin Chewable 81 MG TAB ONE ×3 (14:37→14:42)
[2019-02-16 16:52] VITALS: BMI 25.4
[2019-02-16] MEDS ORDERED: Acetaminophen 650 MG Suppository PR PRN (21:09)
[2019-02-16] MEDS ORDERED: Ondansetron PF 4 MG/2 ML Vial IVP PRN (21:09)
[2019-02-16] MEDS ORDERED: Acetaminophen 325 MG TAB PO PRN (21:09)
[2019-02-16] MEDS ORDERED: Ondansetron ODT 4 MG TAB PO PRN (21:09)
[2019-02-16] MEDS ORDERED: Dextrose 50% Abboject 50 ML SYRINGE SLOW IVP PRN (21:12)
[2019-02-16] MEDS ORDERED: Dextrose 5% in Water 1,000 ML IV PRN (21:12)
[2019-02-17 04:06] LABS: #Eosinphils 0.2 thou/uL (0.0-0.7); #Lymphocytes 1.3 thou/uL (1.20-3.40); #Monocytes 0.5 thou/uL (0.11-0.59); #Neutrophils 4.1 thou/uL (1.40-6.50); %Basophils 0.7 % (0.0-1.0); %Eosinophils 3.1 % (0.0-10.0); %Lymphocytes 21.4 % (21.0-51.0); %Monocytes 8.1 % (0.0-10.0); %Neutrophils 66.7 % (42.0-75.0); Hemoglobin 10.8 g/dL (14.0-18.0); Mean Corpuscular Hemoglobin 32.3 pg (27.0-31.0); Mean Platelet Volume 7.8 fL (7.4-10.4); Platelet Count 221 thou/uL (130-400); Red Blood Cell (RBC) Count 3.35 mill/uL (4.70-6.10); White Blood Cell (WBC) Count 6.2 thou/uL (4.8-10.8)
[2019-02-17 04:26] LABS: Anion Gap 13 mmol/L (10-20); BUN (Urea Nitrogen) 52 mg/dL (8.4-25.7); Calc. Creatinine Clearance 11 mL/min (70-130); Calcium 8.8 mg/dL (7.8-10.44); Carbon Dioxide 28 mmol/L (23-31); Chloride 98 mmol/L (98-107); Estimated GFR-MDRD 8; Glucose 225 mg/dL (80-115); Potassium 4.8 mmol/L (3.5-5.1); Sodium 134 mmol/L (136-145)
--- NOTE | 2019-02-17 07:17 | HP ---
PRIMARY CARE DOCTOR: The patient goes to the [facility]. CODE STATUS: Full code. TIME OF EVALUATION: 8:35 p.m. CHIEF COMPLAINT: Change in mental status. HISTORY OF PRESENT ILLNESS: This is a 68-year-old male patient, with past medical history of end-stage renal disease, on hemodialysis. The patient came to the hospital after having change in mental status. It was reported that the patient was not acting like himself. Symptoms started on Saturday after dialysis. The patient's reported that this might be related to taking too much fluid off during dialysis. By the time of my examination, symptoms have resolved. The patient is fully oriented and family members reported that he has come back to baseline now. The patient also reported that he has been sent here because he has some gait changes having unsteady gait, for concerns of stroke-like symptoms. REVIEW OF SYSTEMS: GENERAL APPEARANCE: The patient was reported to be not acting like himself, neurological and gait changes. All other systems reviewed were negative except for the findings mentioned above. PAST MEDICAL HISTORY: Positive for congestive heart failure; coronary artery disease, status post stent placement; diabetes; end-stage renal disease on hemodialysis Saturday, Saturday, and Saturday; hypertension. PAST SURGICAL HISTORY: Amputation to right 5th toe due to neuropathy and infection, appendectomy, cardiac stent x1, cyst on the left arm. PSYCHIATRIC HISTORY: Includes anxiety. SOCIAL HISTORY: No alcohol, no drugs, no smoking history. KNOWN ALLERGIES: No known drug allergies. REPORTED MEDICATIONS: 1. Flomax. 2. Nifedipine. 3. Hydralazine. 4. Atorvastatin. 5. Lisinopril. 6. Plavix. 7. Isosorbide. 8. Levemir. PHYSICAL EXAMINATION: VITAL SIGNS: On presentation, blood pressure 187/81, heart rate 85, respiratory rate was 19, temperature 98.6, pain was 8/10, O2 saturation was 97% on room air. GENERAL APPEARANCE: The patient is alert, in no acute distress. HEENT: Eyes, normal conjunctiva. Moist oral mucosa. Anicteric. No JVD. RESPIRATORY: Bilateral air entry. No rales. No wheezing. Symmetric expansion. CARDIOVASCULAR: Normal rate, regular rhythm. No murmurs. No edema. ABDOMEN: Soft. Normal bowel sounds. MUSCULOSKELETAL: Baseline range of motion and strength. SKIN: Warm, intact. No pallor. No rash. No redness. Capillary refill seems to be intact. NEUROLOGIC: No evidence of any new focal weakness. gait problems. PSYCH: The patient is in good mood. No anxiety. Optimal judgment. IMAGING STUDIES: EKG was reviewed. The patient has normal sinus rhythm with a rate of 77 and slightly peaked T-waves. Chest x-ray was done. No evidence of acute cardiopulmonary disease was seen. Brain CT was done. CT was negative, no intracranial acute findings. LABORATORY DATA: Reviewed. The patient has white count 8.7, hemoglobin 11.3, MCV 92.9, platelet count 225. Chemistry; sodium 132, potassium 4.6, chloride 96, carbon dioxide 27, anion gap 15, BUN 48, creatinine 6.51, GFR 9, glucose 177, calcium 9.8, total bilirubin 0.4, AST 13, ALT 20, alkaline phosphatase 248, ammonia level 14, troponin 0.030, albumin 3.4, globulin 3.2, albumin globulin ratio is 1.1, lipase 88. ASSESSMENT AND PLAN: The patient will be placed in the hospital with following medical problems; 1. Acute encephalopathy on presentation; however, on my examination, this has resolved, could be related to dehydration as stated by patient's family member. The patient has received some hydration and seems better now. We will continue to monitor. We will keep . 2. Normocytic anemia. This is chronic, will be related to end-stage renal disease. His hemoglobin is higher than before . 3. Hyponatremia, sodium 132. The patient's sodium will be monitored. We will adjust treatment as needed. 4. End-stage renal disease on hemodialysis. The patient reportedly had some negative fluid balance in the last dialysis, that could be the etiology for the symptoms. The patient is receiving some fluids and we will consult Nephrology for any further management. 5. Undetermined troponin, unclear etiology. We will trend troponins, could be related to underlying end-stage renal disease. 6. Deep venous thrombosis prophylaxis. Job ID: [id number]
[2019-02-17] MEDS: HumaLOG 300 UNITS/3 ML VIAL SC PRN ×3 (08:05→16:45)
[2019-02-17] MEDS ORDERED: Prevnar 13-Val Conj/PF 0.5 ML SYRINGE IM ONE (09:00)
[2019-02-17] MEDS: hydrALAZINE 25 MG TAB PO SCH ×4 (09:35→20:32)
[2019-02-17] MEDS: Lisinopril 20 MG TAB PO SCH (09:35)
[2019-02-17] MEDS: Aspirin 81 mg Enteric Coated Tablet PO SCH (09:35)
[2019-02-17] MEDS: Tamsulosin HCl 0.4 MG CAP PO SCH (09:35)
[2019-02-17] MEDS: NIFEdipine XL 90 MG TAB PO SCH (09:35)
[2019-02-17] MEDS: Heparin 5,000 UNITS/ML VIAL SC SCH ×3 (09:35→20:33)
--- NOTE | 2019-02-17 11:12 | MRI ---
EXAM: MRI of the brain without contrast HISTORY: Left-sided weakness after dialysis COMPARISON: 11/30/2017 TECHNIQUE: Multiplanar multisequence MR images were obtained of the brain without IV contrast. FINDINGS: Scattered foci of high T2/FLAIR signal in the subcortical and periventricular white matter are likely secondary to small vessel ischemic disease. There is a 5 mm area of restricted diffusion in the right periventricular white matter adjacent to th e third ventricle. This is above the midbrain and below the thalamus. No hydronephrosis. No extra-axial fluid collection or intracranial hemorrhage. The expected flow voids are present. Corpus callosum, pituitary, and craniocervical junction are within normal limits. The calvarium and overlying soft tissues are unremarkable. The paranasal sinuses and mastoid air cells are well aerated. IMPRESSION: Small area of infarction the right periventricular white matter. This exam was reviewed with Dr. Poonam shell who agrees with the findings and impression.
[2019-02-17 11:36] LABS: Bacteria/HPF None Seen HPF (None Seen); Bilirubin Negative (Negative); Blood, Urine Negative (Negative); Clarity Clear (Clear); Glucose, Urine (Dipstick) 300 mg/dL (Negative); Leukocyte 75 Leu/uL (Negative); Nitrite Negative (Negative); Protein, Urine (Dipstick) 300 mg/dL (Neg-Trace); RBC/HPF 0-3 HPF (0-3); Squamous Epithelial 0-3 HPF (0-3); Urobilinogen Normal mg/dL (Less than 2); WBC/HPF 0-3 HPF (0-3)
--- NOTE | 2019-02-17 16:04 | PDOC.HOSPP ---
- Subjective Subjective: Doing well. He feels like he has improved, but still weak on the left. He did fall and abrade his left knee and arm prior to admission. Left sided weakness started on Saturday around the time of his dialysis. - Objective Vital Signs & Weight: Vital Signs (12 hours) Temp Pulse Resp BP BP BP BP 02/17/19 14:27 177/81 H 168/68 H 02/17/19 12:28 84 149/76 H 02/17/19 11:28 98.6 F 84 16 149/76 H 02/17/19 09:35 79 183/89 H 02/17/19 08:00 98.6 F 80 14 183/89 H Pulse Ox 02/17/19 14:27 02/17/19 12:28 02/17/19 11:28 92 L 02/17/19 09:35 02/17/19 08:00 94 L Weight Admit Weight 172 lb 3.2 oz Weight 172 lb 3.2 oz Result Diagrams: 02/17/19 03:57 02/17/19 03:57 Additional Labs: Accuchecks 02/17/19 02/17/19 02/16/19 10:38 06:33 20:17 POC Glucose 202 H 191 H 166 H Hospitalist ROS - Medication Medications: Active Medications Generic Name Dose Route Start Last Admin Trade Name Jaeq PRN Reason Stop Dose Admin Aspirin 81 mg 02/17/19 09:00 02/17/19 09:35 Ecotrin PO 81 mg DAILY SHARIF Administration Heparin Sodium (Porcine) 5,000 units 02/17/19 09:00 02/17/19 13:53 Heparin SC 5,000 units TID SHARIF Administration Hydralazine HCl 25 mg 02/17/19 09:00 02/17/19 12:28 Apresoline PO 25 mg QID SHARIF Administration Insulin Human Lispro 0 units 02/16/19 21:12 02/17/19 13:49 Humalog SC 3 unit .MILD SLIDING SCALE PRN Administration Mild Correctional Scale Lisinopril 20 mg 02/17/19 09:00 02/17/19 09:35 Zestril PO 20 mg DAILY SHARIF Administration Nifedipine 90 mg 02/17/19 09:00 02/17/19 09:35 Procardia Xl PO 90 mg DAILY SHARIF Administration Tamsulosin HCl 0.4 mg 02/17/19 09:00 02/17/19 09:35 Flomax PO 0.4 mg DAILY SHARIF Administration - Exam General Appearance: NAD, awake alert Heart: RRR, no murmur, no gallops, no rubs, normal peripheral pulses Respiratory: CTAB, no wheezes, no rales, no ronchi, normal chest expansion, no tachypnea, normal percussion Gastrointestinal: soft, non-tender, non-distended, normal bowel sounds, no palpable masses, no hepatomegaly, no splenomegaly, no bruit Extremities: no cyanosis, no clubbing, no edema Neurological: cranial nerve grossly intact, no focal deficits Musculoskeletal: normal tone Psychiatric: normal affect, normal behavior, A&O x 3 Hosp A/P (1) CVA (cerebral vascular accident) Code(s): I63.9 - CEREBRAL INFARCTION, UNSPECIFIED Status: Acute (2) CAD (coronary artery disease) Code(s): I25.10 - ATHSCL HEART DISEASE OF [place] CORONARY ARTERY W/O ANG PCTRS Status: Chronic (3) DM2 (diabetes mellitus, type 2) Status: Chronic (4) Dyslipidemia Code(s): E78.5 - HYPERLIPIDEMIA, UNSPECIFIED Status: Chronic (5) ESRD (end stage renal disease) on dialysis Code(s): N18.6 - END STAGE RENAL DISEASE; Z99.2 - DEPENDENCE ON RENAL DIALYSIS Status: Chronic (6) Hypertension Code(s): I10 - ESSENTIAL (PRIMARY) HYPERTENSION Status: Chronic - Plan MRI appears to show a new stroke, but there isn't significant evidence for old stroke. This is likely subacute. Neuro consult, PT/OT. May need rehab. Continue Asa, Statin. Continue home meds.
--- NOTE | 2019-02-17 16:24 | CON ---
DATE OF CONSULTATION: REASON FOR CONSULTATION: End-stage renal disease, on maintenance hemodialysis. HISTORY OF PRESENT ILLNESS: This is a very pleasant 68-year-old gentleman, who was admitted to the hospital with altered mental status. The patient denies any nausea, vomiting, or chest pain. PAST MEDICAL HISTORY: Significant for congestive heart failure, coronary artery disease, [id number] dementia, dialysis, hypertension, history of amputation of 5th toe, neuropathy, appendectomy, cardiac stent. SOCIAL HISTORY: No alcohol or drug use. FAMILY HISTORY: Negative for ESRD. ALLERGIES: REVIEWED. HOME MEDICATIONS: List reviewed. HOSPITAL MEDICATIONS: List reviewed. REVIEW OF SYSTEMS: Fifteen-point review of system was performed and negative except for positives noted above. GENERAL: HEAD: NECK: No swelling or lumps. NOSE: No epistaxis or discharge. EYES: No diplopia or pain. RESPIRATORY: CARDIOVASCULAR: GASTROINTESTINAL: /AGED OR DISABLED CARER: MUSCULOSKELETAL: No joint pain. NEUROPSYCHIATIC SYSTEMS: No suicidal ideation. No ideation. SKIN: Denies any rash or ulcer. CONSTITUTIONAL: No fever or chills. PHYSICAL EXAMINATION: GENERAL: The patient is awake and alert. VITAL SIGNS: Afebrile. Pulse 44, breathing at 16, blood pressure 149/76. GENERAL APPEARANCE AND MENTAL STATUS: Fair. HEAD/NECK: Normocephalic. Atraumatic. EYES: EOMI. No deformity. EARS: Clear. No ulcers. NOSE: Intact. No lesions. MOUTH: Clear. No discharge. THROAT: Clear. No exudate. LUNGS: Clear. No crackles. CARDIAC: S1, S2. No rub. ABDOMEN: Benign. Bowel sounds positive. GENITALIA/RECTUM: Barrera absent. BACK/EXTREMITIES: Edema 0+. NEUROLOGICAL: Alert and motor intact. SKIN: LYMPHATICS: LABORATORY DATA: Showed hemoglobin 10.8. ASSESSMENT AND PLAN: 1. Stage 6 chronic kidney disease, plan dialysis tomorrow. 2. Hypertension, stable. 3. Anemia, stable. 4. Altered mental status. 5. We will adjust dry weight. Job ID: [id number]
[2019-02-17] MEDS ORDERED: Atorvastatin Calcium 40 MG TAB PO SCH (21:00)
[2019-02-17] MEDS ORDERED: Insulin Glargine 12 UNITS in Pre-Filled Syringe 1 EACH SC SCH (21:00)
[2019-02-17] MEDS ORDERED: Non-Formulary Item 1 EACH (Insulin Detemir [Levemir] 12 UNIT) SQ SCH (21:00)
--- NOTE | 2019-02-18 00:01 | CON ---
DATE OF CONSULTATION: 02/17/2019 CONSULTING PHYSICIAN: Hospitalist Service. IMPRESSION: 1. Lacunar stroke with improving left lower extremity weakness. 2. Diabetes. 3. End-stage renal disease on dialysis. 4. Hypertension. 5. Hyperlipidemia. PLAN: 1. Aspirin has been started. 2. Continue statin. 3. Carotid ultrasound. 4. Echocardiogram. HISTORY OF PRESENT ILLNESS: Mr. Ho is a 68-year-old man who developed acute onset of left leg weakness. He is having a bit of trouble walking, decided to have it looked at. There was no associated pain. He had an MRI of the brain done and showed an acute area of infarction in the right periventricular region as well as moderately extensive small vessel ischemic changes that were chronic. He has never had any stroke symptoms in the past. He was not on aspirin. PAST MEDICAL HISTORY: As listed above. ALLERGIES: NONE REPORTED. SOCIAL HISTORY: No tobacco use. FAMILY HISTORY: Noncontributory. REVIEW OF SYSTEMS: A 10-system review of systems is otherwise negative. PHYSICAL EXAMINATION: GENERAL: He is a healthy-appearing elderly man, sitting in bed, no acute distress. VITAL SIGNS: Have been stable. He is afebrile. HEENT: Pupils equal and reactive. Conjunctivae clear. Oropharynx clear. Cranium: Normocephalic and atraumatic. NECK: Supple. EXTREMITIES: No cyanosis or edema. NEUROLOGIC: He is alert and cooperative. His speech is fluent and clear. Cranial nerves were intact. 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 He can walk with some standby assistance. He has a subtle weakness in the left leg. Sensation is symmetric to touch. No abnormal movements were seen. SUMMARY: This is a 68-year-old gentleman with vascular risk factors for small vessel disease, suffered a minor stroke, which is improving. I agree with the current treatment plan. We will finish his workup and he can be discharged probably for an outpatient therapy. Job ID: [id number]
[2019-02-18 06:49] LABS: Cardiac Risk 2.7 (Less than 4.5)
--- NOTE | 2019-02-18 08:07 | ULT ---
EXAM: Carotid vascular duplex with color and spectral Doppler imaging: HISTORY: CVA COMPARISON: None FINDINGS: Evidence for plaque in proximal ICAs bilaterally. Right ICA: PSV: 85 cm/s EDV: 18 cm/s ICA/CCA ratio: 0.9 Left ICA: PSV: 87 cm/s EDV: 17 cm/s ICA/CCA ratio: 0.9 Antegrade flow is seen in both vertebral arteries.. IMPRESSION: No evidence for hemodynamically significant ICA stenosis Bilateral plaque evidence for carotid artery atherosclerotic vascular disease.
[2019-02-18] MEDS: Heparin 5,000 UNITS/ML VIAL SC SCH ×2 (10:37→17:56)
[2019-02-18] MEDS: NIFEdipine XL 90 MG TAB PO SCH (10:38)
[2019-02-18] MEDS: Tamsulosin HCl 0.4 MG CAP PO SCH (10:39)
[2019-02-18] MEDS: Lisinopril 20 MG TAB PO SCH (10:39)
[2019-02-18] MEDS: hydrALAZINE 25 MG TAB PO SCH ×3 (10:39→17:56)
[2019-02-18] MEDS: Aspirin 81 mg Enteric Coated Tablet PO SCH (10:39)
--- NOTE | 2019-02-18 13:02 | PRG ---
DATE OF SERVICE: 02/18/2019 SUBJECTIVE: A 68-year-old gentleman being seen for end-stage kidney disease. The patient denied nausea, vomiting, or chest pain. OBJECTIVE: CONSTITUTIONAL: The patient is awake and alert. VITAL SIGNS: Pulse 73, breathing 16, and blood pressure 155/77. GENERAL APPEARANCE AND MENTAL STATUS: Fair. HEAD/NECK: Normocephalic. Atraumatic. EYES: EOMI. No deformity. EARS: Clear. No ulcers. NOSE: Intact. No lesions. MOUTH: Clear. No discharge. THROAT: Clear. No exudate. LUNGS: Clear. No crackles. CARDIAC: S1, S2. No rub. ABDOMEN: Benign. Bowel sounds positive. GENITALIA/RECTUM: Barrera absent. BACK/EXTREMITIES: Edema 0+. NEUROLOGICAL: Alert and motor intact. SKIN: LYMPHATICS: LABORATORY DATA: Reviewed. ASSESSMENT AND PLAN: 1. Stage 6 chronic kidney disease, continue hemodialysis. 2. Hypertension, stable. 3. Anemia, stable. 4. Medication based on GFR appropriate. Job ID: [id number]
[2019-02-18] MEDS: HumaLOG 300 UNITS/3 ML VIAL SC PRN (13:19)
[2019-02-18 18:00] VITALS: BP 136/76; TEMP 97.8
--- NOTE | 2019-02-18 18:23 | PDOC.EVN ---
Event Note - Event Note Event Note: Nurse informed me that the patient had some headache and double vision. Examined the patient. PERRL. EOMI. He now denies headache and says the vision change was brief, is now fully resolved and he is adamant that he wants to go home. Continue with the discharge plan.
== END 2019-02-18 19:10 | disposition home health service (06) | DRG 64 ==
LOC: ERS 10:55 → 2SE 16:34 → OBSVTOIN 02-17 13:23
PROVIDERS: ADMIT Family Medicine; ATTEND Family Medicine
PROC: 5A1D70Z Performance of Urinary Filtration, Intermittent, Less than 6 Hours Per Day (ICD-10-PCS; principal; 2019-02-18)
DX: I63.9 Cerebral infarction, unspecified (principal); N18.6 End stage renal disease; I13.2 Hypertensive heart and chronic kidney disease with heart failure and with stage 5 chronic kidney disease, or end stage renal disease; E87.1 Hypo-osmolality and hyponatremia; G93.49 Other encephalopathy; Z95.5 Presence of coronary angioplasty implant and graft; F41.9 Anxiety disorder, unspecified; I25.10 Atherosclerotic heart disease of native coronary artery without angina pectoris; I50.9 Heart failure, unspecified; E11.22 Type 2 diabetes mellitus with diabetic chronic kidney disease; Z89.421 Acquired absence of other right toe(s); R26.9 Unspecified abnormalities of gait and mobility; E78.5 Hyperlipidemia, unspecified; G83.14 Monoplegia of lower limb affecting left nondominant side; Z99.2 Dependence on renal dialysis; R40.2412 Glasgow coma scale score 13-15, at arrival to emergency department; R29.810 Facial weakness; D63.1 Anemia in chronic kidney disease; E86.0 Dehydration
CPT/HCPCS: 36415; 36416; 51701; 70450; 70551; 71045; 80048; 80053; 80061; 81003; 81015; 82140; 82553; 83690; 84484; 85025; 90471; 90670; 93005; 93306; 93880; G0009; J1644; J1815

== ENCOUNTER 2019-03-25 11:59 | Emergency (ER) | payer MEDICARE ==
[2019-03-25] MEDS ORDERED: Ondansetron PF 4 MG/2 ML Vial ONE (12:36)
[2019-03-25] MEDS ORDERED: Morphine 4 MG/ML VIAL ONE (12:36)
[2019-03-25 12:38] LABS: #Lymphocytes 0.8 thou/uL (1.20-3.40); #Monocytes 0.5 thou/uL (0.11-0.59); #Neutrophils 8.5 thou/uL (1.40-6.50); %Basophils 0.2 % (0.0-1.0); %Eosinophils 0.4 % (0.0-10.0); %Lymphocytes 8.1 % (21.0-51.0); %Neutrophils 86.4 % (42.0-75.0); Hemoglobin 14.8 g/dL (14.0-18.0); Mean Corpuscular HGB CONC 32.6 g/dL (32.0-36.0); Mean Corpuscular Hemoglobin 31.2 pg (27.0-31.0); Mean Corpuscular Volume 95.6 fL (78.0-98.0); Mean Platelet Volume 7.5 fL (7.4-10.4); Platelet Count 233 thou/uL (130-400); RBC Distribution Width 12.3 % (11.5-14.5); Red Blood Cell (RBC) Count 4.75 mill/uL (4.70-6.10); White Blood Cell (WBC) Count 9.9 thou/uL (4.8-10.8)
[2019-03-25 13:04] LABS: ALT (SGPT) 21 U/L (8-55); AST (SGOT) 26 U/L (5-34); Albumin 3.7 g/dL (3.4-4.8); Alkaline Phosphatase 174 U/L (40-110); Anion Gap 21 mmol/L (10-20); BUN (Urea Nitrogen) 64 mg/dL (8.4-25.7); Bilirubin, Total 0.5 mg/dL (0.2-1.2); CK (CPK) 85 U/L (30-200); Calc. Creatinine Clearance 0 mL/min (70-130); Carbon Dioxide 26 mmol/L (23-31); Chloride 100 mmol/L (98-107); Estimated GFR-MDRD 8; Globulin 4.2 g/dL (2.4-3.5); Glucose 103 mg/dL (80-115); Lipase 28 U/L (8-78); Potassium 5.1 mmol/L (3.5-5.1); Protein, Total 7.9 g/dL (5.8-8.1); Sodium 142 mmol/L (136-145)
--- NOTE | 2019-03-25 13:37 | CT ---
CT ABDOMEN AND PELVIS WITH IV CONTRAST: Date: 03/25/19 HISTORY: Abdominal pain, nausea and vomiting. COMPARISON: 08/13/18. FINDINGS: Mild atelectasis at the lung bases. Cyst at the superior pole of right kidney is stable. Calcified gr anulomata throughout the spleen. Calcification throughout the arterial structures. Bilateral pars int erarticularis defects at the lumbosacral junction with minimal spondylolisthesis. Degenerative change s throughout the lumbar spine. No evidence of bowel obstruction or inflammation. No free air or free fluid. IMPRESSION: 1. No acute abnormalities are demonstrated to explain the patient's symptoms. 2. Atherosclerosis. 3. Chronic-type findings are stable. POS: TPC
[2019-03-25 14:01] LABS: CKMB 5.9 ng/mL (0-6.6)
[2019-03-25] MEDS ORDERED: Promethazine HCl 25 MG/ML VIAL ONE (14:21)
[2019-03-25] MEDS ORDERED: Meclizine HCl 25 MG TAB ONE (14:27)
== END 2019-03-25 14:43 | disposition home or self-care (01) ==
LOC: ERS 11:59
DX: I13.2 Hypertensive heart and chronic kidney disease with heart failure and with stage 5 chronic kidney disease, or end stage renal disease (principal); N18.6 End stage renal disease; R10.9 Unspecified abdominal pain; E11.22 Type 2 diabetes mellitus with diabetic chronic kidney disease; I50.9 Heart failure, unspecified; Z99.2 Dependence on renal dialysis; Z79.899 Other long term (current) drug therapy
CPT/HCPCS: 36415; 74177; 80053; 82550; 82553; 83690; 84484; 85025; 93005; 96374; 96375; J2270; J2405; J2550; J8597

== ENCOUNTER 2019-07-24 14:59 | Emergency (ER) | payer MEDICARE ==
[~2019-07-24 14:59] MED LIST changes: -ISOVUE-370 76%-LOCM 1 ML ONE; -Iopamidol 370 76% 50 ML VIAL FS ONE; +Iopamidol-370 76% 500 ML 1 ML ONE
--- NOTE | 2019-07-24 17:28 | RAD ---
PORTABLE CHEST ONE VIEW: 07/24/19 at 4:58 p.m. HISTORY: Weakness, fall. FINDINGS: Comparison made with exam of 02/16/19. The heart size is normal. No focal areas of consolidation, pneumothoraces, or pleural effusions are s een. IMPRESSION: No acute process. POS: OFF
[2019-07-24 17:50] LABS: #Basophils 0.1 thou/uL (0.0-0.2); #Lymphocytes 0.7 thou/uL (1.20-3.40); #Monocytes 0.2 thou/uL (0.11-0.59); #Neutrophils 4.1 thou/uL (1.40-6.50); %Eosinophils 0.7 % (0.0-10.0); %Lymphocytes 14.1 % (21.0-51.0); %Monocytes 4.3 % (0.0-10.0); %Neutrophils 79.9 % (42.0-75.0); Hemoglobin 14.3 g/dL (14.0-18.0); Mean Corpuscular HGB CONC 34.5 g/dL (32.0-36.0); Mean Corpuscular Hemoglobin 32.7 pg (27.0-31.0); Mean Corpuscular Volume 94.6 fL (78.0-98.0); Mean Platelet Volume 8.3 fL (7.4-10.4); Platelet Count 234 thou/uL (130-400); RBC Distribution Width 12.5 % (11.5-14.5); Red Blood Cell (RBC) Count 4.39 mill/uL (4.70-6.10); White Blood Cell (WBC) Count 5.1 thou/uL (4.8-10.8)
[2019-07-24] MEDS ORDERED: Ondansetron PF 4 MG/2 ML Vial ONE (18:10)
[2019-07-24] MEDS ORDERED: Morphine 4 MG/ML VIAL ONE (18:10)
[2019-07-24 18:19] LABS: ALT (SGPT) 13 U/L (8-55); AST (SGOT) 18 U/L (5-34); Albumin 4.3 g/dL (3.4-4.8); Alkaline Phosphatase 144 U/L (40-110); Anion Gap 19 mmol/L (10-20); BUN (Urea Nitrogen) 43 mg/dL (8.4-25.7); Bilirubin, Total 0.6 mg/dL (0.2-1.2); CK (CPK) 36 U/L (30-200); Calc. Creatinine Clearance 0 mL/min (70-130); Calcium 9.8 mg/dL (7.8-10.44); Carbon Dioxide 27 mmol/L (23-31); Chloride 95 mmol/L (98-107); Estimated GFR-MDRD 8; Globulin 4.7 g/dL (2.4-3.5); Glucose 158 mg/dL (80-115); Lipase 19 U/L (8-78); Potassium 5.4 mmol/L (3.5-5.1); Sodium 136 mmol/L (136-145)
[2019-07-24 18:34] LABS: CKMB 2.8 ng/mL (0-6.6)
--- NOTE | 2019-07-24 18:38 | CT ---
EXAM: CT abdomen and pelvis with IV contrast PROVIDED CLINICAL HISTORY: Nausea and vomiting COMPARISON: 03/25/2019 FINDINGS: The visualized lung bases are free of significant opacity. There is mural thickening involving the vi sualized distal thoracic esophagus. The solid abdominal organs demonstrate a stable CT appearance. The gallbladder is moderately distende d without surrounding inflammatory change evident. There is no bowel dilatation, inflammatory fat stranding, free fluid or free air apparent. Changes of prior appendectomy are noted. No regional lymph node enlargement apparent. Atherosclerotic vascular calcification and mild to moderate SMA stenosis. Bilateral L5 pars defects with grade 1 spondylolisthesis of L5 on S1. No lytic or blastic lesions of concern are evident. IMPRESSION: 1. Mural thickening involving the visualized distal thoracic esophagus, which may reflect esophagitis . 2. Moderate gallbladder distention without overt pericholecystic inflammatory change.
[2019-07-24] MEDS ORDERED: Promethazine HCl 25 MG/ML VIAL ONE (19:17)
--- NOTE | 2019-07-24 20:45 | ULT ---
EXAM: Right upper quadrant ultrasound PROVIDED CLINICAL HISTORY: Abdominal pain COMPARISON: None FINDINGS: Pancreas is obscured. Liver demonstrates no mass or intrahepatic biliary ductal dilatation. Common duct is nondilated. Gallbladder demonstrates no stones, wall thickening or pericholecystic flu id. Right kidney demonstrates no hydronephrosis or solid mass. Simple appearing right renal cyst. IMPRESSION: No evidence for an acute process.
[2019-07-24 23:21] LABS: HBSAg Index 0.21 S/CO (0-0.99); Hep B Surf Ag Non-Reactive S/CO (NonReactive)
== END 2019-07-25 02:36 | disposition home or self-care (01) ==
LOC: ERS 14:59
DX: R11.2 Nausea with vomiting, unspecified (principal); R10.811 Right upper quadrant abdominal tenderness; E11.22 Type 2 diabetes mellitus with diabetic chronic kidney disease; I25.10 Atherosclerotic heart disease of native coronary artery without angina pectoris; I13.2 Hypertensive heart and chronic kidney disease with heart failure and with stage 5 chronic kidney disease, or end stage renal disease; I50.9 Heart failure, unspecified; N18.6 End stage renal disease; Z79.4 Long term (current) use of insulin; Z79.899 Other long term (current) drug therapy; Z79.82 Long term (current) use of aspirin
CPT/HCPCS: 71045; 74177; 76705; 80053; 82550; 82553; 83690; 84484; 85025; 87340; 93005; 96374; 96375; J2270; J2405; J2550; Q9967

== ENCOUNTER 2019-08-12 08:10 | Emergency (ER) | payer MEDICARE ==
[2019-08-12] MEDS ORDERED: Ondansetron PF 4 MG/2 ML Vial ONE (08:39)
[2019-08-12 08:56] LABS: #Eosinphils 0.1 thou/uL (0.0-0.7); #Lymphocytes 1.3 thou/uL (1.20-3.40); #Monocytes 0.5 thou/uL (0.11-0.59); #Neutrophils 9.5 thou/uL (1.40-6.50); %Basophils 0.3 % (0.0-1.0); %Eosinophils 0.6 % (0.0-10.0); %Lymphocytes 11.6 % (21.0-51.0); %Monocytes 4.6 % (0.0-10.0); %Neutrophils 82.9 % (42.0-75.0); Hemoglobin 13.6 g/dL (14.0-18.0); Mean Corpuscular HGB CONC 34.4 g/dL (32.0-36.0); Mean Corpuscular Hemoglobin 32.5 pg (27.0-31.0); Mean Corpuscular Volume 94.3 fL (78.0-98.0); Mean Platelet Volume 8.6 fL (7.4-10.4); Platelet Count 235 thou/uL (130-400); RBC Distribution Width 11.8 % (11.5-14.5); Red Blood Cell (RBC) Count 4.18 mill/uL (4.70-6.10); White Blood Cell (WBC) Count 11.4 thou/uL (4.8-10.8)
[2019-08-12 09:14] LABS: ALT (SGPT) 26 U/L (8-55); AST (SGOT) 23 U/L (5-34); Albumin 3.8 g/dL (3.4-4.8); Alkaline Phosphatase 136 U/L (40-110); Anion Gap 21 mmol/L (10-20); BUN (Urea Nitrogen) 92 mg/dL (8.4-25.7); Bilirubin, Total 0.6 mg/dL (0.2-1.2); Calc. Creatinine Clearance 0 mL/min (70-130); Calcium 9.9 mg/dL (7.8-10.44); Carbon Dioxide 20 mmol/L (23-31); Chloride 103 mmol/L (98-107); Estimated GFR-MDRD 4; Globulin 3.6 g/dL (2.4-3.5); Glucose 158 mg/dL (80-115); Lipase 42 U/L (8-78); Magnesium 1.8 mg/dL (1.6-2.6); Protein, Total 7.4 g/dL (5.8-8.1); Sodium 137 mmol/L (136-145)
[2019-08-12 09:18] LABS: Potassium 6.7 mmol/L (3.5-5.1)
[2019-08-12] MEDS ORDERED: Sodium Bicarb 50 MEQ/50 ML VIAL ONE (09:25)
[2019-08-12] MEDS ORDERED: Insulin Regular 300 UNITS/3 ML VIAL ONE (09:25)
[2019-08-12] MEDS ORDERED: Dextrose 50% Abboject 50 ML SYRINGE ONE (09:25)
[2019-08-12] MEDS ORDERED: Calcium Gluc 4.6 MEQ/10 ML (100 MG/ML) ONE (09:25)
[2019-08-12] MEDS ORDERED: Albuterol Sulfate 2.5 mg/0.5 ml Neb ONE ×2 (09:28)
== END 2019-08-12 11:29 | disposition home or self-care (01) ==
LOC: ERS 08:10
DX: I13.2 Hypertensive heart and chronic kidney disease with heart failure and with stage 5 chronic kidney disease, or end stage renal disease (principal); E11.22 Type 2 diabetes mellitus with diabetic chronic kidney disease; N18.6 End stage renal disease; I50.9 Heart failure, unspecified; E87.5 Hyperkalemia; R11.2 Nausea with vomiting, unspecified; I25.10 Atherosclerotic heart disease of native coronary artery without angina pectoris
CPT/HCPCS: 80053; 82274; 83690; 83735; 83880; 85025; 93005; 94640; 96361; 96374; 96375; J1815; J2405; J7611

== ENCOUNTER 2019-11-03 10:54 | Inpatient (IN) | payer MEDICARE ==
[2019-11-03] MEDS ORDERED: Pantoprazole 40 MG VIAL ONE (12:36)
[2019-11-03 12:55] LABS: Prothrombin Time 12.9 sec (12.0-14.7)
[2019-11-03 12:56] LABS: Hemoglobin 13.1 g/dL (14.0-18.0); Mean Corpuscular HGB CONC 33.7 g/dL (32.0-36.0); Mean Corpuscular Volume 94.9 fL (78.0-98.0); Mean Platelet Volume 8.3 fL (7.4-10.4); Platelet Count 241 thou/uL (130-400); Red Blood Cell (RBC) Count 4.08 mill/uL (4.70-6.10); White Blood Cell (WBC) Count 15.2 thou/uL (4.8-10.8)
[2019-11-03 12:58] LABS: PTT 21.4 sec (22.9-36.1)
[2019-11-03 13:12] LABS: ALT (SGPT) 8 U/L (8-55); AST (SGOT) 10 U/L (5-34); Albumin 3.9 g/dL (3.4-4.8); Alkaline Phosphatase 116 U/L (40-110); Anion Gap 21 mmol/L (10-20); BUN (Urea Nitrogen) 67 mg/dL (8.4-25.7); Bilirubin, Total 0.4 mg/dL (0.2-1.2); Calc. Creatinine Clearance 0 mL/min (70-130); Calcium 9.6 mg/dL (7.8-10.44); Carbon Dioxide 26 mmol/L (23-31); Chloride 100 mmol/L (98-107); Estimated GFR-MDRD 5; Globulin 3.6 g/dL (2.4-3.5); Glucose 186 mg/dL (80-115); Protein, Total 7.5 g/dL (5.8-8.1); Sodium 139 mmol/L (136-145)
[2019-11-03 13:17] LABS: Potassium 7.6 mmol/L (3.5-5.1)
[2019-11-03 13:18] LABS: Band 8 % (5-11); Eosinophils 2 % (0-10); Lymphocytes 4 % (21-51); MDiff Complete? YES; Monocytes 5 % (0-10); Neutrophil 80 % (42-75); Platelet Morphology Comment Appears Adequate; RBC Morphology Normal
[2019-11-03 13:30] LABS: CKMB 3.2 ng/mL (0-6.6)
[2019-11-03] MEDS ORDERED: Sodium Bicarb 50 MEQ/50 ML VIAL ONE (14:17)
[2019-11-03] MEDS ORDERED: Insulin Regular 300 UNITS/3 ML VIAL ONE (14:17)
[2019-11-03] MEDS ORDERED: Calcium Gluc 4.6 MEQ/10 ML (100 MG/ML) ONE (14:22)
[2019-11-03] MEDS ORDERED: Dextrose 50% Abboject 50 ML SYRINGE SLOW IVP SCH (14:30)
[2019-11-03] MEDS ORDERED: Dextrose 50% Abboject 50 ML SYRINGE ONE (15:03)
[2019-11-03 16:54] LABS: Troponin I 0.051 ng/mL (< 0.028)
[2019-11-03 18:33] LABS: HBSAg Index 0.24 S/CO (0-0.99); Hep B Surf Ag Non-Reactive S/CO (NonReactive)
[2019-11-03 18:34] LABS: Hep B Surf AB Reactive (NonReactive)
[2019-11-03] MEDS ORDERED: Dextrose 5% in Water 1,000 ML IV PRN (18:47)
[2019-11-03] MEDS ORDERED: Dextrose 50% Abboject 50 ML SYRINGE SLOW IVP PRN (18:47)
[2019-11-03] MEDS ORDERED: HumaLOG 300 UNITS/3 ML VIAL SC PRN ×2 (18:47)
[2019-11-03] MEDS ORDERED: Ondansetron ODT 4 MG TAB PO PRN (18:49)
[2019-11-03] MEDS ORDERED: hydrALAZINE 20 MG/ML VIAL SLOW IVP PRN (18:49)
[2019-11-03] MEDS ORDERED: Acetaminophen 500 MG TAB PO PRN (18:49)
[2019-11-03] MEDS ORDERED: Ondansetron PF 4 MG/2 ML Vial IVP PRN (18:49)
[2019-11-03 19:51] VITALS: BMI 22.6
[2019-11-03] MEDS ORDERED: Pantoprazole 40 MG VIAL IVP SCH (21:00)
--- NOTE | 2019-11-03 21:47 | HP ---
PRIMARY CARE PROVIDER: Dr. Carolina at [facility] [place]. PRIMARY ROVING TECHNICIAN: Fran Mae MD CHIEF COMPLAINT: Vomiting blood and dark stools. HISTORY OF PRESENT ILLNESS: This is a 68-year-old male, who presents to [facility] Emergency Department in transport by EMS personnel after EMS was alerted by the patient's when the patient was noted having several episodes of coffee-ground emesis. The patient had complained of mid epigastric abdominal pain approximately two days prior to this evaluation with dark tarry stools. The reports patient does take aspirin 81 mg daily, but no anticoagulation. The history is obtained after review of the electronic medical record in the emergency room as well as discussions with the patient's , who is medical power of employment law attorney, due to patient's advanced dementia. No travel history, documented fever, chills, or family members with similar symptoms. No dysuria, but patient has end-stage renal disease, receiving hemodialysis 3 times per week, but did miss his regular session from 11/02/2019 due to the emesis. The patient does have history of polyps, but no specific diagnosis of gastric ulcers. The patient currently has no specific complaints or pain. The patient is asking to drink water or have ice chips. In the emergency room, the patient underwent general evaluation including screening laboratory data showing a hemoglobin of 13.1. Metabolic panel showed a potassium of 7.6, with a creatinine of 10.06. The patient was evaluated by the Nephrology Service with plans for hemodialysis. The patient received calcium gluconate, chloride, D50 insulin, sodium bicarbonate, intravenous normal saline, as well as Protonix 80 mg IV push. PAST MEDICAL HISTORY: 1. End-stage renal disease with hemodialysis on Saturday, Saturday, and Saturday. 2. Coronary artery disease. 3. Diabetes mellitus type 2, insulin requiring. 4. Advanced dementia. 5. Dyslipidemia. 6. Transient ischemic attack. 7. Hypertension. 8. Chronic anemia due to chronic kidney disease. PAST SURGICAL HISTORY: 1. Status post cardiac stent placement to the distal LAD in 2011. 2. Status post dialysis catheter placement. 3. Status post appendectomy. CURRENT MEDICATIONS: 1. Lipitor 80 mg p.o. at bedtime. 2. Hydralazine 25 mg p.o. q.i.d. 3. Levemir 12 units subcutaneously daily. 4. Nifedipine extended release 90 mg p.o. daily. 5. Enteric-coated aspirin 81 mg p.o. daily. 6. Flomax 0.4 mg p.o. daily. ALLERGIES: NO KNOWN DRUG ALLERGIES. FAMILY HISTORY: Positive for hypertension and coronary artery disease. SOCIAL HISTORY: Resides in [place], [place]. . Ambulates with a rolling walker or wheelchair. Requires assistance for all activities of daily living including hygiene. No current alcohol, tobacco, or illicit drug use. is medical power of employment law attorney. REVIEW OF SYSTEMS: Unobtainable due to patient's advanced dementia. PHYSICAL EXAMINATION: VITAL SIGNS: Blood pressure 129/108, pulse 111, respiratory rate 18, temperature 98.2 degrees Fahrenheit, O2 saturation 95% on room air. GENERAL APPEARANCE: This is a 68-year-old male, alert, responsive, smiling, in no acute distress. HEENT: Pupils are equal, round, reactive to light and accommodation. Extraocular muscles are intact. No scleral icterus. No conjunctival injection. Nares patent. OP is clear. Oral mucosa dry. NECK: Supple. No cervical adenopathy. No thyromegaly. No carotid bruits. No JVD appreciated. Cervical spine with full active and passive range of motion. No meningeal signs noted. CHEST: Lungs are clear to auscultation bilaterally. CARDIOVASCULAR EXAM: S1, S2 without noted murmur, rub, or gallop. ABDOMEN: Rounded, soft, nontender, and nondistended. Bowel sounds are positive in all 4 quadrants. There is no palpable mass. No rebound or guarding appreciated. EXTREMITIES: Warm and dry with fair turgor. No clubbing, cyanosis, or asymmetric edema appreciated. Generalized muscle atrophy noted. Pulses palpable distally at the dorsalis pedis, posterior tibial, and popliteal arteries bilaterally. Capillary refill less than 2 seconds. NEUROLOGIC: Cranial nerves 2 through 12 are grossly intact. Alert and oriented x2. PERTINENT LAB AND X-RAYS FINDINGS: Sodium 139, potassium 7.6, chloride 100, CO2 of 26, BUN 67, creatinine 10.06, estimated GFR 5, glucose 186, calcium 9.6, alkaline phosphatase 116. Troponin I ranged between 0.043 to 0.051. Albumin 3.9. CBC showed a white blood cell count of 15.2, hemoglobin 13, hematocrit 39, and platelet count 241 with 80% neutrophils. PT 12.9, INR 1.0, PTT 21.4. EKG dated 11/03/2019 by my interpretation shows sinus mechanism with heart rates in the 80s. Incomplete right bundle-branch block pattern noted. Normal R-wave progression noted in the precordial leads. Peak T-waves noted. ASSESSMENT AND PLAN: 1. Acute gastrointestinal bleed. The patient will be admitted to the intermediate care unit. We will continue serial H and H monitoring. Continue Protonix 40 mg IV q.12 hours. Hold aspirin and anticoagulation. Consult GI Service for evaluation and recommendations regarding endoscopy. 2. Hyperkalemia. Secondarily to end-stage renal disease. Consult Nephrology Service for urgent hemodialysis. Serial potassium monitoring. Status post sodium bicarbonate and calcium gluconate in the emergency room. 3. End-stage renal disease with hemodialysis. See #2 above. No current evidence to suggest acute volume overload. 4. Diabetes mellitus type 2, insulin requiring. Confirm home insulin regimen. Insulin sliding scale for reflexive coverage. Accu-Cheks before meals and at bedtime when tolerating p.o. intake. 5. Advanced dementia. Suspect multifactorial including potential vascular component. Supportive management. 6. Prophylaxis. SCDs while in bed. Protonix 40 mg IV q.12 hours. PT evaluation in the a.m. for functional assessment. 7. Code status is do not attempt resuscitation confirmed with the patient's , who is his medical power of employment law attorney. Job ID: [id number]
--- NOTE | 2019-11-03 22:58 | CON ---
DATE OF CONSULTATION: 11/03/2019 CHIEF COMPLAINT: Abdominal pain, black stools, diarrhea. HISTORY OF PRESENT ILLNESS: Mr. Ho is a 68-year-old man who presented to the emergency room today, taken in by his after he has had reported multiple episodes of black hematemesis yesterday and this morning and also multiple black stools yesterday and this afternoon. He has been complaining of epigastric abdominal pain on and off for the last several days, and his reports that he has been taking Pepto-Bismol for that. He has had no red blood in the stool. The patient has an underlying encephalopathy or dementia or confusion with which he is unable to give any reliable history at this time. He does report no ongoing abdominal pain currently. He has been on dialysis and missed dialysis yesterday because of the abdominal discomfort. His last dialysis was last Saturday. He did undergo upper endoscopy last December [address] Ramos for evaluation of hematemesis at that time. He did have a 2 cm hiatal hernia that was identified and an irregular Z-line or short-segment of salmon-colored mucosa, which was biopsied, but negative for Blackwood's. I performed endoscopy for him back in 2012, which showed severe erosive grade C esophagitis. He has been on aspirin recently, but not on proton pump inhibitor regularly. He did take 3 doses of lansoprazole [id number] at some point over the last couple weeks, but states that it really did not help, and so he did not continue it. PAST MEDICAL HISTORY: End-stage renal disease, on hemodialysis. He was admitted back in August with altered mental status or confusion and TIA, with history of diabetes mellitus type 2, and anemia of chronic renal disease. He has coronary artery disease, status post coronary stent. He had colonoscopy in 2012 with 6 adenomatous polyps removed, one was a large 1.7 cm pedunculated adenoma, which had high-grade dysplasia within the polyp and was completely removed. Followup endoscopy was recommended for a year from that time; however, the patient has had no colonoscopy since 2012. He has been followed at the [place]. PAST SURGICAL HISTORY: Appendectomy, dialysis access, EGD, colonoscopy. FAMILY HISTORY: Negative for GI malignancies. SOCIAL HISTORY: No alcohol, tobacco, or drugs. He is and lives with his . ALLERGIES: NO KNOWN DRUG ALLERGIES. MEDICATIONS: Prior to admission include atorvastatin, hydralazine, Levemir, Procardia, aspirin, Flomax. REVIEW OF SYSTEMS: Negative x10 systems reviewed except as stated in the history of present illness. PHYSICAL EXAMINATION: VITAL SIGNS: Blood pressure 160/80, pulse is in the 70s or 80s. HEART: Regular rate and rhythm without murmur. ABDOMEN: Soft, nontender, and nondistended. Bowel sounds are present. LUNGS: Clear to auscultation bilaterally. EXTREMITIES: No lower extremity edema. RECTAL: Black stool in the rectal vault. LABORATORY DATA: White blood cell count 15.2, hemoglobin 13.1, his baseline hemoglobin was 10.8 back on August 28, platelets 241. INR 1.0, sodium 139, chloride 100, CO2 26, potassium 7.6, BUN 67, creatinine 10.06, bilirubin 0.4, AST 10, ALT 8, alkaline phosphatase 116, albumin 3.9. IMPRESSION: 1. Hematemesis. He presents with coffee-grounds emesis and black stools. His hemoglobin is significantly higher than his actual baseline hemoglobin. He has been taking Pepto-Bismol, and I suspect the black stools are secondary to the Pepto-Bismol rather than true overt bleeding. He had endoscopy for similar presentation back in December, which was negative except for 2 cm hiatal hernia and a short-segment of salmon-colored mucosa with biopsies negative for Blackwood's. He did, however, have severe grade C erosive esophagitis by endoscopy in 2012, and has not been on a proton pump inhibitor. He could have a significant peptic ulcer bleed now, but we will follow the trend of his hemoglobin. He is hemodynamically stable. 2. End-stage renal disease, presenting with hyperkalemia, having missed dialysis yesterday due to abdominal pain. 3. Epigastric pain. 4. Black diarrhea over the last couple days. He could have an infectious gastroenteritis from the diarrhea and nausea and vomiting. We still need to rule out peptic ulcer. 5. History of coronary artery disease, status post stent. RECOMMENDATIONS: 1. Proton pump inhibitor IV. 2. He will receive dialysis tonight and tomorrow. 3. Plan for upper endoscopy on . Upper endoscopy can be performed sooner if he shows signs of more significant overt bleeding. 4. He is overdue for surveillance colonoscopy. He had a large tubulovillous adenoma with high-grade dysplasia removed from his colon back in 2012 and has not had a followup endoscopy since then. [facility], and his was encouraged to schedule a surveillance colonoscopy for him as an outpatient after this acute issues resolve. Job ID: [id number]
[2019-11-03] MEDS: Pantoprazole 40 MG VIAL IVP SCH (23:02)
--- NOTE | 2019-11-04 00:36 | CON ---
DATE OF CONSULTATION: 11/03/2019 CONSULTING PHYSICIAN: Dr. Nair from ER. REASON FOR CONSULTATION: End-stage renal disease evaluation. REASON FOR ADMISSION: GI bleed. HISTORY OF PRESENT ILLNESS: This is a 68-year-old male with history of end- stage renal disease on hemodialysis, TIA, hypertension, hyperlipidemia, and coronary artery disease, came to the hospital with GI bleed, apparently melena and is being evaluated. He gets dialysis Saturday, Saturday, and Saturday. The patient missed dialysis yesterday and potassium was found to be 7.6. He was given medical treatment in the ER, and Nephrology consulted and Nephrology nurse is already notified. PAST MEDICAL HISTORY: Positive for end-stage renal disease, TIA, hypertension, hyperlipidemia, coronary artery disease, type 2 diabetes, and chronic anemia. PAST SURGERY HISTORY: Appendectomy, coronary stents, dialysis access. HOME MEDICATIONS: Reviewed. ALLERGIES: NO KNOWN DRUG ALLERGIES. SOCIAL HISTORY: No smoking, alcohol, or illicit drugs. FAMILY HISTORY: Positive for diabetes. REVIEW OF SYSTEMS: CONSTITUTIONAL: Negative for weight loss or gain, ability to conduct usual activities. SKIN: Negative for rash, itching. EYES: Negative for double vision, pain. ENT/MOUTH: Negative for nose bleeding, neck stiffness, pain, tenderness. CARDIOVASCULAR: Negative for palpitations, dyspnea on exertion, orthopnea. RESPIRATORY: Negative for shortness of breath, wheezing, cough, hemoptysis, fever or night sweats. GASTROINTESTINAL: Negative for poor appetite, abdominal pain, heartburn, nausea , vomiting, constipation, or diarrhea. GENITOURINARY: Negative for urgency, frequency, dysuria, nocturia. MUSCULOSKELETAL: Negative for pain, swelling. NEUROLOGIC/PSYCHIATRIC: Negative for anxiety, depression. ALLERGY/IMMUNOLOGIC: Negative for skin rash, bleeding tendency. PHYSICAL EXAMINATION: GENERAL: This is a well-built male, in no apparent distress. VITAL SIGNS: Reviewed. NECK: Supple. HEENT: Atraumatic and normocephalic. CV: S1 and S2 heard. RESPIRATORY: Clear. GI: Abdomen is soft. MUSCULOSKELETAL: No edema. DERMATOLOGIC: No skin rash. NEUROLOGIC: Alert and awake. Moving all the extremities. PSYCHIATRIC: Mood and affect normal. LABORATORY DATA: Hemoglobin is 13.1. Potassium 7.6, BUN is 67, creatinine is 10.06, and albumin is 3.8. ASSESSMENT AND PLAN: 1. End-stage renal disease. Plan to have emergency dialysis and dialysis nurse notified and is waiting for his arrival into the room to start dialysis. ER nurse also is aware. 2. Anemia. 3. Gastrointestinal bleed. 4. History of hypertension. 5. Mild hypoalbuminemia. 6. Severe hyperkalemia - life threatening - will have emegent dialysis. HD nurse notified. Plan discussed with Dr. Figueroa. Plan for emergent dialysis. Dialysis nurse notified. Thank you for the consult. Job ID: [id number] [facility] CENTERJuan José
[2019-11-04 04:22] LABS: Band 3 % (5-11); Hemoglobin 11.6 g/dL (14.0-18.0); Lymphocytes 16 % (21-51); MDiff Complete? YES; Mean Corpuscular HGB CONC 32.2 g/dL (32.0-36.0); Mean Corpuscular Volume 96.4 fL (78.0-98.0); Mean Platelet Volume 7.9 fL (7.4-10.4); Monocytes 10 % (0-10); Neutrophil 71 % (42-75); Platelet Count 286 thou/uL (130-400); RBC Distribution Width 12.9 % (11.5-14.5); Red Blood Cell (RBC) Count 3.75 mill/uL (4.70-6.10); White Blood Cell (WBC) Count 8.7 thou/uL (4.8-10.8)
[2019-11-04 04:24] LABS: ALT (SGPT) Less than 7 U/L (8-55); AST (SGOT) 9 U/L (5-34); Albumin 3.6 g/dL (3.4-4.8); Alkaline Phosphatase 101 U/L (40-110); Anion Gap 15 mmol/L (10-20); BUN (Urea Nitrogen) 36 mg/dL (8.4-25.7); Bilirubin, Total 0.4 mg/dL (0.2-1.2); Calc. Creatinine Clearance 10 mL/min (70-130); Carbon Dioxide 29 mmol/L (23-31); Chloride 99 mmol/L (98-107); Estimated GFR-MDRD 8; Globulin 3.5 g/dL (2.4-3.5); Glucose 97 mg/dL (80-115); Potassium 6.3 mmol/L (3.5-5.1); Protein, Total 7.1 g/dL (5.8-8.1); Sodium 137 mmol/L (136-145)
[2019-11-04] MEDS: Pantoprazole 40 MG VIAL IVP SCH ×2 (09:11→20:51)
[2019-11-04] MEDS ORDERED: Ketamine 50 MG/ML (10ML VIAL) ONE ×2 (10:17→13:39)
[2019-11-04] MEDS ORDERED: Lidocaine 1% PF 5 ML VIAL ONE (10:43)
[2019-11-04] MEDS ORDERED: PROPOFOL 200 MG/20 ML VIAL ONE (10:43)
--- NOTE | 2019-11-04 10:55 | PRG ---
DATE OF SERVICE: 11/04/2019 SUBJECTIVE: Patient was seen and examined at bedside and overnight events noted. Patient denies any shortness of breath or chest pain or palpitation. No history of nausea or vomiting or diarrhea or fever or chills or cramps. OBJECTIVE: GENERAL: This is a well-built male, in no apparent distress. VITAL SIGNS: Temperature 98.2, heart rate 88, respiratory rate 18, and blood pressure 137/69. HEENT: Atraumatic, normocephalic. Oral mucosa is moist. NECK: Supple. CARDIOVASCULAR: S1, S2 heard. Rate and rhythm regular. RESPIRATORY: Clear to auscultation. GASTROINTESTINAL: Abdomen is soft. MUSCULOSKELETAL: No tenderness. No edema. DERMATOLOGIC: No skin rash. NEUROLOGIC: Alert and awake and oriented x3. No focal neurologic deficits. Moving all the extremities. PSYCHIATRIC: Mood and affect normal. LABORATORY DATA: Potassium 6.3, BUN is 36, and creatinine is 6.9. ASSESSMENT AND PLAN: 1. End-stage renal disease. Continue dialysis. The patient is seen during dialysis, tolerating well, had dialysis today. 2. Hyperkalemia, better with second session of dialysis today. Recheck labs in the morning. 3. Anemia with possible gastrointestinal bleed. Follow with GI. 4. Hypertension. 5. Continue on dialysis as tolerated. Job ID: [id number]
--- NOTE | 2019-11-04 11:27 | PDOC.HOSPP ---
- Subjective Encounter Date: 11/04/19 Encounter Time: 11:20 Subjective: f/u for hyperkalemia/ESRD/? hematemesis/melena. s/p HD x 2 sessions completing the second one this am. Feels tired but wants to eat. - Objective Vital Signs & Weight: Vital Signs (12 hours) Temp Pulse Ox 11/04/19 07:56 100 11/04/19 07:14 98.2 F 11/04/19 03:59 98.6 F 11/03/19 23:27 97.8 F Weight Weight 150 lb 9 oz Most Recent Monitor Data Heart Rate from ECG 80 NIBP 128/70 NIBP BP-Mean 89 Respiration from ECG 6 SpO2 100 I&O: 11/03/19 11/04/19 11/05/19 06:59 06:59 06:59 Intake Total 150 Output Total 150 Balance 0 Result Diagrams: 11/04/19 03:43 11/04/19 11:15 Additional Labs: Accuchecks 11/04/19 11/04/19 11/03/19 05:55 00:30 20:57 POC Glucose 95 108 105 Laboratory Tests 11/03/19 11/03/19 12:37 12:37 WBC 15.2 H Hgb 13.1 L Potassium 7.6 H* Creatinine 10.06 H EKG Reviewed by me: Yes (Tele - SR) Hospitalist ROS - Medication Medications: Active Medications Generic Name Dose Route Start Last Admin Trade Name Freq PRN Reason Stop Dose Admin Pantoprazole Sodium 40 mg 11/03/19 21:00 11/04/19 09:11 Protonix IVP 40 mg Q12HR SHARIF Administration - Exam General Appearance: awake alert General - other findings: smiling, responsive Eye: PERRL, anicteric sclera ENT: normocephalic atraumatic, no oropharyngeal lesions Neck: supple, symmetric, no JVD, no thyromegaly, no lymphadenopathy Heart: RRR, no gallops, no rubs, normal peripheral pulses Heart - other findings: S1, S2 Respiratory: CTAB, no wheezes, no rales, no ronchi, normal chest expansion, no tachypnea Gastrointestinal: soft, non-tender, non-distended, normal bowel sounds, no palpable masses Extremities: no cyanosis, no clubbing, no edema Skin: normal turgor Neurological: cranial nerve grossly intact, no new deficit Musculoskeletal: generalized weakness, diffuse muscle atrophy Psychiatric: oriented to person, oriented to place Hosp A/P (1) Hyperkalemia Code(s): E87.5 - HYPERKALEMIA Status: Acute Plan: Improved, continue HD with K+ removal, tele monitoring, serial K+ monitoring (2) UGIB (upper gastrointestinal bleed) Code(s): K92.2 - GASTROINTESTINAL HEMORRHAGE, UNSPECIFIED Status: Acute Plan: ? bleed vs home use of Pepto-bismol, serial H/H monitoring, continue Protonix 40mg IV BID (3) Anemia of renal disease Code(s): D63.1 - ANEMIA IN CHRONIC KIDNEY DISEASE Status: Chronic Plan: Serial H/H monitoring (4) DM2 (diabetes mellitus, type 2) Status: Chronic Qualifiers: Diabetes mellitus prison insulin use: with prison use Diabetes mellitus complication status: with kidney complications Diabetes mellitus complication detail: with chronic kidney disease Chronic kidney disease stage : on chronic dialysis Qualified Code(s): E11.22 - Type 2 diabetes mellitus with diabetic chronic kidney disease; N18.6 - End stage renal disease; Z79.4 - buttermilk drier operator (current) use of insulin; Z99.2 - Dependence on renal dialysis (5) ESRD (end stage renal disease) on dialysis Code(s): N18.6 - END STAGE RENAL DISEASE; Z99.2 - DEPENDENCE ON RENAL DIALYSIS Status: Chronic Plan: HD per Renal service - Plan plan discussed w/ family, PT/OT, social media assistant, DVT proph w/SCDs Stable currently HD per Renal service Resume Renal/ADA diet PT for mobilization Continue Protonix 40mg IV BID AM lab: BMP, CBC
[2019-11-04 11:51] LABS: Anion Gap 14 mmol/L (10-20); BUN (Urea Nitrogen) 17 mg/dL (8.4-25.7); Calc. Creatinine Clearance 15 mL/min (70-130); Calcium 8.9 mg/dL (7.8-10.44); Carbon Dioxide 30 mmol/L (23-31); Chloride 101 mmol/L (98-107); Estimated GFR-MDRD 13; Glucose 78 mg/dL (80-115); Potassium 4.7 mmol/L (3.5-5.1); Sodium 140 mmol/L (136-145)
--- NOTE | 2019-11-04 17:00 | OP ---
DATE OF PROCEDURE: 11/04/2019 PROCEDURE PERFORMED: Esophagogastroduodenoscopy with biopsy. INDICATIONS FOR PROCEDURE: Hematemesis, melena. DESCRIPTION OF PROCEDURE: After the risks and benefits of the procedure were explained to the patient's surrogate (the patient's ), including risks of bleeding, infection, perforation, reactions to anesthesia, aspiration, and/or pain, informed consent was obtained. The patient was then taken to the endoscopy suite where he was maneuvered into the left lateral decubitus position followed by sedation via ketamine and anesthesia support. Once adequate sedation was achieved, the standard gastroscope was introduced into the mouth with intubation of the esophagus, stomach, and the proximal small intestines with the findings listed below. The patient tolerated the procedure well with no immediate perioperative complications. Upon conclusion of the procedure, all equipment was removed from the patient and he was transferred to PACU in satisfactory condition. FINDINGS: Esophagus: Normal-appearing mucosa was seen in both the proximal and mid esophagus; however, circumferential erosions and ulcerations were seen extending from 34 to 37 cm past the incisors, consistent with LA grade D reflux-mediated erosive esophagitis. There was mild oozing of blood with the passage of the gastroscope seen, but no evidence of overt bleeding or visible vessels were seen in this region. The diaphragmatic pinch was seen at 40 cm while the gastroesophageal junction was well seen at 37 cm, denoting a 3 cm hiatal hernia. A small amount of salmon-colored mucosa was seen extending proximally between the gastroesophageal junction and the circumferential ulcerations, but given the prior normal biopsies taken in 12/2018, no biopsies were taken today. Otherwise, there was no evidence of mass lesions or recent bleeding. Stomach: Normal-appearing mucosa was seen in the gastric cardia, fundus, body, greater curvature, antrum, and incisura. There was no evidence of erosions, ulcerations, mass lesions, or active/recent bleeding. A small hiatal hernia was seen on gastric retroflexion. Duodenum: Normal-appearing mucosa was seen in the proximal duodenal bulb, but at the distal bulb and extending into the duodenal sweep, there were a few mucosal erosions seen without overt ulceration. They did exhibit mild increased mucosal erythema. Subsequently, these were biopsied and placed in a specimen jar for further evaluation. Otherwise, normal-appearing mucosa was seen in the second portion of the duodenum. There was no evidence of overt ulceration, mass lesions, or active/recent bleeding. IMPRESSION: 1. LA grade D erosive esophagitis in the distal esophagus, extending from 34 to 37 cm (most likely reason for recent hematemesis/melena). 2. 3 cm hiatal hernia; most likely contributing to #1. 3. A few duodenal erosions seen in the distal duodenal bulb and extending into the duodenal sweep status post biopsies. RECOMMENDATIONS: 1. Would continue to trend the patient's hemoglobin and hematocrit and transfuse as necessary to maintain the hemoglobin and hematocrit of 7/21. 2. Continue to monitor clinically for signs of active GI bleeding. 3. Would continue the patient on PPI 40 mg twice daily, but can transfer to oral formulation. 4. Would maintain strict antireflux precautions while inpatient (for example, maintaining an upright posture after he eats and encouraging sitting up in bed as much as possible throughout the day, avoiding eating meals within 2 to 3 hours of bedtime). 5. We will follow up on the biopsy results with repeat upper endoscopy dictated by the pathology report. 6. Would place the patient on a clear liquid diet and advance as tolerated. 7. Given the colonoscopy results in 2012, showing numerous large polyps including one with high-grade dysplasia, I would recommend a repeat colonoscopy as an outpatient once discharged from this hospital. Given the benign findings seen on upper endoscopy today, we will sign off. Please call with any additional questions. Job ID: [id number]
[2019-11-05 04:06] LABS: Anion Gap 13 mmol/L (10-20); BUN (Urea Nitrogen) 28 mg/dL (8.4-25.7); Calc. Creatinine Clearance 11 mL/min (70-130); Calcium 8.6 mg/dL (7.8-10.44); Carbon Dioxide 28 mmol/L (23-31); Chloride 100 mmol/L (98-107); Estimated GFR-MDRD 9; Glucose 95 mg/dL (80-115); Potassium 5.2 mmol/L (3.5-5.1); Sodium 136 mmol/L (136-145)
[2019-11-05 04:25] LABS: Band 6 % (5-11); Eosinophils 1 % (0-10); Hemoglobin 11.7 g/dL (14.0-18.0); Lymphocytes 22 % (21-51); MDiff Complete? YES; Mean Corpuscular HGB CONC 31.8 g/dL (32.0-36.0); Mean Corpuscular Hemoglobin 30.7 pg (27.0-31.0); Mean Corpuscular Volume 96.6 fL (78.0-98.0); Monocytes 10 % (0-10); Neutrophil 61 % (42-75); Platelet Count 259 thou/uL (130-400); RBC Distribution Width 12.8 % (11.5-14.5); Red Blood Cell (RBC) Count 3.81 mill/uL (4.70-6.10)
[2019-11-05] MEDS ORDERED: Non-Formulary Item 1 EACH (Insulin Detemir [Levemir] 12 UNIT) SQ SCH (10:45)
[2019-11-05] MEDS ORDERED: NIFEdipine XL 90 MG TAB PO SCH (10:45)
[2019-11-05] MEDS: Pantoprazole 40 MG VIAL IVP SCH (10:51)
[2019-11-05] MEDS: Tamsulosin HCl 0.4 MG CAP PO SCH (10:51)
--- NOTE | 2019-11-05 10:53 | PDOC.HOSPP ---
- Subjective Encounter Date: 11/05/19 Encounter Time: 10:40 Subjective: f/u for ESRD on HD, hyperkalemia and GI bleed. s/p EGD with gastritis/ esophagitis on Protonix. - Objective Vital Signs & Weight: Vital Signs (12 hours) Temp Pulse Pulse BP BP Pulse Ox 11/05/19 09:32 65 72 102/87 163/74 H 100 11/05/19 07:00 98.6 F 11/05/19 03:33 99.2 F 11/04/19 23:27 99.4 F Weight Weight 148 lb 9 oz Most Recent Monitor Data Heart Rate from ECG 67 NIBP 131/58 NIBP BP-Mean 82 Respiration from ECG 14 SpO2 100 I&O: 11/04/19 11/05/19 11/06/19 06:59 06:59 06:59 Intake Total 150 200 Output Total 150 Balance 0 200 Result Diagrams: 11/05/19 03:04 11/05/19 03:03 Additional Labs: Accuchecks 11/05/19 11/05/19 11/04/19 06:16 01:49 19:54 POC Glucose 104 92 189 H 11/04/19 11/04/19 11/04/19 18:44 13:52 12:02 POC Glucose 199 H 81 78 EKG Reviewed by me: Yes (Tele - SR) Hospitalist ROS - Medication Medications: Active Medications Generic Name Dose Route Start Last Admin Trade Name Freq PRN Reason Stop Dose Admin Hydralazine HCl 10 mg 11/03/19 18:49 11/05/19 01:55 Apresoline SLOW IVP 10 mg Q4H PRN Administration SBP > 180 and HR < 70 - Exam General Appearance: NAD, awake alert Eye: PERRL, anicteric sclera ENT: normocephalic atraumatic, no oropharyngeal lesions Neck: supple, symmetric, no JVD, no thyromegaly, no lymphadenopathy Heart: RRR, no murmur, no gallops, no rubs, normal peripheral pulses Heart - other findings: S1, S2 Respiratory: CTAB, no wheezes, no rales, no ronchi, normal chest expansion, no tachypnea Gastrointestinal: soft, non-tender, non-distended, normal bowel sounds, no palpable masses Extremities: no cyanosis, no clubbing Skin: normal turgor, no lesions Neurological: cranial nerve grossly intact, no new deficit Musculoskeletal: normal tone, generalized weakness Psychiatric: normal affect, A&O x 3 Hosp A/P (1) Hyperkalemia Code(s): E87.5 - HYPERKALEMIA Status: Acute Plan: Improved with HD, serial monitoring (2) UGIB (upper gastrointestinal bleed) Code(s): K92.2 - GASTROINTESTINAL HEMORRHAGE, UNSPECIFIED Status: Acute Plan: Likely due to gastritis/esophagitis, convert to Protonix 40mg po BID, outpt colonoscopy (3) Anemia of renal disease Code(s): D63.1 - ANEMIA IN CHRONIC KIDNEY DISEASE Status: Chronic (4) DM2 (diabetes mellitus, type 2) Status: Chronic Qualifiers: Diabetes mellitus fci insulin use: with machine long goods helper use Diabetes mellitus complication status: with kidney complications Diabetes mellitus complication detail: with chronic kidney disease Chronic kidney disease stage : on chronic dialysis Qualified Code(s): E11.22 - Type 2 diabetes mellitus with diabetic chronic kidney disease; N18.6 - End stage renal disease; Z79.4 - parts counterman (current) use of insulin; Z99.2 - Dependence on renal dialysis (5) ESRD (end stage renal disease) on dialysis Code(s): N18.6 - END STAGE RENAL DISEASE; Z99.2 - DEPENDENCE ON RENAL DIALYSIS Status: Chronic - Plan plan discussed w/ family, PT/OT, social media developer, out of bed/ambulate, DVT proph w/SCDs Stable currently HD per Renal service Resume Renal/ADA diet PT for mobilization Continue Protonix 40mg po BID AM lab: BMP Likely home in am
[2019-11-05] MEDS ORDERED: Insulin Glargine 12 UNITS in Pre-Filled Syringe 1 EACH SC SCH (11:00)
--- NOTE | 2019-11-05 12:43 | PRG ---
DATE OF SERVICE: 11/05/2019 SUBJECTIVE: Patient was seen and examined at bedside and overnight events noted. Patient denies any shortness of breath or chest pain or palpitation. No history of nausea or vomiting or diarrhea or fever or chills or cramps. OBJECTIVE: GENERAL: This is a well-built male, in no apparent distress. VITAL SIGNS: Temperature 97.5. Heart rate 80. Respiratory rate . Blood pressure 102/87. HEENT: Atraumatic, normocephalic. Oral mucosa is moist. NECK: Supple. CARDIOVASCULAR: S1, S2 heard. Rate and rhythm regular. RESPIRATORY: Clear to auscultation. GASTROINTESTINAL: Abdomen is soft. MUSCULOSKELETAL: No tenderness. No edema. DERMATOLOGIC: No skin rash. NEUROLOGIC: Alert and awake and oriented x3. No focal neurologic deficits. Moving all the extremities. PSYCHIATRIC: Mood and affect normal. LABORATORY DATA: Potassium is 5.2, BUN is 28, and creatinine 6.1. ASSESSMENT AND PLAN: 1. End-stage renal disease. Continue dialysis as tolerated on Saturday, Saturday, Saturday. 2. Hyperkalemia, better. Limit potassium. 3. Edema, controlled. 4. Hypertension. Limit potassium intake. Continue dialysis on Saturday, Saturday, and Saturday. Job ID: [id number]
[2019-11-05] MEDS: hydrALAZINE 25 MG TAB PO SCH ×3 (12:45→21:22)
[2019-11-05] MEDS ORDERED: Atorvastatin Calcium 40 MG TAB PO SCH (21:00)
[2019-11-06 03:46] LABS: Anion Gap 14 mmol/L (10-20); BUN (Urea Nitrogen) 38 mg/dL (8.4-25.7); Calc. Creatinine Clearance 9 mL/min (70-130); Carbon Dioxide 26 mmol/L (23-31); Chloride 95 mmol/L (98-107); Estimated GFR-MDRD 7; Glucose 149 mg/dL (80-115); Sodium 130 mmol/L (136-145)
[2019-11-06] MEDS: Tamsulosin HCl 0.4 MG CAP PO SCH (08:19)
[2019-11-06] MEDS: hydrALAZINE 25 MG TAB PO SCH ×2 (08:20→12:11)
[2019-11-06] MEDS ORDERED: NIFEdipine XL 90 MG TAB PO SCH (09:00)
[2019-11-06 11:06] VITALS: TEMP 97.8
--- NOTE | 2019-11-06 11:51 | PRG ---
DATE OF SERVICE: 11/06/2019 SUBJECTIVE: Patient was seen and examined at bedside and overnight events noted. Patient denies any shortness of breath or chest pain or palpitation. No history of nausea or vomiting or diarrhea or fever or chills or cramps. OBJECTIVE: GENERAL: This is a well-built male, in no apparent distress. VITAL SIGNS: Temperature 97.8. Heart rate 80. Respiratory rate 18. Blood pressure 110/56. HEENT: Atraumatic, normocephalic. Oral mucosa is moist NECK: Supple. CARDIOVASCULAR: S1, S2 heard. Rate and rhythm regular. RESPIRATORY: Clear to auscultation. GASTROINTESTINAL: Abdomen is soft. MUSCULOSKELETAL: No tenderness. No edema. DERMATOLOGIC: No skin rash. NEUROLOGIC: Alert and awake and oriented X3. No focal neurologic deficits. Moving all the extremities. PSYCHIATRIC: Mood and affect normal. LABORATORY DATA: Potassium 5.0, BUN is 38, and creatinine is 7.4. ASSESSMENT AND PLAN: 1. End-stage renal disease. Continue on dialysis as tolerated. The patient seemed to be on dialysis. Blood pressure is running a little bit low. 2. History of hypertension, blood pressure currently low. 3. Hyperkalemia, better. 4. Edema, controlled. 5. Anemia. 6. Hyponatremia. 7. Limit potassium intake. Job ID: [id number]
[2019-11-06 12:12] VITALS: BP 96/54
[2019-11-06] MEDS ORDERED: Insulin Glargine 12 UNITS in Pre-Filled Syringe 1 EACH SC SCH (21:00)
--- NOTE | 2019-11-06 21:46 | DIS ---
DATE OF ADMISSION: 11/03/2019 DATE OF DISCHARGE: 11/06/2019 DISCHARGE DIAGNOSES: 1. End-stage renal disease with hemodialysis. 2. Hyperkalemia secondarily to #1, improved and resolving. 3. Upper gastrointestinal bleed secondary to esophagitis/gastritis, stable. 4. Anemia of chronic kidney disease. 5. Diabetes mellitus type 2, insulin requiring. CONSULTATIONS: 1. Dr. Mae with Nephrology Service. 2. Dr. Ramos with GI Service. PERTINENT LABORATORY AND X-RAY FINDINGS: Potassium ranged between 5.0 to 7.6. Creatinine ranged between 4.60 to 10.06. CBC showed a white blood cell count ranging between 8.7 to 15.2, hemoglobin ranged between 11.6 to 13.1. Hepatitis B negative, 11/03/2019. EGD dated 11/04/2019, showed grade D erosive esophagitis in the distal esophagus. 3 cm hiatal hernia. Small duodenal erosions in the distal duodenal bulb. HOSPITAL COURSE: The patient initially presented with hematemesis and melena on chronic aspirin therapy. The patient underwent general evaluation including metabolic screening showing evidence of hyperkalemia with initial potassium of 7.6. The patient also with end-stage renal disease with hemodialysis, undergoing evaluation and consultation with Nephrology Service. The patient underwent urgent hemodialysis with overall correction of the hyperkalemia. The patient was evaluated by the GI Service due to suspected upper GI bleed undergoing EGD evaluation showing a grade D erosive esophagitis. The patient was continued on Protonix 40 mg b.i.d. with recommendations to continue with an outpatient. The patient received three hemodialysis sessions during the hospital course, tolerating without complication. The patient overall remained clinically stable during the hospital course, tolerating clear liquids, advancing to full liquids without difficulty. I have examined the patient at the time of discharge and discussed followup instructions. The patient verbalizes understanding and agreement ready for discharge on 11/06/2019. DISCHARGE MEDICATIONS: 1. Atorvastatin 80 mg p.o. at bedtime. 2. Hydralazine 25 mg p.o. q.i.d. 3. Levemir 12 units subcutaneously daily. 4. Lisinopril 20 mg p.o. daily. 5. Nifedipine extended release 90 mg p.o. daily. 6. Enteric-coated aspirin 81 mg p.o. daily. 7. Protonix 40 mg p.o. b.i.d. 8. Flomax 0.4 mg p.o. daily. FOLLOWUP: The patient may follow up with Dr. Mae with Nephrology Service. The patient will follow up with Dr. Carolina at the [facility] in [place], [place]. The patient may follow up with Dr. Ramos with GI Service for outpatient colonoscopy evaluation. CONDITION ON DISCHARGE: Fair. ACTIVITY: Ad-sherine. DIET: ADA heart healthy and renal. CODE STATUS: Do not attempt resuscitation. DISPOSITION: Home, 11/06/2019. TIME SPENT: Total time preparing and coordinating discharge, 32 minutes. Job ID: [id number]
[2019-11-07] MEDS ORDERED: Insulin Glargine 12 UNITS in Pre-Filled Syringe 1 EACH SC SCH (09:00)
== END 2019-11-06 14:00 | disposition home or self-care (01) | DRG 377 ==
LOC: ERS 10:54 → IMCU/EMU 14:45
PROVIDERS: ADMIT Family Medicine; ATTEND Family Medicine
PROC: 0DB98ZX Excision of Duodenum, Via Natural or Artificial Opening Endoscopic, Diagnostic (ICD-10-PCS; principal; 2019-11-04)
PROC: 5A1D70Z Performance of Urinary Filtration, Intermittent, Less than 6 Hours Per Day (ICD-10-PCS; 2019-11-04)
DX: K92.2 Gastrointestinal hemorrhage, unspecified (principal); N18.6 End stage renal disease; I12.0 Hypertensive chronic kidney disease with stage 5 chronic kidney disease or end stage renal disease; K29.61 Other gastritis with bleeding; E87.5 Hyperkalemia; K20.8 Other esophagitis; E11.22 Type 2 diabetes mellitus with diabetic chronic kidney disease; K26.9 Duodenal ulcer, unspecified as acute or chronic, without hemorrhage or perforation; E78.5 Hyperlipidemia, unspecified; D63.1 Anemia in chronic kidney disease; I25.10 Atherosclerotic heart disease of native coronary artery without angina pectoris; K44.9 Diaphragmatic hernia without obstruction or gangrene; F03.90 Unspecified dementia, unspecified severity, without behavioral disturbance, psychotic disturbance, mood disturbance, and anxiety; Z79.4 Long term (current) use of insulin; Z99.2 Dependence on renal dialysis; Z89.421 Acquired absence of other right toe(s); Z90.49 Acquired absence of other specified parts of digestive tract; Z95.5 Presence of coronary angioplasty implant and graft
CPT/HCPCS: 36415; 36416; 80048; 80053; 82553; 84484; 85007; 85025; 85027; 85610; 85730; 86706; 86850; 86900; 86901; 87340; 88305; 90935; 93005; 96361; 96374; 96375; C9113; G0257; J0360; J1815; J2001; J2704

== ENCOUNTER 2019-11-16 16:16 | Emergency (ER) | payer MEDICARE | END 2019-11-16 17:39 | disposition home or self-care (01) | LOC: ERS 16:16 | DX: T82.838A Hemorrhage due to vascular prosthetic devices, implants and grafts, initial encounter (principal); E11.22 Type 2 diabetes mellitus with diabetic chronic kidney disease; I13.2 Hypertensive heart and chronic kidney disease with heart failure and with stage 5 chronic kidney disease, or end stage renal disease; I50.9 Heart failure, unspecified; N18.6 End stage renal disease; I25.10 Atherosclerotic heart disease of native coronary artery without angina pectoris; Z79.4 Long term (current) use of insulin; Z79.899 Other long term (current) drug therapy; Z79.82 Long term (current) use of aspirin | CPT/HCPCS: 99283 ==